=== PATIENT | female | born 1960 | race African-American/Black ===

== ENCOUNTER 2018-05-17 10:26 | Observation (INO) ==
[2018-05-17] MEDS ORDERED: NITROGLYCERIN 2% OINT 1 INCH/GM PACK TOP STA (10:54)
[2018-05-17] MEDS ORDERED: MORPHINE 4 MG/1 ML VIAL IV STA (10:54)
[2018-05-17] MEDS ORDERED: ASPIRIN 325 MG TABLET PO STA (10:54)
[2018-05-17] MEDS ORDERED: ONDANSETRON 4 MG/2 ML VIAL IV STA (10:54)
[2018-05-17] MEDS ORDERED: ONDANSETRON 4 MG/2 ML VIAL ONE (10:55)
[2018-05-17] MEDS ORDERED: MORPHINE 4 MG/1 ML VIAL ONE (10:56)
[2018-05-17 11:09] LABS: Basophils # 0.1 10*3/uL (0.0-0.2); Basophils % 0.3 % (0.0-0.8); Eosinophils % 0.1 % (0.00-10.9); Hematocrit 43.6 VOL% (35.7-47.0); Hemoglobin 13.7 GM/DL (12.0-16.0); Immature Granulocytes % 0.7 %; Lymphocytes # 5.3 10*3/uL (1.4-4.0); Lymphocytes % 34.9 % (21.3-54.2); Mean Corpuscular HGB Conc 31.4 GM/DL (32-36); Mean Corpuscular Hemoglobin 28 PG (27-34); Mean Corpuscular Volume 89.5 FL (87-102); Mean Platelet Volume 11.9 FL (9.6-12.0); Monocytes # 0.6 10*3/uL (0.11-0.8); Monocytes % 4.2 % (1.7-12.7); Neutrophils % 59.8 % (38.7-73.9); Platelet Count 202 T/CUMM (130-400); Red Blood Count 4.87 MC/CUMM (3.8-5.5); Red Cell Distribution Width 16.6 % (9.3-17.3); White Blood Count 15.1 T/CUMM (4-12)
[2018-05-17 11:20] LABS: INR 1.1; PT Patient Result 11.5 SECS
[2018-05-17 11:42] LABS: Alanine Aminotransferase 27 U/L (13-56); Alkaline Phosphatase 86 U/L (45-117); Aspartate Amino Transferase 20 U/L (0-37); Bilirubin,Total < 0.39 MG/DL (0.2-1.0); Blood Urea Nitrogen 12 MG/DL (7-18); Calcium 9.1 MG/DL (8.5-10.1); Glucose 168 MG/DL (74-106); Osmolality,Calculated 280.5 MOS/KG (273-304); Potassium 3.8 MMOL/L (3.5-5.1); Sodium 139 MMOL/L (136-145); Total Protein 8.2 G/DL (6.4-8.3)
[2018-05-17] MEDS ORDERED: hydrALAZINE 20 MG/1 ML VIAL ONE (12:16)
[2018-05-17 12:36] LABS: Apearance,Urine CLEAR (Clear); Bilirubin,Urine Negative (Negative); Blood, Urine Negative (Negative); Glucose,Urine (UA) Negative (Negative); Ketones,Urine Negative (Negative); Nitrite,Urine Negative (Negative); Protein,Urine Negative; RBC,Urine <1 /HPF (0-4); Squamous Epithelial Cell,Urine Occasional /HPF (0-10); Urine Color Straw (Yellow); Urine Specific Gravity 1.005 (1.001-1.035); Urine Urobilinogen < 2.0 EU/DL (0.2-1.0); WBC,Urine 1 /HPF (0-6)
[2018-05-17] MEDS ORDERED: DEXTROSE 50% 25 GM/50 ML VIAL IV PRN (12:52)
[2018-05-17] MEDS ORDERED: ONDANSETRON 4 MG/2 ML VIAL IV PRN (12:52)
[2018-05-17] MEDS ORDERED: PROMETHAZINE 25 MG/1 ML VIAL IM PRN (12:52)
[2018-05-17] MEDS ORDERED: GLUCAGON 1 MG VIAL IM PRN (12:52)
[2018-05-17] MEDS ORDERED: NITROGLYCERIN SL 0.4 MG TABLET SL PRN (12:56)
[2018-05-17] MEDS ORDERED: ENOXAPARIN 30 MG/0.3 ML SYRINGE SUBCUT SCH (13:00)
[2018-05-17 13:22] LABS: Barbiturates Screen,Urine Negative (Negative); Benzodiazepines Screen,Urine Negative (Negative); Cannabinoid Screen,Urine Positive (Negative); Opiate Screen,Urine Positive (Negative); Phencyclidine Screen,Urine Negative (Negative)
[2018-05-17] MEDS ORDERED: guaiFENesin/DM ER 600-30 MG TABLET PO PRN (13:45)
[2018-05-17] MEDS ORDERED: ACETAMINOPHEN 325 MG TABLET PO PRN (13:45)
[2018-05-17] MEDS: AMOXICILLIN/CLAV 875 MG TABLET PO SCH ×2 (15:15→21:17)
[2018-05-17] MEDS: PANTOPRAZOLE 40 MG TABLET PO SCH (15:17)
[2018-05-17] MEDS: FLUTICASONE 50 MCG NASAL SPRAY 16 GM BOTTLE BOTH NARES SCH ×2 (15:20→21:18)
[2018-05-17] MEDS: SODIUM CHLORIDE 0.9% 1,000 ML IV SCH (15:25)
[2018-05-17] MEDS: INSULIN LISPRO 100 UNIT/ML SUBCUT SCH ×2 (15:47→21:18)
[2018-05-17] MEDS ORDERED: LOVASTATIN 20 MG TABLET PO SCH (19:00)
[2018-05-17] MEDS: predniSONE 10 MG TABLET PO SCH (21:17)
[2018-05-17] MEDS: BUDESONIDE/FORMOTEROL 160-4.5 INHALER 6 GM INH SCH (21:19)
[2018-05-18] MEDS: SODIUM CHLORIDE 0.9% 1,000 ML IV SCH (04:23)
[2018-05-18 05:24] LABS: Basophils % 0.4 % (0.0-0.8); Eosinophils % 0.1 % (0.00-10.9); Hematocrit 39.2 VOL% (35.7-47.0); Hemoglobin 12.2 GM/DL (12.0-16.0); Immature Granulocytes % 0.6 %; Immature Granulocytes Absolute 0.06 #; Lymphocytes # 2.2 10*3/uL (1.4-4.0); Lymphocytes % 23.9 % (21.3-54.2); Mean Corpuscular HGB Conc 31.1 GM/DL (32-36); Mean Corpuscular Hemoglobin 28 PG (27-34); Mean Corpuscular Volume 90.1 FL (87-102); Mean Platelet Volume 12.3 FL (9.6-12.0); Monocytes # 0.4 10*3/uL (0.11-0.8); Monocytes % 4.3 % (1.7-12.7); Neutrophils # 6.6 10*3/uL (1.4-7.4); Neutrophils % 70.7 % (38.7-73.9); Platelet Count 164 T/CUMM (130-400); Red Blood Count 4.35 MC/CUMM (3.8-5.5); White Blood Count 9.3 T/CUMM (4-12)
[2018-05-18 06:04] LABS: Bilirubin,Total 0.7 MG/DL (0.2-1.0); Calcium 8.3 MG/DL (8.5-10.1); Osmolality,Calculated 288.3 MOS/KG (273-304); Potassium 3.9 MMOL/L (3.5-5.1); Risk Ratio 3.5; Total Protein 7.1 G/DL (6.4-8.3); VLDL CHOLESTEROL 43.4 MG/DL
[2018-05-18 07:46] VITALS: BP 131/71
[2018-05-18] MEDS ORDERED: CLOPIDOGREL 75 MG TABLET PO SCH (09:00)
[2018-05-18] MEDS ORDERED: amLODIPine 5 MG TABLET PO SCH (09:00)
[2018-05-18] MEDS ORDERED: LOSARTAN 50 MG TABLET PO SCH (09:00)
[2018-05-18] MEDS ORDERED: FLUoxetine 20 MG CAPSULE PO SCH (09:00)
[2018-05-18] MEDS ORDERED: HYDROXYCHLOROQUINE 200 MG TABLET PO SCH (09:00)
[2018-05-18] MEDS ORDERED: predniSONE 20 MG TABLET PO SCH (09:00)
[2018-05-18] MEDS: predniSONE 10 MG TABLET PO SCH (09:03)
[2018-05-18] MEDS: AMOXICILLIN/CLAV 875 MG TABLET PO SCH (09:03)
[2018-05-18] MEDS: FLUTICASONE 50 MCG NASAL SPRAY 16 GM BOTTLE BOTH NARES SCH (09:04)
[2018-05-18] MEDS: BUDESONIDE/FORMOTEROL 160-4.5 INHALER 6 GM INH SCH (09:04)
[2018-05-18] MEDS: PANTOPRAZOLE 40 MG TABLET PO SCH (09:05)
[2018-05-18] MEDS: INSULIN LISPRO 100 UNIT/ML SUBCUT SCH (09:05)
== END 2018-05-18 10:18 | disposition home or self-care (01) ==
LOC: N.EDINP 10:26 → N.ED 10:26 → N.TELES 13:30
PROVIDERS: ADMIT Family Medicine; ATTEND Family Medicine

== ENCOUNTER 2019-01-17 18:35 | Inpatient (IN) ==
[2019-01-17] MEDS ORDERED: ONDANSETRON 4 MG/2 ML VIAL IV STA (19:05)
[2019-01-17] MEDS ORDERED: SODIUM CHLORIDE 0.9% 500 ML IV STA (19:05)
[2019-01-17] MEDS ORDERED: ALUM/MAG/SIMETH/LIDO VISC 1:1 30 ML BOTTLE PO STA (19:05)
[2019-01-17] MEDS ORDERED: HYDROmorphone 2 MG/1 ML VIAL IV STA (19:05)
[2019-01-17] MEDS ORDERED: PANTOPRAZOLE 40 MG VIAL IV STA (19:05)
[2019-01-17 19:48] LABS: Basophils % 0.4 % (0.0-0.8); Eosinophils # 0.1 10*3/uL (0.0-0.87); Eosinophils % 1.2 % (0.00-10.9); Hematocrit 39.6 VOL% (35.7-47.0); Hemoglobin 12.2 GM/DL (12.0-16.0); Immature Granulocytes % 0.5 %; Immature Granulocytes Absolute 0.05 #; Lymphocytes # 4.2 10*3/uL (1.4-4.0); Lymphocytes % 40.1 % (21.3-54.2); Mean Corpuscular HGB Conc 30.8 GM/DL (32-36); Mean Corpuscular Volume 90.8 FL (87-102); Mean Platelet Volume 11.3 FL (9.6-12.0); Neutrophils % 51.8 % (38.7-73.9); Platelet Count 163 T/CUMM (130-400); Red Blood Count 4.36 MC/CUMM (3.8-5.5); Red Cell Distribution Width 14.3 % (9.3-17.3); White Blood Count 10.4 T/CUMM (4-12)
[2019-01-17 20:05] LABS: Alanine Aminotransferase 18 U/L (13-56); Albumin 3.8 G/DL (3.4-5.0); Alkaline Phosphatase 86 U/L (45-117); Amylase 65 U/L (25-115); Aspartate Amino Transferase 15 U/L (0-37); Blood Urea Nitrogen 23 MG/DL (7-18); Calcium 8.5 MG/DL (8.5-10.1); Glucose 112 MG/DL (74-106); Osmolality,Calculated 287.1 MOS/KG (273-304); Total Protein 7.3 G/DL (6.4-8.3)
[2019-01-17] MEDS ORDERED: POTASSIUM CHLORIDE 20 MEQ TABLET PO STA (20:13)
[2019-01-17 21:12] LABS: Apearance,Urine CLEAR (Clear); Bacteria,Urine Occasional /HPF (Few); Bilirubin,Urine Negative (Negative); Blood, Urine Negative (Negative); Glucose,Urine (UA) >=500 mg/dL (Negative); Hyaline Casts,Urine 3 /LPF (0-3); Ketones,Urine Negative (Negative); Mucus,Urine Occasional /LPF (Occasional); Nitrite,Urine Negative (Negative); Protein,Urine Negative; Squamous Epithelial Cell,Urine Occasional /HPF (0-10); Urine Color Straw (Yellow); Urine Specific Gravity 1.007 (1.001-1.035); Urine Urobilinogen < 2.0 EU/DL (0.2-1.0); WBC,Urine 3 /HPF (0-6)
[2019-01-17] MEDS ORDERED: METOCLOPRAMIDE 10 MG/2 ML VIAL IV STA (21:53)
[2019-01-17] MEDS ORDERED: ONDANSETRON 4 MG/2 ML VIAL IV PRN (23:25)
[2019-01-17] MEDS ORDERED: GLUCAGON 1 MG VIAL IM PRN (23:28)
[2019-01-17] MEDS ORDERED: DEXTROSE 50% 25 GM/50 ML VIAL IV PRN (23:28)
[2019-01-18] MEDS: INSULIN REGULAR 100 UNIT/ML SUBCUT SCH ×5 (02:46→20:55)
[2019-01-18] MEDS: ACETAMINOPHEN 325 MG TABLET PO PRN ×2 (03:00→17:21)
[2019-01-18] MEDS: ENOXAPARIN 40 MG/0.4 ML SYRINGE SUBCUT SCH ×2 (03:00→23:16)
[2019-01-18 07:45] LABS: Basophils # 0.1 10*3/uL (0.0-0.2); Basophils % 0.6 % (0.0-0.8); Eosinophils # 0.1 10*3/uL (0.0-0.87); Eosinophils % 1.5 % (0.00-10.9); Hematocrit 38.2 VOL% (35.7-47.0); Immature Granulocytes % 0.2 %; Immature Granulocytes Absolute 0.02 #; Lymphocytes # 3.4 10*3/uL (1.4-4.0); Lymphocytes % 41.4 % (21.3-54.2); Mean Corpuscular HGB Conc 31.4 GM/DL (32-36); Mean Corpuscular Volume 91.2 FL (87-102); Mean Platelet Volume 11.9 FL (9.6-12.0); Monocytes % 5.2 % (1.7-12.7); Neutrophils % 51.1 % (38.7-73.9); Platelet Count 164 T/CUMM (130-400); Red Blood Count 4.19 MC/CUMM (3.8-5.5); Red Cell Distribution Width 14.4 % (9.3-17.3); White Blood Count 8.2 T/CUMM (4-12)
[2019-01-18 08:40] LABS: Albumin 3.6 G/DL (3.4-5.0); Calcium 8.9 MG/DL (8.5-10.1); Osmolality,Calculated 282.3 MOS/KG (273-304); Total Protein 7.6 G/DL (6.4-8.3)
[2019-01-18] MEDS: PANTOPRAZOLE 40 MG TABLET PO SCH (08:46)
[2019-01-18] MEDS: POTASSIUM CHLORIDE RIDER 10 MEQ in PREMIX 1 EACH IV PRN ×3 (10:05→13:24)
[2019-01-18] MEDS: SKIN HEALING OINT (AQUAPHOR) 50 GM TUBE TOP SCH (17:22)
[2019-01-18] MEDS ORDERED: NITROGLYCERIN SL 0.4 MG TABLET SL PRN (21:32)
[2019-01-19 06:22] LABS: Calcium 8.7 MG/DL (8.5-10.1); Osmolality,Calculated 279.3 MOS/KG (273-304)
[2019-01-19] MEDS: POTASSIUM CHLORIDE RIDER 10 MEQ in PREMIX 1 EACH IV PRN ×3 (07:30→11:02)
[2019-01-19] MEDS ORDERED: amLODIPine 5 MG TABLET PO SCH (09:00)
[2019-01-19] MEDS: LOSARTAN 50 MG TABLET PO SCH (09:21)
[2019-01-19] MEDS: FERROUS SULFATE 325 MG TABLET PO SCH (09:22)
[2019-01-19] MEDS: SIMVASTATIN 10 MG TABLET PO SCH (09:22)
[2019-01-19] MEDS: PANTOPRAZOLE 40 MG TABLET PO SCH (09:22)
[2019-01-19] MEDS: HYDROXYCHLOROQUINE 200 MG TABLET PO SCH (09:22)
[2019-01-19] MEDS: SKIN HEALING OINT (AQUAPHOR) 50 GM TUBE TOP SCH (09:26)
[2019-01-19] MEDS: CLOPIDOGREL 75 MG TABLET PO SCH (09:29)
[2019-01-19] MEDS: predniSONE 10 MG TABLET PO SCH ×2 (09:29→21:19)
[2019-01-19] MEDS: INSULIN REGULAR 100 UNIT/ML SUBCUT SCH ×3 (11:29→21:19)
[2019-01-19] MEDS ORDERED: cloNIDine 0.1 MG TABLET PO PRN (16:16)
[2019-01-19] MEDS ORDERED: IBUPROFEN 200 MG TABLET PO PRN (16:17)
[2019-01-19] MEDS: MAGNESIUM HYDROXIDE SUSP 30 ML UDCUP PO PRN (18:41)
[2019-01-20] MEDS ORDERED: MAGNESIUM HYDROXIDE SUSP 30 ML UDCUP PO SCH
[2019-01-20] MEDS: ENOXAPARIN 40 MG/0.4 ML SYRINGE SUBCUT SCH ×2 (00:55→23:57)
[2019-01-20] MEDS: HYDROXYCHLOROQUINE 200 MG TABLET PO SCH (09:22)
[2019-01-20] MEDS: PANTOPRAZOLE 40 MG TABLET PO SCH (09:22)
[2019-01-20] MEDS: CLOPIDOGREL 75 MG TABLET PO SCH (09:22)
[2019-01-20] MEDS: FERROUS SULFATE 325 MG TABLET PO SCH (09:23)
[2019-01-20] MEDS: SIMVASTATIN 10 MG TABLET PO SCH (09:23)
[2019-01-20] MEDS: LOSARTAN 50 MG TABLET PO SCH (09:23)
[2019-01-20] MEDS: predniSONE 10 MG TABLET PO SCH ×2 (09:23→20:27)
[2019-01-20] MEDS: MAGNESIUM HYDROXIDE SUSP 30 ML UDCUP PO PRN (09:24)
[2019-01-20] MEDS: SKIN HEALING OINT (AQUAPHOR) 50 GM TUBE TOP SCH (09:25)
[2019-01-20] MEDS: INSULIN REGULAR 100 UNIT/ML SUBCUT SCH ×4 (09:25→20:32)
[2019-01-21] MEDS: INSULIN REGULAR 100 UNIT/ML SUBCUT SCH ×4 (07:52→20:59)
[2019-01-21] MEDS: predniSONE 10 MG TABLET PO SCH ×2 (09:17→20:59)
[2019-01-21] MEDS: SIMVASTATIN 10 MG TABLET PO SCH (09:18)
[2019-01-21] MEDS: PANTOPRAZOLE 40 MG TABLET PO SCH (09:18)
[2019-01-21] MEDS: SKIN HEALING OINT (AQUAPHOR) 50 GM TUBE TOP SCH (09:18)
[2019-01-21] MEDS: HYDROXYCHLOROQUINE 200 MG TABLET PO SCH (09:18)
[2019-01-21] MEDS: CLOPIDOGREL 75 MG TABLET PO SCH (09:18)
[2019-01-21] MEDS: FERROUS SULFATE 325 MG TABLET PO SCH (09:18)
[2019-01-21] MEDS: LOSARTAN 50 MG TABLET PO SCH (09:18)
[2019-01-22] MEDS: ENOXAPARIN 40 MG/0.4 ML SYRINGE SUBCUT SCH ×2 (00:29→23:39)
[2019-01-22] MEDS: INSULIN REGULAR 100 UNIT/ML SUBCUT SCH ×4 (08:32→21:10)
[2019-01-22] MEDS: FERROUS SULFATE 325 MG TABLET PO SCH (09:31)
[2019-01-22] MEDS: CLOPIDOGREL 75 MG TABLET PO SCH (09:32)
[2019-01-22] MEDS: PANTOPRAZOLE 40 MG TABLET PO SCH (09:32)
[2019-01-22] MEDS: LOSARTAN 50 MG TABLET PO SCH (09:32)
[2019-01-22] MEDS: predniSONE 10 MG TABLET PO SCH ×2 (09:32→21:10)
[2019-01-22] MEDS: HYDROXYCHLOROQUINE 200 MG TABLET PO SCH (09:32)
[2019-01-22] MEDS: SIMVASTATIN 10 MG TABLET PO SCH (09:33)
[2019-01-22] MEDS: SKIN HEALING OINT (AQUAPHOR) 50 GM TUBE TOP SCH (09:33)
[2019-01-23] MEDS: INSULIN REGULAR 100 UNIT/ML SUBCUT SCH ×4 (08:00→20:24)
[2019-01-23] MEDS: PANTOPRAZOLE 40 MG TABLET PO SCH (08:44)
[2019-01-23] MEDS: FERROUS SULFATE 325 MG TABLET PO SCH (08:44)
[2019-01-23] MEDS: LOSARTAN 50 MG TABLET PO SCH (08:44)
[2019-01-23] MEDS: predniSONE 10 MG TABLET PO SCH ×2 (08:44→20:24)
[2019-01-23] MEDS: CLOPIDOGREL 75 MG TABLET PO SCH (08:44)
[2019-01-23] MEDS: SIMVASTATIN 10 MG TABLET PO SCH (08:45)
[2019-01-23] MEDS: HYDROXYCHLOROQUINE 200 MG TABLET PO SCH (08:45)
[2019-01-23] MEDS: SKIN HEALING OINT (AQUAPHOR) 50 GM TUBE TOP SCH (08:45)
[2019-01-23] MEDS: ENOXAPARIN 40 MG/0.4 ML SYRINGE SUBCUT SCH (23:01)
[2019-01-24] MEDS ORDERED: LACTULOSE 20 GM/30 ML UDCUP PO ONE (00:20)
[2019-01-24 05:21] LABS: Calcium 9.1 MG/DL (8.5-10.1); Osmolality,Calculated 290.4 MOS/KG (273-304)
[2019-01-24] MEDS: CLOPIDOGREL 75 MG TABLET PO SCH (08:19)
[2019-01-24] MEDS: FERROUS SULFATE 325 MG TABLET PO SCH (08:19)
[2019-01-24] MEDS: PANTOPRAZOLE 40 MG TABLET PO SCH (08:20)
[2019-01-24] MEDS: HYDROXYCHLOROQUINE 200 MG TABLET PO SCH (08:20)
[2019-01-24] MEDS: SIMVASTATIN 10 MG TABLET PO SCH (08:20)
[2019-01-24] MEDS: predniSONE 10 MG TABLET PO SCH ×2 (08:20→20:28)
[2019-01-24] MEDS: SKIN HEALING OINT (AQUAPHOR) 50 GM TUBE TOP SCH (08:20)
[2019-01-24] MEDS: INSULIN REGULAR 100 UNIT/ML SUBCUT SCH ×4 (08:20→22:58)
[2019-01-24] MEDS: LOSARTAN 50 MG TABLET PO SCH (08:20)
[2019-01-24] MEDS: LINACLOTIDE 145 MCG CAPSULE PO SCH (13:11)
[2019-01-24] MEDS: POLYETHYLENE GLYCOL POWDER 17 GM PACK PO SCH ×2 (13:11→20:29)
[2019-01-24] MEDS: MAGNESIUM HYDROXIDE SUSP 30 ML UDCUP PO PRN (17:18)
[2019-01-24] MEDS: ENOXAPARIN 40 MG/0.4 ML SYRINGE SUBCUT SCH (22:59)
[2019-01-25] MEDS: INSULIN REGULAR 100 UNIT/ML SUBCUT SCH ×4 (08:29→21:10)
[2019-01-25] MEDS: FERROUS SULFATE 325 MG TABLET PO SCH (08:29)
[2019-01-25] MEDS: CLOPIDOGREL 75 MG TABLET PO SCH (08:30)
[2019-01-25] MEDS: LOSARTAN 50 MG TABLET PO SCH (08:30)
[2019-01-25] MEDS: PANTOPRAZOLE 40 MG TABLET PO SCH (08:30)
[2019-01-25] MEDS: SIMVASTATIN 10 MG TABLET PO SCH (08:30)
[2019-01-25] MEDS: predniSONE 10 MG TABLET PO SCH ×2 (08:31→21:10)
[2019-01-25] MEDS: HYDROXYCHLOROQUINE 200 MG TABLET PO SCH (08:31)
[2019-01-25] MEDS: SKIN HEALING OINT (AQUAPHOR) 50 GM TUBE TOP SCH (08:32)
[2019-01-25] MEDS: LINACLOTIDE 145 MCG CAPSULE PO SCH (10:38)
[2019-01-25] MEDS: POLYETHYLENE GLYCOL POWDER 17 GM PACK PO SCH ×2 (10:39→21:12)
[2019-01-26] MEDS: ENOXAPARIN 40 MG/0.4 ML SYRINGE SUBCUT SCH ×2 (01:04→23:49)
[2019-01-26] MEDS: LINACLOTIDE 145 MCG CAPSULE PO SCH (07:56)
[2019-01-26] MEDS: INSULIN REGULAR 100 UNIT/ML SUBCUT SCH ×4 (09:16→21:46)
[2019-01-26] MEDS: HYDROXYCHLOROQUINE 200 MG TABLET PO SCH (09:17)
[2019-01-26] MEDS: LOSARTAN 50 MG TABLET PO SCH (09:17)
[2019-01-26] MEDS: CLOPIDOGREL 75 MG TABLET PO SCH (09:17)
[2019-01-26] MEDS: FERROUS SULFATE 325 MG TABLET PO SCH (09:17)
[2019-01-26] MEDS: POLYETHYLENE GLYCOL POWDER 17 GM PACK PO SCH ×2 (09:17→21:46)
[2019-01-26] MEDS: SIMVASTATIN 10 MG TABLET PO SCH (09:18)
[2019-01-26] MEDS: SKIN HEALING OINT (AQUAPHOR) 50 GM TUBE TOP SCH (09:18)
[2019-01-26] MEDS: PANTOPRAZOLE 40 MG TABLET PO SCH (09:18)
[2019-01-26] MEDS: predniSONE 10 MG TABLET PO SCH ×2 (09:18→21:46)
[2019-01-26] MEDS: ACETAMINOPHEN 325 MG TABLET PO PRN (21:53)
[2019-01-27] MEDS: INSULIN REGULAR 100 UNIT/ML SUBCUT SCH ×4 (09:13→21:31)
[2019-01-27] MEDS: LOSARTAN 50 MG TABLET PO SCH (09:13)
[2019-01-27] MEDS: HYDROXYCHLOROQUINE 200 MG TABLET PO SCH (09:14)
[2019-01-27] MEDS: FERROUS SULFATE 325 MG TABLET PO SCH (09:14)
[2019-01-27] MEDS: SIMVASTATIN 10 MG TABLET PO SCH (09:14)
[2019-01-27] MEDS: CLOPIDOGREL 75 MG TABLET PO SCH (09:14)
[2019-01-27] MEDS: predniSONE 10 MG TABLET PO SCH ×2 (09:14→21:30)
[2019-01-27] MEDS: PANTOPRAZOLE 40 MG TABLET PO SCH (09:14)
[2019-01-27] MEDS: LINACLOTIDE 145 MCG CAPSULE PO SCH (09:25)
[2019-01-27] MEDS: POLYETHYLENE GLYCOL POWDER 17 GM PACK PO SCH ×2 (09:26→21:31)
[2019-01-27] MEDS: SKIN HEALING OINT (AQUAPHOR) 50 GM TUBE TOP SCH (09:29)
[2019-01-27] MEDS: ENOXAPARIN 40 MG/0.4 ML SYRINGE SUBCUT SCH (23:50)
[2019-01-28 05:29] LABS: Calcium 9.2 MG/DL (8.5-10.1); Osmolality,Calculated 288.8 MOS/KG (273-304)
[2019-01-28] MEDS: INSULIN REGULAR 100 UNIT/ML SUBCUT SCH ×2 (08:49→12:49)
[2019-01-28] MEDS: LINACLOTIDE 145 MCG CAPSULE PO SCH (08:50)
[2019-01-28] MEDS: LOSARTAN 50 MG TABLET PO SCH (09:43)
[2019-01-28] MEDS: predniSONE 10 MG TABLET PO SCH (09:43)
[2019-01-28] MEDS: CLOPIDOGREL 75 MG TABLET PO SCH (09:43)
[2019-01-28] MEDS: SIMVASTATIN 10 MG TABLET PO SCH (09:43)
[2019-01-28] MEDS: ACETAMINOPHEN 325 MG TABLET PO PRN (09:47)
[2019-01-28] MEDS: HYDROXYCHLOROQUINE 200 MG TABLET PO SCH (09:48)
[2019-01-28] MEDS: PANTOPRAZOLE 40 MG TABLET PO SCH (09:48)
[2019-01-28] MEDS: POLYETHYLENE GLYCOL POWDER 17 GM PACK PO SCH (09:48)
[2019-01-28] MEDS: SKIN HEALING OINT (AQUAPHOR) 50 GM TUBE TOP SCH (09:48)
[2019-01-28] MEDS: FERROUS SULFATE 325 MG TABLET PO SCH (09:48)
[2019-01-28 12:18] VITALS: BP 147/85
== END 2019-01-28 12:47 | DRG 249 ==
LOC: EDBD → EDUNIT# → N.ED 18:35 → N.EDINP 18:35 → SUATTDRO 23:25 → N.3E 01-18 00:27 → SUATTDRO 01-21 15:26
PROVIDERS: ADMIT Internal Medicine Nephrology; ATTEND Internal Medicine Cardiovascular Disease

== ENCOUNTER 2019-03-06 05:22 | Inpatient (IN) ==
[2019-03-06] MEDS ORDERED: LACTATED RINGERS 1,000 ML IV ONE ×2 (06:32→08:02)
[2019-03-06] MEDS ORDERED: ONDANSETRON 4 MG/2 ML VIAL IV ONE (06:32)
[2019-03-06 07:20] LABS: Basophils # 0.1 10*3/uL (0.0-0.2); Basophils % 0.4 % (0.0-0.8); Eosinophils % 0.1 % (0.00-10.9); Hematocrit 34.8 VOL% (35.7-47.0); Hemoglobin 10.8 GM/DL (12.0-16.0); Immature Granulocytes % 1.7 %; Immature Granulocytes Absolute 0.22 #; Lymphocytes # 5.2 10*3/uL (1.4-4.0); Lymphocytes % 39.4 % (21.3-54.2); Mean Platelet Volume 10.1 FL (9.6-12.0); Monocytes % 6.2 % (1.7-12.7); Neutrophils % 52.2 % (38.7-73.9); Platelet Count 200 T/CUMM (130-400); Red Blood Count 3.74 MC/CUMM (3.8-5.5); Red Cell Distribution Width 14.6 % (9.3-17.3); White Blood Count 13.2 T/CUMM (4-12)
[2019-03-06 07:40] LABS: Alanine Aminotransferase 41 U/L (13-56); Albumin 3.2 G/DL (3.4-5.0); Alkaline Phosphatase 95 U/L (45-117); Aspartate Amino Transferase 28 U/L (0-37); Bilirubin,Total < 0.39 MG/DL (0.2-1.0); Blood Urea Nitrogen 18 MG/DL (7-18); Calcium 9.1 MG/DL (8.5-10.1); Glucose 118 MG/DL (74-106); Total Protein 6.7 G/DL (6.4-8.3)
[2019-03-06 08:12] LABS: Apearance,Urine CLEAR (Clear); Bilirubin,Urine Negative (Negative); Blood, Urine Negative (Negative); Glucose,Urine (UA) >=500 mg/dL (Negative); Ketones,Urine Negative (Negative); Nitrite,Urine Negative (Negative); Protein,Urine Negative; RBC,Urine <1 /HPF (0-4); Squamous Epithelial Cell,Urine Occasional /HPF (0-10); Urine Color Colorless (Yellow); Urine Specific Gravity 1.003 (1.001-1.035); Urine Urobilinogen < 2.0 EU/DL (0.2-1.0); WBC,Urine 1 /HPF (0-6)
[2019-03-06] MEDS ORDERED: ONDANSETRON 4 MG/2 ML VIAL IV PRN (10:14)
[2019-03-06] MEDS ORDERED: PROMETHAZINE 25 MG TABLET PO PRN (10:14)
[2019-03-06] MEDS ORDERED: NITROGLYCERIN SL 0.4 MG TABLET SL PRN (10:19)
[2019-03-06] MEDS ORDERED: DEXTROSE 10% 250 ML BAG IV PRN (10:23)
[2019-03-06] MEDS ORDERED: GLUCAGON 1 MG VIAL IM PRN (10:23)
[2019-03-06] MEDS ORDERED: DEXTROSE 5% NACL 0.45% 1,000 ML IV SCH (10:30)
[2019-03-06] MEDS ORDERED: CHLORTHALIDONE 25 MG TABLET PO SCH (10:30)
[2019-03-06] MEDS: predniSONE 5 MG TABLET PO SCH ×2 (12:24→21:53)
[2019-03-06] MEDS: FLUoxetine 20 MG CAPSULE PO SCH (12:24)
[2019-03-06] MEDS: CLOPIDOGREL 75 MG TABLET PO SCH (12:24)
[2019-03-06] MEDS: PANTOPRAZOLE 40 MG TABLET PO SCH (12:24)
[2019-03-06] MEDS: HYDROXYCHLOROQUINE 200 MG TABLET PO SCH (12:24)
[2019-03-06] MEDS: FERROUS SULFATE 325 MG TABLET PO SCH (12:24)
[2019-03-06] MEDS: SIMVASTATIN 10 MG TABLET PO SCH (12:24)
[2019-03-06] MEDS: tiZANidine 4 MG TABLET PO SCH ×2 (16:34→21:53)
[2019-03-06] MEDS: SODIUM CHLORIDE 0.9% 1,000 ML IV SCH (18:03)
[2019-03-06] MEDS: BUDESONIDE/FORMOTEROL 160-4.5 INHALER 6 GM INH SCH (21:51)
[2019-03-06] MEDS: INSULIN LISPRO 100 UNIT/ML SUBCUT SCH (21:52)
[2019-03-06] MEDS: ACETAMINOPHEN 325 MG TABLET PO PRN (21:52)
[2019-03-06] MEDS: ENOXAPARIN 30 MG/0.3 ML SYRINGE SUBCUT SCH (21:52)
[2019-03-06] MEDS: FLUTICASONE 50 MCG NASAL SPRAY 16 GM BOTTLE BOTH NARES SCH (21:53)
[2019-03-07] MEDS: INSULIN LISPRO 100 UNIT/ML SUBCUT SCH ×6 (01:49→21:44)
[2019-03-07] MEDS: SODIUM CHLORIDE 0.9% 1,000 ML IV SCH ×3 (01:53→17:51)
[2019-03-07 05:37] LABS: Basophils % 0.5 % (0.0-0.8); Hematocrit 32.7 VOL% (35.7-47.0); Immature Granulocytes % 1.7 %; Immature Granulocytes Absolute 0.11 #; Lymphocytes # 1.7 10*3/uL (1.4-4.0); Mean Corpuscular HGB Conc 30.6 GM/DL (32-36); Mean Corpuscular Volume 94.8 FL (87-102); Mean Platelet Volume 10.8 FL (9.6-12.0); Monocytes % 6.2 % (1.7-12.7); NRBC # 0.07 10*3/uL; Neutrophils % 65.6 % (38.7-73.9); Platelet Count 175 T/CUMM (130-400); Red Blood Count 3.45 MC/CUMM (3.8-5.5); Red Cell Distribution Width 14.7 % (9.3-17.3); White Blood Count 6.3 T/CUMM (4-12)
[2019-03-07 06:16] LABS: Alanine Aminotransferase 38 U/L (13-56); Albumin 2.9 G/DL (3.4-5.0); Alkaline Phosphatase 79 U/L (45-117); Aspartate Amino Transferase 23 U/L (0-37); Bilirubin,Total < 0.39 MG/DL (0.2-1.0); Blood Urea Nitrogen 13 MG/DL (7-18); Calcium 8.5 MG/DL (8.5-10.1); Glucose 176 MG/DL (74-106); HDL Cholesterol 47 MG/DL (40-60); Risk Ratio 2.68; Total Protein 6.1 G/DL (6.4-8.3); Triglycerides 239 MG/DL (2-150); VLDL CHOLESTEROL 47.8 MG/DL
[2019-03-07] MEDS: SIMVASTATIN 10 MG TABLET PO SCH (08:35)
[2019-03-07] MEDS: HYDROXYCHLOROQUINE 200 MG TABLET PO SCH (08:35)
[2019-03-07] MEDS: PANTOPRAZOLE 40 MG TABLET PO SCH ×2 (08:35→21:46)
[2019-03-07] MEDS: FLUoxetine 20 MG CAPSULE PO SCH (08:35)
[2019-03-07] MEDS: predniSONE 5 MG TABLET PO SCH ×2 (08:35→21:45)
[2019-03-07] MEDS: tiZANidine 4 MG TABLET PO SCH (08:36)
[2019-03-07] MEDS: FERROUS SULFATE 325 MG TABLET PO SCH (08:36)
[2019-03-07] MEDS: CLOPIDOGREL 75 MG TABLET PO SCH (08:36)
[2019-03-07] MEDS: BUDESONIDE/FORMOTEROL 160-4.5 INHALER 6 GM INH SCH ×2 (08:40→22:06)
[2019-03-07] MEDS: FLUTICASONE 50 MCG NASAL SPRAY 16 GM BOTTLE BOTH NARES SCH ×2 (08:40→21:49)
[2019-03-07] MEDS ORDERED: traZODone 50 MG TABLET PO ONE (21:20)
[2019-03-07] MEDS: ENOXAPARIN 30 MG/0.3 ML SYRINGE SUBCUT SCH (21:45)
[2019-03-07] MEDS: POLYETHYLENE GLYCOL POWDER 17 GM PACK PO SCH (21:46)
[2019-03-07] MEDS ORDERED: MORPHINE 4 MG/1 ML VIAL ONE (22:24)
[2019-03-07] MEDS ORDERED: diphenhydrAMINE 50 MG/1 ML VIAL ONE (22:30)
[2019-03-07] MEDS ORDERED: LORazepam 2 MG/1 ML VIAL ONE (22:34)
[2019-03-07] MEDS ORDERED: LORazepam 2 MG/1 ML VIAL IV ONE (22:39)
[2019-03-07] MEDS ORDERED: diphenhydrAMINE 50 MG/1 ML VIAL IV ONE (22:40)
[2019-03-08 00:34] LABS: Alanine Aminotransferase 41 U/L (13-56); Albumin 3.5 G/DL (3.4-5.0); Alkaline Phosphatase 92 U/L (45-117); Aspartate Amino Transferase 23 U/L (0-37); Bilirubin,Total < 0.39 MG/DL (0.2-1.0); Blood Urea Nitrogen 14 MG/DL (7-18); Calcium 8.8 MG/DL (8.5-10.1); Glucose 153 MG/DL (74-106); Osmolality,Calculated 293.6 MOS/KG (273-304); Total Protein 6.7 G/DL (6.4-8.3)
[2019-03-08] MEDS: INSULIN LISPRO 100 UNIT/ML SUBCUT SCH ×6 (01:14→21:36)
[2019-03-08] MEDS: SODIUM CHLORIDE 0.9% 1,000 ML IV SCH ×3 (01:15→18:30)
[2019-03-08 04:44] LABS: Basophils # 0.1 10*3/uL (0.0-0.2); Basophils % 0.7 % (0.0-0.8); Eosinophils % 0.1 % (0.00-10.9); Hematocrit 34.2 VOL% (35.7-47.0); Hemoglobin 10.3 GM/DL (12.0-16.0); Immature Granulocytes % 2.6 %; Immature Granulocytes Absolute 0.23 #; Lymphocytes # 2.7 10*3/uL (1.4-4.0); Lymphocytes % 30.2 % (21.3-54.2); Mean Corpuscular HGB Conc 30.1 GM/DL (32-36); Mean Corpuscular Volume 95.3 FL (87-102); Mean Platelet Volume 10.5 FL (9.6-12.0); Monocytes % 7.3 % (1.7-12.7); NRBC # 0.09 10*3/uL; Neutrophils % 59.1 % (38.7-73.9); Platelet Count 172 T/CUMM (130-400); Red Blood Count 3.59 MC/CUMM (3.8-5.5); Red Cell Distribution Width 14.6 % (9.3-17.3)
[2019-03-08 05:37] LABS: Calcium 8.6 MG/DL (8.5-10.1); Osmolality,Calculated 293.6 MOS/KG (273-304)
[2019-03-08] MEDS: MORPHINE 4 MG/1 ML VIAL IV PRN ×3 (10:23→23:51)
[2019-03-08] MEDS: POLYETHYLENE GLYCOL POWDER 17 GM PACK PO SCH ×2 (12:47→21:38)
[2019-03-08] MEDS: HYDROXYCHLOROQUINE 200 MG TABLET PO SCH (12:47)
[2019-03-08] MEDS: FLUoxetine 20 MG CAPSULE PO SCH (12:48)
[2019-03-08] MEDS: predniSONE 5 MG TABLET PO SCH ×2 (12:48→21:38)
[2019-03-08] MEDS: CLOPIDOGREL 75 MG TABLET PO SCH (12:48)
[2019-03-08] MEDS: FERROUS SULFATE 325 MG TABLET PO SCH (12:49)
[2019-03-08] MEDS: FLUTICASONE 50 MCG NASAL SPRAY 16 GM BOTTLE BOTH NARES SCH ×2 (12:49→21:39)
[2019-03-08] MEDS: BUDESONIDE/FORMOTEROL 160-4.5 INHALER 6 GM INH SCH ×2 (12:49→21:39)
[2019-03-08] MEDS: PANTOPRAZOLE 40 MG TABLET PO SCH ×2 (12:49→21:38)
[2019-03-08] MEDS: ENOXAPARIN 30 MG/0.3 ML SYRINGE SUBCUT SCH (21:38)
[2019-03-08] MEDS: SIMVASTATIN 10 MG TABLET PO SCH (21:38)
[2019-03-09] MEDS: INSULIN LISPRO 100 UNIT/ML SUBCUT SCH ×6 (00:23→23:05)
[2019-03-09] MEDS: SODIUM CHLORIDE 0.9% 1,000 ML IV SCH ×3 (02:01→22:50)
[2019-03-09 05:11] LABS: Calcium 8.5 MG/DL (8.5-10.1); Osmolality,Calculated 295.7 MOS/KG (273-304)
[2019-03-09 05:48] LABS: Basophils # 0.1 10*3/uL (0.0-0.2); Basophils % 0.6 % (0.0-0.8); Eosinophils % 0.1 % (0.00-10.9); Hemoglobin 10.5 GM/DL (12.0-16.0); Immature Granulocytes Absolute 0.18 #; Lymphocytes # 2.6 10*3/uL (1.4-4.0); Lymphocytes % 28.7 % (21.3-54.2); Mean Corpuscular HGB Conc 29.2 GM/DL (32-36); Mean Corpuscular Volume 98.6 FL (87-102); Mean Platelet Volume 10.6 FL (9.6-12.0); Monocytes % 8.3 % (1.7-12.7); Neutrophils % 60.3 % (38.7-73.9); Platelet Count 171 T/CUMM (130-400); Red Blood Count 3.65 MC/CUMM (3.8-5.5); Red Cell Distribution Width 14.8 % (9.3-17.3)
[2019-03-09] MEDS: POLYETHYLENE GLYCOL POWDER 17 GM PACK PO SCH ×2 (08:35→21:58)
[2019-03-09] MEDS: predniSONE 5 MG TABLET PO SCH ×2 (08:35→21:54)
[2019-03-09] MEDS: PANTOPRAZOLE 40 MG TABLET PO SCH ×2 (08:36→21:54)
[2019-03-09] MEDS: HYDROXYCHLOROQUINE 200 MG TABLET PO SCH (08:36)
[2019-03-09] MEDS: FERROUS SULFATE 325 MG TABLET PO SCH (08:36)
[2019-03-09] MEDS: FLUTICASONE 50 MCG NASAL SPRAY 16 GM BOTTLE BOTH NARES SCH (08:36)
[2019-03-09] MEDS: CLOPIDOGREL 75 MG TABLET PO SCH (08:36)
[2019-03-09] MEDS: BUDESONIDE/FORMOTEROL 160-4.5 INHALER 6 GM INH SCH (08:36)
[2019-03-09] MEDS: FLUoxetine 20 MG CAPSULE PO SCH (08:36)
[2019-03-09] MEDS: MORPHINE 4 MG/1 ML VIAL IV PRN ×2 (12:41→21:50)
[2019-03-09] MEDS: hydrALAZINE 20 MG/1 ML VIAL IV PRN (12:42)
[2019-03-09] MEDS: SIMVASTATIN 10 MG TABLET PO SCH (21:54)
[2019-03-09] MEDS: ENOXAPARIN 30 MG/0.3 ML SYRINGE SUBCUT SCH (21:58)
[2019-03-10] MEDS: FLUTICASONE 50 MCG NASAL SPRAY 16 GM BOTTLE BOTH NARES SCH ×3 (01:00→22:17)
[2019-03-10] MEDS: BUDESONIDE/FORMOTEROL 160-4.5 INHALER 6 GM INH SCH ×3 (01:00→22:18)
[2019-03-10] MEDS: INSULIN LISPRO 100 UNIT/ML SUBCUT SCH ×6 (03:31→22:14)
[2019-03-10] MEDS: ONDANSETRON 4 MG/2 ML VIAL IV PRN ×2 (05:56→10:35)
[2019-03-10] MEDS: MORPHINE 4 MG/1 ML VIAL IV PRN (05:57)
[2019-03-10] MEDS: LINACLOTIDE 145 MCG CAPSULE PO SCH ×2 (10:23→13:20)
[2019-03-10] MEDS: FERROUS SULFATE 325 MG TABLET PO SCH (10:34)
[2019-03-10] MEDS: predniSONE 5 MG TABLET PO SCH ×2 (10:34→21:59)
[2019-03-10] MEDS: HYDROXYCHLOROQUINE 200 MG TABLET PO SCH (10:34)
[2019-03-10] MEDS: PANTOPRAZOLE 40 MG TABLET PO SCH ×2 (10:35→21:59)
[2019-03-10] MEDS: FLUoxetine 20 MG CAPSULE PO SCH (10:35)
[2019-03-10] MEDS: CLOPIDOGREL 75 MG TABLET PO SCH (10:35)
[2019-03-10] MEDS: POLYETHYLENE GLYCOL POWDER 17 GM PACK PO SCH ×4 (10:38→21:58)
[2019-03-10] MEDS: SODIUM CHLORIDE 0.9% 1,000 ML IV SCH ×2 (13:07→22:22)
[2019-03-10] MEDS: SIMVASTATIN 10 MG TABLET PO SCH (21:59)
[2019-03-10] MEDS: ENOXAPARIN 30 MG/0.3 ML SYRINGE SUBCUT SCH (21:59)
[2019-03-11] MEDS: INSULIN LISPRO 100 UNIT/ML SUBCUT SCH ×7 (00:19→23:55)
[2019-03-11] MEDS: MORPHINE 4 MG/1 ML VIAL IV PRN ×2 (00:20→20:19)
[2019-03-11 05:13] LABS: Basophils % 0.4 % (0.0-0.8); Hematocrit 37.2 VOL% (35.7-47.0); Hemoglobin 11.4 GM/DL (12.0-16.0); Immature Granulocytes % 1.8 %; Immature Granulocytes Absolute 0.14 #; Lymphocytes # 1.6 10*3/uL (1.4-4.0); Lymphocytes % 20.3 % (21.3-54.2); Mean Corpuscular HGB Conc 30.6 GM/DL (32-36); Mean Corpuscular Volume 95.9 FL (87-102); Mean Platelet Volume 10.7 FL (9.6-12.0); Monocytes % 4.7 % (1.7-12.7); NRBC # 0.03 10*3/uL; Neutrophils % 72.8 % (38.7-73.9); Platelet Count 171 T/CUMM (130-400); Red Blood Count 3.88 MC/CUMM (3.8-5.5); Red Cell Distribution Width 14.8 % (9.3-17.3); White Blood Count 7.7 T/CUMM (4-12)
[2019-03-11 05:30] LABS: Osmolality,Calculated 296.8 MOS/KG (273-304)
[2019-03-11] MEDS: SODIUM CHLORIDE 0.9% 1,000 ML IV SCH ×3 (06:29→17:46)
[2019-03-11] MEDS: LINACLOTIDE 145 MCG CAPSULE PO SCH (09:57)
[2019-03-11] MEDS: FLUoxetine 20 MG CAPSULE PO SCH (09:57)
[2019-03-11] MEDS: predniSONE 5 MG TABLET PO SCH ×2 (09:57→20:07)
[2019-03-11] MEDS: CLOPIDOGREL 75 MG TABLET PO SCH (09:58)
[2019-03-11] MEDS: PANTOPRAZOLE 40 MG TABLET PO SCH ×2 (09:58→21:00)
[2019-03-11] MEDS: FERROUS SULFATE 325 MG TABLET PO SCH (09:58)
[2019-03-11] MEDS: HYDROXYCHLOROQUINE 200 MG TABLET PO SCH (09:58)
[2019-03-11] MEDS: POLYETHYLENE GLYCOL POWDER 17 GM PACK PO SCH ×5 (10:02→23:19)
[2019-03-11] MEDS: BUDESONIDE/FORMOTEROL 160-4.5 INHALER 6 GM INH SCH ×2 (10:05→23:58)
[2019-03-11] MEDS: FLUTICASONE 50 MCG NASAL SPRAY 16 GM BOTTLE BOTH NARES SCH ×2 (10:05→23:58)
[2019-03-11] MEDS ORDERED: LORazepam 2 MG/1 ML VIAL ONE ×2 (11:29→11:38)
[2019-03-11] MEDS ORDERED: PHENYTOIN INJ 1,000 MG in SODIUM CHLORIDE 0.9% 100 ML IV ONE (11:41)
[2019-03-11 15:54] LABS: Apearance,Urine CLEAR (Clear); Bilirubin,Urine Negative (Negative); Blood, Urine Negative (Negative); Glucose,Urine (UA) >=500 mg/dL (Negative); Hyaline Casts,Urine 1 /LPF (0-3); Ketones,Urine Negative (Negative); Nitrite,Urine Negative (Negative); Protein,Urine Negative; RBC,Urine 1 /HPF (0-4); Urine Color Yellow (Yellow); Urine Specific Gravity 1.016 (1.001-1.035); Urine Urobilinogen < 2.0 EU/DL (0.2-1.0); WBC,Urine 2 /HPF (0-6)
[2019-03-11 16:06] LABS: Barbiturates Screen,Urine Negative (Negative); Benzodiazepines Screen,Urine Negative (Negative); Cannabinoid Screen,Urine Negative (Negative); Opiate Screen,Urine Positive (Negative); Phencyclidine Screen,Urine Negative (Negative)
[2019-03-11] MEDS: PHENYTOIN 100 MG/2 ML VIAL IV SCH (20:04)
[2019-03-11] MEDS: ENOXAPARIN 30 MG/0.3 ML SYRINGE SUBCUT SCH (20:05)
[2019-03-11] MEDS: SIMVASTATIN 10 MG TABLET PO SCH (20:07)
[2019-03-12] MEDS: hydrALAZINE 20 MG/1 ML VIAL IV PRN (00:11)
[2019-03-12] MEDS: SODIUM CHLORIDE 0.9% 1,000 ML IV SCH ×3 (01:29→18:09)
[2019-03-12] MEDS: INSULIN LISPRO 100 UNIT/ML SUBCUT SCH ×5 (05:19→20:46)
[2019-03-12] MEDS: PHENYTOIN 100 MG/2 ML VIAL IV SCH ×2 (05:20→12:15)
[2019-03-12] MEDS: LINACLOTIDE 145 MCG CAPSULE PO SCH (08:49)
[2019-03-12] MEDS: HYDROXYCHLOROQUINE 200 MG TABLET PO SCH (08:51)
[2019-03-12] MEDS: CLOPIDOGREL 75 MG TABLET PO SCH (08:51)
[2019-03-12] MEDS: FERROUS SULFATE 325 MG TABLET PO SCH (08:52)
[2019-03-12] MEDS: FLUoxetine 20 MG CAPSULE PO SCH (08:52)
[2019-03-12] MEDS: PANTOPRAZOLE 40 MG TABLET PO SCH ×2 (08:52→21:01)
[2019-03-12] MEDS: predniSONE 5 MG TABLET PO SCH ×2 (08:53→21:01)
[2019-03-12] MEDS: POLYETHYLENE GLYCOL POWDER 17 GM PACK PO SCH ×4 (08:54→21:01)
[2019-03-12] MEDS: FLUTICASONE 50 MCG NASAL SPRAY 16 GM BOTTLE BOTH NARES SCH ×2 (09:05→21:01)
[2019-03-12] MEDS: BUDESONIDE/FORMOTEROL 160-4.5 INHALER 6 GM INH SCH ×2 (11:20→21:01)
[2019-03-12] MEDS: PHENYTOIN ER 100 MG CAPSULE PO SCH ×2 (16:27→21:01)
[2019-03-12] MEDS: MORPHINE 4 MG/1 ML VIAL IV PRN (18:48)
[2019-03-12] MEDS: ENOXAPARIN 40 MG/0.4 ML SYRINGE SUBCUT SCH (21:00)
[2019-03-12] MEDS: SIMVASTATIN 10 MG TABLET PO SCH (21:01)
[2019-03-12] MEDS: diphenhydrAMINE CAP 25 MG CAPSULE PO PRN (22:51)
[2019-03-13] MEDS: ACETAMINOPHEN 325 MG TABLET PO PRN (01:28)
[2019-03-13] MEDS: SODIUM CHLORIDE 0.9% 1,000 ML IV SCH ×3 (02:36→22:09)
[2019-03-13] MEDS: hydrALAZINE 20 MG/1 ML VIAL IV PRN ×2 (04:11→22:13)
[2019-03-13] MEDS: predniSONE 5 MG TABLET PO SCH ×2 (08:38→20:04)
[2019-03-13] MEDS: PHENYTOIN ER 100 MG CAPSULE PO SCH ×3 (08:38→20:03)
[2019-03-13] MEDS: HYDROXYCHLOROQUINE 200 MG TABLET PO SCH (08:38)
[2019-03-13] MEDS: FERROUS SULFATE 325 MG TABLET PO SCH (08:38)
[2019-03-13] MEDS: FLUoxetine 20 MG CAPSULE PO SCH (08:38)
[2019-03-13] MEDS: FLUTICASONE 50 MCG NASAL SPRAY 16 GM BOTTLE BOTH NARES SCH ×2 (08:39→20:03)
[2019-03-13] MEDS: BUDESONIDE/FORMOTEROL 160-4.5 INHALER 6 GM INH SCH ×2 (08:39→20:04)
[2019-03-13] MEDS: CLOPIDOGREL 75 MG TABLET PO SCH (08:39)
[2019-03-13] MEDS: POLYETHYLENE GLYCOL POWDER 17 GM PACK PO SCH ×4 (08:39→20:04)
[2019-03-13] MEDS: PANTOPRAZOLE 40 MG TABLET PO SCH ×2 (08:39→20:04)
[2019-03-13] MEDS: INSULIN LISPRO 100 UNIT/ML SUBCUT SCH ×4 (08:40→20:03)
[2019-03-13] MEDS: diphenhydrAMINE CAP 25 MG CAPSULE PO PRN (11:02)
[2019-03-13] MEDS ORDERED: LORazepam 2 MG/1 ML VIAL IV ONE (11:07)
[2019-03-13] MEDS: LINACLOTIDE 145 MCG CAPSULE PO SCH (12:12)
[2019-03-13 15:22] LABS: Apearance,Urine CLEAR (Clear); Bacteria,Urine Occasional /HPF (Few); Bilirubin,Urine Negative (Negative); Blood, Urine Negative (Negative); Glucose,Urine (UA) 50 mg/dL (Negative); Ketones,Urine Negative (Negative); Nitrite,Urine Positive (Negative); Protein,Urine Negative; RBC,Urine 1 /HPF (0-4); Squamous Epithelial Cell,Urine Occasional /HPF (0-10); Urine Color Straw (Yellow); Urine Specific Gravity 1.004 (1.001-1.035); Urine Urobilinogen < 2.0 EU/DL (0.2-1.0); WBC,Urine 1 /HPF (0-6)
[2019-03-13] MEDS: ENOXAPARIN 40 MG/0.4 ML SYRINGE SUBCUT SCH (20:04)
[2019-03-13] MEDS: SIMVASTATIN 10 MG TABLET PO SCH (20:04)
[2019-03-14] MEDS: hydrALAZINE 20 MG/1 ML VIAL IV PRN (03:26)
[2019-03-14] MEDS ORDERED: LABETALOL 20 MG/4 ML SYRINGE IV ONE (05:10)
[2019-03-14] MEDS: SODIUM CHLORIDE 0.9% 1,000 ML IV SCH (05:27)
[2019-03-14 06:12] LABS: Basophils # 0.1 10*3/uL (0.0-0.2); Basophils % 0.5 % (0.0-0.8); Hematocrit 33.8 VOL% (35.7-47.0); Hemoglobin 10.4 GM/DL (12.0-16.0); Immature Granulocytes % 1.4 %; Immature Granulocytes Absolute 0.15 #; Lymphocytes # 3.9 10*3/uL (1.4-4.0); Lymphocytes % 35.3 % (21.3-54.2); Mean Corpuscular HGB Conc 30.8 GM/DL (32-36); Mean Corpuscular Volume 94.7 FL (87-102); Mean Platelet Volume 10.7 FL (9.6-12.0); Monocytes % 5.8 % (1.7-12.7); NRBC # 0.04 10*3/uL; Platelet Count 195 T/CUMM (130-400); Red Blood Count 3.57 MC/CUMM (3.8-5.5); Red Cell Distribution Width 15.6 % (9.3-17.3); White Blood Count 11.1 T/CUMM (4-12)
[2019-03-14 06:41] LABS: Calcium 8.5 MG/DL (8.5-10.1); Osmolality,Calculated 285.8 MOS/KG (273-304)
[2019-03-14] MEDS: CLOPIDOGREL 75 MG TABLET PO SCH (08:36)
[2019-03-14] MEDS: predniSONE 5 MG TABLET PO SCH ×2 (08:36→21:09)
[2019-03-14] MEDS: FLUoxetine 20 MG CAPSULE PO SCH (08:37)
[2019-03-14] MEDS: FERROUS SULFATE 325 MG TABLET PO SCH (08:37)
[2019-03-14] MEDS: PHENYTOIN ER 100 MG CAPSULE PO SCH ×3 (08:37→21:09)
[2019-03-14] MEDS: FLUTICASONE 50 MCG NASAL SPRAY 16 GM BOTTLE BOTH NARES SCH ×2 (08:38→21:11)
[2019-03-14] MEDS: HYDROXYCHLOROQUINE 200 MG TABLET PO SCH (08:38)
[2019-03-14] MEDS: PANTOPRAZOLE 40 MG TABLET PO SCH ×2 (08:41→21:09)
[2019-03-14] MEDS: BUDESONIDE/FORMOTEROL 160-4.5 INHALER 6 GM INH SCH ×2 (09:02→21:11)
[2019-03-14] MEDS: LINACLOTIDE 145 MCG CAPSULE PO SCH (09:02)
[2019-03-14] MEDS: POLYETHYLENE GLYCOL POWDER 17 GM PACK PO SCH ×4 (09:02→21:09)
[2019-03-14] MEDS: INSULIN LISPRO 100 UNIT/ML SUBCUT SCH ×4 (09:02→21:09)
[2019-03-14] MEDS ORDERED: MAGNESIUM SULF RIDER 2 GM in PREMIX 1 EACH IV ONE (09:12)
[2019-03-14] MEDS ORDERED: MAGNESIUM SULF RIDER 50 ML IV ONE (09:17)
[2019-03-14 12:19] LABS: Alanine Aminotransferase 22 U/L (13-56); Albumin 2.7 G/DL (3.4-5.0); Alkaline Phosphatase 72 U/L (45-117); Aspartate Amino Transferase 23 U/L (0-37); Bilirubin,Direct < 0.100 MG/DL (0.0-0.20); Bilirubin,Indirect 0.3 MG/DL (0.0-1.0); Bilirubin,Total < 0.39 MG/DL (0.2-1.0)
[2019-03-14] MEDS: SIMVASTATIN 10 MG TABLET PO SCH (21:09)
[2019-03-14] MEDS: ENOXAPARIN 40 MG/0.4 ML SYRINGE SUBCUT SCH (21:12)
[2019-03-14] MEDS ORDERED: diphenhydrAMINE CAP 25 MG CAPSULE PO PRN (22:16)
[2019-03-15 06:08] LABS: Basophils % 0.5 % (0.0-0.8); Eosinophils % 0.1 % (0.00-10.9); Hematocrit 33.6 VOL% (35.7-47.0); Hemoglobin 10.4 GM/DL (12.0-16.0); Immature Granulocytes % 1.3 %; Immature Granulocytes Absolute 0.11 #; Lymphocytes # 2.6 10*3/uL (1.4-4.0); Lymphocytes % 30.4 % (21.3-54.2); Mean Corpuscular Volume 95.7 FL (87-102); Mean Platelet Volume 10.7 FL (9.6-12.0); NRBC # 0.05 10*3/uL; Neutrophils % 61.7 % (38.7-73.9); Platelet Count 184 T/CUMM (130-400); Red Blood Count 3.51 MC/CUMM (3.8-5.5); Red Cell Distribution Width 15.5 % (9.3-17.3); White Blood Count 8.6 T/CUMM (4-12)
[2019-03-15 06:35] LABS: Alanine Aminotransferase 29 U/L (13-56); Albumin 2.9 G/DL (3.4-5.0); Alkaline Phosphatase 105 U/L (45-117); Aspartate Amino Transferase 27 U/L (0-37); Bilirubin,Total < 0.39 MG/DL (0.2-1.0); Blood Urea Nitrogen 10 MG/DL (7-18); Calcium 8.4 MG/DL (8.5-10.1); Glucose 290 MG/DL (74-106); Osmolality,Calculated 292.1 MOS/KG (273-304); Total Protein 6.6 G/DL (6.4-8.3)
[2019-03-15] MEDS: INSULIN LISPRO 100 UNIT/ML SUBCUT SCH ×3 (09:02→15:55)
[2019-03-15] MEDS: HYDROXYCHLOROQUINE 200 MG TABLET PO SCH (09:03)
[2019-03-15] MEDS: FLUoxetine 20 MG CAPSULE PO SCH (09:03)
[2019-03-15] MEDS: PANTOPRAZOLE 40 MG TABLET PO SCH (09:03)
[2019-03-15] MEDS: LINACLOTIDE 145 MCG CAPSULE PO SCH (09:03)
[2019-03-15] MEDS: predniSONE 5 MG TABLET PO SCH (09:04)
[2019-03-15] MEDS: PHENYTOIN ER 100 MG CAPSULE PO SCH ×2 (09:04→15:55)
[2019-03-15] MEDS: CLOPIDOGREL 75 MG TABLET PO SCH (09:04)
[2019-03-15] MEDS: POLYETHYLENE GLYCOL POWDER 17 GM PACK PO SCH ×2 (09:04→12:23)
[2019-03-15] MEDS: FERROUS SULFATE 325 MG TABLET PO SCH (09:04)
[2019-03-15] MEDS: FLUTICASONE 50 MCG NASAL SPRAY 16 GM BOTTLE BOTH NARES SCH (09:17)
[2019-03-15] MEDS: BUDESONIDE/FORMOTEROL 160-4.5 INHALER 6 GM INH SCH (11:25)
[2019-03-15 15:51] VITALS: BP 160/72
== END 2019-03-15 16:40 | disposition home or self-care (01) | DRG 249 ==
LOC: EDBD → EDUNIT# → N.ED 05:22 → SUATTDRO 10:14 → N.EDINP 10:14 → N.5E 11:21 → N.ICU 03-11 11:52 → N.2E 03-12 13:13 → N.ICU 03-13 11:19 → N.5E 03-14 11:22
PROVIDERS: ADMIT Internal Medicine; ATTEND Internal Medicine

== ENCOUNTER 2019-03-17 08:09 | Inpatient (IN) ==
[2019-03-17] MEDS ORDERED: NITROGLYCERIN 2% OINT 1 INCH/GM PACK TOP STA (09:12)
[2019-03-17] MEDS ORDERED: ASPIRIN 325 MG TABLET PO STA (09:12)
[2019-03-17] MEDS ORDERED: ONDANSETRON 4 MG/2 ML VIAL IV STA (09:12)
[2019-03-17] MEDS ORDERED: MORPHINE 4 MG/1 ML VIAL IV STA (09:12)
[2019-03-17] MEDS ORDERED: NITROGLYCERIN SL 0.4 MG TABLET SL PRN (09:12)
[2019-03-17 09:25] LABS: Basophils % 0.4 % (0.0-0.8); Hematocrit 38.6 VOL% (35.7-47.0); Hemoglobin 12.2 GM/DL (12.0-16.0); Immature Granulocytes % 0.8 %; Immature Granulocytes Absolute 0.07 #; Lymphocytes # 1.2 10*3/uL (1.4-4.0); Mean Corpuscular HGB Conc 31.6 GM/DL (32-36); Mean Corpuscular Volume 93.2 FL (87-102); Mean Platelet Volume 11.2 FL (9.6-12.0); Monocytes % 4.6 % (1.7-12.7); NRBC # 0.03 10*3/uL; Neutrophils % 80.2 % (38.7-73.9); Platelet Count 277 T/CUMM (130-400); Red Blood Count 4.14 MC/CUMM (3.8-5.5); Red Cell Distribution Width 15.3 % (9.3-17.3); White Blood Count 8.6 T/CUMM (4-12)
[2019-03-17 09:35] LABS: Calcium 9.5 MG/DL (8.5-10.1); Osmolality,Calculated 293.3 MOS/KG (273-304)
[2019-03-17] MEDS ORDERED: SODIUM CHLORIDE 0.9% 500 ML IV STA (09:44)
[2019-03-17 11:03] LABS: Apearance,Urine CLEAR (Clear); Bilirubin,Urine Negative (Negative); Blood, Urine Small mg/dL (Negative); Glucose,Urine (UA) >=500 mg/dL (Negative); Ketones,Urine 20 mg/dL (Negative); Nitrite,Urine Negative (Negative); Protein,Urine 100 MG/DL; RBC,Urine <1 /HPF (0-4); Urine Color Yellow (Yellow); Urine Urobilinogen < 2.0 EU/DL (0.2-1.0); WBC,Urine 2 /HPF (0-6)
[2019-03-17 11:08] LABS: Barbiturates Screen,Urine Negative (Negative); Benzodiazepines Screen,Urine Negative (Negative); Cannabinoid Screen,Urine Negative (Negative); Opiate Screen,Urine Negative (Negative); Phencyclidine Screen,Urine Negative (Negative)
[2019-03-17] MEDS ORDERED: SODIUM CHLORIDE 0.9% 1,000 ML IV STA (12:00)
[2019-03-17] MEDS ORDERED: ACETAMINOPHEN 325 MG TABLET PO PRN (12:26)
[2019-03-17] MEDS ORDERED: GLUCAGON 1 MG VIAL IM PRN (12:26)
[2019-03-17] MEDS ORDERED: DEXTROSE 10% 250 ML BAG IV PRN (12:26)
[2019-03-17 16:21] LABS: Calcium 7.8 MG/DL (8.5-10.1); Osmolality,Calculated 283.3 MOS/KG (273-304)
[2019-03-17] MEDS: INSULIN REGULAR 100 UNIT/ML SUBCUT SCH ×2 (17:24→20:44)
[2019-03-17] MEDS: SODIUM CHLORIDE 0.9% 1,000 ML IV SCH (17:25)
[2019-03-17] MEDS: FLUTICASONE 50 MCG NASAL SPRAY 16 GM BOTTLE BOTH NARES SCH (20:43)
[2019-03-17] MEDS: BUDESONIDE/FORMOTEROL 160-4.5 INHALER 6 GM INH SCH (20:43)
[2019-03-17] MEDS: ENOXAPARIN 40 MG/0.4 ML SYRINGE SUBCUT SCH (20:44)
[2019-03-17] MEDS: DICLOFENAC 1% GEL 100 GM TUBE TOP SCH (20:44)
[2019-03-17] MEDS: PHENYTOIN ER 100 MG CAPSULE PO SCH (20:44)
[2019-03-17] MEDS: cephALEXin 500 MG CAPSULE PO SCH (20:44)
[2019-03-17] MEDS: HydrOXYzine PAMOATE 50 MG CAPSULE PO PRN (20:44)
[2019-03-17] MEDS: predniSONE 10 MG TABLET PO SCH (20:45)
[2019-03-17] MEDS: HYDROXYCHLOROQUINE 200 MG TABLET PO SCH (20:45)
[2019-03-18] MEDS: SODIUM CHLORIDE 0.9% 1,000 ML IV SCH ×3 (01:37→18:11)
[2019-03-18 05:59] LABS: Basophils % 0.2 % (0.0-0.8); Eosinophils % 0.5 % (0.00-10.9); Hematocrit 29.9 VOL% (35.7-47.0); Hemoglobin 9.2 GM/DL (12.0-16.0); Immature Granulocytes % 0.7 %; Immature Granulocytes Absolute 0.03 #; Lymphocytes # 1.6 10*3/uL (1.4-4.0); Lymphocytes % 37.1 % (21.3-54.2); Mean Corpuscular HGB Conc 30.8 GM/DL (32-36); Mean Corpuscular Volume 95.2 FL (87-102); Mean Platelet Volume 10.7 FL (9.6-12.0); Monocytes % 10.7 % (1.7-12.7); Neutrophils % 50.8 % (38.7-73.9); Platelet Count 191 T/CUMM (130-400); Red Blood Count 3.14 MC/CUMM (3.8-5.5); Red Cell Distribution Width 15.6 % (9.3-17.3); White Blood Count 4.4 T/CUMM (4-12)
[2019-03-18] MEDS ORDERED: PANTOPRAZOLE 40 MG TABLET PO SCH (06:00)
[2019-03-18 06:23] LABS: Albumin 2.4 G/DL (3.4-5.0); Bilirubin,Total 0.5 MG/DL (0.2-1.0); Calcium 7.8 MG/DL (8.5-10.1); Osmolality,Calculated 290.6 MOS/KG (273-304); Total Protein 5.8 G/DL (6.4-8.3)
[2019-03-18] MEDS ORDERED: POLYETHYLENE GLYCOL POWDER 17 GM PACK PO PRN (09:20)
[2019-03-18] MEDS: cephALEXin 500 MG CAPSULE PO SCH ×2 (09:27→21:52)
[2019-03-18] MEDS: HYDROXYCHLOROQUINE 200 MG TABLET PO SCH ×2 (09:27→21:53)
[2019-03-18] MEDS: PHENYTOIN ER 100 MG CAPSULE PO SCH ×3 (09:28→21:53)
[2019-03-18] MEDS: FERROUS SULFATE 325 MG TABLET PO SCH (09:28)
[2019-03-18] MEDS: SIMVASTATIN 10 MG TABLET PO SCH (09:29)
[2019-03-18] MEDS: predniSONE 10 MG TABLET PO SCH ×2 (09:29→21:52)
[2019-03-18] MEDS: LINACLOTIDE 145 MCG CAPSULE PO SCH (09:29)
[2019-03-18] MEDS: FLUTICASONE 50 MCG NASAL SPRAY 16 GM BOTTLE BOTH NARES SCH ×2 (09:29→21:54)
[2019-03-18] MEDS: BUDESONIDE/FORMOTEROL 160-4.5 INHALER 6 GM INH SCH ×2 (09:29→18:12)
[2019-03-18] MEDS: CLOPIDOGREL 75 MG TABLET PO SCH (09:29)
[2019-03-18] MEDS: DICLOFENAC 1% GEL 100 GM TUBE TOP SCH ×2 (09:30→21:54)
[2019-03-18] MEDS: FLUoxetine 20 MG CAPSULE PO SCH (09:42)
[2019-03-18] MEDS: LOSARTAN 50 MG TABLET PO SCH (10:43)
[2019-03-18] MEDS: INSULIN REGULAR 100 UNIT/ML SUBCUT SCH ×4 (11:01→23:11)
[2019-03-18] MEDS: POTASSIUM CHLORIDE RIDER 10 MEQ in PREMIX 1 EACH IV PRN ×2 (13:09→14:05)
[2019-03-18] MEDS: HydrOXYzine PAMOATE 50 MG CAPSULE PO PRN (15:37)
[2019-03-18] MEDS: VANCOMYCIN 50 MG/ML 60 ML/BOTTLE PO SCH ×2 (16:28→21:54)
[2019-03-18] MEDS ORDERED: amLODIPine 5 MG TABLET PO SCH (21:00)
[2019-03-18] MEDS: ENOXAPARIN 40 MG/0.4 ML SYRINGE SUBCUT SCH (21:51)
[2019-03-18] MEDS: PANTOPRAZOLE 40 MG TABLET PO SCH (21:53)
[2019-03-19] MEDS: SODIUM CHLORIDE 0.9% 1,000 ML IV SCH ×3 (03:21→23:48)
[2019-03-19] MEDS: VANCOMYCIN 50 MG/ML 60 ML/BOTTLE PO SCH ×4 (03:59→20:25)
[2019-03-19 05:02] LABS: Basophils % 0.4 % (0.0-0.8); Hematocrit 29.1 VOL% (35.7-47.0); Hemoglobin 8.8 GM/DL (12.0-16.0); Immature Granulocytes % 0.6 %; Immature Granulocytes Absolute 0.03 #; Lymphocytes # 1.6 10*3/uL (1.4-4.0); Lymphocytes % 33.8 % (21.3-54.2); Mean Corpuscular HGB Conc 30.2 GM/DL (32-36); Mean Platelet Volume 10.8 FL (9.6-12.0); NRBC # 0.02 10*3/uL; Neutrophils % 59.2 % (38.7-73.9); Platelet Count 196 T/CUMM (130-400); Red Cell Distribution Width 15.1 % (9.3-17.3); White Blood Count 4.7 T/CUMM (4-12)
[2019-03-19 05:27] LABS: Calcium 7.8 MG/DL (8.5-10.1); Osmolality,Calculated 290.7 MOS/KG (273-304)
[2019-03-19] MEDS: INSULIN REGULAR 100 UNIT/ML SUBCUT SCH ×4 (07:26→21:56)
[2019-03-19] MEDS: LORazepam 2 MG/1 ML VIAL IV PRN ×2 (07:47→08:12)
[2019-03-19] MEDS ORDERED: ASPIRIN CHEW 81 MG TABLET PO ONE (08:20)
[2019-03-19] MEDS: SIMVASTATIN 10 MG TABLET PO SCH (09:57)
[2019-03-19] MEDS: LINACLOTIDE 145 MCG CAPSULE PO SCH (09:57)
[2019-03-19] MEDS: PANTOPRAZOLE 40 MG TABLET PO SCH ×2 (09:58→20:24)
[2019-03-19] MEDS: predniSONE 10 MG TABLET PO SCH ×2 (09:58→20:24)
[2019-03-19] MEDS: FERROUS SULFATE 325 MG TABLET PO SCH (09:58)
[2019-03-19] MEDS: HYDROXYCHLOROQUINE 200 MG TABLET PO SCH ×2 (09:58→20:24)
[2019-03-19] MEDS: CLOPIDOGREL 75 MG TABLET PO SCH (09:58)
[2019-03-19] MEDS: FLUoxetine 20 MG CAPSULE PO SCH (09:58)
[2019-03-19] MEDS: LOSARTAN 50 MG TABLET PO SCH (09:58)
[2019-03-19] MEDS: PHENYTOIN ER 100 MG CAPSULE PO SCH ×3 (09:58→20:24)
[2019-03-19] MEDS: FLUTICASONE 50 MCG NASAL SPRAY 16 GM BOTTLE BOTH NARES SCH ×2 (10:03→20:25)
[2019-03-19] MEDS: BUDESONIDE/FORMOTEROL 160-4.5 INHALER 6 GM INH SCH ×2 (10:05→18:00)
[2019-03-19] MEDS: DICLOFENAC 1% GEL 100 GM TUBE TOP SCH ×2 (10:06→20:25)
[2019-03-19] MEDS: ENOXAPARIN 40 MG/0.4 ML SYRINGE SUBCUT SCH (20:24)
[2019-03-19] MEDS ORDERED: ZALEPLON 5 MG CAPSULE PO ONE (21:08)
[2019-03-20] MEDS: VANCOMYCIN 50 MG/ML 60 ML/BOTTLE PO SCH ×3 (02:54→15:46)
[2019-03-20] MEDS ORDERED: hydrALAZINE 20 MG/1 ML VIAL IV ONE (05:49)
[2019-03-20 06:15] LABS: Basophils % 0.3 % (0.0-0.8); Eosinophils % 0.3 % (0.00-10.9); Hematocrit 29.4 VOL% (35.7-47.0); Hemoglobin 9.1 GM/DL (12.0-16.0); Immature Granulocytes % 0.5 %; Immature Granulocytes Absolute 0.03 #; Lymphocytes # 2.5 10*3/uL (1.4-4.0); Lymphocytes % 39.6 % (21.3-54.2); Mean Corpuscular Volume 96.1 FL (87-102); Mean Platelet Volume 10.5 FL (9.6-12.0); Monocytes % 6.3 % (1.7-12.7); Platelet Count 215 T/CUMM (130-400); Red Blood Count 3.06 MC/CUMM (3.8-5.5); Red Cell Distribution Width 15.3 % (9.3-17.3); White Blood Count 6.3 T/CUMM (4-12)
[2019-03-20 06:38] LABS: Calcium 7.8 MG/DL (8.5-10.1); Osmolality,Calculated 286.7 MOS/KG (273-304)
[2019-03-20] MEDS: INSULIN REGULAR 100 UNIT/ML SUBCUT SCH ×2 (08:33→12:11)
[2019-03-20] MEDS: LOSARTAN 50 MG TABLET PO SCH (08:34)
[2019-03-20] MEDS: predniSONE 10 MG TABLET PO SCH (08:34)
[2019-03-20] MEDS: FLUoxetine 20 MG CAPSULE PO SCH (08:34)
[2019-03-20] MEDS: CLOPIDOGREL 75 MG TABLET PO SCH (08:34)
[2019-03-20] MEDS: PANTOPRAZOLE 40 MG TABLET PO SCH (08:34)
[2019-03-20] MEDS: BUDESONIDE/FORMOTEROL 160-4.5 INHALER 6 GM INH SCH (08:35)
[2019-03-20] MEDS: FLUTICASONE 50 MCG NASAL SPRAY 16 GM BOTTLE BOTH NARES SCH (08:35)
[2019-03-20] MEDS: LINACLOTIDE 145 MCG CAPSULE PO SCH (08:35)
[2019-03-20] MEDS: HYDROXYCHLOROQUINE 200 MG TABLET PO SCH (08:35)
[2019-03-20] MEDS: FERROUS SULFATE 325 MG TABLET PO SCH (08:35)
[2019-03-20] MEDS: SIMVASTATIN 10 MG TABLET PO SCH (08:35)
[2019-03-20] MEDS: DICLOFENAC 1% GEL 100 GM TUBE TOP SCH (08:35)
[2019-03-20] MEDS: PHENYTOIN ER 100 MG CAPSULE PO SCH ×2 (08:35→15:45)
[2019-03-20] MEDS ORDERED: METOPROLOL TARTRATE 25 MG TABLET PO SCH (10:30)
[2019-03-20 12:01] VITALS: BP 183/79
== END 2019-03-20 16:23 | disposition home health service (06) | DRG 248 ==
LOC: N.EDINP 08:09 → N.ED 08:09 → SUATTDRO 12:26 → N.2E 13:26
PROVIDERS: ADMIT Internal Medicine; ATTEND Family Medicine

== ENCOUNTER 2019-11-10 21:13 | Inpatient (IN) ==
[2019-11-10 21:32] LABS: Basophils # 0.1 10*3/uL (0.0-0.2); Basophils % 0.8 % (0.0-0.8); Eosinophils # 0.2 10*3/uL (0.0-0.87); Eosinophils % 2.4 % (0.00-10.9); Hematocrit 40.4 VOL% (35.7-47.0); Hemoglobin 12.6 GM/DL (12.0-16.0); Immature Granulocytes % 0.2 %; Immature Granulocytes Absolute 0.02 #; Lymphocytes # 3.8 10*3/uL (1.4-4.0); Lymphocytes % 42.2 % (21.3-54.2); Mean Corpuscular HGB Conc 31.2 GM/DL (32-36); Mean Corpuscular Volume 91.6 FL (87-102); Neutrophils % 49.4 % (38.7-73.9); Platelet Count 204 T/CUMM (130-400); Red Blood Count 4.41 MC/CUMM (3.8-5.5); Red Cell Distribution Width 12.9 % (9.3-17.3)
[2019-11-10 21:45] LABS: INR 1.2; PT Patient Result 12.7 SECS (9.8-11.9); Partial Thromboplastin Time 28.5 SECS (23.9-33.8)
[2019-11-10] MEDS ORDERED: hydrALAZINE 20 MG/1 ML VIAL IV STA (21:45)
[2019-11-10 21:48] LABS: INR 1.2; PT Patient Result 12.6 SECS (9.8-11.9); Partial Thromboplastin Time 28.5 SECS (23.9-33.8)
[2019-11-10] MEDS ORDERED: LORazepam 2 MG/1 ML VIAL ONE (22:07)
[2019-11-10] MEDS ORDERED: LORazepam 2 MG/1 ML VIAL IV STA (22:08)
[2019-11-10 22:10] LABS: Apearance,Urine CLEAR (Clear); Bacteria,Urine Occasional /HPF (Few); Bilirubin,Urine Negative (Negative); Blood, Urine Small mg/dL (Negative); Glucose,Urine (UA) Negative (Negative); Ketones,Urine Negative (Negative); Nitrite,Urine Negative (Negative); Protein,Urine 100 MG/DL; RBC,Urine 3 /HPF (0-4); Urine Color Straw (Yellow); Urine Specific Gravity 1.006 (1.001-1.035); Urine Urobilinogen < 2.0 EU/DL (0.2-1.0); WBC,Urine 1 /HPF (0-6)
[2019-11-10] MEDS ORDERED: levETIRAcetam 500 MG/5 ML VIAL IV ONE ×2 (22:17→22:21)
[2019-11-10 22:26] LABS: Barbiturates Screen,Urine Negative (Negative); Benzodiazepines Screen,Urine Negative (Negative); Cannabinoid Screen,Urine Positive (Negative); Opiate Screen,Urine Negative (Negative); Phencyclidine Screen,Urine Negative (Negative)
[2019-11-10 22:29] LABS: Alanine Aminotransferase 60 U/L (13-56); Albumin 3.2 G/DL (3.4-5.0); Alkaline Phosphatase 194 U/L (45-117); Aspartate Amino Transferase 44 U/L (0-37); Bilirubin,Total < 0.39 MG/DL (0.2-1.0); Blood Urea Nitrogen 11 MG/DL (7-18); Calcium 8.8 MG/DL (8.5-10.1); Estimated Glom Filtration Rate 80 ML/MIN; Glucose 142 MG/DL (74-106); Osmolality,Calculated 277.5 MOS/KG (273-304)
[2019-11-10] MEDS ORDERED: POTASSIUM CHLORIDE RIDER 20 MEQ in PREMIX 1 EACH IV STA ×2 (22:32→22:35)
[2019-11-11] MEDS ORDERED: GLUCAGON 1 MG VIAL IM PRN (02:35)
[2019-11-11] MEDS ORDERED: MAGNESIUM SULF RIDER 2 GM in PREMIX 1 EACH IV PRN (02:35)
[2019-11-11] MEDS ORDERED: ALBUTEROL 2.5 MG/3 ML NEB RESP TX PRN (02:35)
[2019-11-11] MEDS ORDERED: POLYETHYLENE GLYCOL POWDER 17 GM PACK PO PRN (02:35)
[2019-11-11] MEDS ORDERED: DEXTROSE 10% 250 ML BAG IV PRN (02:35)
[2019-11-11] MEDS ORDERED: MAGNESIUM SULF RIDER 4 GM in PREMIX 1 EACH IV PRN (02:35)
[2019-11-11] MEDS ORDERED: PNEUMOCOCCAL VACCINE (23 VALENT) 0.5 ML VIAL IM ONE (03:32)
[2019-11-11] MEDS: PANTOPRAZOLE 40 MG TABLET PO SCH (06:04)
[2019-11-11] MEDS: SODIUM CHLORIDE 0.9% 1,000 ML IV SCH ×2 (06:07→23:14)
[2019-11-11 06:12] LABS: Basophils # 0.1 10*3/uL (0.0-0.2); Basophils % 0.7 % (0.0-0.8); Eosinophils # 0.1 10*3/uL (0.0-0.87); Eosinophils % 1.3 % (0.00-10.9); Hematocrit 37.3 VOL% (35.7-47.0); Hemoglobin 11.4 GM/DL (12.0-16.0); Immature Granulocytes % 0.3 %; Immature Granulocytes Absolute 0.03 #; Lymphocytes # 2.8 10*3/uL (1.4-4.0); Lymphocytes % 32.1 % (21.3-54.2); Mean Corpuscular HGB Conc 30.6 GM/DL (32-36); Mean Platelet Volume 11.5 FL (9.6-12.0); Monocytes % 5.7 % (1.7-12.7); Neutrophils % 59.9 % (38.7-73.9); Platelet Count 207 T/CUMM (130-400); Red Blood Count 4.01 MC/CUMM (3.8-5.5); Red Cell Distribution Width 13.2 % (9.3-17.3); White Blood Count 8.7 T/CUMM (4-12)
[2019-11-11] MEDS: INSULIN LISPRO 100 UNIT/ML SUBCUT SCH ×4 (08:35→22:15)
[2019-11-11 09:31] LABS: Calcium 8.6 MG/DL (8.5-10.1)
[2019-11-11 09:33] LABS: Albumin 2.7 G/DL (3.4-5.0)
[2019-11-11 09:34] LABS: Osmolality,Calculated 280.4 MOS/KG (273-304)
[2019-11-11 09:37] LABS: Bilirubin,Total 0.7 MG/DL (0.2-1.0)
[2019-11-11] MEDS: FLUTICASONE 50 MCG NASAL SPRAY 16 GM BOTTLE BOTH NARES SCH ×2 (09:45→22:15)
[2019-11-11] MEDS: BUDESONIDE/FORMOTEROL 160-4.5 INHALER 6 GM INH SCH ×2 (09:45→22:15)
[2019-11-11] MEDS: Linaclotide [Linzess] 72 MCG PO SCH (09:46)
[2019-11-11] MEDS: HYDROXYCHLOROQUINE 200 MG TABLET PO SCH ×2 (09:46→22:15)
[2019-11-11] MEDS: CLOPIDOGREL 75 MG TABLET PO SCH (09:46)
[2019-11-11] MEDS: NORTRIPTYLINE 25 MG CAPSULE PO SCH ×3 (09:46→22:15)
[2019-11-11] MEDS: DICLOFENAC SODIUM 75 MG TABLET PO SCH ×2 (09:46→22:15)
[2019-11-11] MEDS: FERROUS SULFATE 325 MG TABLET PO SCH (09:46)
[2019-11-11] MEDS: FUROSEMIDE 20 MG TABLET PO SCH (09:46)
[2019-11-11] MEDS: METOPROLOL TARTRATE 25 MG TABLET PO SCH ×2 (09:46→22:15)
[2019-11-11] MEDS: sitaGLIPtin 100 MG TABLET PO SCH (09:46)
[2019-11-11] MEDS: predniSONE 10 MG TABLET PO SCH ×2 (09:46→22:15)
[2019-11-11] MEDS: PHENYTOIN ER 100 MG CAPSULE PO SCH ×3 (09:46→22:15)
[2019-11-11] MEDS: ACETAMINOPHEN 325 MG TABLET PO PRN ×2 (09:49→22:15)
[2019-11-11] MEDS: ATORVASTATIN 20 MG TABLET PO SCH (09:50)
[2019-11-11] MEDS: DICLOFENAC 1% GEL 100 GM TUBE TOP SCH ×2 (09:50→23:03)
[2019-11-11] MEDS: POTASSIUM CHLORIDE RIDER 10 MEQ in PREMIX 1 EACH IV PRN ×3 (09:57→18:15)
[2019-11-11] MEDS: NITROGLYCERIN SL 0.4 MG TABLET SL PRN (10:51)
[2019-11-11] MEDS: LORazepam 2 MG/1 ML VIAL IV PRN (11:00)
[2019-11-11] MEDS ORDERED: PHENYTOIN 100 MG/2 ML VIAL IV ONE ×3 (11:17→15:15)
[2019-11-11] MEDS ORDERED: AMMONIA INHALANT 1 EACH AMP INH ONE (11:26)
[2019-11-11 11:30] LABS: ABG Base Excess 0.8 MMOL/L (-2.5-2.5); ABG HCO3 25.1 MMOL/L (20-26); ABG Oxygen Saturation 97.8 % (95-100); ABG PCO2 35.4 MM HG (35-48); ABG PH 7.447 (7.35-7.45); ABG TCO2 21.6 MMOL/L (23-27); Allen Test Positive
[2019-11-11 11:52] LABS: Troponin I 0.134 NG/ML (0.00-0.045)
[2019-11-11 14:07] LABS: Troponin I 0.118 NG/ML (0.00-0.045)
[2019-11-11] MEDS: DEXTROSE 5% 1,000 ML IV SCH (14:19)
[2019-11-11] MEDS: hydrALAZINE 20 MG/1 ML VIAL IV PRN (14:44)
[2019-11-11] MEDS ORDERED: PHENYTOIN 100 MG/2 ML VIAL IV SCH (21:00)
[2019-11-11] MEDS ORDERED: hydrALAZINE 25 MG TABLET ONE (21:41)
[2019-11-11] MEDS: GABAPENTIN 300 MG CAPSULE PO SCH (22:15)
[2019-11-12] MEDS: DEXTROSE 5% 1,000 ML IV SCH ×2 (00:35→10:52)
[2019-11-12] MEDS: PANTOPRAZOLE 40 MG TABLET PO SCH (05:44)
[2019-11-12] MEDS: ACETAMINOPHEN 325 MG TABLET PO PRN ×2 (05:44→12:46)
[2019-11-12] MEDS: POTASSIUM CHLORIDE RIDER 10 MEQ in PREMIX 1 EACH IV PRN ×2 (06:11→07:16)
[2019-11-12] MEDS: SODIUM CHLORIDE 0.9% 1,000 ML IV SCH ×2 (06:40→10:55)
[2019-11-12] MEDS: hydrALAZINE 20 MG/1 ML VIAL IV PRN (07:45)
[2019-11-12] MEDS: INSULIN LISPRO 100 UNIT/ML SUBCUT SCH ×4 (07:57→20:56)
[2019-11-12] MEDS: BUDESONIDE/FORMOTEROL 160-4.5 INHALER 6 GM INH SCH ×2 (08:00→18:33)
[2019-11-12 09:24] LABS: Basophils # 0.1 10*3/uL (0.0-0.2); Basophils % 0.7 % (0.0-0.8); Eosinophils # 0.2 10*3/uL (0.0-0.87); Eosinophils % 1.8 % (0.00-10.9); Hematocrit 40.2 VOL% (35.7-47.0); Hemoglobin 12.2 GM/DL (12.0-16.0); Immature Granulocytes % 0.2 %; Immature Granulocytes Absolute 0.02 #; Lymphocytes # 3.3 10*3/uL (1.4-4.0); Lymphocytes % 39.4 % (21.3-54.2); Mean Corpuscular HGB Conc 30.3 GM/DL (32-36); Mean Corpuscular Volume 93.9 FL (87-102); Mean Platelet Volume 11.8 FL (9.6-12.0); Monocytes % 4.8 % (1.7-12.7); Neutrophils % 53.1 % (38.7-73.9); Platelet Count 180 T/CUMM (130-400); Red Blood Count 4.28 MC/CUMM (3.8-5.5); Red Cell Distribution Width 13.2 % (9.3-17.3); White Blood Count 8.3 T/CUMM (4-12)
[2019-11-12] MEDS ORDERED: FUROSEMIDE 40 MG TABLET ONE (09:37)
[2019-11-12] MEDS ORDERED: hydrALAZINE 25 MG TABLET ONE (09:38)
[2019-11-12] MEDS: sitaGLIPtin 100 MG TABLET PO SCH (09:48)
[2019-11-12 09:49] LABS: Platelet Estimate Normal
[2019-11-12] MEDS: ASPIRIN EC 81 MG TABLET PO SCH (09:49)
[2019-11-12 09:50] LABS: Macrocytosis Slight
[2019-11-12] MEDS: PHENYTOIN ER 100 MG CAPSULE PO SCH ×2 (09:50→15:27)
[2019-11-12] MEDS: FERROUS SULFATE 325 MG TABLET PO SCH (09:50)
[2019-11-12] MEDS: FUROSEMIDE 20 MG TABLET PO SCH (09:51)
[2019-11-12] MEDS: ATORVASTATIN 20 MG TABLET PO SCH (09:52)
[2019-11-12] MEDS: HYDROXYCHLOROQUINE 200 MG TABLET PO SCH ×2 (09:58→20:56)
[2019-11-12] MEDS: DICLOFENAC SODIUM 75 MG TABLET PO SCH ×2 (09:58→20:57)
[2019-11-12] MEDS: NORTRIPTYLINE 25 MG CAPSULE PO SCH ×3 (09:59→20:56)
[2019-11-12] MEDS: predniSONE 10 MG TABLET PO SCH ×2 (09:59→20:57)
[2019-11-12] MEDS: CLOPIDOGREL 75 MG TABLET PO SCH (09:59)
[2019-11-12] MEDS: METOPROLOL TARTRATE 25 MG TABLET PO SCH ×2 (09:59→20:56)
[2019-11-12] MEDS: ENOXAPARIN 40 MG/0.4 ML SYRINGE SUBCUT SCH ×2 (10:00→20:56)
[2019-11-12] MEDS: FLUTICASONE 50 MCG NASAL SPRAY 16 GM BOTTLE BOTH NARES SCH ×2 (10:14→20:55)
[2019-11-12 11:41] LABS: Calcium 8.9 MG/DL (8.5-10.1); Osmolality,Calculated 273.8 MOS/KG (273-304)
[2019-11-12] MEDS: Linaclotide [Linzess] 72 MCG PO SCH (11:46)
[2019-11-12] MEDS: GENTAMICIN 0.3% OPH SOLN 5 ML BOTTLE BOTH EYES SCH ×3 (13:15→20:55)
[2019-11-12] MEDS ORDERED: NALOXONE 0.4 MG/ML VIAL ONE (13:22)
[2019-11-12] MEDS: LORazepam 2 MG/1 ML VIAL IV PRN ×2 (13:35→14:39)
[2019-11-12] MEDS: DICLOFENAC 1% GEL 100 GM TUBE TOP SCH ×2 (14:28→20:57)
[2019-11-12] MEDS: PHENYTOIN 100 MG/2 ML VIAL IV SCH ×2 (15:55→23:11)
[2019-11-12] MEDS: GABAPENTIN 300 MG CAPSULE PO SCH (20:56)
[2019-11-13] MEDS: SODIUM CHLORIDE 0.9% 1,000 ML IV SCH ×2 (00:07→12:52)
[2019-11-13 05:00] LABS: Basophils % 0.6 % (0.0-0.8); Eosinophils # 0.1 10*3/uL (0.0-0.87); Eosinophils % 1.1 % (0.00-10.9); Hematocrit 36.1 VOL% (35.7-47.0); Hemoglobin 11.1 GM/DL (12.0-16.0); Immature Granulocytes % 0.2 %; Immature Granulocytes Absolute 0.01 #; Lymphocytes # 2.4 10*3/uL (1.4-4.0); Lymphocytes % 36.8 % (21.3-54.2); Mean Corpuscular HGB Conc 30.7 GM/DL (32-36); Mean Corpuscular Volume 92.6 FL (87-102); Mean Platelet Volume 10.8 FL (9.6-12.0); Monocytes % 4.2 % (1.7-12.7); Neutrophils % 57.1 % (38.7-73.9); Platelet Count 188 T/CUMM (130-400); White Blood Count 6.6 T/CUMM (4-12)
[2019-11-13 05:14] LABS: Calcium 8.5 MG/DL (8.5-10.1); Osmolality,Calculated 279.4 MOS/KG (273-304)
[2019-11-13] MEDS: PANTOPRAZOLE 40 MG TABLET PO SCH (05:35)
[2019-11-13] MEDS: BUDESONIDE/FORMOTEROL 160-4.5 INHALER 6 GM INH SCH ×2 (06:04→19:24)
[2019-11-13] MEDS: PHENYTOIN 100 MG/2 ML VIAL IV SCH ×3 (07:09→23:48)
[2019-11-13] MEDS: INSULIN LISPRO 100 UNIT/ML SUBCUT SCH ×4 (07:44→23:05)
[2019-11-13] MEDS: LORazepam 2 MG/1 ML VIAL IV PRN (08:18)
[2019-11-13] MEDS: DICLOFENAC SODIUM 75 MG TABLET PO SCH ×2 (10:16→21:00)
[2019-11-13] MEDS: FERROUS SULFATE 325 MG TABLET PO SCH (10:16)
[2019-11-13] MEDS: FUROSEMIDE 20 MG TABLET PO SCH (10:16)
[2019-11-13] MEDS: CLOPIDOGREL 75 MG TABLET PO SCH (10:16)
[2019-11-13] MEDS: HYDROXYCHLOROQUINE 200 MG TABLET PO SCH ×2 (10:17→21:00)
[2019-11-13] MEDS: NORTRIPTYLINE 25 MG CAPSULE PO SCH ×3 (10:19→21:00)
[2019-11-13] MEDS: ATORVASTATIN 20 MG TABLET PO SCH (10:19)
[2019-11-13] MEDS: ASPIRIN EC 81 MG TABLET PO SCH (10:19)
[2019-11-13] MEDS: ENOXAPARIN 40 MG/0.4 ML SYRINGE SUBCUT SCH ×2 (10:19→21:00)
[2019-11-13] MEDS: METOPROLOL TARTRATE 25 MG TABLET PO SCH ×2 (10:19→21:00)
[2019-11-13] MEDS ORDERED: ALBUTEROL INHALER INH PRN (10:25)
[2019-11-13] MEDS: sitaGLIPtin 100 MG TABLET PO SCH (10:42)
[2019-11-13] MEDS: predniSONE 10 MG TABLET PO SCH ×2 (11:36→21:00)
[2019-11-13] MEDS: GENTAMICIN 0.3% OPH SOLN 5 ML BOTTLE BOTH EYES SCH ×4 (11:39→21:15)
[2019-11-13] MEDS: DICLOFENAC 1% GEL 100 GM TUBE TOP SCH ×2 (11:42→21:45)
[2019-11-13] MEDS: FLUTICASONE 50 MCG NASAL SPRAY 16 GM BOTTLE BOTH NARES SCH ×2 (11:43→21:00)
[2019-11-13] MEDS: Linaclotide [Linzess] 72 MCG PO SCH (18:37)
[2019-11-13] MEDS: ACETAMINOPHEN 325 MG TABLET PO PRN (19:20)
[2019-11-13] MEDS: GABAPENTIN 300 MG CAPSULE PO SCH (21:00)
[2019-11-14] MEDS: SODIUM CHLORIDE 0.9% 1,000 ML IV SCH ×2 (02:19→15:35)
[2019-11-14 03:34] LABS: Basophils # 0.1 10*3/uL (0.0-0.2); Basophils % 0.6 % (0.0-0.8); Eosinophils # 0.1 10*3/uL (0.0-0.87); Eosinophils % 1.3 % (0.00-10.9); Hematocrit 35.7 VOL% (35.7-47.0); Hemoglobin 11.1 GM/DL (12.0-16.0); Immature Granulocytes % 0.3 %; Immature Granulocytes Absolute 0.03 #; Lymphocytes # 1.9 10*3/uL (1.4-4.0); Lymphocytes % 18.6 % (21.3-54.2); Mean Corpuscular HGB Conc 31.1 GM/DL (32-36); Mean Corpuscular Volume 92.2 FL (87-102); Mean Platelet Volume 10.6 FL (9.6-12.0); Monocytes % 3.8 % (1.7-12.7); Neutrophils % 75.4 % (38.7-73.9); Platelet Count 178 T/CUMM (130-400); Red Blood Count 3.87 MC/CUMM (3.8-5.5); Red Cell Distribution Width 12.9 % (9.3-17.3); White Blood Count 10.2 T/CUMM (4-12)
[2019-11-14 03:55] LABS: Calcium 8.3 MG/DL (8.5-10.1); Osmolality,Calculated 280.4 MOS/KG (273-304)
[2019-11-14] MEDS: POTASSIUM CHLORIDE RIDER 10 MEQ in PREMIX 1 EACH IV PRN ×2 (04:24→05:46)
[2019-11-14] MEDS: hydrALAZINE 20 MG/1 ML VIAL IV PRN ×2 (05:08→17:34)
[2019-11-14] MEDS: PANTOPRAZOLE 40 MG TABLET PO SCH (05:48)
[2019-11-14] MEDS: INSULIN LISPRO 100 UNIT/ML SUBCUT SCH ×4 (08:32→21:51)
[2019-11-14] MEDS: FERROUS SULFATE 325 MG TABLET PO SCH (08:53)
[2019-11-14] MEDS: predniSONE 10 MG TABLET PO SCH ×2 (08:53→21:21)
[2019-11-14] MEDS: sitaGLIPtin 100 MG TABLET PO SCH (08:53)
[2019-11-14] MEDS: ATORVASTATIN 20 MG TABLET PO SCH (08:53)
[2019-11-14] MEDS: BUDESONIDE/FORMOTEROL 160-4.5 INHALER 6 GM INH SCH ×2 (08:54→20:41)
[2019-11-14] MEDS: FUROSEMIDE 20 MG TABLET PO SCH (08:54)
[2019-11-14] MEDS: CLOPIDOGREL 75 MG TABLET PO SCH (08:54)
[2019-11-14] MEDS: NORTRIPTYLINE 25 MG CAPSULE PO SCH ×3 (08:54→21:21)
[2019-11-14] MEDS: METOPROLOL TARTRATE 25 MG TABLET PO SCH (08:54)
[2019-11-14] MEDS: ASPIRIN EC 81 MG TABLET PO SCH (08:54)
[2019-11-14] MEDS: HYDROXYCHLOROQUINE 200 MG TABLET PO SCH ×2 (08:54→21:21)
[2019-11-14] MEDS: FLUTICASONE 50 MCG NASAL SPRAY 16 GM BOTTLE BOTH NARES SCH ×2 (08:55→21:27)
[2019-11-14] MEDS: PHENYTOIN 100 MG/2 ML VIAL IV SCH (08:55)
[2019-11-14] MEDS: ENOXAPARIN 40 MG/0.4 ML SYRINGE SUBCUT SCH ×2 (08:55→21:22)
[2019-11-14] MEDS: GENTAMICIN 0.3% OPH SOLN 5 ML BOTTLE BOTH EYES SCH ×4 (08:56→21:27)
[2019-11-14] MEDS: DICLOFENAC 1% GEL 100 GM TUBE TOP SCH ×2 (08:56→21:58)
[2019-11-14] MEDS: Linaclotide [Linzess] 72 MCG PO SCH (09:01)
[2019-11-14] MEDS: DICLOFENAC SODIUM 75 MG TABLET PO SCH ×2 (09:10→21:22)
[2019-11-14] MEDS: LORazepam 2 MG/1 ML VIAL IV PRN (09:17)
[2019-11-14] MEDS: levETIRAcetam 500 MG TABLET PO SCH ×2 (10:46→21:20)
[2019-11-14] MEDS: BACITRACIN OINT 28.35 GM TUBE TOP SCH (14:06)
[2019-11-14] MEDS: ACETAMINOPHEN 325 MG TABLET PO PRN (17:41)
[2019-11-14] MEDS ORDERED: levETIRAcetam 500 MG TABLET PO SCH (21:00)
[2019-11-14] MEDS: PHENYTOIN ER 100 MG CAPSULE PO SCH (21:20)
[2019-11-14] MEDS: GABAPENTIN 300 MG CAPSULE PO SCH (21:21)
[2019-11-14] MEDS: METOPROLOL TARTRATE 100 MG TABLET PO SCH (21:23)
[2019-11-15] MEDS: hydrALAZINE 20 MG/1 ML VIAL IV PRN ×2 (04:11→13:04)
[2019-11-15] MEDS: SODIUM CHLORIDE 0.9% 1,000 ML IV SCH ×2 (04:40→16:25)
[2019-11-15] MEDS: PANTOPRAZOLE 40 MG TABLET PO SCH (05:28)
[2019-11-15] MEDS: ACETAMINOPHEN 325 MG TABLET PO PRN ×2 (05:28→14:24)
[2019-11-15] MEDS: NITROGLYCERIN SL 0.4 MG TABLET SL PRN (05:40)
[2019-11-15] MEDS: LORazepam 2 MG/1 ML VIAL IV PRN (05:59)
[2019-11-15 06:12] LABS: Basophils # 0.1 10*3/uL (0.0-0.2); Basophils % 0.6 % (0.0-0.8); Eosinophils # 0.2 10*3/uL (0.0-0.87); Hematocrit 37.1 VOL% (35.7-47.0); Hemoglobin 11.5 GM/DL (12.0-16.0); Immature Granulocytes % 0.3 %; Immature Granulocytes Absolute 0.03 #; Lymphocytes # 2.7 10*3/uL (1.4-4.0); Mean Corpuscular Volume 91.4 FL (87-102); Mean Platelet Volume 11.4 FL (9.6-12.0); Neutrophils % 62.1 % (38.7-73.9); Platelet Count 206 T/CUMM (130-400); Red Blood Count 4.06 MC/CUMM (3.8-5.5); Red Cell Distribution Width 12.9 % (9.3-17.3); White Blood Count 8.7 T/CUMM (4-12)
[2019-11-15 06:30] LABS: Calcium 8.8 MG/DL (8.5-10.1); Osmolality,Calculated 276.5 MOS/KG (273-304)
[2019-11-15] MEDS: FLUTICASONE 50 MCG NASAL SPRAY 16 GM BOTTLE BOTH NARES SCH ×2 (09:32→20:23)
[2019-11-15] MEDS: BACITRACIN OINT 28.35 GM TUBE TOP SCH (09:32)
[2019-11-15] MEDS: GENTAMICIN 0.3% OPH SOLN 5 ML BOTTLE BOTH EYES SCH ×4 (09:32→20:23)
[2019-11-15] MEDS: INSULIN LISPRO 100 UNIT/ML SUBCUT SCH ×4 (09:32→21:37)
[2019-11-15] MEDS: BUDESONIDE/FORMOTEROL 160-4.5 INHALER 6 GM INH SCH ×2 (09:32→20:23)
[2019-11-15] MEDS: Linaclotide [Linzess] 72 MCG PO SCH (09:33)
[2019-11-15] MEDS: DICLOFENAC 1% GEL 100 GM TUBE TOP SCH ×2 (09:33→20:23)
[2019-11-15] MEDS: FUROSEMIDE 20 MG TABLET PO SCH (09:44)
[2019-11-15] MEDS: HYDROXYCHLOROQUINE 200 MG TABLET PO SCH ×2 (09:44→20:21)
[2019-11-15] MEDS: predniSONE 10 MG TABLET PO SCH ×2 (09:45→20:21)
[2019-11-15] MEDS: ISOSORBIDE MONONITRATE 30 MG TABLET PO SCH (09:45)
[2019-11-15] MEDS: ATORVASTATIN 20 MG TABLET PO SCH (09:45)
[2019-11-15] MEDS: LOSARTAN 50 MG TABLET PO SCH (09:45)
[2019-11-15] MEDS: CLOPIDOGREL 75 MG TABLET PO SCH (09:45)
[2019-11-15] MEDS: levETIRAcetam 500 MG TABLET PO SCH ×2 (09:45→20:21)
[2019-11-15] MEDS: ENOXAPARIN 40 MG/0.4 ML SYRINGE SUBCUT SCH ×2 (09:45→20:22)
[2019-11-15] MEDS: sitaGLIPtin 100 MG TABLET PO SCH (09:45)
[2019-11-15] MEDS: FERROUS SULFATE 325 MG TABLET PO SCH (09:46)
[2019-11-15] MEDS: ASPIRIN EC 81 MG TABLET PO SCH (09:46)
[2019-11-15] MEDS: DICLOFENAC SODIUM 75 MG TABLET PO SCH ×2 (09:46→21:37)
[2019-11-15] MEDS: METOPROLOL TARTRATE 100 MG TABLET PO SCH ×2 (09:47→20:22)
[2019-11-15] MEDS: NORTRIPTYLINE 25 MG CAPSULE PO SCH ×3 (09:47→20:21)
[2019-11-15] MEDS: PHENYTOIN ER 100 MG CAPSULE PO SCH ×2 (09:54→20:21)
[2019-11-15] MEDS: ONDANSETRON 4 MG/2 ML VIAL IV PRN (14:23)
[2019-11-15] MEDS: GABAPENTIN 300 MG CAPSULE PO SCH (20:22)
[2019-11-16] MEDS: hydrALAZINE 20 MG/1 ML VIAL IV PRN (00:25)
[2019-11-16] MEDS: LABETALOL 20 MG/4 ML SYRINGE IV PRN ×2 (04:20→10:04)
[2019-11-16] MEDS: PANTOPRAZOLE 40 MG TABLET PO SCH (05:42)
[2019-11-16 05:47] LABS: Basophils # 0.1 10*3/uL (0.0-0.2); Basophils % 0.6 % (0.0-0.8); Eosinophils # 0.1 10*3/uL (0.0-0.87); Eosinophils % 1.6 % (0.00-10.9); Hematocrit 37.5 VOL% (35.7-47.0); Hemoglobin 11.4 GM/DL (12.0-16.0); Immature Granulocytes % 0.5 %; Immature Granulocytes Absolute 0.04 #; Lymphocytes # 3.4 10*3/uL (1.4-4.0); Lymphocytes % 40.4 % (21.3-54.2); Mean Corpuscular HGB Conc 30.4 GM/DL (32-36); Mean Corpuscular Volume 92.1 FL (87-102); Monocytes % 4.2 % (1.7-12.7); Neutrophils % 52.7 % (38.7-73.9); Platelet Count 224 T/CUMM (130-400); Red Blood Count 4.07 MC/CUMM (3.8-5.5); Red Cell Distribution Width 13.2 % (9.3-17.3); White Blood Count 8.4 T/CUMM (4-12)
[2019-11-16] MEDS: ACETAMINOPHEN 325 MG TABLET PO PRN (09:31)
[2019-11-16] MEDS: ONDANSETRON 4 MG/2 ML VIAL IV PRN (09:36)
[2019-11-16] MEDS: sitaGLIPtin 100 MG TABLET PO SCH (09:40)
[2019-11-16] MEDS: PRAZOSIN 1 MG CAPSULE PO SCH ×3 (09:40→19:06)
[2019-11-16] MEDS: CLOPIDOGREL 75 MG TABLET PO SCH (09:41)
[2019-11-16] MEDS: DICLOFENAC SODIUM 75 MG TABLET PO SCH (09:41)
[2019-11-16] MEDS: levETIRAcetam 500 MG TABLET PO SCH (09:41)
[2019-11-16] MEDS: HYDROXYCHLOROQUINE 200 MG TABLET PO SCH (09:41)
[2019-11-16] MEDS: ATORVASTATIN 20 MG TABLET PO SCH (09:41)
[2019-11-16] MEDS: METOPROLOL TARTRATE 100 MG TABLET PO SCH (09:41)
[2019-11-16] MEDS: PHENYTOIN ER 100 MG CAPSULE PO SCH (09:41)
[2019-11-16] MEDS: ASPIRIN EC 81 MG TABLET PO SCH (09:42)
[2019-11-16] MEDS: FERROUS SULFATE 325 MG TABLET PO SCH (09:42)
[2019-11-16] MEDS: LOSARTAN 50 MG TABLET PO SCH (09:42)
[2019-11-16] MEDS: ISOSORBIDE MONONITRATE 30 MG TABLET PO SCH (09:42)
[2019-11-16] MEDS: FUROSEMIDE 20 MG TABLET PO SCH (09:42)
[2019-11-16] MEDS: predniSONE 10 MG TABLET PO SCH (09:42)
[2019-11-16] MEDS: Linaclotide [Linzess] 72 MCG PO SCH (09:51)
[2019-11-16] MEDS: ENOXAPARIN 40 MG/0.4 ML SYRINGE SUBCUT SCH (09:52)
[2019-11-16] MEDS: INSULIN LISPRO 100 UNIT/ML SUBCUT SCH ×4 (09:52→21:00)
[2019-11-16] MEDS: FLUTICASONE 50 MCG NASAL SPRAY 16 GM BOTTLE BOTH NARES SCH (09:53)
[2019-11-16] MEDS: GENTAMICIN 0.3% OPH SOLN 5 ML BOTTLE BOTH EYES SCH ×3 (09:53→19:09)
[2019-11-16] MEDS: BACITRACIN OINT 28.35 GM TUBE TOP SCH (09:53)
[2019-11-16] MEDS: BUDESONIDE/FORMOTEROL 160-4.5 INHALER 6 GM INH SCH (09:53)
[2019-11-16] MEDS: DICLOFENAC 1% GEL 100 GM TUBE TOP SCH (09:54)
[2019-11-16] MEDS: NITROGLYCERIN SL 0.4 MG TABLET SL PRN (10:01)
[2019-11-16] MEDS: SODIUM CHLORIDE 0.9% 1,000 ML IV SCH ×2 (11:19→12:12)
[2019-11-16] MEDS: NORTRIPTYLINE 25 MG CAPSULE PO SCH ×4 (12:31→19:06)
[2019-11-16] MEDS: LORazepam 2 MG/1 ML VIAL IV PRN ×2 (13:31→15:21)
[2019-11-16] MEDS ORDERED: ZIPRASIDONE 20 MG/1 ML VIAL IM ONE ×2 (15:49→16:23)
[2019-11-16] MEDS ORDERED: LORazepam 2 MG/1 ML VIAL IM ONE (15:54)
[2019-11-16 17:43] LABS: Calcium 9.3 MG/DL (8.5-10.1); Osmolality,Calculated 277.4 MOS/KG (273-304)
[2019-11-17] MEDS: PHENYTOIN ER 100 MG CAPSULE PO SCH ×3 (00:24→13:31)
[2019-11-17] MEDS: BUDESONIDE/FORMOTEROL 160-4.5 INHALER 6 GM INH SCH ×4 (00:24→17:15)
[2019-11-17] MEDS: FLUTICASONE 50 MCG NASAL SPRAY 16 GM BOTTLE BOTH NARES SCH ×2 (00:24→12:19)
[2019-11-17] MEDS: GENTAMICIN 0.3% OPH SOLN 5 ML BOTTLE BOTH EYES SCH ×5 (00:25→17:15)
[2019-11-17] MEDS: levETIRAcetam 500 MG TABLET PO SCH ×3 (00:25→13:47)
[2019-11-17] MEDS: DICLOFENAC SODIUM 75 MG TABLET PO SCH ×2 (00:26→13:48)
[2019-11-17] MEDS: ENOXAPARIN 40 MG/0.4 ML SYRINGE SUBCUT SCH ×3 (00:26→13:31)
[2019-11-17] MEDS: NORTRIPTYLINE 25 MG CAPSULE PO SCH ×4 (00:26→15:25)
[2019-11-17] MEDS: GABAPENTIN 300 MG CAPSULE PO SCH (00:26)
[2019-11-17] MEDS: PRAZOSIN 1 MG CAPSULE PO SCH ×4 (00:26→15:25)
[2019-11-17] MEDS: METOPROLOL TARTRATE 100 MG TABLET PO SCH ×3 (00:26→13:30)
[2019-11-17] MEDS: predniSONE 10 MG TABLET PO SCH ×2 (00:26→13:31)
[2019-11-17] MEDS: HYDROXYCHLOROQUINE 200 MG TABLET PO SCH ×2 (00:26→13:31)
[2019-11-17] MEDS: DICLOFENAC 1% GEL 100 GM TUBE TOP SCH ×2 (00:27→13:33)
[2019-11-17] MEDS: SODIUM CHLORIDE 0.9% 1,000 ML IV SCH ×2 (00:27→13:55)
[2019-11-17] MEDS: PANTOPRAZOLE 40 MG TABLET PO SCH (05:19)
[2019-11-17 07:24] LABS: Basophils # 0.1 10*3/uL (0.0-0.2); Basophils % 0.5 % (0.0-0.8); Eosinophils # 0.3 10*3/uL (0.0-0.87); Hematocrit 41.7 VOL% (35.7-47.0); Hemoglobin 12.7 GM/DL (12.0-16.0); Immature Granulocytes % 0.3 %; Immature Granulocytes Absolute 0.03 #; Lymphocytes # 2.1 10*3/uL (1.4-4.0); Lymphocytes % 22.5 % (21.3-54.2); Mean Corpuscular HGB Conc 30.5 GM/DL (32-36); Mean Corpuscular Volume 91.6 FL (87-102); Mean Platelet Volume 10.3 FL (9.6-12.0); Monocytes % 3.7 % (1.7-12.7); Platelet Count 254 T/CUMM (130-400); Red Blood Count 4.55 MC/CUMM (3.8-5.5); Red Cell Distribution Width 13.2 % (9.3-17.3); White Blood Count 9.5 T/CUMM (4-12)
[2019-11-17 07:39] LABS: Calcium 8.6 MG/DL (8.5-10.1); Osmolality,Calculated 280.4 MOS/KG (273-304)
[2019-11-17] MEDS ORDERED: ZIPRASIDONE 20 MG/1 ML VIAL IM ONE (10:47)
[2019-11-17] MEDS ORDERED: ZIPRASIDONE 20 MG CAPSULE PO PRN (10:48)
[2019-11-17] MEDS ORDERED: POTASSIUM CHLORIDE 20 MEQ TABLET PO ONE (11:17)
[2019-11-17] MEDS: INSULIN LISPRO 100 UNIT/ML SUBCUT SCH ×2 (12:18→17:15)
[2019-11-17] MEDS: sitaGLIPtin 100 MG TABLET PO SCH ×2 (12:19→13:30)
[2019-11-17] MEDS: BACITRACIN OINT 28.35 GM TUBE TOP SCH ×2 (12:19→13:32)
[2019-11-17] MEDS: ASPIRIN EC 81 MG TABLET PO SCH ×2 (12:19→13:31)
[2019-11-17] MEDS: LOSARTAN 50 MG TABLET PO SCH ×2 (12:19→13:29)
[2019-11-17] MEDS: FERROUS SULFATE 325 MG TABLET PO SCH ×2 (12:19→13:30)
[2019-11-17] MEDS: ISOSORBIDE MONONITRATE 30 MG TABLET PO SCH ×2 (12:20→13:30)
[2019-11-17] MEDS: ATORVASTATIN 20 MG TABLET PO SCH ×2 (12:20→13:29)
[2019-11-17] MEDS: Linaclotide [Linzess] 72 MCG PO SCH (12:20)
[2019-11-17] MEDS: FUROSEMIDE 20 MG TABLET PO SCH ×2 (12:20→13:30)
[2019-11-17] MEDS: CLOPIDOGREL 75 MG TABLET PO SCH (13:30)
[2019-11-17 16:34] VITALS: BP 191/78
== END 2019-11-17 20:37 | disposition home or self-care (01) | DRG 101 ==
LOC: N.ED 21:13 → N.EDINP 21:13 → SUATTDRO 11-11 00:34 → N.3E 11-11 00:51 → N.CLINP 11-11 12:55 → SUATTDRO 11-14 16:39 → N.TELES 11-15 18:33
PROVIDERS: ADMIT Family Medicine; ATTEND Internal Medicine

== ENCOUNTER 2020-07-12 10:09 | Observation (INO) ==
[2020-07-12 11:04] LABS: Basophils % 0.4 % (0.0-0.8); Eosinophils # 0.1 10*3/uL (0.0-0.87); Eosinophils % 1.8 % (0.00-10.9); Hematocrit 30.3 VOL% (35.7-47.0); Immature Granulocytes % 0.3 %; Immature Granulocytes Absolute 0.02 #; Lymphocytes # 2.4 10*3/uL (1.4-4.0); Lymphocytes % 30.1 % (21.3-54.2); Mean Corpuscular Volume 87.3 FL (87-102); Mean Platelet Volume 10.2 FL (9.6-12.0); Monocytes % 5.2 % (1.7-12.7); Neutrophils % 62.2 % (38.7-73.9); Platelet Count 167 T/CUMM (130-400); Red Blood Count 3.47 MC/CUMM (3.8-5.5); Red Cell Distribution Width 12.2 % (9.3-17.3); White Blood Count 7.9 T/CUMM (4-12)
[2020-07-12 11:10] LABS: INR 1.2; PT Patient Result 12.5 SECS (9.8-11.9)
[2020-07-12 11:25] LABS: Eosinophils 3 % (0-10); Hypochromasia 1+; Lymphocytes 33 % (20-55); Segmented Neutrophils 61 % (50-85); Total Cells Counted 100
[2020-07-12 11:26] LABS: Microcytosis 1+; Platelet Estimate Adequate
[2020-07-12 11:30] LABS: Alanine Aminotransferase 42 U/L (13-56); Albumin 3.2 G/DL (3.4-5.0); Alkaline Phosphatase 160 U/L (45-117); Aspartate Amino Transferase 38 U/L (0-37); Bilirubin,Total < 0.39 MG/DL (0.2-1.0); Blood Urea Nitrogen 17 MG/DL (7-18); Calcium 8.5 MG/DL (8.5-10.1); Estimated Glom Filtration Rate 87 ML/MIN; Glucose 112 MG/DL (74-106); Osmolality,Calculated 277.7 MOS/KG (273-304)
[2020-07-12 11:35] LABS: Amorphous Crystals,Urine Few /HPF (Few); Bilirubin,Urine Negative (Negative); Blood, Urine Negative (Negative); Glucose,Urine (UA) Negative (Negative); Hyaline Casts,Urine 1 /LPF (0-3); Ketones,Urine Negative (Negative); Nitrite,Urine Negative (Negative); Protein,Urine Negative; RBC,Urine 1 /HPF (0-4); Squamous Epithelial Cell,Urine Moderate /HPF (0-10); Urine Appearance Slightly Hazy (Clear); Urine Color Yellow (Yellow); Urine Specific Gravity 1.006 (1.001-1.035); Urine Urobilinogen < 2.0 EU/DL (0.2-1.0); WBC,Urine 4 /HPF (0-6)
[2020-07-12 11:43] LABS: Barbiturates Screen,Urine Negative (Negative); Benzodiazepines Screen,Urine Negative (Negative); Cannabinoid Screen,Urine Negative (Negative); Opiate Screen,Urine Negative (Negative); Phencyclidine Screen,Urine Negative (Negative)
[2020-07-12] MEDS ORDERED: levETIRAcetam 500 MG/5 ML VIAL IV ONE (13:00)
[2020-07-12] MEDS ORDERED: PHENYTOIN INJ 1,000 MG in SODIUM CHLORIDE 0.9% 100 ML IV STA (13:01)
[2020-07-12] MEDS ORDERED: ALBUTEROL 2.5 MG/3 ML NEB RESP TX PRN (13:24)
[2020-07-12] MEDS ORDERED: NITROGLYCERIN SL 0.4 MG TABLET SL PRN (13:24)
[2020-07-12] MEDS ORDERED: POLYETHYLENE GLYCOL POWDER 17 GM PACK PO PRN (13:24)
[2020-07-12] MEDS ORDERED: FUROSEMIDE 40 MG/4 ML VIAL IV STA (13:24)
[2020-07-12] MEDS ORDERED: DOCUSATE SODIUM 100 MG CAPSULE PO PRN (13:57)
[2020-07-12] MEDS ORDERED: BISACODYL 5 MG TABLET PO PRN (13:57)
[2020-07-12] MEDS ORDERED: NICOTINE 21 MG/24 HR PATCH TRANSDERM PRN (13:57)
[2020-07-12] MEDS ORDERED: guaiFENesin/DM ER 600-30 MG TABLET PO PRN (13:57)
[2020-07-12] MEDS ORDERED: ONDANSETRON 4 MG/2 ML VIAL IV PRN (13:57)
[2020-07-12] MEDS ORDERED: DEXTROSE 50% 25 GM/50 ML VIAL IV PRN ×2 (13:57)
[2020-07-12] MEDS ORDERED: ALUMINUM/MAGNES/SIMETH MAX STR 30 ML UDCUP PO PRN (13:57)
[2020-07-12] MEDS ORDERED: ACETAMINOPHEN 325 MG TABLET PO PRN (13:57)
[2020-07-12] MEDS ORDERED: ALBUTEROL/IPRATROPIUM 3 ML NEB RESP TX PRN (13:57)
[2020-07-12] MEDS ORDERED: CALCIUM CARBONATE CHEW 500 MG TABLET PO PRN (13:57)
[2020-07-12] MEDS ORDERED: SIMETHICONE CHEW 125 MG TABLET PO PRN (13:57)
[2020-07-12] MEDS ORDERED: MORPHINE 4 MG/1 ML VIAL IV PRN (13:57)
[2020-07-12] MEDS ORDERED: PROMETHAZINE 25 MG TABLET PO PRN (13:57)
[2020-07-12] MEDS ORDERED: GLUCAGON 1 MG VIAL IM PRN ×2 (13:57)
[2020-07-12] MEDS ORDERED: hydrALAZINE 20 MG/1 ML VIAL IV PRN (13:57)
[2020-07-12] MEDS ORDERED: LACTULOSE 20 GM/30 ML UDCUP PO PRN (13:57)
[2020-07-12] MEDS ORDERED: cefTRIAXone 1,000 MG in SYRINGE 1 EACH IV SCH (14:00)
[2020-07-12] MEDS ORDERED: PRAZOSIN 1 MG CAPSULE PO SCH (15:00)
[2020-07-12] MEDS: PHENYTOIN INJ 500 MG in SODIUM CHLORIDE 0.9% 100 ML IV STA ×2 (16:00→16:17)
[2020-07-12] MEDS: INSULIN REGULAR 100 UNIT/ML SUBCUT SCH ×2 (18:39→20:33)
[2020-07-12] MEDS: FLUTICASONE 50 MCG NASAL SPRAY 16 GM BOTTLE BOTH NARES SCH (20:33)
[2020-07-12] MEDS: HYDROXYCHLOROQUINE 200 MG TABLET PO SCH (20:36)
[2020-07-12] MEDS: predniSONE 5 MG TABLET PO SCH (20:37)
[2020-07-12] MEDS: levETIRAcetam 500 MG TABLET PO SCH (20:37)
[2020-07-12] MEDS: METOPROLOL TARTRATE 25 MG TABLET PO SCH (20:37)
[2020-07-12] MEDS: GABAPENTIN 600 MG TABLET PO SCH (20:37)
[2020-07-12] MEDS: PHENYTOIN 100 MG/2 ML VIAL IV SCH (20:37)
[2020-07-12] MEDS ORDERED: DICLOFENAC 1% GEL 100 GM TUBE TOP SCH (21:00)
[2020-07-12] MEDS: PRAZOSIN 1 MG CAPSULE PO SCH (22:33)
[2020-07-13] MEDS: PRAZOSIN 1 MG CAPSULE PO SCH (05:26)
[2020-07-13 05:42] LABS: Basophils % 0.5 % (0.0-0.8); Eosinophils # 0.1 10*3/uL (0.0-0.87); Eosinophils % 1.7 % (0.00-10.9); Hematocrit 31.6 VOL% (35.7-47.0); Hemoglobin 10.1 GM/DL (12.0-16.0); Immature Granulocytes % 0.4 %; Immature Granulocytes Absolute 0.03 #; Lymphocytes # 2.6 10*3/uL (1.4-4.0); Mean Corpuscular Volume 89.8 FL (87-102); Mean Platelet Volume 10.2 FL (9.6-12.0); Monocytes % 4.2 % (1.7-12.7); Neutrophils % 62.2 % (38.7-73.9); Platelet Count 163 T/CUMM (130-400); Red Blood Count 3.52 MC/CUMM (3.8-5.5); Red Cell Distribution Width 12.2 % (9.3-17.3); White Blood Count 8.3 T/CUMM (4-12)
[2020-07-13] MEDS ORDERED: PANTOPRAZOLE 40 MG TABLET PO SCH (06:00)
[2020-07-13 06:10] LABS: Risk Ratio 1.9; VLDL CHOLESTEROL 19.8 MG/DL
[2020-07-13 06:13] LABS: Albumin 2.8 G/DL (3.4-5.0); Bilirubin,Total 0.4 MG/DL (0.2-1.0); Calcium 8.7 MG/DL (8.5-10.1); Osmolality,Calculated 277.5 MOS/KG (273-304); Total Protein 7.2 G/DL (6.4-8.3)
[2020-07-13 06:19] LABS: Anisocytosis 1+; Band Neutrophils 4 % (0-10); Eosinophils 2 % (0-10); Lymphocytes 33 % (20-55); Platelet Estimate Normal; Segmented Neutrophils 57 % (50-85); Total Cells Counted 100
[2020-07-13] MEDS: HYDROXYCHLOROQUINE 200 MG TABLET PO SCH (08:59)
[2020-07-13] MEDS: levETIRAcetam 500 MG TABLET PO SCH (08:59)
[2020-07-13] MEDS: GABAPENTIN 600 MG TABLET PO SCH (08:59)
[2020-07-13] MEDS ORDERED: sitaGLIPtin 100 MG TABLET PO SCH (09:00)
[2020-07-13] MEDS: PHENYTOIN 100 MG/2 ML VIAL IV SCH (09:00)
[2020-07-13] MEDS ORDERED: FERROUS SULFATE 325 MG TABLET PO SCH (09:00)
[2020-07-13] MEDS ORDERED: ISOSORBIDE MONONITRATE 30 MG TABLET PO SCH (09:00)
[2020-07-13] MEDS ORDERED: ASPIRIN EC 81 MG TABLET PO SCH (09:00)
[2020-07-13] MEDS ORDERED: NON-FORMULARY MEDICATION (Umeclidinium-Vilanterol [Anoro Ellipta] 62.5-25 mcg/actuation Bl INH SCH (09:00)
[2020-07-13] MEDS ORDERED: ATORVASTATIN 20 MG TABLET PO SCH (09:00)
[2020-07-13] MEDS: predniSONE 5 MG TABLET PO SCH (09:00)
[2020-07-13] MEDS: METOPROLOL TARTRATE 25 MG TABLET PO SCH (09:00)
[2020-07-13] MEDS ORDERED: CLOPIDOGREL 75 MG TABLET PO SCH (09:00)
[2020-07-13] MEDS: INSULIN REGULAR 100 UNIT/ML SUBCUT SCH ×3 (09:01→17:04)
[2020-07-13] MEDS: FLUTICASONE 50 MCG NASAL SPRAY 16 GM BOTTLE BOTH NARES SCH (09:04)
[2020-07-13 11:34] VITALS: BP 114/44
[2020-07-13] MEDS ORDERED: levETIRAcetam 500 MG TABLET PO SCH (21:00)
== END 2020-07-13 18:18 | disposition home health service (06) ==
LOC: EDUNIT# → EDBD → N.ED 10:09 → N.EDINP 10:09 → N.5E 18:08
PROVIDERS: ADMIT Internal Medicine; ATTEND Internal Medicine

== ENCOUNTER 2021-01-16 10:57 | Inpatient (IN) ==
[2021-01-16 14:54] LABS: Basophils # 0.1 10*3/uL (0.0-0.2); Basophils % 0.5 % (0.0-0.8); Eosinophils # 0.3 10*3/uL (0.0-0.87); Eosinophils % 2.3 % (0.00-10.9); Hematocrit 36.4 VOL% (35.7-47.0); Hemoglobin 11.3 GM/DL (12.0-16.0); Immature Granulocytes % 0.8 %; Immature Granulocytes Absolute 0.08 #; Lymphocytes # 3.4 10*3/uL (1.4-4.0); Lymphocytes % 31.5 % (21.3-54.2); Mean Platelet Volume 10.4 FL (9.6-12.0); Monocytes % 4.4 % (1.7-12.7); NRBC # 0.02 10*3/uL; Neutrophils % 60.5 % (38.7-73.9); Platelet Count 256 T/CUMM (130-400); Red Blood Count 3.57 MC/CUMM (3.8-5.5); Red Cell Distribution Width 15.2 % (9.3-17.3); White Blood Count 10.6 T/CUMM (4-12)
[2021-01-16 15:05] LABS: Bacteria,Urine Occasional /HPF (Few); Bilirubin,Urine Negative (Negative); Blood, Urine Negative (Negative); Glucose,Urine (UA) >=500 mg/dL (Negative); Ketones,Urine Negative (Negative); Mucus,Urine Occasional /LPF (Occasional); Nitrite,Urine Negative (Negative); Protein,Urine Negative; RBC,Urine 2 /HPF (0-4); Squamous Epithelial Cell,Urine Few /HPF (0-10); Urine Appearance Slightly Hazy (Clear); Urine Color Straw (Yellow); Urine Specific Gravity 1.003 (1.001-1.035); Urine Urobilinogen < 2.0 EU/DL (0.2-1.0)
[2021-01-16 15:10] LABS: Albumin 3.4 G/DL (3.4-5.0); Bilirubin,Total 0.5 MG/DL (0.20-1.00); Calcium 8.9 MG/DL (8.5-10.1); Osmolality,Calculated 280.5 MOS/KG (273-304); Potassium 4.1 MMOL/L (3.5-5.1)
[2021-01-16 15:20] LABS: Eosinophils 2 % (0-10); Lymphocytes 34 % (20-55); Segmented Neutrophils 58 % (50-85); Total Cells Counted 100
[2021-01-16 15:33] LABS: Anisocytosis 3+; Hypochromasia Slight; Macrocytosis 3+; Microcytosis 1+; Platelet Estimate Normal; Polychromasia 1+
[2021-01-16 15:34] LABS: Atypical Lymphocytes Few
[2021-01-16] MEDS ORDERED: GLUCAGON 1 MG VIAL IM PRN (15:47)
[2021-01-16] MEDS ORDERED: DEXTROSE 50% 25 GM/50 ML VIAL IV PRN (15:47)
[2021-01-16] MEDS ORDERED: ONDANSETRON 4 MG/2 ML VIAL IV PRN (15:49)
[2021-01-16] MEDS ORDERED: PIPERACILLIN/TAZOBACTAM 2,250 MG in SODIUM CHLORIDE 0.9% 100 ML IV SCH (16:30)
[2021-01-16] MEDS ORDERED: ALBUTEROL/IPRATROPIUM 3 ML NEB RESP TX PRN (16:46)
[2021-01-16] MEDS ORDERED: hydrALAZINE 20 MG/1 ML VIAL IV PRN (16:46)
[2021-01-16] MEDS: traMADol 50 MG TABLET PO PRN (17:28)
[2021-01-16] MEDS: PIPERACILLIN/TAZOBACTAM 3,375 MG in SODIUM CHLORIDE 0.9% 100 ML IV SCH ×2 (17:30→23:36)
[2021-01-16] MEDS: DOCUSATE SODIUM 100 MG CAPSULE PO SCH (20:54)
[2021-01-16] MEDS: INSULIN REGULAR 100 UNIT/ML SUBCUT SCH (20:55)
[2021-01-16] MEDS: MORPHINE 2 MG/1 ML SYRINGE IV PRN (21:00)
[2021-01-17 05:45] LABS: Basophils # 0.1 10*3/uL (0.0-0.2); Basophils % 0.6 % (0.0-0.8); Eosinophils # 0.3 10*3/uL (0.0-0.87); Eosinophils % 2.8 % (0.00-10.9); Hematocrit 33.5 VOL% (35.7-47.0); Hemoglobin 10.7 GM/DL (12.0-16.0); Immature Granulocytes % 0.9 %; Immature Granulocytes Absolute 0.08 #; Lymphocytes # 4.1 10*3/uL (1.4-4.0); Lymphocytes % 46.4 % (21.3-54.2); Mean Corpuscular HGB Conc 31.9 GM/DL (32-36); Mean Corpuscular Volume 101.2 FL (87-102); Monocytes % 6.2 % (1.7-12.7); NRBC # 0.02 10*3/uL; Neutrophils % 43.1 % (38.7-73.9); Platelet Count 244 T/CUMM (130-400); Red Blood Count 3.31 MC/CUMM (3.8-5.5); Red Cell Distribution Width 15.1 % (9.3-17.3); White Blood Count 8.8 T/CUMM (4-12)
[2021-01-17 06:08] LABS: Eosinophils 1 % (0-10); Lymphocytes 36 % (20-55); Platelet Estimate Normal; Segmented Neutrophils 57 % (50-85); Total Cells Counted 100
[2021-01-17 06:12] LABS: Calcium 8.4 MG/DL (8.5-10.1); Osmolality,Calculated 283.3 MOS/KG (273-304); Potassium 3.7 MMOL/L (3.5-5.1)
[2021-01-17] MEDS: traMADol 50 MG TABLET PO PRN (07:09)
[2021-01-17] MEDS: PANTOPRAZOLE 40 MG TABLET PO SCH (08:51)
[2021-01-17] MEDS: FUROSEMIDE 20 MG TABLET PO SCH (08:51)
[2021-01-17] MEDS: levETIRAcetam 500 MG TABLET PO SCH ×2 (08:51→20:41)
[2021-01-17] MEDS: DOCUSATE SODIUM 100 MG CAPSULE PO SCH ×2 (08:51→20:40)
[2021-01-17] MEDS: PIPERACILLIN/TAZOBACTAM 3,375 MG in SODIUM CHLORIDE 0.9% 100 ML IV SCH ×2 (08:52→17:20)
[2021-01-17] MEDS: INSULIN REGULAR 100 UNIT/ML SUBCUT SCH ×4 (08:57→20:11)
[2021-01-17] MEDS ORDERED: ATORVASTATIN 20 MG TABLET PO SCH (09:00)
[2021-01-17] MEDS ORDERED: CLOPIDOGREL 75 MG TABLET PO SCH (09:00)
[2021-01-17] MEDS: methylPREDNISolone SOD SUC 40 MG/1 ML VIAL IV SCH ×2 (11:30→20:42)
[2021-01-17] MEDS: MORPHINE 2 MG/1 ML SYRINGE IV PRN ×2 (14:50→23:35)
[2021-01-17] MEDS: PHENYTOIN ER 100 MG CAPSULE PO SCH (20:41)
[2021-01-18 06:11] LABS: Basophils # 0.1 10*3/uL (0.0-0.2); Basophils % 0.6 % (0.0-0.8); Eosinophils # 0.1 10*3/uL (0.0-0.87); Eosinophils % 0.8 % (0.00-10.9); Hematocrit 36.6 VOL% (35.7-47.0); Hemoglobin 11.5 GM/DL (12.0-16.0); Immature Granulocytes % 0.3 %; Immature Granulocytes Absolute 0.03 #; Lymphocytes # 3.6 10*3/uL (1.4-4.0); Lymphocytes % 41.6 % (21.3-54.2); Mean Corpuscular HGB Conc 31.4 GM/DL (32-36); Mean Corpuscular Volume 102.2 FL (87-102); Mean Platelet Volume 10.2 FL (9.6-12.0); Monocytes % 3.1 % (1.7-12.7); Neutrophils % 53.6 % (38.7-73.9); Platelet Count 284 T/CUMM (130-400); Red Blood Count 3.58 MC/CUMM (3.8-5.5); Red Cell Distribution Width 14.6 % (9.3-17.3); White Blood Count 8.7 T/CUMM (4-12)
[2021-01-18 06:55] LABS: Hypochromasia 1+; Lymphocytes 43 % (20-55); Microcytosis 1+; Platelet Estimate Adequate; Segmented Neutrophils 55 % (50-85); Total Cells Counted 100
[2021-01-18 06:56] LABS: Atypical Lymphocytes Few
[2021-01-18] MEDS: INSULIN REGULAR 100 UNIT/ML SUBCUT SCH ×4 (07:53→21:27)
[2021-01-18] MEDS: PIPERACILLIN/TAZOBACTAM 3,375 MG in SODIUM CHLORIDE 0.9% 100 ML IV SCH ×3 (10:06→17:16)
[2021-01-18] MEDS: methylPREDNISolone SOD SUC 40 MG/1 ML VIAL IV SCH ×2 (10:07→21:27)
[2021-01-18] MEDS: levETIRAcetam 500 MG TABLET PO SCH ×2 (10:09→21:28)
[2021-01-18] MEDS: PANTOPRAZOLE 40 MG TABLET PO SCH (10:09)
[2021-01-18] MEDS: PHENYTOIN ER 100 MG CAPSULE PO SCH ×2 (10:09→21:28)
[2021-01-18] MEDS: FUROSEMIDE 20 MG TABLET PO SCH (10:09)
[2021-01-18] MEDS: DOCUSATE SODIUM 100 MG CAPSULE PO SCH ×2 (10:09→21:28)
[2021-01-19] MEDS: PIPERACILLIN/TAZOBACTAM 3,375 MG in SODIUM CHLORIDE 0.9% 100 ML IV SCH (00:37)
[2021-01-19 07:20] LABS: Basophils # 0.1 10*3/uL (0.0-0.2); Basophils % 0.6 % (0.0-0.8); Eosinophils # 0.1 10*3/uL (0.0-0.87); Eosinophils % 1.1 % (0.00-10.9); Hematocrit 37.5 VOL% (35.7-47.0); Hemoglobin 12.2 GM/DL (12.0-16.0); Immature Granulocytes % 0.4 %; Immature Granulocytes Absolute 0.03 #; Lymphocytes # 4.3 10*3/uL (1.4-4.0); Lymphocytes % 52.4 % (21.3-54.2); Mean Corpuscular HGB Conc 32.5 GM/DL (32-36); Mean Corpuscular Volume 99.5 FL (87-102); Mean Platelet Volume 10.1 FL (9.6-12.0); Monocytes % 1.7 % (1.7-12.7); Neutrophils % 43.8 % (38.7-73.9); Platelet Count 294 T/CUMM (130-400); Red Blood Count 3.77 MC/CUMM (3.8-5.5); Red Cell Distribution Width 14.5 % (9.3-17.3); White Blood Count 8.2 T/CUMM (4-12)
[2021-01-19] MEDS: INSULIN REGULAR 100 UNIT/ML SUBCUT SCH ×4 (08:01→21:42)
[2021-01-19 09:42] LABS: Lymphocytes 43 % (20-55); Metamyelocytes 2 %; Ovalocytes 1+; Platelet Estimate Normal; Segmented Neutrophils 54 % (50-85); Total Cells Counted 100
[2021-01-19] MEDS: PHENYTOIN ER 100 MG CAPSULE PO SCH ×2 (09:43→21:35)
[2021-01-19] MEDS: levETIRAcetam 500 MG TABLET PO SCH ×2 (09:44→21:27)
[2021-01-19] MEDS: PANTOPRAZOLE 40 MG TABLET PO SCH (09:44)
[2021-01-19] MEDS: FUROSEMIDE 20 MG TABLET PO SCH (09:44)
[2021-01-19] MEDS: DOCUSATE SODIUM 100 MG CAPSULE PO SCH ×2 (09:44→21:27)
[2021-01-19] MEDS: CLINDAMYCIN 300 MG CAPSULE PO SCH ×3 (09:44→21:37)
[2021-01-19] MEDS: methylPREDNISolone SOD SUC 40 MG/1 ML VIAL IV SCH (09:47)
[2021-01-19] MEDS ORDERED: ALUM/MAG/SIMETH/LIDO VISC 1:1 30 ML BOTTLE PO PRN (19:23)
[2021-01-19] MEDS: ACETAMINOPHEN 325 MG TABLET PO PRN (19:56)
[2021-01-19] MEDS ORDERED: PANTOPRAZOLE 40 MG TABLET PO ONE (20:00)
[2021-01-19] MEDS: traMADol 50 MG TABLET PO PRN (21:27)
[2021-01-20] MEDS: methylPREDNISolone SOD SUC 40 MG/1 ML VIAL IV SCH ×2 (01:58→09:07)
[2021-01-20] MEDS: CLINDAMYCIN 300 MG CAPSULE PO SCH (06:30)
[2021-01-20] MEDS: INSULIN REGULAR 100 UNIT/ML SUBCUT SCH ×2 (07:56→12:09)
[2021-01-20] MEDS: levETIRAcetam 500 MG TABLET PO SCH (08:39)
[2021-01-20] MEDS: DOCUSATE SODIUM 100 MG CAPSULE PO SCH (08:39)
[2021-01-20] MEDS: PHENYTOIN ER 100 MG CAPSULE PO SCH (08:40)
[2021-01-20] MEDS: FUROSEMIDE 20 MG TABLET PO SCH (08:41)
[2021-01-20] MEDS: PANTOPRAZOLE 40 MG TABLET PO SCH (08:41)
[2021-01-20] MEDS: ACETAMINOPHEN 325 MG TABLET PO PRN (08:42)
[2021-01-20 11:30] VITALS: BP 145/79
== END 2021-01-20 13:11 | disposition home or self-care (01) | DRG 346 ==
LOC: N.ED 10:57 → N.5E 10:57
PROVIDERS: ADMIT Family Medicine; ATTEND Family Medicine

== ENCOUNTER 2021-03-21 12:37 | Inpatient (IN) ==
[2021-03-21] MEDS ORDERED: ONDANSETRON 4 MG/2 ML VIAL IV STA (13:13)
[2021-03-21] MEDS ORDERED: SODIUM CHLORIDE 0.9% 1,000 ML IV STA (13:13)
[2021-03-21 14:33] LABS: Basophils % 0.2 % (0.0-0.8); Eosinophils # 0.4 10*3/uL (0.0-0.87); Eosinophils % 6.5 % (0.00-10.9); Hematocrit 30.6 VOL% (35.7-47.0); Hemoglobin 9.5 GM/DL (12.0-16.0); Immature Granulocytes % 0.3 %; Immature Granulocytes Absolute 0.02 #; Lymphocytes # 2.5 10*3/uL (1.4-4.0); Lymphocytes % 37.5 % (21.3-54.2); Mean Platelet Volume 10.4 FL (9.6-12.0); Monocytes % 6.7 % (1.7-12.7); Neutrophils % 48.8 % (38.7-73.9); Platelet Count 189 T/CUMM (130-400); Red Blood Count 3.06 MC/CUMM (3.8-5.5); Red Cell Distribution Width 13.9 % (9.3-17.3); White Blood Count 6.6 T/CUMM (4-12)
[2021-03-21 14:59] LABS: Alanine Aminotransferase 17 U/L (13-56); Albumin 2.8 G/DL (3.4-5.0); Alkaline Phosphatase 105 U/L (45-117); Aspartate Amino Transferase 21 U/L (0-37); Bilirubin,Total < 0.39 MG/DL (0.20-1.00); Blood Urea Nitrogen 6 MG/DL (7-18); Calcium 7.9 MG/DL (8.5-10.1); Carbon Dioxide 24 MMOL/L (21-32); Estimated Glom Filtration Rate 132 ML/MIN; Glucose 93 MG/DL (74-106); Osmolality,Calculated 283.8 MOS/KG (273-304); Sodium 144 MMOL/L (136-145); Total Protein 5.9 G/DL (6.4-8.2)
[2021-03-21 15:05] LABS: Eosinophils 4 % (0-10); Hypochromasia 1+; Lymphocytes 44 % (20-55); Microcytosis 1+; Platelet Estimate Adequate; Segmented Neutrophils 47 % (50-85); Total Cells Counted 100
[2021-03-21 15:06] LABS: Atypical Lymphocytes Few
[2021-03-21] MEDS ORDERED: POTASSIUM CHLORIDE 20 MEQ TABLET PO STA (15:06)
[2021-03-21] MEDS ORDERED: ACETAMINOPHEN 325 MG TABLET PO PRN (15:09)
[2021-03-21] MEDS ORDERED: ONDANSETRON 4 MG/2 ML VIAL IV PRN (15:09)
[2021-03-21] MEDS ORDERED: DEXTROSE 50% 25 GM/50 ML VIAL IV PRN (15:09)
[2021-03-21] MEDS ORDERED: GLUCAGON 1 MG VIAL IM PRN (15:09)
[2021-03-21] MEDS ORDERED: hydrALAZINE 20 MG/1 ML VIAL IV PRN (17:08)
[2021-03-21] MEDS: SODIUM CHLORIDE 0.9% 1,000 ML IV SCH (17:29)
[2021-03-21] MEDS ORDERED: POTASSIUM CHLORIDE RIDER 10 MEQ/100 ML PREMIX IV PRN (19:01)
[2021-03-21] MEDS ORDERED: MAGNESIUM SULF RIDER 4 GM/100 ML PREMIX IV PRN (19:01)
[2021-03-21] MEDS ORDERED: MAGNESIUM SULF RIDER 2 GM/50 ML PREMIX IV PRN (19:01)
[2021-03-21] MEDS: MONTELUKAST 10 MG TABLET PO SCH (20:18)
[2021-03-21] MEDS: levETIRAcetam 500 MG TABLET PO SCH (20:18)
[2021-03-21] MEDS: PRAZOSIN 1 MG CAPSULE PO SCH (20:18)
[2021-03-21] MEDS: GABAPENTIN 600 MG TABLET PO SCH (20:18)
[2021-03-21] MEDS: PHENYTOIN ER 100 MG CAPSULE PO SCH (20:18)
[2021-03-21] MEDS: METOPROLOL TARTRATE 25 MG TABLET PO SCH (20:19)
[2021-03-21] MEDS: DOCUSATE SODIUM 100 MG CAPSULE PO SCH (20:19)
[2021-03-21] MEDS: ATORVASTATIN 20 MG TABLET PO SCH (20:19)
[2021-03-21] MEDS: INSULIN LISPRO 100 UNIT/ML SUBCUT SCH (22:30)
[2021-03-22] MEDS: SODIUM CHLORIDE 0.9% 1,000 ML IV SCH ×3 (01:30→21:00)
[2021-03-22 05:10] LABS: Basophils % 0.3 % (0.0-0.8); Eosinophils # 0.4 10*3/uL (0.0-0.87); Eosinophils % 6.1 % (0.00-10.9); Hematocrit 32.3 VOL% (35.7-47.0); Immature Granulocytes % 0.3 %; Immature Granulocytes Absolute 0.02 #; Lymphocytes # 2.8 10*3/uL (1.4-4.0); Lymphocytes % 47.9 % (21.3-54.2); Mean Corpuscular Volume 100.3 FL (87-102); Mean Platelet Volume 10.2 FL (9.6-12.0); Neutrophils % 40.4 % (38.7-73.9); Platelet Count 190 T/CUMM (130-400); Red Blood Count 3.22 MC/CUMM (3.8-5.5); Red Cell Distribution Width 13.9 % (9.3-17.3); White Blood Count 5.8 T/CUMM (4-12)
[2021-03-22 05:33] LABS: Alanine Aminotransferase 26 U/L (13-56); Albumin 2.6 G/DL (3.4-5.0); Alkaline Phosphatase 115 U/L (45-117); Aspartate Amino Transferase 40 U/L (0-37); Bilirubin,Total < 0.39 MG/DL (0.20-1.00); Blood Urea Nitrogen 3 MG/DL (7-18); Calcium 8.1 MG/DL (8.5-10.1); Carbon Dioxide 21 MMOL/L (21-32); Estimated Glom Filtration Rate 132 ML/MIN; Glucose 85 MG/DL (74-106); Potassium 3.1 MMOL/L (3.5-5.1); Sodium 143 MMOL/L (136-145); Total Protein 6.1 G/DL (6.4-8.2)
[2021-03-22 05:54] LABS: Eosinophils 3 % (0-10); Lymphocytes 53 % (20-55); Platelet Estimate Normal; Segmented Neutrophils 41 % (50-85); Total Cells Counted 100
[2021-03-22] MEDS: NORTRIPTYLINE 25 MG CAPSULE PO SCH (10:54)
[2021-03-22] MEDS: GABAPENTIN 600 MG TABLET PO SCH ×2 (10:54→22:26)
[2021-03-22] MEDS: PRAZOSIN 1 MG CAPSULE PO SCH ×3 (10:54→22:26)
[2021-03-22] MEDS: PANTOPRAZOLE 40 MG TABLET PO SCH (10:54)
[2021-03-22] MEDS: levETIRAcetam 500 MG TABLET PO SCH ×2 (10:55→22:27)
[2021-03-22] MEDS: PHENYTOIN ER 100 MG CAPSULE PO SCH ×2 (10:55→22:25)
[2021-03-22] MEDS: DOCUSATE SODIUM 100 MG CAPSULE PO SCH ×2 (10:55→22:06)
[2021-03-22] MEDS: METOPROLOL TARTRATE 25 MG TABLET PO SCH ×2 (10:55→22:26)
[2021-03-22] MEDS: INSULIN LISPRO 100 UNIT/ML SUBCUT SCH ×4 (12:11→22:31)
[2021-03-22] MEDS: Umeclidinium-Vilanterol [Anoro Ellipta] 62.5-25 mcg/actuation Bl INH SCH (12:11)
[2021-03-22] MEDS: CIPROFLOXACIN INJ 400 MG/200 ML PREMIX IV SCH ×2 (12:20→22:21)
[2021-03-22] MEDS: methylPREDNISolone SOD SUC 40 MG/1 ML VIAL IV SCH ×2 (12:21→22:18)
[2021-03-22] MEDS: metroNIDAZOLE INJ 500 MG/100 ML PREMIX IV SCH ×2 (13:25→18:03)
[2021-03-22] MEDS: MONTELUKAST 10 MG TABLET PO SCH (22:26)
[2021-03-22] MEDS: ATORVASTATIN 20 MG TABLET PO SCH (22:26)
[2021-03-23] MEDS: metroNIDAZOLE INJ 500 MG/100 ML PREMIX IV SCH ×3 (02:06→17:02)
[2021-03-23] MEDS: SODIUM CHLORIDE 0.9% 1,000 ML IV SCH ×3 (02:06→17:02)
[2021-03-23 05:35] LABS: Basophils % 0.2 % (0.0-0.8); Eosinophils % 0.2 % (0.00-10.9); Hematocrit 30.9 VOL% (35.7-47.0); Hemoglobin 9.9 GM/DL (12.0-16.0); Immature Granulocytes % 0.3 %; Immature Granulocytes Absolute 0.02 #; Lymphocytes # 1.7 10*3/uL (1.4-4.0); Lymphocytes % 29.2 % (21.3-54.2); Mean Corpuscular Volume 99.7 FL (87-102); Mean Platelet Volume 10.5 FL (9.6-12.0); Monocytes % 2.6 % (1.7-12.7); Neutrophils % 67.5 % (38.7-73.9); Platelet Count 200 T/CUMM (130-400); Red Cell Distribution Width 13.7 % (9.3-17.3); White Blood Count 5.8 T/CUMM (4-12)
[2021-03-23 06:07] LABS: Alanine Aminotransferase 34 U/L (13-56); Albumin 2.6 G/DL (3.4-5.0); Alkaline Phosphatase 144 U/L (45-117); Aspartate Amino Transferase 43 U/L (0-37); Bilirubin,Total < 0.39 MG/DL (0.20-1.00); Blood Urea Nitrogen 4 MG/DL (7-18); Calcium 8.1 MG/DL (8.5-10.1); Carbon Dioxide 21 MMOL/L (21-32); Estimated Glom Filtration Rate 136 ML/MIN; Glucose 142 MG/DL (74-106); Potassium 3.5 MMOL/L (3.5-5.1); Sodium 143 MMOL/L (136-145); Total Protein 6.3 G/DL (6.4-8.2)
[2021-03-23] MEDS: CIPROFLOXACIN INJ 400 MG/200 ML PREMIX IV SCH ×2 (09:04→22:34)
[2021-03-23] MEDS: levETIRAcetam 500 MG TABLET PO SCH ×2 (09:05→22:36)
[2021-03-23] MEDS: PANTOPRAZOLE 40 MG TABLET PO SCH (09:05)
[2021-03-23] MEDS: METOPROLOL TARTRATE 25 MG TABLET PO SCH ×2 (09:05→22:35)
[2021-03-23] MEDS: PRAZOSIN 1 MG CAPSULE PO SCH ×3 (09:05→22:35)
[2021-03-23] MEDS: GABAPENTIN 600 MG TABLET PO SCH ×2 (09:05→22:36)
[2021-03-23] MEDS: PHENYTOIN ER 100 MG CAPSULE PO SCH ×2 (09:05→22:36)
[2021-03-23] MEDS: methylPREDNISolone SOD SUC 40 MG/1 ML VIAL IV SCH ×2 (09:06→22:30)
[2021-03-23] MEDS: NORTRIPTYLINE 25 MG CAPSULE PO SCH (09:06)
[2021-03-23] MEDS: DOCUSATE SODIUM 100 MG CAPSULE PO SCH ×2 (09:06→22:10)
[2021-03-23] MEDS: Umeclidinium-Vilanterol [Anoro Ellipta] 62.5-25 mcg/actuation Bl INH SCH (09:07)
[2021-03-23] MEDS: INSULIN LISPRO 100 UNIT/ML SUBCUT SCH ×3 (11:00→22:11)
[2021-03-23 20:41] LABS: Bilirubin,Urine Negative (Negative); Blood, Urine Negative (Negative); Glucose,Urine (UA) >=500 mg/dL (Negative); Ketones,Urine Negative (Negative); Nitrite,Urine Negative (Negative); Protein,Urine Negative; RBC,Urine 1 /HPF (0-4); Squamous Epithelial Cell,Urine Occasional /HPF (0-10); Urine Appearance CLEAR (Clear); Urine Color Yellow (Yellow); Urine Specific Gravity 1.005 (1.001-1.035); Urine Urobilinogen < 2.0 EU/DL (0.2-1.0)
[2021-03-23] MEDS: MONTELUKAST 10 MG TABLET PO SCH (22:36)
[2021-03-23] MEDS: ATORVASTATIN 20 MG TABLET PO SCH (22:37)
[2021-03-24] MEDS: metroNIDAZOLE INJ 500 MG/100 ML PREMIX IV SCH ×3 (02:02→17:49)
[2021-03-24] MEDS: SODIUM CHLORIDE 0.9% 1,000 ML IV SCH ×2 (03:25→21:04)
[2021-03-24] MEDS: INSULIN LISPRO 100 UNIT/ML SUBCUT SCH ×4 (08:19→21:08)
[2021-03-24] MEDS: PHENYTOIN ER 100 MG CAPSULE PO SCH ×2 (09:15→21:06)
[2021-03-24] MEDS: GABAPENTIN 600 MG TABLET PO SCH ×2 (09:15→21:07)
[2021-03-24] MEDS: PANTOPRAZOLE 40 MG TABLET PO SCH (09:15)
[2021-03-24] MEDS: levETIRAcetam 500 MG TABLET PO SCH ×2 (09:15→21:06)
[2021-03-24] MEDS: NORTRIPTYLINE 25 MG CAPSULE PO SCH (09:15)
[2021-03-24] MEDS: DOCUSATE SODIUM 100 MG CAPSULE PO SCH ×2 (09:15→21:07)
[2021-03-24] MEDS: METOPROLOL TARTRATE 25 MG TABLET PO SCH ×2 (09:15→21:06)
[2021-03-24] MEDS: Umeclidinium-Vilanterol [Anoro Ellipta] 62.5-25 mcg/actuation Bl INH SCH (09:16)
[2021-03-24] MEDS: methylPREDNISolone SOD SUC 40 MG/1 ML VIAL IV SCH ×2 (09:16→21:08)
[2021-03-24] MEDS: PRAZOSIN 1 MG CAPSULE PO SCH ×3 (09:16→21:07)
[2021-03-24] MEDS: CIPROFLOXACIN INJ 400 MG/200 ML PREMIX IV SCH ×2 (09:17→22:21)
[2021-03-24 09:29] LABS: Alanine Aminotransferase 30 U/L (13-56); Albumin 2.8 G/DL (3.4-5.0); Alkaline Phosphatase 137 U/L (45-117); Aspartate Amino Transferase 29 U/L (0-37); Bilirubin,Total < 0.39 MG/DL (0.20-1.00); Blood Urea Nitrogen 3 MG/DL (7-18); Calcium 8.2 MG/DL (8.5-10.1); Carbon Dioxide 26 MMOL/L (21-32); Estimated Glom Filtration Rate 137 ML/MIN; Glucose 112 MG/DL (74-106); Osmolality,Calculated 285.7 MOS/KG (273-304); Potassium 3.7 MMOL/L (3.5-5.1); Sodium 145 MMOL/L (136-145); Total Protein 6.6 G/DL (6.4-8.2)
[2021-03-24] MEDS: ATORVASTATIN 20 MG TABLET PO SCH (21:07)
[2021-03-24] MEDS: MONTELUKAST 10 MG TABLET PO SCH (21:07)
[2021-03-25] MEDS: metroNIDAZOLE INJ 500 MG/100 ML PREMIX IV SCH ×2 (02:50→10:24)
[2021-03-25] MEDS: SODIUM CHLORIDE 0.9% 1,000 ML IV SCH ×2 (05:12→10:20)
[2021-03-25] MEDS: INSULIN LISPRO 100 UNIT/ML SUBCUT SCH ×2 (09:15→13:57)
[2021-03-25] MEDS: PHENYTOIN ER 100 MG CAPSULE PO SCH (09:52)
[2021-03-25] MEDS: PRAZOSIN 1 MG CAPSULE PO SCH ×2 (09:52→17:25)
[2021-03-25] MEDS: levETIRAcetam 500 MG TABLET PO SCH (09:53)
[2021-03-25] MEDS: DOCUSATE SODIUM 100 MG CAPSULE PO SCH (09:53)
[2021-03-25] MEDS: NORTRIPTYLINE 25 MG CAPSULE PO SCH (09:53)
[2021-03-25] MEDS: METOPROLOL TARTRATE 25 MG TABLET PO SCH (09:53)
[2021-03-25] MEDS: GABAPENTIN 600 MG TABLET PO SCH (09:55)
[2021-03-25] MEDS: Umeclidinium-Vilanterol [Anoro Ellipta] 62.5-25 mcg/actuation Bl INH SCH (10:08)
[2021-03-25] MEDS: methylPREDNISolone SOD SUC 40 MG/1 ML VIAL IV SCH (10:14)
[2021-03-25] MEDS: PANTOPRAZOLE 40 MG TABLET PO SCH (10:22)
[2021-03-25] MEDS: CIPROFLOXACIN INJ 400 MG/200 ML PREMIX IV SCH (10:24)
[2021-03-25] MEDS ORDERED: metroNIDAZOLE 500 MG TABLET PO SCH (15:00)
[2021-03-25 16:08] VITALS: BP 155/74
[2021-03-25] MEDS ORDERED: CIPROFLOXACIN 500 MG TABLET PO SCH (21:00)
== END 2021-03-25 17:50 | disposition home health service (06) | DRG 249 ==
LOC: EDUNIT# → EDBD → N.ED 12:37 → N.EDINP 12:37 → N.5E 18:48
PROVIDERS: ADMIT Family Medicine; ATTEND Family Medicine

== ENCOUNTER 2021-03-27 16:44 | Inpatient (IN) ==
[2021-03-27] MEDS ORDERED: NALOXONE 0.4 MG/ML VIAL ONE (17:23)
[2021-03-27] MEDS ORDERED: DEXTROSE 50% 25 GM/50 ML SYRINGE IV ONE (17:23)
[2021-03-27] MEDS ORDERED: NALOXONE 0.4 MG/ML VIAL IV STA (17:25)
[2021-03-27] MEDS ORDERED: levETIRAcetam 500 MG/5 ML VIAL IV ONE (17:38)
[2021-03-27 18:46] LABS: Basophils % 0.5 % (0.0-0.8); Eosinophils # 0.1 10*3/uL (0.0-0.87); Eosinophils % 1.6 % (0.00-10.9); Hematocrit 34.4 VOL% (35.7-47.0); Immature Granulocytes % 0.7 %; Immature Granulocytes Absolute 0.05 #; Lymphocytes # 3.4 10*3/uL (1.4-4.0); Lymphocytes % 44.4 % (21.3-54.2); Mean Corpuscular Volume 97.7 FL (87-102); Monocytes % 4.6 % (1.7-12.7); Neutrophils % 48.2 % (38.7-73.9); Platelet Count 242 T/CUMM (130-400); Red Blood Count 3.52 MC/CUMM (3.8-5.5); Red Cell Distribution Width 14.6 % (9.3-17.3); White Blood Count 7.6 T/CUMM (4-12)
[2021-03-27 18:51] LABS: Bilirubin,Urine Negative (Negative); Blood, Urine Negative (Negative); Glucose,Urine (UA) >=500 mg/dL (Negative); Ketones,Urine Negative (Negative); Mucus,Urine Occasional /LPF (Occasional); Nitrite,Urine Negative (Negative); Protein,Urine Negative; Squamous Epithelial Cell,Urine Occasional /HPF (0-10); Urine Appearance CLEAR (Clear); Urine Color Colorless (Yellow); Urine Specific Gravity 1.006 (1.001-1.035); Urine Urobilinogen < 2.0 EU/DL (0.2-1.0)
[2021-03-27 19:08] LABS: Anisocytosis 1+; Atypical Lymphocytes Few; Band Neutrophils 2 % (0-10); Eosinophils 2 % (0-10); Lymphocytes 45 % (20-55); Platelet Estimate Normal; Segmented Neutrophils 48 % (50-85); Total Cells Counted 100
[2021-03-27 19:09] LABS: Polychromasia Slight
[2021-03-27 19:12] LABS: Alanine Aminotransferase 30 U/L (13-56); Albumin 3.2 G/DL (3.4-5.0); Alkaline Phosphatase 126 U/L (45-117); Aspartate Amino Transferase 41 U/L (0-37); Bilirubin,Total < 0.39 MG/DL (0.20-1.00); Blood Urea Nitrogen 5 MG/DL (7-18); Calcium 8.3 MG/DL (8.5-10.1); Carbon Dioxide 27 MMOL/L (21-32); Estimated Glom Filtration Rate 117 ML/MIN; Glucose 172 MG/DL (74-106); Osmolality,Calculated 283.1 MOS/KG (273-304); Potassium 2.8 MMOL/L (3.5-5.1); Sodium 142 MMOL/L (136-145); Total Protein 7.1 G/DL (6.4-8.2)
[2021-03-27] MEDS ORDERED: POTASSIUM CHLORIDE 20 MEQ TABLET PO STA (19:27)
[2021-03-27 19:29] LABS: Barbiturates Screen,Urine Negative (Negative); Benzodiazepines Screen,Urine Negative (Negative); Cannabinoid Screen,Urine Negative (Negative); Opiate Screen,Urine Negative (Negative); Phencyclidine Screen,Urine Negative (Negative)
[2021-03-27] MEDS ORDERED: POTASSIUM CHLORIDE RIDER 20 MEQ/200 ML PREMIX IV ONE (19:58)
[2021-03-27] MEDS: POTASSIUM CHLORIDE RIDER 10 MEQ/100 ML PREMIX IV SCH ×2 (20:44→23:20)
[2021-03-27] MEDS ORDERED: DEXTROSE 50% 25 GM/50 ML VIAL IV PRN (21:58)
[2021-03-27] MEDS ORDERED: BISMUTH SUBSALICYLATE 262 MG PO PRN (21:58)
[2021-03-27] MEDS ORDERED: ADALIMUMAB 40 MG/0.4 ML SUBCUT SCH (21:58)
[2021-03-27] MEDS ORDERED: ALBUTEROL 0.63 MG/3 ML NEB RESP TX PRN (21:58)
[2021-03-27] MEDS ORDERED: predniSONE 10 MG TABLET PO SCH (21:58)
[2021-03-27] MEDS ORDERED: MONTELUKAST 10 MG TABLET PO SCH (21:58)
[2021-03-27] MEDS ORDERED: ACETAMINOPHEN 325 MG TABLET PO PRN (21:58)
[2021-03-27] MEDS ORDERED: GLUCAGON 1 MG VIAL IM PRN (21:58)
[2021-03-27] MEDS: DOCUSATE SODIUM 100 MG CAPSULE PO SCH (23:16)
[2021-03-27] MEDS: levETIRAcetam 500 MG TABLET PO SCH (23:16)
[2021-03-27] MEDS: GABAPENTIN 600 MG TABLET PO SCH (23:16)
[2021-03-27] MEDS: PHENYTOIN ER 100 MG CAPSULE PO SCH (23:16)
[2021-03-27] MEDS: metroNIDAZOLE 500 MG TABLET PO SCH (23:16)
[2021-03-27] MEDS: CIPROFLOXACIN 500 MG TABLET PO SCH (23:16)
[2021-03-27] MEDS: PRAZOSIN 1 MG CAPSULE PO SCH (23:17)
[2021-03-27] MEDS: METOPROLOL TARTRATE 25 MG TABLET PO SCH (23:17)
[2021-03-27] MEDS: NORTRIPTYLINE 25 MG CAPSULE PO SCH (23:17)
[2021-03-27] MEDS: ATORVASTATIN 20 MG TABLET PO SCH (23:21)
[2021-03-27] MEDS: SODIUM CHLORIDE 0.9% 1,000 ML IV SCH (23:23)
[2021-03-27] MEDS: KETOCONAZOLE 2% CREAM 30 GM TUBE TOP SCH (23:27)
[2021-03-28] MEDS: INSULIN REGULAR 100 UNIT/ML SUBCUT SCH ×5 (01:53→23:40)
[2021-03-28 05:39] LABS: Albumin 2.6 G/DL (3.4-5.0); Bilirubin,Total 1.2 MG/DL (0.20-1.00); Calcium 7.6 MG/DL (8.5-10.1); Osmolality,Calculated 279.1 MOS/KG (273-304); Potassium 3.4 MMOL/L (3.5-5.1); Total Protein 6.3 G/DL (6.4-8.2)
[2021-03-28 05:45] LABS: Basophils # 0.1 10*3/uL (0.0-0.2); Basophils % 0.8 % (0.0-0.8); Eosinophils # 0.2 10*3/uL (0.0-0.87); Eosinophils % 2.8 % (0.00-10.9); Hematocrit 35.2 VOL% (35.7-47.0); Hemoglobin 10.5 GM/DL (12.0-16.0); Immature Granulocytes % 0.8 %; Immature Granulocytes Absolute 0.05 #; Lymphocytes # 3.8 10*3/uL (1.4-4.0); Lymphocytes % 59.6 % (21.3-54.2); Mean Corpuscular HGB Conc 29.8 GM/DL (32-36); Mean Corpuscular Volume 105.4 FL (87-102); Mean Platelet Volume 10.4 FL (9.6-12.0); Monocytes % 7.7 % (1.7-12.7); Neutrophils % 28.3 % (38.7-73.9); Platelet Count 209 T/CUMM (130-400); Red Blood Count 3.34 MC/CUMM (3.8-5.5); Red Cell Distribution Width 14.6 % (9.3-17.3); White Blood Count 6.4 T/CUMM (4-12)
[2021-03-28 06:07] LABS: Atypical Lymphocytes Few; Eosinophils 2 % (0-10); Hypochromasia 1+; Lymphocytes 69 % (20-55); Microcytosis 1+; Ovalocytes Slight; Platelet Estimate Adequate; Segmented Neutrophils 26 % (50-85); Total Cells Counted 100
[2021-03-28] MEDS: SODIUM CHLORIDE 0.9% 1,000 ML IV SCH ×3 (07:53→21:07)
[2021-03-28] MEDS ORDERED: CLOPIDOGREL 75 MG TABLET PO SCH (09:00)
[2021-03-28] MEDS ORDERED: ASPIRIN EC 81 MG TABLET PO SCH (09:00)
[2021-03-28] MEDS ORDERED: ISOSORBIDE MONONITRATE 30 MG TABLET PO SCH (09:00)
[2021-03-28] MEDS ORDERED: FUROSEMIDE 20 MG TABLET PO SCH (09:00)
[2021-03-28] MEDS ORDERED: [UNRECOGNIZED DRUG - OTHER] PO SCH (09:00)
[2021-03-28] MEDS ORDERED: ERGOCALCIFEROL 50,000 UNIT CAPSULE PO SCH (09:00)
[2021-03-28] MEDS ORDERED: PANTOPRAZOLE 40 MG TABLET PO SCH ×2 (09:00)
[2021-03-28] MEDS ORDERED: Umeclidinium-Vilanterol [Anoro Ellipta] 62.5-25 mcg/actuation Bl INH SCH (09:00)
[2021-03-28] MEDS ORDERED: Empagliflozin [Jardiance] 25 mg tablet PO SCH (09:00)
[2021-03-28] MEDS: DOCUSATE SODIUM 100 MG CAPSULE PO SCH (09:40)
[2021-03-28] MEDS: METOPROLOL TARTRATE 25 MG TABLET PO SCH (09:41)
[2021-03-28] MEDS: FOLIC ACID 1 MG TABLET PO SCH (09:43)
[2021-03-28] MEDS: PRAZOSIN 1 MG CAPSULE PO SCH ×2 (09:44→15:47)
[2021-03-28] MEDS: FERROUS SULFATE 325 MG TABLET PO SCH ×2 (09:44→17:03)
[2021-03-28] MEDS: PHENYTOIN ER 100 MG CAPSULE PO SCH ×2 (09:44→15:47)
[2021-03-28] MEDS: GABAPENTIN 600 MG TABLET PO SCH (09:45)
[2021-03-28] MEDS: NORTRIPTYLINE 25 MG CAPSULE PO SCH ×2 (09:47→17:02)
[2021-03-28] MEDS: POTASSIUM CHLORIDE 10 MEQ TABLET PO SCH ×3 (09:48→17:03)
[2021-03-28] MEDS: CIPROFLOXACIN 500 MG TABLET PO SCH (09:48)
[2021-03-28] MEDS: levETIRAcetam 500 MG TABLET PO SCH (09:49)
[2021-03-28] MEDS: metroNIDAZOLE 500 MG TABLET PO SCH ×2 (09:49→15:47)
[2021-03-28] MEDS: FLUTICASONE 50 MCG NASAL SPRAY 16 GM BOTTLE BOTH NARES SCH (09:51)
[2021-03-28] MEDS: KETOCONAZOLE 2% CREAM 30 GM TUBE TOP SCH ×2 (09:52→21:11)
[2021-03-28] MEDS ORDERED: LORazepam 2 MG/1 ML VIAL IV PRN (10:15)
[2021-03-28 14:02] LABS: ABG Oxygen Saturation 94.5 % (95-100); ABG PCO2 45.5 MM HG (35-48); ABG PH 7.415 (7.35-7.45); ABG PO2 77.9 MM HG (80-95); ABG TCO2 26.5 MMOL/L (23-27)
[2021-03-28 15:04] LABS: Bacteria,Urine Occasional /HPF (Few); Bilirubin,Urine Negative (Negative); Blood, Urine Small mg/dL (Negative); Glucose,Urine (UA) >=500 mg/dL (Negative); Ketones,Urine Negative (Negative); Nitrite,Urine Negative (Negative); Protein,Urine Negative; RBC,Urine 9 /HPF (0-4); Squamous Epithelial Cell,Urine Occasional /HPF (0-10); Urine Appearance Slightly Hazy (Clear); Urine Color Yellow (Yellow); Urine Specific Gravity 1.003 (1.001-1.035); Urine Urobilinogen < 2.0 EU/DL (0.2-1.0)
[2021-03-28] MEDS ORDERED: METOPROLOL TARTRATE 5 MG/5 ML VIAL IV PRN (18:14)
[2021-03-28] MEDS ORDERED: levETIRAcetam 500 MG TABLET PO SCH (21:00)
[2021-03-28] MEDS: hydrALAZINE 20 MG/1 ML VIAL IV SCH (21:07)
[2021-03-28] MEDS: CIPROFLOXACIN INJ 400 MG/200 ML PREMIX IV SCH (21:11)
[2021-03-28] MEDS: PHENYTOIN 100 MG/2 ML VIAL IV SCH (21:11)
[2021-03-28] MEDS: ENOXAPARIN 100 MG/ML SYRINGE SUBCUT SCH (21:11)
[2021-03-29 04:59] LABS: Basophils % 0.5 % (0.0-0.8); Eosinophils # 0.5 10*3/uL (0.0-0.87); Hematocrit 33.9 VOL% (35.7-47.0); Hemoglobin 10.4 GM/DL (12.0-16.0); Immature Granulocytes % 0.3 %; Immature Granulocytes Absolute 0.02 #; Lymphocytes # 3.4 10*3/uL (1.4-4.0); Lymphocytes % 51.9 % (21.3-54.2); Mean Corpuscular HGB Conc 30.7 GM/DL (32-36); Mean Corpuscular Volume 100.9 FL (87-102); Mean Platelet Volume 9.9 FL (9.6-12.0); Monocytes % 7.1 % (1.7-12.7); Neutrophils % 32.2 % (38.7-73.9); Platelet Count 248 T/CUMM (130-400); Red Blood Count 3.36 MC/CUMM (3.8-5.5); Red Cell Distribution Width 14.2 % (9.3-17.3); White Blood Count 6.6 T/CUMM (4-12)
[2021-03-29 05:31] LABS: Atypical Lymphocytes Few; Eosinophils 4 % (0-10); Hypochromasia 1+; Lymphocytes 48 % (20-55); Microcytosis 1+; Segmented Neutrophils 37 % (50-85); Total Cells Counted 100
[2021-03-29 05:32] LABS: Ovalocytes Slight; Platelet Estimate Normal; Polychromasia Slight; Tear Drop Cells Slight
[2021-03-29 05:36] LABS: Albumin 2.7 G/DL (3.4-5.0); Bilirubin,Total 0.8 MG/DL (0.20-1.00); Calcium 7.6 MG/DL (8.5-10.1); Free T4 (Free Thyroxine) 1.13 NG/DL (0.76-1.46); Osmolality,Calculated 282.8 MOS/KG (273-304); Potassium 3.3 MMOL/L (3.5-5.1); Thyroid Stimulating Hormone 0.964 uIU/ml (0.358-3.74); Total Protein 6.1 G/DL (6.4-8.2)
[2021-03-29] MEDS: SODIUM CHLORIDE 0.9% 1,000 ML IV SCH (05:49)
[2021-03-29] MEDS: INSULIN REGULAR 100 UNIT/ML SUBCUT SCH ×3 (05:54→19:02)
[2021-03-29] MEDS: FUROSEMIDE 20 MG/2 ML VIAL IV SCH (08:50)
[2021-03-29] MEDS: FLUTICASONE 50 MCG NASAL SPRAY 16 GM BOTTLE BOTH NARES SCH (08:50)
[2021-03-29] MEDS: KETOCONAZOLE 2% CREAM 30 GM TUBE TOP SCH ×2 (08:50→21:05)
[2021-03-29] MEDS: PHENYTOIN 100 MG/2 ML VIAL IV SCH ×2 (12:46→20:20)
[2021-03-29] MEDS: PANTOPRAZOLE 40 MG VIAL IV SCH (12:48)
[2021-03-29] MEDS: hydrALAZINE 20 MG/1 ML VIAL IV SCH ×3 (12:51→20:17)
[2021-03-29] MEDS: FOLIC ACID 1 MG TABLET PO SCH (12:54)
[2021-03-29] MEDS: ACETAMINOPHEN 650 MG SUPP RECTAL PRN ×2 (12:54→21:14)
[2021-03-29] MEDS: methylPREDNISolone SOD SUC 40 MG/1 ML VIAL IV SCH (13:07)
[2021-03-29] MEDS: ENOXAPARIN 100 MG/ML SYRINGE SUBCUT SCH ×2 (13:14→21:03)
[2021-03-29] MEDS: CIPROFLOXACIN INJ 400 MG/200 ML PREMIX IV SCH ×2 (14:25→21:03)
[2021-03-29] MEDS: ONDANSETRON 4 MG/2 ML VIAL IV PRN (15:35)
[2021-03-30] MEDS: SODIUM CHLORIDE 0.9% 1,000 ML IV SCH ×3 (01:05→18:42)
[2021-03-30] MEDS: INSULIN REGULAR 100 UNIT/ML SUBCUT SCH ×4 (01:13→18:26)
[2021-03-30] MEDS: PHENYTOIN 100 MG/2 ML VIAL IV SCH (03:41)
[2021-03-30 05:34] LABS: Basophils # 0.1 10*3/uL (0.0-0.2); Basophils % 0.8 % (0.0-0.8); Eosinophils # 0.3 10*3/uL (0.0-0.87); Hematocrit 32.9 VOL% (35.7-47.0); Hemoglobin 10.2 GM/DL (12.0-16.0); Immature Granulocytes % 0.3 %; Immature Granulocytes Absolute 0.02 #; Lymphocytes % 61.9 % (21.3-54.2); Mean Corpuscular Volume 100.9 FL (87-102); Mean Platelet Volume 10.4 FL (9.6-12.0); Monocytes % 5.3 % (1.7-12.7); Neutrophils % 27.7 % (38.7-73.9); Platelet Count 248 T/CUMM (130-400); Red Blood Count 3.26 MC/CUMM (3.8-5.5); White Blood Count 6.4 T/CUMM (4-12)
[2021-03-30 06:08] LABS: Albumin 2.6 G/DL (3.4-5.0); Bilirubin,Total 0.4 MG/DL (0.20-1.00); Calcium 8.1 MG/DL (8.5-10.1); Osmolality,Calculated 281.8 MOS/KG (273-304); Potassium 3.2 MMOL/L (3.5-5.1)
[2021-03-30 06:49] LABS: Anisocytosis 2+; Atypical Lymphocytes Few; Eosinophils 4 % (0-10); Lymphocytes 56 % (20-55); Platelet Estimate Normal; Segmented Neutrophils 35 % (50-85); Smudge Cells 1+; Tear Drop Cells Few; Total Cells Counted 100
[2021-03-30 06:50] LABS: Macrocytosis Slight
[2021-03-30] MEDS ORDERED: SODIUM CHLORIDE 0.9% IV SCH (09:00)
[2021-03-30] MEDS ORDERED: PHENYTOIN IV SCH (09:00)
[2021-03-30] MEDS: methylPREDNISolone SOD SUC 40 MG/1 ML VIAL IV SCH (10:05)
[2021-03-30] MEDS: hydrALAZINE 20 MG/1 ML VIAL IV SCH ×3 (10:07→20:38)
[2021-03-30] MEDS: FUROSEMIDE 20 MG/2 ML VIAL IV SCH (10:08)
[2021-03-30] MEDS: PANTOPRAZOLE 40 MG VIAL IV SCH (10:09)
[2021-03-30] MEDS: KETOCONAZOLE 2% CREAM 30 GM TUBE TOP SCH ×2 (10:11→20:43)
[2021-03-30] MEDS: CIPROFLOXACIN INJ 400 MG/200 ML PREMIX IV SCH ×2 (10:12→21:44)
[2021-03-30] MEDS: FLUTICASONE 50 MCG NASAL SPRAY 16 GM BOTTLE BOTH NARES SCH (10:12)
[2021-03-30] MEDS: FOLIC ACID 1 MG TABLET PO SCH (10:19)
[2021-03-30] MEDS: ENOXAPARIN 100 MG/ML SYRINGE SUBCUT SCH ×2 (10:19→20:43)
[2021-03-30] MEDS: SODIUM CHLORIDE 0.9% IV SCH ×2 (12:52→20:41)
[2021-03-30] MEDS: PHENYTOIN IV SCH ×2 (12:52→20:41)
[2021-03-30] MEDS: ACETAMINOPHEN 650 MG SUPP RECTAL PRN (21:15)
[2021-03-31] MEDS: INSULIN REGULAR 100 UNIT/ML SUBCUT SCH ×4 (01:51→18:04)
[2021-03-31] MEDS: SODIUM CHLORIDE 0.9% 1,000 ML IV SCH ×2 (04:40→13:35)
[2021-03-31] MEDS: PHENYTOIN IV SCH ×3 (04:41→21:15)
[2021-03-31] MEDS: SODIUM CHLORIDE 0.9% IV SCH ×3 (04:41→21:15)
[2021-03-31 05:38] LABS: Basophils # 0.1 10*3/uL (0.0-0.2); Basophils % 0.8 % (0.0-0.8); Eosinophils # 0.6 10*3/uL (0.0-0.87); Eosinophils % 7.9 % (0.00-10.9); Hematocrit 33.2 VOL% (35.7-47.0); Hemoglobin 10.3 GM/DL (12.0-16.0); Immature Granulocytes % 0.3 %; Immature Granulocytes Absolute 0.02 #; Lymphocytes # 4.1 10*3/uL (1.4-4.0); Lymphocytes % 57.4 % (21.3-54.2); Mean Corpuscular Volume 100.3 FL (87-102); Mean Platelet Volume 10.7 FL (9.6-12.0); Monocytes % 7.6 % (1.7-12.7); Platelet Count 247 T/CUMM (130-400); Red Blood Count 3.31 MC/CUMM (3.8-5.5); Red Cell Distribution Width 13.9 % (9.3-17.3); White Blood Count 7.2 T/CUMM (4-12)
[2021-03-31 06:10] LABS: Potassium 3.1 MMOL/L (3.5-5.1)
[2021-03-31 06:11] LABS: Calcium 8.1 MG/DL (8.5-10.1)
[2021-03-31 06:12] LABS: Osmolality,Calculated 276.4 MOS/KG (273-304)
[2021-03-31 06:17] LABS: Bilirubin,Total 0.5 MG/DL (0.20-1.00); Total Protein 6.6 G/DL (6.4-8.2)
[2021-03-31 06:29] LABS: Anisocytosis 2+; Eosinophils 10 % (0-10); Lymphocytes 56 % (20-55); Macrocytosis 1+; Platelet Estimate Normal; Segmented Neutrophils 29 % (50-85); Tear Drop Cells Few; Total Cells Counted 100
[2021-03-31] MEDS: FUROSEMIDE 20 MG/2 ML VIAL IV SCH (09:42)
[2021-03-31] MEDS: hydrALAZINE 20 MG/1 ML VIAL IV SCH ×3 (09:54→20:41)
[2021-03-31] MEDS: PANTOPRAZOLE 40 MG VIAL IV SCH (09:55)
[2021-03-31] MEDS: methylPREDNISolone SOD SUC 40 MG/1 ML VIAL IV SCH (09:58)
[2021-03-31] MEDS: FLUTICASONE 50 MCG NASAL SPRAY 16 GM BOTTLE BOTH NARES SCH (10:02)
[2021-03-31] MEDS: CIPROFLOXACIN INJ 400 MG/200 ML PREMIX IV SCH ×2 (10:02→21:29)
[2021-03-31] MEDS: KETOCONAZOLE 2% CREAM 30 GM TUBE TOP SCH ×2 (10:04→20:44)
[2021-03-31] MEDS: FOLIC ACID 1 MG TABLET PO SCH (10:05)
[2021-03-31] MEDS: ENOXAPARIN 100 MG/ML SYRINGE SUBCUT SCH ×2 (10:05→20:40)
[2021-03-31] MEDS: POTASSIUM CHLORIDE 10 MEQ TABLET PO SCH ×2 (11:14→16:46)
[2021-04-01] MEDS: INSULIN REGULAR 100 UNIT/ML SUBCUT SCH ×4 (00:41→18:28)
[2021-04-01] MEDS: SODIUM CHLORIDE 0.9% 1,000 ML IV SCH ×2 (02:01→16:15)
[2021-04-01 04:53] LABS: Basophils # 0.1 10*3/uL (0.0-0.2); Basophils % 0.8 % (0.0-0.8); Eosinophils # 0.4 10*3/uL (0.0-0.87); Eosinophils % 5.6 % (0.00-10.9); Hematocrit 32.1 VOL% (35.7-47.0); Hemoglobin 9.8 GM/DL (12.0-16.0); Immature Granulocytes % 0.4 %; Immature Granulocytes Absolute 0.03 #; Lymphocytes # 3.9 10*3/uL (1.4-4.0); Lymphocytes % 49.4 % (21.3-54.2); Mean Corpuscular HGB Conc 30.5 GM/DL (32-36); Mean Corpuscular Volume 100.3 FL (87-102); Mean Platelet Volume 10.4 FL (9.6-12.0); Monocytes % 8.2 % (1.7-12.7); Neutrophils % 35.6 % (38.7-73.9); Platelet Count 222 T/CUMM (130-400); White Blood Count 7.9 T/CUMM (4-12)
[2021-04-01 05:17] LABS: Atypical Lymphocytes Few; Eosinophils 7 % (0-10); Hypochromasia 1+; Lymphocytes 50 % (20-55); Microcytosis 1+; Ovalocytes Slight; Platelet Estimate Adequate; Segmented Neutrophils 38 % (50-85); Total Cells Counted 100
[2021-04-01] MEDS: SODIUM CHLORIDE 0.9% IV SCH (05:28)
[2021-04-01] MEDS: PHENYTOIN IV SCH (05:28)
[2021-04-01 06:08] LABS: Albumin 2.9 G/DL (3.4-5.0); Bilirubin,Total 0.9 MG/DL (0.20-1.00); Potassium 3.3 MMOL/L (3.5-5.1); Total Protein 6.4 G/DL (6.4-8.2)
[2021-04-01] MEDS: POTASSIUM CHLORIDE 10 MEQ TABLET PO SCH ×3 (09:20→18:20)
[2021-04-01] MEDS: FOLIC ACID 1 MG TABLET PO SCH (09:20)
[2021-04-01] MEDS: ENOXAPARIN 100 MG/ML SYRINGE SUBCUT SCH ×2 (09:21→21:21)
[2021-04-01] MEDS: PANTOPRAZOLE 40 MG VIAL IV SCH (09:23)
[2021-04-01] MEDS: methylPREDNISolone SOD SUC 40 MG/1 ML VIAL IV SCH (09:25)
[2021-04-01] MEDS: FUROSEMIDE 20 MG/2 ML VIAL IV SCH (09:26)
[2021-04-01] MEDS: hydrALAZINE 20 MG/1 ML VIAL IV SCH ×3 (09:28→21:17)
[2021-04-01] MEDS: CIPROFLOXACIN INJ 400 MG/200 ML PREMIX IV SCH ×2 (09:29→21:22)
[2021-04-01] MEDS: KETOCONAZOLE 2% CREAM 30 GM TUBE TOP SCH ×2 (09:34→22:00)
[2021-04-01] MEDS: FLUTICASONE 50 MCG NASAL SPRAY 16 GM BOTTLE BOTH NARES SCH (09:34)
[2021-04-01] MEDS: PHENYTOIN 100 MG/2 ML VIAL IV SCH ×2 (13:20→13:26)
[2021-04-01] MEDS: PHENYTOIN ER 100 MG CAPSULE PO SCH (21:21)
[2021-04-01] MEDS: levETIRAcetam 500 MG TABLET PO SCH (21:21)
[2021-04-02] MEDS: SODIUM CHLORIDE 0.9% 1,000 ML IV SCH ×2 (04:23→10:39)
[2021-04-02 05:42] LABS: Basophils # 0.1 10*3/uL (0.0-0.2); Basophils % 0.8 % (0.0-0.8); Eosinophils # 0.4 10*3/uL (0.0-0.87); Eosinophils % 6.2 % (0.00-10.9); Hematocrit 32.2 VOL% (35.7-47.0); Hemoglobin 9.9 GM/DL (12.0-16.0); Immature Granulocytes % 0.3 %; Immature Granulocytes Absolute 0.02 #; Lymphocytes # 3.6 10*3/uL (1.4-4.0); Lymphocytes % 51.1 % (21.3-54.2); Mean Corpuscular HGB Conc 30.7 GM/DL (32-36); Mean Corpuscular Volume 100.3 FL (87-102); Mean Platelet Volume 10.7 FL (9.6-12.0); Monocytes % 8.9 % (1.7-12.7); Neutrophils % 32.7 % (38.7-73.9); Platelet Count 240 T/CUMM (130-400); Red Blood Count 3.21 MC/CUMM (3.8-5.5); Red Cell Distribution Width 14.2 % (9.3-17.3); White Blood Count 7.1 T/CUMM (4-12)
[2021-04-02 06:18] LABS: Eosinophils 4 % (0-10); Hypochromasia 1+; Lymphocytes 53 % (20-55); Microcytosis 1+; Platelet Estimate Adequate; Segmented Neutrophils 39 % (50-85); Total Cells Counted 100
[2021-04-02 06:19] LABS: Atypical Lymphocytes Few
[2021-04-02 06:22] LABS: Albumin 2.8 G/DL (3.4-5.0); Bilirubin,Total 0.4 MG/DL (0.20-1.00); Calcium 8.3 MG/DL (8.5-10.1); Osmolality,Calculated 279.1 MOS/KG (273-304); Potassium 3.3 MMOL/L (3.5-5.1); Total Protein 6.2 G/DL (6.4-8.2)
[2021-04-02] MEDS: INSULIN REGULAR 100 UNIT/ML SUBCUT SCH ×4 (06:29→18:25)
[2021-04-02] MEDS: PHENYTOIN ER 100 MG CAPSULE PO SCH ×3 (09:23→20:54)
[2021-04-02] MEDS: POTASSIUM CHLORIDE 10 MEQ TABLET PO SCH ×3 (09:23→16:56)
[2021-04-02] MEDS: levETIRAcetam 500 MG TABLET PO SCH ×2 (09:26→20:54)
[2021-04-02] MEDS: ENOXAPARIN 100 MG/ML SYRINGE SUBCUT SCH ×2 (09:27→20:53)
[2021-04-02] MEDS: hydrALAZINE 20 MG/1 ML VIAL IV SCH ×3 (09:30→20:52)
[2021-04-02] MEDS: methylPREDNISolone SOD SUC 40 MG/1 ML VIAL IV SCH (09:32)
[2021-04-02] MEDS: PANTOPRAZOLE 40 MG VIAL IV SCH (09:34)
[2021-04-02] MEDS: CIPROFLOXACIN INJ 400 MG/200 ML PREMIX IV SCH ×2 (09:36→20:48)
[2021-04-02] MEDS: FUROSEMIDE 20 MG/2 ML VIAL IV SCH (09:36)
[2021-04-02] MEDS: FOLIC ACID 1 MG TABLET PO SCH (10:24)
[2021-04-02] MEDS: KETOCONAZOLE 2% CREAM 30 GM TUBE TOP SCH ×2 (10:28→21:39)
[2021-04-02] MEDS: FLUTICASONE 50 MCG NASAL SPRAY 16 GM BOTTLE BOTH NARES SCH (10:28)
[2021-04-02] MEDS ORDERED: ONDANSETRON 4 MG/2 ML VIAL IV PRN (10:36)
[2021-04-02] MEDS ORDERED: PROMETHAZINE 25 MG/1 ML VIAL IM PRN (10:36)
[2021-04-02] MEDS: ONDANSETRON 4 MG/2 ML VIAL IV PRN (10:42)
[2021-04-02] MEDS ORDERED: BISACODYL 10 MG SUPP RECTAL PRN (16:01)
[2021-04-02] MEDS ORDERED: MORPHINE 2 MG/1 ML SYRINGE IV PRN (16:01)
[2021-04-02] MEDS: ATORVASTATIN 20 MG TABLET PO SCH (21:39)
[2021-04-03] MEDS: INSULIN REGULAR 100 UNIT/ML SUBCUT SCH ×4 (01:29→18:20)
[2021-04-03] MEDS: SODIUM CHLORIDE 0.9% 1,000 ML IV SCH ×5 (03:03→18:21)
[2021-04-03 05:01] LABS: Basophils # 0.1 10*3/uL (0.0-0.2); Basophils % 0.9 % (0.0-0.8); Eosinophils # 0.5 10*3/uL (0.0-0.87); Eosinophils % 6.6 % (0.00-10.9); Hematocrit 31.5 VOL% (35.7-47.0); Hemoglobin 9.5 GM/DL (12.0-16.0); Immature Granulocytes % 0.3 %; Immature Granulocytes Absolute 0.02 #; Lymphocytes # 3.7 10*3/uL (1.4-4.0); Lymphocytes % 50.3 % (21.3-54.2); Mean Corpuscular HGB Conc 30.2 GM/DL (32-36); Mean Corpuscular Volume 102.3 FL (87-102); Mean Platelet Volume 10.8 FL (9.6-12.0); Monocytes % 9.6 % (1.7-12.7); Neutrophils % 32.3 % (38.7-73.9); Platelet Count 237 T/CUMM (130-400); Red Blood Count 3.08 MC/CUMM (3.8-5.5); Red Cell Distribution Width 14.4 % (9.3-17.3); White Blood Count 7.4 T/CUMM (4-12)
[2021-04-03 05:25] LABS: Eosinophils 12 % (0-10); Hypochromasia 1+; Lymphocytes 51 % (20-55); Microcytosis 1+; Ovalocytes Slight; Platelet Estimate Adequate; Segmented Neutrophils 27 % (50-85); Total Cells Counted 100
[2021-04-03 05:26] LABS: Atypical Lymphocytes Few
[2021-04-03 05:44] LABS: Albumin 2.8 G/DL (3.4-5.0); Bilirubin,Total 0.8 MG/DL (0.20-1.00); Calcium 8.1 MG/DL (8.5-10.1); Osmolality,Calculated 278.1 MOS/KG (273-304); Potassium 3.2 MMOL/L (3.5-5.1); Total Protein 6.1 G/DL (6.4-8.2)
[2021-04-03] MEDS ORDERED: METHOTREXATE 2.5 MG TABLET PO SCH (09:00)
[2021-04-03] MEDS: PANTOPRAZOLE 40 MG VIAL IV SCH (09:36)
[2021-04-03] MEDS: hydrALAZINE 20 MG/1 ML VIAL IV SCH ×3 (09:36→20:49)
[2021-04-03] MEDS: methylPREDNISolone SOD SUC 40 MG/1 ML VIAL IV SCH (09:37)
[2021-04-03] MEDS: FUROSEMIDE 20 MG/2 ML VIAL IV SCH (09:37)
[2021-04-03] MEDS: levETIRAcetam 500 MG TABLET PO SCH ×2 (09:38→20:50)
[2021-04-03] MEDS: ENOXAPARIN 100 MG/ML SYRINGE SUBCUT SCH ×2 (09:38→20:50)
[2021-04-03] MEDS: POTASSIUM CHLORIDE 10 MEQ TABLET PO SCH ×3 (09:38→16:03)
[2021-04-03] MEDS: FOLIC ACID 1 MG TABLET PO SCH (09:38)
[2021-04-03] MEDS: PHENYTOIN ER 100 MG CAPSULE PO SCH ×3 (09:39→20:50)
[2021-04-03] MEDS: KETOCONAZOLE 2% CREAM 30 GM TUBE TOP SCH ×2 (09:39→20:50)
[2021-04-03] MEDS: FLUTICASONE 50 MCG NASAL SPRAY 16 GM BOTTLE BOTH NARES SCH (09:39)
[2021-04-03] MEDS: CIPROFLOXACIN INJ 400 MG/200 ML PREMIX IV SCH (10:07)
[2021-04-03] MEDS ORDERED: TUBERCULIN SKIN TEST 0.1 ML SYRINGE INTRADERM ONE (17:22)
[2021-04-03] MEDS: ATORVASTATIN 20 MG TABLET PO SCH (20:50)
[2021-04-04] MEDS: SODIUM CHLORIDE 0.9% 1,000 ML IV SCH ×2 (04:03→12:34)
[2021-04-04] MEDS: INSULIN REGULAR 100 UNIT/ML SUBCUT SCH ×3 (05:46→12:19)
[2021-04-04] MEDS: FOLIC ACID 1 MG TABLET PO SCH (09:17)
[2021-04-04] MEDS: POTASSIUM CHLORIDE 10 MEQ TABLET PO SCH ×2 (09:17→12:33)
[2021-04-04] MEDS: PHENYTOIN ER 100 MG CAPSULE PO SCH ×2 (09:17→15:15)
[2021-04-04] MEDS: FLUTICASONE 50 MCG NASAL SPRAY 16 GM BOTTLE BOTH NARES SCH (09:17)
[2021-04-04] MEDS: levETIRAcetam 500 MG TABLET PO SCH (09:18)
[2021-04-04] MEDS: methylPREDNISolone SOD SUC 40 MG/1 ML VIAL IV SCH (09:20)
[2021-04-04] MEDS: PANTOPRAZOLE 40 MG VIAL IV SCH (09:20)
[2021-04-04] MEDS: KETOCONAZOLE 2% CREAM 30 GM TUBE TOP SCH (09:23)
[2021-04-04] MEDS: FUROSEMIDE 20 MG/2 ML VIAL IV SCH (09:23)
[2021-04-04] MEDS: hydrALAZINE 20 MG/1 ML VIAL IV SCH ×2 (09:24→15:14)
[2021-04-04] MEDS: ENOXAPARIN 100 MG/ML SYRINGE SUBCUT SCH (09:25)
[2021-04-04 16:07] VITALS: BP 153/54
== END 2021-04-04 16:06 | DRG 45 ==
LOC: EDBD → EDUNIT# → N.EDINP 16:44 → N.ED 16:44 → N.4E 21:47
PROVIDERS: ADMIT Family Medicine; ATTEND Family Medicine

== ENCOUNTER 2021-04-12 10:26 | Inpatient (IN) ==
[2021-04-12 11:14] LABS: Basophils # 0.1 10*3/uL (0.0-0.2); Basophils % 0.7 % (0.0-0.8); Eosinophils # 0.3 10*3/uL (0.0-0.87); Eosinophils % 4.1 % (0.00-10.9); Hematocrit 34.1 VOL% (35.7-47.0); Hemoglobin 10.5 GM/DL (12.0-16.0); Immature Granulocytes % 0.4 %; Immature Granulocytes Absolute 0.03 #; Lymphocytes # 3.8 10*3/uL (1.4-4.0); Lymphocytes % 49.4 % (21.3-54.2); Mean Corpuscular HGB Conc 30.8 GM/DL (32-36); Mean Corpuscular Volume 99.4 FL (87-102); Mean Platelet Volume 10.7 FL (9.6-12.0); Monocytes % 6.4 % (1.7-12.7); Platelet Count 241 T/CUMM (130-400); Red Blood Count 3.43 MC/CUMM (3.8-5.5); White Blood Count 7.6 T/CUMM (4-12)
[2021-04-12 11:36] LABS: Alanine Aminotransferase 35 U/L (13-56); Albumin 3.3 G/DL (3.4-5.0); Alkaline Phosphatase 117 U/L (45-117); Aspartate Amino Transferase 36 U/L (0-37); Bilirubin,Total < 0.39 MG/DL (0.20-1.00); Blood Urea Nitrogen 18 MG/DL (7-18); Calcium 8.7 MG/DL (8.5-10.1); Carbon Dioxide 28 MMOL/L (21-32); Glucose 168 MG/DL (74-106); Osmolality,Calculated 282.5 MOS/KG (273-304); Potassium 4.1 MMOL/L (3.5-5.1); Sodium 139 MMOL/L (136-145); Total Protein 7.5 G/DL (6.4-8.2)
[2021-04-12 11:37] LABS: Estimated Glom Filtration Rate 0 ML/MIN
[2021-04-12 11:46] LABS: INR 1.2; PT Patient Result 12.7 SECS (10.5-12.0)
[2021-04-12] MEDS ORDERED: GLUCAGON 1 MG VIAL IM PRN (15:01)
[2021-04-12] MEDS ORDERED: DEXTROSE 50% 25 GM/50 ML VIAL IV PRN (15:01)
[2021-04-12] MEDS ORDERED: ACETAMINOPHEN 325 MG TABLET PO PRN (15:01)
[2021-04-12] MEDS ORDERED: ONDANSETRON 4 MG/2 ML VIAL IV PRN (15:01)
[2021-04-12 15:31] LABS: Thyroid Stimulating Hormone 1.17 uIU/ml (0.358-3.74)
[2021-04-12] MEDS ORDERED: ALBUTEROL 0.63 MG/3 ML NEB RESP TX PRN (16:53)
[2021-04-12] MEDS: INSULIN LISPRO 100 UNIT/ML SUBCUT SCH ×2 (18:09→21:15)
[2021-04-12] MEDS ORDERED: ALBUTEROL 2.5 MG/3 ML NEB RESP TX PRN (21:03)
[2021-04-12] MEDS: PHENYTOIN ER 100 MG CAPSULE PO SCH (21:14)
[2021-04-12] MEDS: levETIRAcetam 500 MG TABLET PO SCH (21:14)
[2021-04-12] MEDS: ATORVASTATIN 20 MG TABLET PO SCH (21:15)
[2021-04-12] MEDS: NORTRIPTYLINE 25 MG CAPSULE PO SCH (21:15)
[2021-04-12] MEDS: PANTOPRAZOLE 40 MG TABLET PO SCH (21:15)
[2021-04-12] MEDS: METOPROLOL TARTRATE 25 MG TABLET PO SCH (21:15)
[2021-04-12] MEDS: MONTELUKAST 10 MG TABLET PO SCH (21:15)
[2021-04-12 21:22] LABS: Hematocrit 35.3 VOL% (35.7-47.0); Hemoglobin 10.5 GM/DL (12.0-16.0)
[2021-04-13 05:15] LABS: Basophils # 0.1 10*3/uL (0.0-0.2); Basophils % 0.7 % (0.0-0.8); Eosinophils # 0.5 10*3/uL (0.0-0.87); Eosinophils % 6.6 % (0.00-10.9); Hematocrit 35.5 VOL% (35.7-47.0); Hemoglobin 10.8 GM/DL (12.0-16.0); Immature Granulocytes % 0.1 %; Immature Granulocytes Absolute 0.01 #; Lymphocytes # 3.9 10*3/uL (1.4-4.0); Lymphocytes % 54.8 % (21.3-54.2); Mean Corpuscular HGB Conc 30.4 GM/DL (32-36); Mean Platelet Volume 11.1 FL (9.6-12.0); Monocytes % 6.6 % (1.7-12.7); NRBC # 0.02 10*3/uL; Neutrophils % 31.2 % (38.7-73.9); Platelet Count 241 T/CUMM (130-400); Red Blood Count 3.55 MC/CUMM (3.8-5.5); Red Cell Distribution Width 13.9 % (9.3-17.3); White Blood Count 7.1 T/CUMM (4-12)
[2021-04-13 05:41] LABS: Band Neutrophils 2 % (0-10); Eosinophils 7 % (0-10); Lymphocytes 57 % (20-55); Segmented Neutrophils 27 % (50-85); Total Cells Counted 100
[2021-04-13 05:42] LABS: Platelet Estimate Normal
[2021-04-13 05:49] LABS: Osmolality,Calculated 281.4 MOS/KG (273-304); Potassium 4.1 MMOL/L (3.5-5.1)
[2021-04-13] MEDS: NORTRIPTYLINE 25 MG CAPSULE PO SCH ×3 (08:52→20:35)
[2021-04-13] MEDS: levETIRAcetam 500 MG TABLET PO SCH ×2 (08:52→20:35)
[2021-04-13] MEDS: PHENYTOIN ER 100 MG CAPSULE PO SCH ×3 (08:53→20:34)
[2021-04-13] MEDS: ASPIRIN EC 81 MG TABLET PO SCH (08:53)
[2021-04-13] MEDS: FERROUS SULFATE 325 MG TABLET PO SCH (08:53)
[2021-04-13] MEDS: ISOSORBIDE MONONITRATE 30 MG TABLET PO SCH (08:53)
[2021-04-13] MEDS: PANTOPRAZOLE 40 MG TABLET PO SCH ×2 (08:53→20:35)
[2021-04-13] MEDS: INSULIN LISPRO 100 UNIT/ML SUBCUT SCH ×4 (08:54→20:35)
[2021-04-13] MEDS: METOPROLOL TARTRATE 25 MG TABLET PO SCH ×2 (08:55→20:35)
[2021-04-13] MEDS ORDERED: CLOPIDOGREL 75 MG TABLET PO SCH (09:00)
[2021-04-13] MEDS: NON-FORMULARY MEDICATION (Umeclidinium-Vilanterol [Anoro Ellipta] 62.5-25 mcg/actuation Bl INH SCH (10:42)
[2021-04-13] MEDS: MONTELUKAST 10 MG TABLET PO SCH (20:35)
[2021-04-13] MEDS: ATORVASTATIN 20 MG TABLET PO SCH (20:35)
[2021-04-14] MEDS: INSULIN LISPRO 100 UNIT/ML SUBCUT SCH ×4 (07:27→21:01)
[2021-04-14] MEDS: ASPIRIN EC 81 MG TABLET PO SCH (09:47)
[2021-04-14] MEDS: NON-FORMULARY MEDICATION (Umeclidinium-Vilanterol [Anoro Ellipta] 62.5-25 mcg/actuation Bl INH SCH (09:48)
[2021-04-14] MEDS: NORTRIPTYLINE 25 MG CAPSULE PO SCH ×3 (09:48→20:58)
[2021-04-14] MEDS: FERROUS SULFATE 325 MG TABLET PO SCH (09:48)
[2021-04-14] MEDS: levETIRAcetam 500 MG TABLET PO SCH ×2 (09:48→20:58)
[2021-04-14] MEDS: PANTOPRAZOLE 40 MG TABLET PO SCH ×2 (09:48→20:58)
[2021-04-14] MEDS: PHENYTOIN ER 100 MG CAPSULE PO SCH ×3 (09:48→20:58)
[2021-04-14] MEDS: METOPROLOL TARTRATE 25 MG TABLET PO SCH ×2 (09:48→20:58)
[2021-04-14] MEDS: ISOSORBIDE MONONITRATE 30 MG TABLET PO SCH (09:48)
[2021-04-14] MEDS: MONTELUKAST 10 MG TABLET PO SCH (20:58)
[2021-04-14] MEDS: ATORVASTATIN 20 MG TABLET PO SCH (20:58)
[2021-04-15] MEDS: INSULIN LISPRO 100 UNIT/ML SUBCUT SCH ×4 (09:33→21:01)
[2021-04-15 10:00] LABS: Basophils # 0.1 10*3/uL (0.0-0.2); Basophils % 0.9 % (0.0-0.8); Eosinophils # 0.3 10*3/uL (0.0-0.87); Hematocrit 37.7 VOL% (35.7-47.0); Hemoglobin 11.7 GM/DL (12.0-16.0); Immature Granulocytes % 0.4 %; Immature Granulocytes Absolute 0.03 #; Lymphocytes # 3.3 10*3/uL (1.4-4.0); Lymphocytes % 49.2 % (21.3-54.2); Mean Corpuscular Volume 97.4 FL (87-102); Mean Platelet Volume 10.5 FL (9.6-12.0); Monocytes % 6.9 % (1.7-12.7); Neutrophils % 37.6 % (38.7-73.9); Platelet Count 234 T/CUMM (130-400); Red Blood Count 3.87 MC/CUMM (3.8-5.5); Red Cell Distribution Width 13.4 % (9.3-17.3); White Blood Count 6.8 T/CUMM (4-12)
[2021-04-15] MEDS ORDERED: DEXTROSE 50% 25 GM/50 ML VIAL IV PRN (10:09)
[2021-04-15] MEDS ORDERED: GLUCAGON 1 MG VIAL IM PRN (10:09)
[2021-04-15] MEDS: NORTRIPTYLINE 25 MG CAPSULE PO SCH ×3 (10:24→21:06)
[2021-04-15] MEDS: PHENYTOIN ER 100 MG CAPSULE PO SCH ×3 (10:24→21:06)
[2021-04-15] MEDS: METOPROLOL TARTRATE 25 MG TABLET PO SCH ×2 (10:24→21:06)
[2021-04-15] MEDS: FERROUS SULFATE 325 MG TABLET PO SCH (10:24)
[2021-04-15] MEDS: levETIRAcetam 500 MG TABLET PO SCH ×2 (10:24→21:06)
[2021-04-15] MEDS: ASPIRIN EC 81 MG TABLET PO SCH (10:24)
[2021-04-15] MEDS: ISOSORBIDE MONONITRATE 30 MG TABLET PO SCH (10:24)
[2021-04-15] MEDS: PANTOPRAZOLE 40 MG TABLET PO SCH ×2 (10:25→21:06)
[2021-04-15 10:26] LABS: Eosinophils 4 % (0-10); Lymphocytes 48 % (20-55); Platelet Estimate Adequate; Segmented Neutrophils 42 % (50-85); Total Cells Counted 100
[2021-04-15 10:27] LABS: Hypochromasia 1+; Microcytosis 1+
[2021-04-15 10:29] LABS: Atypical Lymphocytes Few
[2021-04-15] MEDS: NON-FORMULARY MEDICATION (Umeclidinium-Vilanterol [Anoro Ellipta] 62.5-25 mcg/actuation Bl INH SCH (12:45)
[2021-04-15] MEDS: ATORVASTATIN 20 MG TABLET PO SCH (21:06)
[2021-04-15] MEDS: MONTELUKAST 10 MG TABLET PO SCH (21:06)
[2021-04-16 03:18] LABS: Basophils # 0.1 10*3/uL (0.0-0.2); Basophils % 0.9 % (0.0-0.8); Eosinophils # 0.4 10*3/uL (0.0-0.87); Eosinophils % 5.4 % (0.00-10.9); Hematocrit 35.7 VOL% (35.7-47.0); Hemoglobin 11.4 GM/DL (12.0-16.0); Immature Granulocytes % 0.3 %; Immature Granulocytes Absolute 0.02 #; Lymphocytes # 3.6 10*3/uL (1.4-4.0); Lymphocytes % 51.9 % (21.3-54.2); Mean Corpuscular HGB Conc 31.9 GM/DL (32-36); Mean Corpuscular Volume 97.5 FL (87-102); Neutrophils % 35.5 % (38.7-73.9); Platelet Count 209 T/CUMM (130-400); Red Blood Count 3.66 MC/CUMM (3.8-5.5); Red Cell Distribution Width 13.4 % (9.3-17.3)
[2021-04-16 03:38] LABS: Osmolality,Calculated 276.7 MOS/KG (273-304)
[2021-04-16 03:55] LABS: Eosinophils 4 % (0-10); Lymphocytes 46 % (20-55); Segmented Neutrophils 39 % (50-85); Total Cells Counted 100
[2021-04-16 03:56] LABS: Atypical Lymphocytes Few; Hypochromasia Slight; Microcytosis Slight; Platelet Estimate Adequate
[2021-04-16] MEDS ORDERED: LACTATED RINGERS 1,000 ML IV SCH (06:30)
[2021-04-16] MEDS: INSULIN LISPRO 100 UNIT/ML SUBCUT SCH ×4 (08:20→21:54)
[2021-04-16] MEDS ORDERED: LIDOCAINE 2% 5 ML VIAL ONE (08:21)
[2021-04-16] MEDS ORDERED: propofoL 200 MG/20 ML VIAL IV ONE (08:21)
[2021-04-16] MEDS ORDERED: MIDAZOLAM 2 MG/2 ML VIAL ONE (08:47)
[2021-04-16] MEDS ORDERED: LORazepam 2 MG/1 ML VIAL IV PRN (09:55)
[2021-04-16] MEDS: ISOSORBIDE MONONITRATE 30 MG TABLET PO SCH (11:31)
[2021-04-16] MEDS: ASPIRIN EC 81 MG TABLET PO SCH (11:31)
[2021-04-16] MEDS: PANTOPRAZOLE 40 MG TABLET PO SCH ×2 (11:31→21:54)
[2021-04-16] MEDS: FERROUS SULFATE 325 MG TABLET PO SCH (11:31)
[2021-04-16] MEDS: NORTRIPTYLINE 25 MG CAPSULE PO SCH ×3 (11:31→21:54)
[2021-04-16] MEDS: levETIRAcetam 500 MG TABLET PO SCH (11:31)
[2021-04-16] MEDS: METOPROLOL TARTRATE 25 MG TABLET PO SCH ×2 (11:31→21:53)
[2021-04-16] MEDS: PHENYTOIN ER 100 MG CAPSULE PO SCH ×3 (11:31→21:54)
[2021-04-16] MEDS: NON-FORMULARY MEDICATION (Umeclidinium-Vilanterol [Anoro Ellipta] 62.5-25 mcg/actuation Bl INH SCH (11:55)
[2021-04-16] MEDS ORDERED: PHENOL 1.4% THROAT SPRAY 177 ML BOTTLE PO PRN (16:06)
[2021-04-16] MEDS: NYSTATIN POWDER 15 GM BOTTLE TOP SCH ×2 (17:14→22:23)
[2021-04-16] MEDS: POLYETHYLENE GLYCOL POWDER 17 GM PACK PO PRN (17:15)
[2021-04-16] MEDS: MONTELUKAST 10 MG TABLET PO SCH (21:53)
[2021-04-16] MEDS: ATORVASTATIN 20 MG TABLET PO SCH (21:54)
[2021-04-16] MEDS: levETIRAcetam LIQUID 100 MG/ML 30 ML/BOTTLE PO SCH (21:55)
[2021-04-17] MEDS: PHENYTOIN ER 100 MG CAPSULE PO SCH ×2 (09:31→20:48)
[2021-04-17] MEDS: PANTOPRAZOLE 40 MG TABLET PO SCH ×2 (09:32→20:48)
[2021-04-17] MEDS: NORTRIPTYLINE 25 MG CAPSULE PO SCH ×3 (09:32→20:48)
[2021-04-17] MEDS: ISOSORBIDE MONONITRATE 30 MG TABLET PO SCH (09:32)
[2021-04-17] MEDS: ASPIRIN EC 81 MG TABLET PO SCH (09:32)
[2021-04-17] MEDS: METOPROLOL TARTRATE 25 MG TABLET PO SCH ×2 (09:32→20:48)
[2021-04-17] MEDS: FERROUS SULFATE 325 MG TABLET PO SCH (09:32)
[2021-04-17] MEDS: NYSTATIN POWDER 15 GM BOTTLE TOP SCH ×2 (09:33→20:47)
[2021-04-17] MEDS: levETIRAcetam LIQUID 100 MG/ML 30 ML/BOTTLE PO SCH ×2 (09:34→20:48)
[2021-04-17] MEDS: POLYETHYLENE GLYCOL POWDER 17 GM PACK PO PRN (09:42)
[2021-04-17] MEDS: INSULIN LISPRO 100 UNIT/ML SUBCUT SCH ×4 (09:51→20:45)
[2021-04-17] MEDS: NON-FORMULARY MEDICATION (Umeclidinium-Vilanterol [Anoro Ellipta] 62.5-25 mcg/actuation Bl INH SCH (09:51)
[2021-04-17] MEDS: ATORVASTATIN 20 MG TABLET PO SCH (20:48)
[2021-04-17] MEDS: POLYETHYLENE GLYCOL POWDER 17 GM PACK PO SCH (20:48)
[2021-04-17] MEDS: MONTELUKAST 10 MG TABLET PO SCH (20:48)
[2021-04-18 07:11] LABS: Basophils # 0.1 10*3/uL (0.0-0.2); Basophils % 0.8 % (0.0-0.8); Eosinophils # 0.4 10*3/uL (0.0-0.87); Eosinophils % 6.1 % (0.00-10.9); Hematocrit 34.4 VOL% (35.7-47.0); Hemoglobin 10.9 GM/DL (12.0-16.0); Immature Granulocytes % 0.3 %; Immature Granulocytes Absolute 0.02 #; Lymphocytes % 50.1 % (21.3-54.2); Mean Corpuscular HGB Conc 31.7 GM/DL (32-36); Mean Corpuscular Volume 97.5 FL (87-102); Mean Platelet Volume 11.6 FL (9.6-12.0); Monocytes % 8.8 % (1.7-12.7); Neutrophils % 33.9 % (38.7-73.9); Platelet Count 179 T/CUMM (130-400); Red Blood Count 3.53 MC/CUMM (3.8-5.5); Red Cell Distribution Width 13.4 % (9.3-17.3); White Blood Count 6.1 T/CUMM (4-12)
[2021-04-18 07:37] LABS: Calcium 8.9 MG/DL (8.5-10.1); Osmolality,Calculated 279.3 MOS/KG (273-304); Potassium 3.8 MMOL/L (3.5-5.1)
[2021-04-18] MEDS: INSULIN LISPRO 100 UNIT/ML SUBCUT SCH ×3 (07:40→18:33)
[2021-04-18 07:43] LABS: Anisocytosis 2+; Atypical Lymphocytes Few; Band Neutrophils 7 % (0-10); Eosinophils 4 % (0-10); Lymphocytes 51 % (20-55); Macrocytosis 1+; Platelet Estimate Normal; Segmented Neutrophils 32 % (50-85); Total Cells Counted 100
[2021-04-18] MEDS: POLYETHYLENE GLYCOL POWDER 17 GM PACK PO SCH (09:10)
[2021-04-18] MEDS: METOPROLOL TARTRATE 25 MG TABLET PO SCH (09:11)
[2021-04-18] MEDS: ISOSORBIDE MONONITRATE 30 MG TABLET PO SCH (09:11)
[2021-04-18] MEDS: NORTRIPTYLINE 25 MG CAPSULE PO SCH ×2 (09:11→16:16)
[2021-04-18] MEDS: PANTOPRAZOLE 40 MG TABLET PO SCH (09:11)
[2021-04-18] MEDS: ASPIRIN EC 81 MG TABLET PO SCH (09:11)
[2021-04-18] MEDS: PHENYTOIN ER 100 MG CAPSULE PO SCH (09:11)
[2021-04-18] MEDS: FERROUS SULFATE 325 MG TABLET PO SCH (09:11)
[2021-04-18] MEDS: NON-FORMULARY MEDICATION (Umeclidinium-Vilanterol [Anoro Ellipta] 62.5-25 mcg/actuation Bl INH SCH (09:12)
[2021-04-18] MEDS: levETIRAcetam LIQUID 100 MG/ML 30 ML/BOTTLE PO SCH (09:12)
[2021-04-18] MEDS: NYSTATIN POWDER 15 GM BOTTLE TOP SCH (09:12)
[2021-04-18 16:00] VITALS: BP 110/46
[2021-04-22 16:41] LABS: Tissue Transglutaminase IgA Ab < 1.2 U/mL
[2021-04-22 22:01] LABS: IgA Serum (MAYO) 499 mg/dL (61 - 356)
== END 2021-04-18 16:31 | DRG 241 ==
LOC: EDBD → EDUNIT# → N.ED 10:26 → N.EDINP 10:26 → N.4E 16:44
PROVIDERS: ADMIT Family Medicine; ATTEND Family Medicine

== ENCOUNTER 2021-06-21 15:03 | Observation (INO) ==
[2021-06-21] MEDS ORDERED: SODIUM CHLORIDE 0.9% 1,000 ML IV STA (15:35)
[2021-06-21 16:46] LABS: Alanine Aminotransferase 33 U/L (13-56); Albumin 3.1 G/DL (3.4-5.0); Alkaline Phosphatase 171 U/L (45-117); Aspartate Amino Transferase 38 U/L (0-37); Bilirubin,Total < 0.39 MG/DL (0.20-1.00); Blood Urea Nitrogen 43 MG/DL (7-18); Calcium 8.9 MG/DL (8.5-10.1); Carbon Dioxide 26 MMOL/L (21-32); Estimated Glom Filtration Rate 47 ML/MIN; Glucose 288 MG/DL (74-106); Osmolality,Calculated 285.5 MOS/KG (273-304); Potassium 4.6 MMOL/L (3.5-5.1); Sodium 132 MMOL/L (136-145); Total Protein 7.9 G/DL (6.4-8.2)
[2021-06-21 17:01] LABS: Bilirubin,Urine Negative (Negative); Blood, Urine Negative (Negative); Glucose,Urine (UA) >=500 mg/dL (Negative); Ketones,Urine Negative (Negative); Nitrite,Urine Negative (Negative); Protein,Urine Negative; RBC,Urine <1 /HPF (0-4); Squamous Epithelial Cell,Urine Occasional /HPF (0-10); Urine Appearance CLEAR (Clear); Urine Color Straw (Yellow); Urine Specific Gravity 1.013 (1.001-1.035); Urine Urobilinogen < 2.0 EU/DL (<2.0)
[2021-06-21 17:15] LABS: Basophils # 0.1 10*3/uL (0.0-0.2); Basophils % 0.8 % (0.0-0.8); Eosinophils # 0.2 10*3/uL (0.0-0.87); Eosinophils % 2.3 % (0.00-10.9); Hemoglobin 11.3 GM/DL (12.0-16.0); Immature Granulocytes % 0.3 %; Immature Granulocytes Absolute 0.02 #; Lymphocytes # 3.4 10*3/uL (1.4-4.0); Lymphocytes % 45.1 % (21.3-54.2); Mean Corpuscular HGB Conc 31.4 GM/DL (32-36); Mean Corpuscular Volume 94.5 FL (87-102); Mean Platelet Volume 10.9 FL (9.6-12.0); Monocytes % 4.8 % (1.7-12.7); Neutrophils % 46.7 % (38.7-73.9); Platelet Count 196 T/CUMM (130-400); Red Blood Count 3.81 MC/CUMM (3.8-5.5); Red Cell Distribution Width 13.5 % (9.3-17.3); White Blood Count 7.5 T/CUMM (4-12)
[2021-06-21] MEDS ORDERED: ONDANSETRON 4 MG/2 ML VIAL IV PRN (17:57)
[2021-06-21] MEDS ORDERED: ACETAMINOPHEN 325 MG TABLET PO PRN (17:57)
[2021-06-21] MEDS ORDERED: ALBUTEROL 0.63 MG/3 ML NEB RESP TX PRN (18:01)
[2021-06-21] MEDS: LACTATED RINGERS 1,000 ML IV SCH (19:17)
[2021-06-21] MEDS: NORTRIPTYLINE 25 MG CAPSULE PO SCH (21:14)
[2021-06-21] MEDS: GABAPENTIN 600 MG TABLET PO SCH (21:14)
[2021-06-21] MEDS: DOCUSATE SODIUM 100 MG CAPSULE PO SCH (21:14)
[2021-06-21] MEDS: ATORVASTATIN 20 MG TABLET PO SCH (21:14)
[2021-06-22] MEDS: LACTATED RINGERS 1,000 ML IV SCH ×3 (02:51→19:50)
[2021-06-22 04:32] LABS: Basophils # 0.1 10*3/uL (0.0-0.2); Basophils % 0.8 % (0.0-0.8); Eosinophils # 0.4 10*3/uL (0.0-0.87); Eosinophils % 5.7 % (0.00-10.9); Hematocrit 35.9 VOL% (35.7-47.0); Hemoglobin 11.1 GM/DL (12.0-16.0); Immature Granulocytes % 0.1 %; Immature Granulocytes Absolute 0.01 #; Lymphocytes # 4.1 10*3/uL (1.4-4.0); Lymphocytes % 55.7 % (21.3-54.2); Mean Corpuscular HGB Conc 30.9 GM/DL (32-36); Neutrophils % 30.7 % (38.7-73.9); Platelet Count 193 T/CUMM (130-400); Red Blood Count 3.82 MC/CUMM (3.8-5.5); Red Cell Distribution Width 13.4 % (9.3-17.3); White Blood Count 7.3 T/CUMM (4-12)
[2021-06-22 04:55] LABS: Albumin 2.6 G/DL (3.4-5.0); Bilirubin,Total 0.8 MG/DL (0.20-1.00); Calcium 8.6 MG/DL (8.5-10.1); Osmolality,Calculated 287.4 MOS/KG (273-304); Potassium 3.8 MMOL/L (3.5-5.1); Total Protein 6.4 G/DL (6.4-8.2)
[2021-06-22 05:36] LABS: Eosinophils 7 % (0-10); Lymphocytes 58 % (20-55); Platelet Estimate Normal; Segmented Neutrophils 33 % (50-85); Total Cells Counted 100
[2021-06-22] MEDS ORDERED: PANTOPRAZOLE 40 MG TABLET PO SCH (09:00)
[2021-06-22] MEDS: ASPIRIN EC 81 MG TABLET PO SCH (10:04)
[2021-06-22] MEDS: POTASSIUM CHLORIDE 10 MEQ TABLET PO SCH ×3 (10:04→16:55)
[2021-06-22] MEDS: DOCUSATE SODIUM 100 MG CAPSULE PO SCH ×2 (10:04→21:41)
[2021-06-22] MEDS: CLOPIDOGREL 75 MG TABLET PO SCH (10:04)
[2021-06-22] MEDS: FOLIC ACID 1 MG TABLET PO SCH (10:05)
[2021-06-22] MEDS: NORTRIPTYLINE 25 MG CAPSULE PO SCH ×3 (10:05→21:41)
[2021-06-22] MEDS: ISOSORBIDE MONONITRATE 30 MG TABLET PO SCH (10:06)
[2021-06-22] MEDS: GABAPENTIN 600 MG TABLET PO SCH ×2 (10:15→21:40)
[2021-06-22] MEDS: PHENYTOIN ER 100 MG CAPSULE PO SCH ×2 (16:55→21:40)
[2021-06-22] MEDS: levETIRAcetam LIQUID 100 MG/ML 30 ML/BOTTLE PO SCH ×2 (16:55→21:41)
[2021-06-22] MEDS: PRAZOSIN 1 MG CAPSULE PO SCH ×2 (16:55→21:41)
[2021-06-22] MEDS: PANTOPRAZOLE 40 MG TABLET PO SCH (21:41)
[2021-06-22] MEDS: MONTELUKAST 10 MG TABLET PO SCH (21:41)
[2021-06-22] MEDS: ATORVASTATIN 20 MG TABLET PO SCH (21:41)
[2021-06-22] MEDS: METOPROLOL TARTRATE 25 MG TABLET PO SCH (21:47)
[2021-06-23] MEDS: LACTATED RINGERS 1,000 ML IV SCH ×2 (04:22→12:54)
[2021-06-23 05:42] LABS: Osmolality,Calculated 282.3 MOS/KG (273-304); Potassium 4.1 MMOL/L (3.5-5.1)
[2021-06-23] MEDS: PRAZOSIN 1 MG CAPSULE PO SCH ×3 (09:02→21:48)
[2021-06-23] MEDS: DOCUSATE SODIUM 100 MG CAPSULE PO SCH ×2 (09:02→21:44)
[2021-06-23] MEDS: METOPROLOL TARTRATE 25 MG TABLET PO SCH ×2 (09:03→21:44)
[2021-06-23] MEDS: ASPIRIN EC 81 MG TABLET PO SCH (09:03)
[2021-06-23] MEDS: PANTOPRAZOLE 40 MG TABLET PO SCH ×2 (09:03→21:43)
[2021-06-23] MEDS: POTASSIUM CHLORIDE 10 MEQ TABLET PO SCH ×3 (09:04→16:45)
[2021-06-23] MEDS: ISOSORBIDE MONONITRATE 30 MG TABLET PO SCH (09:04)
[2021-06-23] MEDS: PHENYTOIN ER 100 MG CAPSULE PO SCH ×2 (09:05→21:43)
[2021-06-23] MEDS: FOLIC ACID 1 MG TABLET PO SCH (09:06)
[2021-06-23] MEDS: CLOPIDOGREL 75 MG TABLET PO SCH (09:06)
[2021-06-23] MEDS: GABAPENTIN 600 MG TABLET PO SCH ×2 (09:06→21:43)
[2021-06-23] MEDS: NORTRIPTYLINE 25 MG CAPSULE PO SCH ×3 (09:06→21:43)
[2021-06-23] MEDS: levETIRAcetam LIQUID 100 MG/ML 30 ML/BOTTLE PO SCH ×2 (10:15→21:44)
[2021-06-23] MEDS ORDERED: GLUCAGON 1 MG VIAL IM PRN (15:18)
[2021-06-23] MEDS ORDERED: DEXTROSE 50% 25 GM/50 ML SYRINGE IV PRN (15:18)
[2021-06-23] MEDS: MONTELUKAST 10 MG TABLET PO SCH (21:43)
[2021-06-23] MEDS: ATORVASTATIN 20 MG TABLET PO SCH (21:44)
[2021-06-24] MEDS: METOPROLOL TARTRATE 25 MG TABLET PO SCH (09:04)
[2021-06-24] MEDS: POTASSIUM CHLORIDE 10 MEQ TABLET PO SCH ×2 (09:04→11:24)
[2021-06-24] MEDS: ASPIRIN EC 81 MG TABLET PO SCH (09:05)
[2021-06-24] MEDS: PHENYTOIN ER 100 MG CAPSULE PO SCH (09:05)
[2021-06-24] MEDS: GABAPENTIN 600 MG TABLET PO SCH (09:05)
[2021-06-24] MEDS: FOLIC ACID 1 MG TABLET PO SCH (09:05)
[2021-06-24] MEDS: DOCUSATE SODIUM 100 MG CAPSULE PO SCH (09:05)
[2021-06-24] MEDS: CLOPIDOGREL 75 MG TABLET PO SCH (09:05)
[2021-06-24] MEDS: ISOSORBIDE MONONITRATE 30 MG TABLET PO SCH (09:06)
[2021-06-24] MEDS: NORTRIPTYLINE 25 MG CAPSULE PO SCH (09:06)
[2021-06-24] MEDS: PANTOPRAZOLE 40 MG TABLET PO SCH (09:06)
[2021-06-24] MEDS: PRAZOSIN 1 MG CAPSULE PO SCH (09:06)
[2021-06-24] MEDS: levETIRAcetam LIQUID 100 MG/ML 30 ML/BOTTLE PO SCH (09:08)
[2021-06-24 12:32] VITALS: BP 121/54
== END 2021-06-24 14:40 ==
LOC: EDBD → EDUNIT# → N.5E 15:03 → N.ED 15:03 → N.5E 20:45
PROVIDERS: ADMIT Family Medicine; ATTEND Family Medicine

== ENCOUNTER 2021-07-03 11:33 | Observation (INO) ==
[2021-07-03 13:08] LABS: Bilirubin,Urine Negative (Negative); Blood, Urine Negative (Negative); Glucose,Urine (UA) >=500 mg/dL (Negative); Hyaline Casts,Urine 1 /LPF (0-3); Ketones,Urine Negative (Negative); Mucus,Urine Occasional /LPF (Occasional); Nitrite,Urine Negative (Negative); Protein,Urine Negative; RBC,Urine 1 /HPF (0-4); Squamous Epithelial Cell,Urine Occasional /HPF (0-10); Urine Appearance CLEAR (Clear); Urine Color Straw (Yellow); Urine Specific Gravity 1.006 (1.001-1.035); Urine Urobilinogen < 2.0 EU/DL (<2.0)
[2021-07-03 13:14] LABS: Barbiturates Screen,Urine Negative (Negative); Benzodiazepines Screen,Urine Negative (Negative); Cannabinoid Screen,Urine Negative (Negative); Opiate Screen,Urine Negative (Negative); Phencyclidine Screen,Urine Negative (Negative)
[2021-07-03 13:15] LABS: Basophils % 0.5 % (0.0-0.8); Eosinophils # 0.2 10*3/uL (0.0-0.87); Eosinophils % 3.5 % (0.00-10.9); Hematocrit 36.6 VOL% (35.7-47.0); Hemoglobin 11.3 GM/DL (12.0-16.0); Immature Granulocytes % 0.3 %; Immature Granulocytes Absolute 0.02 #; Lymphocytes # 1.6 10*3/uL (1.4-4.0); Mean Corpuscular HGB Conc 30.9 GM/DL (32-36); Mean Corpuscular Volume 94.8 FL (87-102); Mean Platelet Volume 10.9 FL (9.6-12.0); Monocytes % 2.3 % (1.7-12.7); Neutrophils % 68.4 % (38.7-73.9); Platelet Count 184 T/CUMM (130-400); Red Blood Count 3.86 MC/CUMM (3.8-5.5); Red Cell Distribution Width 13.3 % (9.3-17.3); White Blood Count 6.2 T/CUMM (4-12)
[2021-07-03 13:42] LABS: Alanine Aminotransferase 41 U/L (13-56); Albumin 3.1 G/DL (3.4-5.0); Alkaline Phosphatase 140 U/L (45-117); Aspartate Amino Transferase 37 U/L (0-37); Bilirubin,Total < 0.39 MG/DL (0.20-1.00); Blood Urea Nitrogen 23 MG/DL (7-18); Calcium 8.9 MG/DL (8.5-10.1); Carbon Dioxide 27 MMOL/L (21-32); Estimated Glom Filtration Rate 79 ML/MIN; Glucose 204 MG/DL (74-106); Osmolality,Calculated 279.1 MOS/KG (273-304); Potassium 4.4 MMOL/L (3.5-5.1); Sodium 135 MMOL/L (136-145); Total Protein 7.8 G/DL (6.4-8.2)
[2021-07-03 13:43] LABS: Band Neutrophils 2 % (0-10); Eosinophils 3 % (0-10); Lymphocytes 19 % (20-55); Nucleated Red Blood Cells 1 (0-5); Segmented Neutrophils 75 % (50-85); Total Cells Counted 100
[2021-07-03 13:44] LABS: Anisocytosis Slight; Hypochromia Slight; Macrocytosis Slight; Platelet Estimate Adequate
[2021-07-03 13:58] LABS: Atypical Lymphocytes Few
[2021-07-03] MEDS ORDERED: LACOSAMIDE INJ 200 MG in SODIUM CHLORIDE 0.9% 50 ML IV STA (14:01)
[2021-07-03] MEDS ORDERED: DEXTROSE 50% 25 GM/50 ML SYRINGE IV PRN (15:21)
[2021-07-03] MEDS ORDERED: ONDANSETRON 4 MG/2 ML VIAL IV PRN (15:21)
[2021-07-03] MEDS ORDERED: GLUCAGON 1 MG VIAL IM PRN (15:21)
[2021-07-03] MEDS ORDERED: ACETAMINOPHEN 325 MG TABLET PO PRN (15:21)
[2021-07-03] MEDS ORDERED: POLYETHYLENE GLYCOL POWDER 17 GM PACK PO PRN (15:22)
[2021-07-03] MEDS ORDERED: ADALIMUMAB 40 MG/0.4 ML SUBCUT SCH (15:30)
[2021-07-03] MEDS ORDERED: ALBUTEROL 2.5 MG/3 ML NEB RESP TX PRN (16:05)
[2021-07-03] MEDS: POTASSIUM CHLORIDE 10 MEQ TABLET PO SCH (17:59)
[2021-07-03] MEDS ORDERED: ALBUTEROL/IPRATROPIUM 3 ML NEB RESP TX PRN (19:47)
[2021-07-03] MEDS ORDERED: hydrALAZINE 20 MG/1 ML VIAL IV PRN (19:47)
[2021-07-03] MEDS ORDERED: LORazepam 2 MG/1 ML VIAL IM PRN (19:53)
[2021-07-03] MEDS ORDERED: DEXTROSE 50% 25 GM/50 ML VIAL IV PRN (19:55)
[2021-07-03] MEDS ORDERED: SODIUM CHLORIDE 0.9% 1,000 ML IV SCH (20:00)
[2021-07-03] MEDS ORDERED: ATORVASTATIN 20 MG TABLET PO SCH (21:00)
[2021-07-03] MEDS: levETIRAcetam LIQUID 100 MG/ML 30 ML/BOTTLE PO SCH (22:32)
[2021-07-03] MEDS: DOCUSATE SODIUM 100 MG CAPSULE PO SCH (22:32)
[2021-07-03] MEDS: KETOCONAZOLE 2% CREAM 30 GM TUBE TOP SCH (22:32)
[2021-07-03] MEDS: PRAZOSIN 1 MG CAPSULE PO SCH (22:32)
[2021-07-03] MEDS: PHENYTOIN ER 100 MG CAPSULE PO SCH (22:32)
[2021-07-03] MEDS: NORTRIPTYLINE 25 MG CAPSULE PO SCH (22:42)
[2021-07-04 05:05] LABS: Albumin 2.6 G/DL (3.4-5.0); Bilirubin,Total 0.7 MG/DL (0.20-1.00); Calcium 8.2 MG/DL (8.5-10.1); Osmolality,Calculated 281.7 MOS/KG (273-304); Potassium 3.8 MMOL/L (3.5-5.1); Total Protein 7.1 G/DL (6.4-8.2)
[2021-07-04] MEDS: INSULIN REGULAR 100 UNIT/ML SUBCUT SCH ×3 (06:23→12:42)
[2021-07-04] MEDS: PRAZOSIN 1 MG CAPSULE PO SCH (08:21)
[2021-07-04] MEDS: POTASSIUM CHLORIDE 10 MEQ TABLET PO SCH ×2 (08:21→12:43)
[2021-07-04] MEDS: DOCUSATE SODIUM 100 MG CAPSULE PO SCH (08:21)
[2021-07-04] MEDS: NORTRIPTYLINE 25 MG CAPSULE PO SCH (08:22)
[2021-07-04] MEDS: PHENYTOIN ER 100 MG CAPSULE PO SCH (08:22)
[2021-07-04] MEDS: levETIRAcetam LIQUID 100 MG/ML 30 ML/BOTTLE PO SCH (08:23)
[2021-07-04] MEDS: KETOCONAZOLE 2% CREAM 30 GM TUBE TOP SCH (08:24)
[2021-07-04] MEDS ORDERED: guaiFENesin/CODEINE 5 ML LIQUID PO PRN (08:36)
[2021-07-04] MEDS ORDERED: FOLIC ACID 1 MG TABLET PO SCH (09:00)
[2021-07-04] MEDS ORDERED: MULTIVITAMIN (PRENATAL) TABLET PO SCH (09:00)
[2021-07-04] MEDS ORDERED: ASPIRIN EC 81 MG TABLET PO SCH (09:00)
[2021-07-04] MEDS ORDERED: FLUTICASONE 50 MCG NASAL SPRAY 16 GM BOTTLE BOTH NARES SCH (09:00)
[2021-07-04] MEDS ORDERED: cephALEXin 500 MG CAPSULE PO SCH (09:00)
[2021-07-04] MEDS ORDERED: NON-FORMULARY MEDICATION (Umeclidinium-Vilanterol [Anoro Ellipta] 62.5-25 mcg/actuation Bl INH SCH (09:00)
[2021-07-04] MEDS ORDERED: FUROSEMIDE 20 MG TABLET PO SCH (09:00)
[2021-07-04] MEDS ORDERED: CLOPIDOGREL 75 MG TABLET PO SCH (09:00)
[2021-07-04] MEDS ORDERED: PANTOPRAZOLE 40 MG TABLET PO SCH (09:00)
[2021-07-04] MEDS ORDERED: MENTHOL/ZINC OXIDE OINT 71 GM JAR TOP SCH (12:00)
[2021-07-04 13:56] VITALS: BP 138/48
[2021-07-10] MEDS ORDERED: METHOTREXATE 2.5 MG TABLET PO SCH (09:00)
== END 2021-07-04 14:20 ==
LOC: EDBD → EDUNIT# → N.TELEN 11:33 → N.ED 11:33 → N.TELEN 16:58
PROVIDERS: ADMIT Family Medicine; ATTEND Family Medicine

== ENCOUNTER 2021-11-05 12:19 | Observation (INO) ==
[2021-11-05] MEDS ORDERED: LORazepam 2 MG/1 ML VIAL ONE (12:22)
[2021-11-05] MEDS ORDERED: SODIUM CHLORIDE 0.9% 1,000 ML IV STA (12:27)
[2021-11-05] MEDS ORDERED: LORazepam 2 MG/1 ML VIAL IV STA (12:27)
[2021-11-05 13:06] LABS: Basophils # 0.1 10*3/uL (0.0-0.2); Basophils % 0.7 % (0.0-0.8); Eosinophils # 0.1 10*3/uL (0.0-0.87); Eosinophils % 1.3 % (0.00-10.9); Hematocrit 39.5 VOL% (35.7-47.0); Hemoglobin 12.5 GM/DL (12.0-16.0); Immature Granulocytes % 0.3 %; Immature Granulocytes Absolute 0.02 #; Lymphocytes # 2.3 10*3/uL (1.4-4.0); Lymphocytes % 31.3 % (21.3-54.2); Mean Corpuscular HGB Conc 31.6 GM/DL (32-36); Mean Corpuscular Volume 96.8 FL (87-102); Mean Platelet Volume 10.4 FL (9.6-12.0); Monocytes # 0.3 10*3/uL (0.11-0.8); Neutrophils % 62.4 % (38.7-73.9); Platelet Count 274 T/CUMM (130-400); Red Blood Count 4.08 MC/CUMM (3.8-5.5); Red Cell Distribution Width 14.2 % (9.3-17.3); White Blood Count 7.5 T/CUMM (4-12)
[2021-11-05 13:29] LABS: Anisocytosis Slight; Eosinophils 1 % (0-10); Lymphocytes 27 % (20-55); Total Cells Counted 100
[2021-11-05 13:30] LABS: Atypical Lymphocytes Few; Hypochromia Slight; Macrocytosis Slight; Platelet Estimate Normal; Polychromasia Few
[2021-11-05 13:44] LABS: Alanine Aminotransferase 41 U/L (13-56); Albumin 3.3 G/DL (3.4-5.0); Alkaline Phosphatase 138 U/L (45-117); Aspartate Amino Transferase 30 U/L (0-37); Bilirubin,Total < 0.39 MG/DL (0.20-1.00); Blood Urea Nitrogen 17 MG/DL (7-18); Carbon Dioxide 23 MMOL/L (21-32); Chloride 102 MMOL/L (98-107); Estimated Glom Filtration Rate 60 ML/MIN; Glucose 209 MG/DL (74-106); Osmolality,Calculated 273.4 MOS/KG (273-304); Potassium 4.4 MMOL/L (3.5-5.1); Sodium 133 MMOL/L (136-145); Total Protein 8.6 G/DL (6.4-8.2)
[2021-11-05] MEDS ORDERED: ONDANSETRON 4 MG/2 ML VIAL IV PRN (14:22)
[2021-11-05] MEDS ORDERED: NON-FORMULARY MEDICATION (Diphenhydramine Hcl [Benadryl Allergy] 25 mg Tablet) PO PRN (22:09)
[2021-11-05] MEDS ORDERED: BISMUTH SUBSALICYLATE 262 MG PO PRN (22:09)
[2021-11-05] MEDS ORDERED: guaiFENesin 200 MG/10 ML UDCUP PO PRN (22:09)
[2021-11-05] MEDS ORDERED: NITROGLYCERIN SL 0.4 MG TABLET SL PRN (22:09)
[2021-11-05] MEDS ORDERED: GLUCAGON 1 MG VIAL IM PRN (22:14)
[2021-11-05] MEDS ORDERED: DEXTROSE 10% 250 ML BAG IV PRN (22:22)
[2021-11-05] MEDS: cefTRIAXone 1,000 MG in SODIUM CHLORIDE 0.9% 100 ML IV SCH (22:55)
[2021-11-06 06:03] LABS: Alanine Aminotransferase 37 U/L (13-56); Alkaline Phosphatase 117 U/L (45-117); Aspartate Amino Transferase 34 U/L (0-37); Bilirubin,Total < 0.39 MG/DL (0.20-1.00); Blood Urea Nitrogen 15 MG/DL (7-18); Calcium 8.7 MG/DL (8.5-10.1); Carbon Dioxide 25 MMOL/L (21-32); Chloride 107 MMOL/L (98-107); Estimated Glom Filtration Rate 85 ML/MIN; Glucose 111 MG/DL (74-106); Osmolality,Calculated 276.7 MOS/KG (273-304); Potassium 3.7 MMOL/L (3.5-5.1); Sodium 138 MMOL/L (136-145); Total Protein 7.3 G/DL (6.4-8.2)
[2021-11-06] MEDS: INSULIN LISPRO 100 UNIT/ML SUBCUT SCH ×4 (07:29→21:08)
[2021-11-06] MEDS: PANTOPRAZOLE 40 MG TABLET PO SCH ×4 (09:03→21:07)
[2021-11-06] MEDS: GABAPENTIN 600 MG TABLET PO SCH ×2 (09:26→21:07)
[2021-11-06] MEDS: NORTRIPTYLINE 25 MG CAPSULE PO SCH ×3 (09:26→21:07)
[2021-11-06] MEDS: FUROSEMIDE 20 MG TABLET PO SCH (09:26)
[2021-11-06] MEDS: ISOSORBIDE MONONITRATE 30 MG TABLET PO SCH (09:26)
[2021-11-06] MEDS: POTASSIUM CHLORIDE 10 MEQ TABLET PO SCH ×4 (09:26→16:25)
[2021-11-06] MEDS: FOLIC ACID 1 MG TABLET PO SCH (09:26)
[2021-11-06] MEDS: PHENYTOIN ER 100 MG CAPSULE PO SCH ×2 (09:26→21:06)
[2021-11-06] MEDS: ASPIRIN EC 81 MG TABLET PO SCH (09:26)
[2021-11-06] MEDS: METOPROLOL TARTRATE 25 MG TABLET PO SCH ×2 (09:27→21:07)
[2021-11-06] MEDS: cefTRIAXone 1,000 MG in SODIUM CHLORIDE 0.9% 100 ML IV SCH (09:27)
[2021-11-06] MEDS: CLOPIDOGREL 75 MG TABLET PO SCH (09:27)
[2021-11-06] MEDS: LIRAGLUTIDE SUBCUT SCH (09:40)
[2021-11-06] MEDS: Umeclidinium-Vilanterol [Anoro Ellipta] 62.5-25 mcg/actuation Bl INH SCH (09:40)
[2021-11-06] MEDS: FLUTICASONE 50 MCG NASAL SPRAY 16 GM BOTTLE BOTH NARES SCH (09:40)
[2021-11-06] MEDS: levETIRAcetam LIQUID 100 MG/ML 30 ML/BOTTLE PO SCH ×2 (10:43→21:08)
[2021-11-06] MEDS: PRAZOSIN 1 MG CAPSULE PO SCH ×3 (10:43→21:07)
[2021-11-06] MEDS ORDERED: ZINC OXIDE PASTE 113 GM TUBE TOP PRN (12:21)
[2021-11-06 13:07] LABS: Bilirubin,Urine Negative (Negative); Blood, Urine Negative (Negative); Glucose,Urine (UA) 500 mg/dL (Negative); Ketones,Urine Negative (Negative); Nitrite,Urine Negative (Negative); Protein,Urine Negative (Negative); Urine Appearance Clear (Clear); Urine Color Light Yellow (Yellow); Urine Urobilinogen 0.2 eU/dL (<2.0); Urine pH 5.5 (4.5-8.0)
[2021-11-06 13:13] LABS: Bacteria,Urine Occasional /HPF (Few); Barbiturates Screen,Urine Negative (Negative); Benzodiazepines Screen,Urine Negative (Negative); Cannabinoid Screen,Urine Negative (Negative); Opiate Screen,Urine Negative (Negative); Phencyclidine Screen,Urine Negative (Negative); RBC,Urine 2 /HPF (0-4); Squamous Epithelial Cell,Urine Occasional /HPF (0-10)
[2021-11-06] MEDS ORDERED: ATORVASTATIN 20 MG TABLET PO SCH (21:00)
[2021-11-06] MEDS ORDERED: MONTELUKAST 10 MG TABLET PO SCH (21:00)
[2021-11-07] MEDS: PANTOPRAZOLE 40 MG TABLET PO SCH ×2 (05:44→08:57)
[2021-11-07] MEDS: CLOPIDOGREL 75 MG TABLET PO SCH (08:44)
[2021-11-07] MEDS: PHENYTOIN ER 100 MG CAPSULE PO SCH (08:44)
[2021-11-07] MEDS: POTASSIUM CHLORIDE 10 MEQ TABLET PO SCH ×2 (08:45→12:57)
[2021-11-07] MEDS: PRAZOSIN 1 MG CAPSULE PO SCH (08:45)
[2021-11-07] MEDS: NORTRIPTYLINE 25 MG CAPSULE PO SCH (08:45)
[2021-11-07] MEDS: ASPIRIN EC 81 MG TABLET PO SCH (08:45)
[2021-11-07] MEDS: FUROSEMIDE 20 MG TABLET PO SCH (08:45)
[2021-11-07] MEDS: GABAPENTIN 600 MG TABLET PO SCH (08:45)
[2021-11-07] MEDS: METOPROLOL TARTRATE 25 MG TABLET PO SCH (08:45)
[2021-11-07] MEDS: FOLIC ACID 1 MG TABLET PO SCH (08:45)
[2021-11-07] MEDS: ISOSORBIDE MONONITRATE 30 MG TABLET PO SCH (08:45)
[2021-11-07] MEDS: cefTRIAXone 1,000 MG in SODIUM CHLORIDE 0.9% 100 ML IV SCH (08:45)
[2021-11-07] MEDS: levETIRAcetam LIQUID 100 MG/ML 30 ML/BOTTLE PO SCH (08:56)
[2021-11-07] MEDS: FLUTICASONE 50 MCG NASAL SPRAY 16 GM BOTTLE BOTH NARES SCH (08:56)
[2021-11-07] MEDS: INSULIN LISPRO 100 UNIT/ML SUBCUT SCH ×2 (08:56→13:00)
[2021-11-07] MEDS: LIRAGLUTIDE SUBCUT SCH (08:56)
[2021-11-07] MEDS: Umeclidinium-Vilanterol [Anoro Ellipta] 62.5-25 mcg/actuation Bl INH SCH (08:57)
[2021-11-07 11:54] VITALS: BP 112/51
[2021-11-08 17:21] LABS: Phenytoin Free Serum 0.8 mcg/mL (1.0 - 2.0); Phenytoin Total Serum (MAYO) 11.2 mcg/mL
[2021-11-11] MEDS ORDERED: METHOTREXATE 2.5 MG TABLET PO SCH (09:00)
== END 2021-11-07 16:00 ==
LOC: N.ED 12:19 → N.EDINP 12:19 → N.3E 16:58
PROVIDERS: ADMIT Family Medicine; ATTEND Family Medicine

== ENCOUNTER 2021-12-10 10:51 | Observation (INO) ==
[2021-12-10 11:46] LABS: Basophils % 0.4 % (0.0-0.8); Eosinophils # 0.1 10*3/uL (0.0-0.87); Eosinophils % 1.6 % (0.00-10.9); Hematocrit 34.6 VOL% (35.7-47.0); Hemoglobin 10.8 GM/DL (12.0-16.0); Immature Granulocytes % 0.4 %; Immature Granulocytes Absolute 0.03 #; Lymphocytes # 1.6 10*3/uL (1.4-4.0); Lymphocytes % 21.9 % (21.3-54.2); Mean Corpuscular HGB Conc 31.2 GM/DL (32-36); Mean Platelet Volume 10.3 FL (9.6-12.0); Monocytes # 0.2 10*3/uL (0.11-0.8); Monocytes % 3.1 % (1.7-12.7); Neutrophils % 72.6 % (38.7-73.9); Platelet Count 174 T/CUMM (130-400); Red Blood Count 3.53 MC/CUMM (3.8-5.5); Red Cell Distribution Width 16.9 % (9.3-17.3); White Blood Count 7.3 T/CUMM (4-12)
[2021-12-10 12:16] LABS: Alanine Aminotransferase 63 U/L (13-56); Albumin 3.3 G/DL (3.4-5.0); Alkaline Phosphatase 154 U/L (45-117); Aspartate Amino Transferase 47 U/L (0-37); Bilirubin,Total < 0.39 MG/DL (0.20-1.00); Blood Urea Nitrogen 21 MG/DL (7-18); Calcium 8.7 MG/DL (8.5-10.1); Carbon Dioxide 25 MMOL/L (21-32); Chloride 104 MMOL/L (98-107); Glucose 277 MG/DL (74-106); Potassium 4.5 MMOL/L (3.5-5.1); Sodium 136 MMOL/L (136-145); Total Protein 7.9 G/DL (6.4-8.2)
[2021-12-10] MEDS ORDERED: SODIUM CHLORIDE 0.9% 1,000 ML IV STA (13:41)
[2021-12-10] MEDS ORDERED: ACETAMINOPHEN 325 MG TABLET PO PRN (17:10)
[2021-12-10] MEDS ORDERED: ONDANSETRON 4 MG/2 ML VIAL IV PRN (17:10)
[2021-12-10] MEDS ORDERED: NITROGLYCERIN SL 0.4 MG TABLET SL PRN (17:10)
[2021-12-10] MEDS ORDERED: GLUCAGON 1 MG VIAL IM PRN (17:10)
[2021-12-10] MEDS ORDERED: DEXTROSE 10% 250 ML BAG IV PRN (17:22)
[2021-12-10] MEDS: INSULIN REGULAR 100 UNIT/ML SUBCUT SCH ×2 (18:37→21:47)
[2021-12-10] MEDS: POTASSIUM CHLORIDE 10 MEQ TABLET PO SCH (18:37)
[2021-12-10] MEDS ORDERED: ALBUTEROL 2.5 MG/3 ML NEB RESP TX PRN (19:00)
[2021-12-10] MEDS: SODIUM CHLORIDE 0.9% 1,000 ML IV SCH (19:26)
[2021-12-10] MEDS ORDERED: hydrALAZINE 20 MG/1 ML VIAL IV PRN (20:54)
[2021-12-10] MEDS ORDERED: ACETAMINOPHEN 650 MG SUPP RECTAL PRN (20:54)
[2021-12-10] MEDS ORDERED: levETIRAcetam LIQUID 100 MG/ML 30 ML/BOTTLE PO SCH (21:00)
[2021-12-10] MEDS ORDERED: PHENYTOIN ER 100 MG CAPSULE PO SCH (21:00)
[2021-12-10] MEDS: PANTOPRAZOLE 40 MG TABLET PO SCH (21:44)
[2021-12-10] MEDS: MONTELUKAST 10 MG TABLET PO SCH (21:44)
[2021-12-10] MEDS: METOPROLOL TARTRATE 25 MG TABLET PO SCH (21:45)
[2021-12-10] MEDS: NORTRIPTYLINE 25 MG CAPSULE PO SCH (21:45)
[2021-12-10] MEDS: PRAZOSIN 1 MG CAPSULE PO SCH (21:45)
[2021-12-10] MEDS: DOCUSATE SODIUM 100 MG CAPSULE PO SCH (21:46)
[2021-12-10] MEDS: ATORVASTATIN 20 MG TABLET PO SCH (21:46)
[2021-12-10] MEDS: PHENYTOIN 100 MG/2 ML VIAL IV SCH (22:05)
[2021-12-11 02:16] LABS: Bacteria,Urine Occasional /HPF (Few); Mucus,Urine Occasional /LPF (Occasional); RBC,Urine 1 /HPF (0-4); Urine Color Yellow (Yellow)
[2021-12-11 02:17] LABS: Bilirubin,Urine Negative (Negative); Blood, Urine Negative (Negative); Glucose,Urine (UA) >1000 mg/dL (Negative); Ketones,Urine Negative (Negative); Nitrite,Urine Positive (Negative); Protein,Urine 30 mg/dL (Negative); Urine Appearance Slightly Cloudy (Clear); Urine Specific Gravity 1.025 (1.001-1.035); Urine Urobilinogen 0.2 eU/dL (<2.0)
[2021-12-11 02:39] LABS: Barbiturates Screen,Urine Negative (Negative); Benzodiazepines Screen,Urine Negative (Negative); Cannabinoid Screen,Urine Negative (Negative); Opiate Screen,Urine Negative (Negative); Phencyclidine Screen,Urine Negative (Negative)
[2021-12-11 05:25] LABS: Basophils # 0.1 10*3/uL (0.0-0.2); Basophils % 0.9 % (0.0-0.8); Eosinophils # 0.2 10*3/uL (0.0-0.87); Hemoglobin 10.3 GM/DL (12.0-16.0); Immature Granulocytes % 0.2 %; Immature Granulocytes Absolute 0.01 #; Lymphocytes % 52.7 % (21.3-54.2); Mean Corpuscular HGB Conc 30.3 GM/DL (32-36); Mean Corpuscular Volume 99.1 FL (87-102); Mean Platelet Volume 10.4 FL (9.6-12.0); Monocytes # 0.3 10*3/uL (0.11-0.8); Monocytes % 5.8 % (1.7-12.7); Neutrophils % 37.4 % (38.7-73.9); Platelet Count 191 T/CUMM (130-400); Red Blood Count 3.43 MC/CUMM (3.8-5.5); Red Cell Distribution Width 16.7 % (9.3-17.3); White Blood Count 5.7 T/CUMM (4-12)
[2021-12-11 05:39] LABS: Alanine Aminotransferase 48 U/L (13-56); Alkaline Phosphatase 120 U/L (45-117); Aspartate Amino Transferase 32 U/L (0-37); Bilirubin,Direct < 0.100 MG/DL (0.0-0.20); Bilirubin,Indirect 0.3 MG/DL (0.0-1.0); Bilirubin,Total < 0.39 MG/DL (0.20-1.00); Blood Urea Nitrogen 16 MG/DL (7-18); Calcium 8.8 MG/DL (8.5-10.1); Carbon Dioxide 23 MMOL/L (21-32); Chloride 112 MMOL/L (98-107); Glucose 105 MG/DL (74-106); Osmolality,Calculated 283.1 MOS/KG (273-304); Potassium 3.7 MMOL/L (3.5-5.1); Sodium 142 MMOL/L (136-145); Total Protein 7.2 G/DL (6.4-8.2)
[2021-12-11 05:46] LABS: Eosinophils 3 % (0-10); Lymphocytes 53 % (20-55); Platelet Estimate Adequate; Total Cells Counted 100
[2021-12-11] MEDS: PHENYTOIN 100 MG/2 ML VIAL IV SCH ×3 (05:49→20:32)
[2021-12-11] MEDS: SODIUM CHLORIDE 0.9% 1,000 ML IV SCH ×2 (05:53→14:00)
[2021-12-11] MEDS ORDERED: PANTOPRAZOLE 40 MG TABLET PO SCH (09:00)
[2021-12-11] MEDS: FLUTICASONE/SALMETEROL 250-50 DISKUS 14 DOSE INH SCH (10:35)
[2021-12-11] MEDS: INSULIN REGULAR 100 UNIT/ML SUBCUT SCH ×4 (10:36→22:28)
[2021-12-11] MEDS: POTASSIUM CHLORIDE 10 MEQ TABLET PO SCH ×2 (15:24→17:12)
[2021-12-11] MEDS: ASPIRIN EC 81 MG TABLET PO SCH (15:24)
[2021-12-11] MEDS: DOCUSATE SODIUM 100 MG CAPSULE PO SCH ×2 (15:25→20:14)
[2021-12-11] MEDS: ISOSORBIDE MONONITRATE 30 MG TABLET PO SCH (15:25)
[2021-12-11] MEDS: METOPROLOL TARTRATE 25 MG TABLET PO SCH ×2 (15:25→20:14)
[2021-12-11] MEDS: LIRAGLUTIDE SUBCUT SCH (15:25)
[2021-12-11] MEDS: FUROSEMIDE 20 MG TABLET PO SCH (15:25)
[2021-12-11] MEDS: [UNRECOGNIZED DRUG - OTHER] SUBCUT SCH (15:25)
[2021-12-11] MEDS: FOLIC ACID 1 MG TABLET PO SCH (15:25)
[2021-12-11] MEDS: PRAZOSIN 1 MG CAPSULE PO SCH ×3 (15:26→20:14)
[2021-12-11] MEDS: CLOPIDOGREL 75 MG TABLET PO SCH (15:26)
[2021-12-11] MEDS: PANTOPRAZOLE 40 MG TABLET PO SCH ×2 (15:26→20:14)
[2021-12-11] MEDS: NORTRIPTYLINE 25 MG CAPSULE PO SCH ×3 (15:26→20:13)
[2021-12-11] MEDS: MONTELUKAST 10 MG TABLET PO SCH (20:14)
[2021-12-11] MEDS: ATORVASTATIN 20 MG TABLET PO SCH (20:14)
[2021-12-12] MEDS: SODIUM CHLORIDE 0.9% 1,000 ML IV SCH ×2 (03:13→04:31)
[2021-12-12] MEDS: PHENYTOIN 100 MG/2 ML VIAL IV SCH (04:46)
[2021-12-12 08:31] VITALS: BP 163/59
[2021-12-12] MEDS: DOCUSATE SODIUM 100 MG CAPSULE PO SCH (08:45)
[2021-12-12] MEDS: CLOPIDOGREL 75 MG TABLET PO SCH (08:46)
[2021-12-12] MEDS: METOPROLOL TARTRATE 25 MG TABLET PO SCH (08:46)
[2021-12-12] MEDS: FOLIC ACID 1 MG TABLET PO SCH (08:46)
[2021-12-12] MEDS: POTASSIUM CHLORIDE 10 MEQ TABLET PO SCH (08:46)
[2021-12-12] MEDS: NORTRIPTYLINE 25 MG CAPSULE PO SCH (08:46)
[2021-12-12] MEDS: PRAZOSIN 1 MG CAPSULE PO SCH (08:46)
[2021-12-12] MEDS: ISOSORBIDE MONONITRATE 30 MG TABLET PO SCH (08:46)
[2021-12-12] MEDS: PANTOPRAZOLE 40 MG TABLET PO SCH (08:46)
[2021-12-12] MEDS: FUROSEMIDE 20 MG TABLET PO SCH (08:46)
[2021-12-12] MEDS: ASPIRIN EC 81 MG TABLET PO SCH (08:46)
[2021-12-12] MEDS: FLUTICASONE/SALMETEROL 250-50 DISKUS 14 DOSE INH SCH (08:46)
[2021-12-12] MEDS: INSULIN REGULAR 100 UNIT/ML SUBCUT SCH ×2 (09:16→12:25)
[2021-12-12] MEDS: LIRAGLUTIDE SUBCUT SCH (09:21)
[2021-12-12] MEDS: [UNRECOGNIZED DRUG - OTHER] SUBCUT SCH (09:21)
== END 2021-12-12 12:20 ==
LOC: EDBD → EDUNIT# → N.ED 10:51 → N.EDINP 10:51 → N.5E 17:08
PROVIDERS: ADMIT Family Medicine; ATTEND Family Medicine

== ENCOUNTER 2022-04-12 17:36 | Inpatient (IN) ==
[2022-04-12] MEDS ORDERED: SODIUM CHLORIDE 0.9% 1,000 ML IV STA (18:14)
[2022-04-12 19:06] LABS: Basophils % 0.6 % (0.0-0.8); Eosinophils # 0.8 10*3/uL (0.0-0.87); Eosinophils % 13.4 % (0.00-10.9); Hematocrit 37.1 VOL% (35.7-47.0); Hemoglobin 11.7 GM/DL (12.0-16.0); Immature Granulocytes % 0.2 %; Immature Granulocytes Absolute 0.01 #; Lymphocytes # 2.5 10*3/uL (1.4-4.0); Lymphocytes % 40.1 % (21.3-54.2); Mean Corpuscular HGB Conc 31.5 GM/DL (32-36); Mean Corpuscular Volume 97.1 FL (87-102); Mean Platelet Volume 10.8 FL (9.6-12.0); Monocytes # 0.4 10*3/uL (0.11-0.8); Monocytes % 5.9 % (1.7-12.7); Neutrophils % 39.8 % (38.7-73.9); Platelet Count 220 T/CUMM (130-400); Red Blood Count 3.82 MC/CUMM (3.8-5.5); Red Cell Distribution Width 14.9 % (9.3-17.3); White Blood Count 6.3 T/CUMM (4-12)
[2022-04-12 19:15] LABS: Alanine Aminotransferase 48 U/L (13-56); Albumin 3.3 G/DL (3.4-5.0); Alkaline Phosphatase 130 U/L (45-117); Aspartate Amino Transferase 37 U/L (0-37); Bilirubin,Total < 0.39 MG/DL (0.20-1.00); Blood Urea Nitrogen 20 MG/DL (7-18); Calcium 8.5 MG/DL (8.5-10.1); Carbon Dioxide 27 MMOL/L (21-32); Chloride 106 MMOL/L (98-107); Glucose 138 MG/DL (74-106); Osmolality,Calculated 283.4 MOS/KG (273-304); Sodium 140 MMOL/L (136-145); Total Protein 7.3 G/DL (6.4-8.2)
[2022-04-12 19:57] LABS: Bilirubin,Urine Negative (Negative); Blood, Urine Large mg/dL (Negative); Glucose,Urine (UA) 500 mg/dL (Negative); Ketones,Urine Negative (Negative); Nitrite,Urine Negative (Negative); Protein,Urine Negative (Negative); RBC,Urine 75 /HPF (0-4); Squamous Epithelial Cell,Urine Occasional /HPF (0-10); Urine Appearance Clear (Clear); Urine Color Yellow (Yellow); Urine Urobilinogen 0.2 eU/dL (<2.0); Urine pH 6.5 (4.5-8.0)
[2022-04-12 20:08] LABS: Eosinophils 12 % (0-10); Lymphocytes 39 % (20-55); Platelet Estimate Normal; Total Cells Counted 100
[2022-04-12] MEDS ORDERED: ONDANSETRON 4 MG/2 ML VIAL IV PRN (20:45)
[2022-04-12] MEDS ORDERED: ACETAMINOPHEN 325 MG TABLET PO PRN (20:45)
[2022-04-12] MEDS: DEXTROSE 5% 1,000 ML IV SCH (23:30)
[2022-04-12] MEDS: cefTRIAXone 1,000 MG in SODIUM CHLORIDE 0.9% 100 ML IV SCH (23:33)
[2022-04-12] MEDS: levETIRAcetam 500 MG TABLET PO SCH (23:37)
[2022-04-12] MEDS: GABAPENTIN 600 MG TABLET PO SCH (23:37)
[2022-04-12] MEDS: METOPROLOL TARTRATE 25 MG TABLET PO SCH (23:37)
[2022-04-13] MEDS: PRAZOSIN 1 MG CAPSULE PO SCH ×4 (01:27→22:07)
[2022-04-13 06:02] LABS: Basophils # 0.1 10*3/uL (0.0-0.2); Basophils % 0.9 % (0.0-0.8); Eosinophils # 1.5 10*3/uL (0.0-0.87); Hematocrit 36.5 VOL% (35.7-47.0); Hemoglobin 11.8 GM/DL (12.0-16.0); Immature Granulocytes % 0.3 %; Immature Granulocytes Absolute 0.02 #; Lymphocytes # 3.2 10*3/uL (1.4-4.0); Lymphocytes % 48.5 % (21.3-54.2); Mean Corpuscular HGB Conc 32.3 GM/DL (32-36); Mean Corpuscular Volume 98.4 FL (87-102); Mean Platelet Volume 10.5 FL (9.6-12.0); Monocytes # 0.5 10*3/uL (0.11-0.8); Monocytes % 7.6 % (1.7-12.7); Neutrophils % 19.7 % (38.7-73.9); Platelet Count 190 T/CUMM (130-400); Red Blood Count 3.71 MC/CUMM (3.8-5.5); Red Cell Distribution Width 14.8 % (9.3-17.3); White Blood Count 6.5 T/CUMM (4-12)
[2022-04-13 06:28] LABS: Alanine Aminotransferase 45 U/L (13-56); Albumin 2.9 G/DL (3.4-5.0); Alkaline Phosphatase 117 U/L (45-117); Aspartate Amino Transferase 37 U/L (0-37); Bilirubin,Total < 0.39 MG/DL (0.20-1.00); Blood Urea Nitrogen 15 MG/DL (7-18); Calcium 8.3 MG/DL (8.5-10.1); Carbon Dioxide 26 MMOL/L (21-32); Chloride 109 MMOL/L (98-107); Glucose 136 MG/DL (74-106); Osmolality,Calculated 285.1 MOS/KG (273-304); Potassium 3.6 MMOL/L (3.5-5.1); Sodium 142 MMOL/L (136-145); Total Protein 6.9 G/DL (6.4-8.2)
[2022-04-13 06:29] LABS: Eosinophils 25 % (0-10); Lymphocytes 52 % (20-55); Platelet Estimate Adequate; Total Cells Counted 100
[2022-04-13] MEDS: CLOPIDOGREL 75 MG TABLET PO SCH (08:24)
[2022-04-13] MEDS: GABAPENTIN 600 MG TABLET PO SCH ×2 (08:24→22:06)
[2022-04-13] MEDS: FUROSEMIDE 20 MG TABLET PO SCH (08:24)
[2022-04-13] MEDS: ISOSORBIDE MONONITRATE 30 MG TABLET PO SCH (08:24)
[2022-04-13] MEDS: NORTRIPTYLINE 25 MG CAPSULE PO SCH ×3 (08:24→22:08)
[2022-04-13] MEDS: ATORVASTATIN 20 MG TABLET PO SCH (08:25)
[2022-04-13] MEDS: PANTOPRAZOLE 40 MG VIAL IV SCH (08:28)
[2022-04-13] MEDS: METOPROLOL TARTRATE 25 MG TABLET PO SCH ×2 (08:39→22:08)
[2022-04-13] MEDS ORDERED: ASPIRIN CHEW 81 MG TABLET PO SCH (09:00)
[2022-04-13] MEDS: levETIRAcetam 500 MG TABLET PO SCH ×2 (09:21→22:06)
[2022-04-13] MEDS ORDERED: SODIUM CHLORIDE 0.65% NASAL SPRAY 45 ML BOTTLE BOTH NARES PRN (11:03)
[2022-04-13] MEDS ORDERED: ALBUTEROL 0.63 MG/3 ML NEB RESP TX PRN (11:03)
[2022-04-13] MEDS ORDERED: ONDANSETRON HCL IM PRN (11:03)
[2022-04-13] MEDS ORDERED: NITROGLYCERIN SL 0.4 MG TABLET SL PRN (11:03)
[2022-04-13] MEDS ORDERED: [UNRECOGNIZED DRUG - OTHER] TOP PRN (11:03)
[2022-04-13] MEDS ORDERED: ACETAMINOPHEN 325 MG TABLET PO PRN (11:03)
[2022-04-13] MEDS ORDERED: BISMUTH SUBSALICYLATE 262 MG PO PRN (11:03)
[2022-04-13] MEDS ORDERED: OXYMETAZOLINE 0.05% NASAL SPRAY 15 ML BOTTLE BOTH NARES PRN (11:14)
[2022-04-13] MEDS ORDERED: cefTRIAXone 1,000 MG in SODIUM CHLORIDE 0.9% 100 ML IV SCH (11:30)
[2022-04-13] MEDS: POTASSIUM CHLORIDE 10 MEQ TABLET PO SCH ×2 (12:18→16:26)
[2022-04-13] MEDS: DEXTROSE 5% 1,000 ML IV SCH ×3 (12:30→22:02)
[2022-04-13] MEDS: SODIUM CHLORIDE 0.65% NASAL SPRAY 45 ML BOTTLE BOTH NARES SCH ×3 (14:07→22:08)
[2022-04-13] MEDS: PHENYTOIN ER 100 MG CAPSULE PO SCH ×2 (14:08→22:07)
[2022-04-13] MEDS: MONTELUKAST 10 MG TABLET PO SCH (22:08)
[2022-04-13] MEDS: BACITRACIN OINT 28.35 GM TUBE TOP SCH (22:09)
[2022-04-13] MEDS: cefTRIAXone 1,000 MG in SODIUM CHLORIDE 0.9% 100 ML IV SCH (22:48)
[2022-04-14 06:23] LABS: Basophils % 0.6 % (0.0-0.8); Eosinophils # 1.6 10*3/uL (0.0-0.87); Eosinophils % 23.3 % (0.00-10.9); Hematocrit 34.4 VOL% (35.7-47.0); Immature Granulocytes % 0.1 %; Immature Granulocytes Absolute 0.01 #; Lymphocytes # 2.8 10*3/uL (1.4-4.0); Lymphocytes % 41.2 % (21.3-54.2); Mean Platelet Volume 10.7 FL (9.6-12.0); Monocytes # 0.4 10*3/uL (0.11-0.8); Monocytes % 6.4 % (1.7-12.7); Neutrophils % 28.4 % (38.7-73.9); Platelet Count 181 T/CUMM (130-400); Red Blood Count 3.51 MC/CUMM (3.8-5.5); Red Cell Distribution Width 14.9 % (9.3-17.3); White Blood Count 6.7 T/CUMM (4-12)
[2022-04-14 06:56] LABS: Eosinophils 24 % (0-10); Lymphocytes 40 % (20-55); Total Cells Counted 100
[2022-04-14 07:00] LABS: Calcium 8.1 MG/DL (8.5-10.1); Osmolality,Calculated 282.3 MOS/KG (273-304); Potassium 3.7 MMOL/L (3.5-5.1)
[2022-04-14 07:02] LABS: Platelet Estimate Adequate
[2022-04-14] MEDS ORDERED: CLINDAMYCIN INJ 600 MG/50 ML PREMIX IV SCH (07:30)
[2022-04-14] MEDS: DEXTROSE 5% 1,000 ML IV SCH ×2 (09:03→18:16)
[2022-04-14] MEDS: POTASSIUM CHLORIDE 10 MEQ TABLET PO SCH ×3 (11:18→18:01)
[2022-04-14] MEDS: PRAZOSIN 1 MG CAPSULE PO SCH ×3 (11:20→21:24)
[2022-04-14] MEDS: MULTIVITAMIN (PRENATAL) TABLET PO SCH (11:20)
[2022-04-14] MEDS: ISOSORBIDE MONONITRATE 30 MG TABLET PO SCH (11:20)
[2022-04-14] MEDS: predniSONE 10 MG TABLET PO SCH (11:20)
[2022-04-14] MEDS: ATORVASTATIN 20 MG TABLET PO SCH (11:21)
[2022-04-14] MEDS: NORTRIPTYLINE 25 MG CAPSULE PO SCH ×3 (11:21→21:25)
[2022-04-14] MEDS: CLOPIDOGREL 75 MG TABLET PO SCH (11:21)
[2022-04-14] MEDS: METOPROLOL TARTRATE 25 MG TABLET PO SCH ×2 (11:21→21:24)
[2022-04-14] MEDS: GABAPENTIN 600 MG TABLET PO SCH ×2 (11:22→21:23)
[2022-04-14] MEDS: PHENYTOIN ER 100 MG CAPSULE PO SCH ×3 (11:22→21:24)
[2022-04-14] MEDS: CETIRIZINE 10 MG TABLET PO SCH (11:23)
[2022-04-14] MEDS: FUROSEMIDE 20 MG TABLET PO SCH (11:23)
[2022-04-14] MEDS: FOLIC ACID 1 MG TABLET PO SCH (11:23)
[2022-04-14] MEDS: levETIRAcetam 500 MG TABLET PO SCH ×2 (11:23→21:23)
[2022-04-14] MEDS: SODIUM CHLORIDE 0.65% NASAL SPRAY 45 ML BOTTLE BOTH NARES SCH ×4 (11:34→21:26)
[2022-04-14] MEDS: FLUTICASONE/SALMETEROL 250-50 DISKUS 14 DOSE INH SCH (11:36)
[2022-04-14] MEDS: BACITRACIN OINT 28.35 GM TUBE TOP SCH ×2 (11:39→21:26)
[2022-04-14] MEDS: POLYETHYLENE GLYCOL POWDER 17 GM PACK PO SCH (11:47)
[2022-04-14] MEDS: LIRAGLUTIDE SUBCUT SCH (11:48)
[2022-04-14] MEDS: Empagliflozin [Jardiance] 25 mg tablet PO SCH (11:48)
[2022-04-14] MEDS: Umeclidinium-Vilanterol [Anoro Ellipta] 62.5-25 mcg/actuation Bl INH SCH (11:48)
[2022-04-14] MEDS: PANTOPRAZOLE 40 MG VIAL IV SCH (11:53)
[2022-04-14] MEDS: CLINDAMYCIN INJ 600 MG/50 ML PREMIX IV SCH ×2 (12:21→18:01)
[2022-04-14] MEDS: MONTELUKAST 10 MG TABLET PO SCH (21:24)
[2022-04-14] MEDS: cefTRIAXone 1,000 MG in SODIUM CHLORIDE 0.9% 100 ML IV SCH (21:25)
[2022-04-15] MEDS: DEXTROSE 5% 1,000 ML IV SCH ×3 (00:08→17:34)
[2022-04-15] MEDS: CLINDAMYCIN INJ 600 MG/50 ML PREMIX IV SCH ×3 (02:05→16:16)
[2022-04-15 05:53] LABS: Basophils # 0.1 10*3/uL (0.0-0.2); Basophils % 0.7 % (0.0-0.8); Eosinophils # 1.4 10*3/uL (0.0-0.87); Eosinophils % 19.8 % (0.00-10.9); Hematocrit 33.8 VOL% (35.7-47.0); Hemoglobin 10.9 GM/DL (12.0-16.0); Immature Granulocytes % 0.1 %; Immature Granulocytes Absolute 0.01 #; Lymphocytes # 3.3 10*3/uL (1.4-4.0); Lymphocytes % 47.5 % (21.3-54.2); Mean Corpuscular HGB Conc 32.2 GM/DL (32-36); Mean Corpuscular Volume 97.1 FL (87-102); Mean Platelet Volume 10.8 FL (9.6-12.0); Monocytes # 0.6 10*3/uL (0.11-0.8); Monocytes % 7.9 % (1.7-12.7); Platelet Count 180 T/CUMM (130-400); Red Blood Count 3.48 MC/CUMM (3.8-5.5); Red Cell Distribution Width 14.6 % (9.3-17.3)
[2022-04-15 06:12] LABS: Calcium 8.4 MG/DL (8.5-10.1); Osmolality,Calculated 287.1 MOS/KG (273-304); Potassium 3.6 MMOL/L (3.5-5.1)
[2022-04-15 06:19] LABS: Band Neutrophils 1 % (0-10); Eosinophils 14 % (0-10); Hypochromia 1+; Lymphocytes 52 % (20-55); Total Cells Counted 100
[2022-04-15 06:20] LABS: Macrocytosis Slight
[2022-04-15] MEDS: PANTOPRAZOLE 40 MG VIAL IV SCH (08:16)
[2022-04-15] MEDS: levETIRAcetam 500 MG TABLET PO SCH ×2 (08:17→21:12)
[2022-04-15] MEDS: ISOSORBIDE MONONITRATE 30 MG TABLET PO SCH (08:18)
[2022-04-15] MEDS: GABAPENTIN 600 MG TABLET PO SCH ×2 (08:18→21:09)
[2022-04-15] MEDS: predniSONE 10 MG TABLET PO SCH (08:19)
[2022-04-15] MEDS: METOPROLOL TARTRATE 25 MG TABLET PO SCH ×2 (08:19→21:11)
[2022-04-15] MEDS: FUROSEMIDE 20 MG TABLET PO SCH (08:19)
[2022-04-15] MEDS: CLOPIDOGREL 75 MG TABLET PO SCH (08:19)
[2022-04-15] MEDS: NORTRIPTYLINE 25 MG CAPSULE PO SCH ×3 (08:19→21:09)
[2022-04-15] MEDS: FOLIC ACID 1 MG TABLET PO SCH (08:19)
[2022-04-15] MEDS: MULTIVITAMIN (PRENATAL) TABLET PO SCH (08:19)
[2022-04-15] MEDS: POTASSIUM CHLORIDE 10 MEQ TABLET PO SCH ×3 (08:19→16:18)
[2022-04-15] MEDS: CETIRIZINE 10 MG TABLET PO SCH (08:19)
[2022-04-15] MEDS: ATORVASTATIN 20 MG TABLET PO SCH (08:20)
[2022-04-15] MEDS: FLUTICASONE/SALMETEROL 250-50 DISKUS 14 DOSE INH SCH (08:20)
[2022-04-15] MEDS: PHENYTOIN ER 100 MG CAPSULE PO SCH ×3 (08:20→21:15)
[2022-04-15] MEDS: PRAZOSIN 1 MG CAPSULE PO SCH ×3 (08:20→21:10)
[2022-04-15] MEDS: LIRAGLUTIDE SUBCUT SCH (08:21)
[2022-04-15] MEDS: Empagliflozin [Jardiance] 25 mg tablet PO SCH (08:21)
[2022-04-15] MEDS: BACITRACIN OINT 28.35 GM TUBE TOP SCH ×2 (08:21→21:15)
[2022-04-15] MEDS: SODIUM CHLORIDE 0.65% NASAL SPRAY 45 ML BOTTLE BOTH NARES SCH ×4 (08:21→21:15)
[2022-04-15] MEDS: Umeclidinium-Vilanterol [Anoro Ellipta] 62.5-25 mcg/actuation Bl INH SCH (08:22)
[2022-04-15] MEDS: POLYETHYLENE GLYCOL POWDER 17 GM PACK PO SCH (08:24)
[2022-04-15] MEDS: MONTELUKAST 10 MG TABLET PO SCH (21:10)
[2022-04-15] MEDS: cefTRIAXone 1,000 MG in SODIUM CHLORIDE 0.9% 100 ML IV SCH (21:14)
[2022-04-15] MEDS: MENTHOL/ZINC OXIDE OINT 71 GM JAR TOP SCH (21:15)
[2022-04-16] MEDS: CLINDAMYCIN INJ 600 MG/50 ML PREMIX IV SCH ×3 (02:16→16:09)
[2022-04-16] MEDS: DEXTROSE 5% 1,000 ML IV SCH ×4 (02:17→21:55)
[2022-04-16 05:04] LABS: Basophils # 0.1 10*3/uL (0.0-0.2); Basophils % 0.7 % (0.0-0.8); Eosinophils % 14.9 % (0.00-10.9); Hematocrit 35.3 VOL% (35.7-47.0); Hemoglobin 11.2 GM/DL (12.0-16.0); Immature Granulocytes % 0.3 %; Immature Granulocytes Absolute 0.02 #; Lymphocytes # 3.3 10*3/uL (1.4-4.0); Lymphocytes % 47.9 % (21.3-54.2); Mean Corpuscular HGB Conc 31.7 GM/DL (32-36); Mean Corpuscular Volume 98.1 FL (87-102); Mean Platelet Volume 10.7 FL (9.6-12.0); Monocytes # 0.5 10*3/uL (0.11-0.8); Neutrophils % 29.2 % (38.7-73.9); Platelet Count 175 T/CUMM (130-400); Red Cell Distribution Width 14.6 % (9.3-17.3); White Blood Count 6.9 T/CUMM (4-12)
[2022-04-16 05:27] LABS: Calcium 8.3 MG/DL (8.5-10.1); Eosinophils 13 % (0-10); Lymphocytes 56 % (20-55); Osmolality,Calculated 287.1 MOS/KG (273-304); Total Cells Counted 100
[2022-04-16 05:28] LABS: Atypical Lymphocytes Few
[2022-04-16 05:29] LABS: Platelet Estimate Adequate
[2022-04-16] MEDS: LIRAGLUTIDE SUBCUT SCH (10:00)
[2022-04-16] MEDS: Umeclidinium-Vilanterol [Anoro Ellipta] 62.5-25 mcg/actuation Bl INH SCH (10:01)
[2022-04-16] MEDS: PANTOPRAZOLE 40 MG VIAL IV SCH (10:41)
[2022-04-16] MEDS: POLYETHYLENE GLYCOL POWDER 17 GM PACK PO SCH (10:41)
[2022-04-16] MEDS: GABAPENTIN 600 MG TABLET PO SCH ×2 (10:42→21:36)
[2022-04-16] MEDS: DAPAGLIFLOZIN 5 MG TABLET PO SCH (10:42)
[2022-04-16] MEDS: levETIRAcetam 500 MG TABLET PO SCH ×2 (10:43→21:37)
[2022-04-16] MEDS: POTASSIUM CHLORIDE 10 MEQ TABLET PO SCH ×3 (10:43→16:10)
[2022-04-16] MEDS: FOLIC ACID 1 MG TABLET PO SCH (10:43)
[2022-04-16] MEDS: METOPROLOL TARTRATE 25 MG TABLET PO SCH ×2 (10:43→21:35)
[2022-04-16] MEDS: ATORVASTATIN 20 MG TABLET PO SCH (10:44)
[2022-04-16] MEDS: PHENYTOIN ER 100 MG CAPSULE PO SCH ×3 (10:44→21:36)
[2022-04-16] MEDS: MULTIVITAMIN (PRENATAL) TABLET PO SCH (10:45)
[2022-04-16] MEDS: ISOSORBIDE MONONITRATE 30 MG TABLET PO SCH (10:45)
[2022-04-16] MEDS: PRAZOSIN 1 MG CAPSULE PO SCH ×3 (10:45→21:36)
[2022-04-16] MEDS: predniSONE 10 MG TABLET PO SCH (10:45)
[2022-04-16] MEDS: FUROSEMIDE 20 MG TABLET PO SCH (10:46)
[2022-04-16] MEDS: BACITRACIN OINT 28.35 GM TUBE TOP SCH ×2 (10:46→21:51)
[2022-04-16] MEDS: SODIUM CHLORIDE 0.65% NASAL SPRAY 45 ML BOTTLE BOTH NARES SCH ×4 (10:46→21:48)
[2022-04-16] MEDS: CETIRIZINE 10 MG TABLET PO SCH (10:46)
[2022-04-16] MEDS: MENTHOL/ZINC OXIDE OINT 71 GM JAR TOP SCH ×2 (10:47→21:46)
[2022-04-16] MEDS: FLUTICASONE/SALMETEROL 250-50 DISKUS 14 DOSE INH SCH (10:47)
[2022-04-16] MEDS: CLOPIDOGREL 75 MG TABLET PO SCH (10:53)
[2022-04-16] MEDS: NORTRIPTYLINE 25 MG CAPSULE PO SCH ×3 (10:53→21:35)
[2022-04-16] MEDS: INSULIN REGULAR 100 UNIT/ML SUBCUT SCH ×2 (16:09→21:47)
[2022-04-16] MEDS: MONTELUKAST 10 MG TABLET PO SCH (21:36)
[2022-04-16] MEDS: cefTRIAXone 1,000 MG in SODIUM CHLORIDE 0.9% 100 ML IV SCH (21:45)
[2022-04-17] MEDS: DEXTROSE 5% 1,000 ML IV SCH ×2 (00:35→09:15)
[2022-04-17] MEDS: CLINDAMYCIN INJ 600 MG/50 ML PREMIX IV SCH ×2 (00:46→09:15)
[2022-04-17 08:44] VITALS: BP 136/75
[2022-04-17] MEDS: PANTOPRAZOLE 40 MG VIAL IV SCH (09:14)
[2022-04-17] MEDS: INSULIN REGULAR 100 UNIT/ML SUBCUT SCH (09:14)
[2022-04-17] MEDS: FLUTICASONE/SALMETEROL 250-50 DISKUS 14 DOSE INH SCH (09:14)
[2022-04-17] MEDS: MULTIVITAMIN (PRENATAL) TABLET PO SCH (09:16)
[2022-04-17] MEDS: NORTRIPTYLINE 25 MG CAPSULE PO SCH (09:16)
[2022-04-17] MEDS: GABAPENTIN 600 MG TABLET PO SCH (09:16)
[2022-04-17] MEDS: levETIRAcetam 500 MG TABLET PO SCH (09:17)
[2022-04-17] MEDS: POTASSIUM CHLORIDE 10 MEQ TABLET PO SCH (09:17)
[2022-04-17] MEDS: DAPAGLIFLOZIN 5 MG TABLET PO SCH (09:17)
[2022-04-17] MEDS: ATORVASTATIN 20 MG TABLET PO SCH (09:18)
[2022-04-17] MEDS: FOLIC ACID 1 MG TABLET PO SCH (09:18)
[2022-04-17] MEDS: PRAZOSIN 1 MG CAPSULE PO SCH (09:18)
[2022-04-17] MEDS: PHENYTOIN ER 100 MG CAPSULE PO SCH (09:18)
[2022-04-17] MEDS: METOPROLOL TARTRATE 25 MG TABLET PO SCH (09:19)
[2022-04-17] MEDS: FUROSEMIDE 20 MG TABLET PO SCH (09:19)
[2022-04-17] MEDS: LIRAGLUTIDE SUBCUT SCH (09:20)
[2022-04-17] MEDS: ISOSORBIDE MONONITRATE 30 MG TABLET PO SCH (09:20)
[2022-04-17] MEDS: CETIRIZINE 10 MG TABLET PO SCH (09:20)
[2022-04-17] MEDS: predniSONE 10 MG TABLET PO SCH (09:20)
[2022-04-17] MEDS: MENTHOL/ZINC OXIDE OINT 71 GM JAR TOP SCH (09:20)
[2022-04-17] MEDS: BACITRACIN OINT 28.35 GM TUBE TOP SCH (09:20)
[2022-04-17] MEDS: Umeclidinium-Vilanterol [Anoro Ellipta] 62.5-25 mcg/actuation Bl INH SCH (09:21)
[2022-04-17] MEDS: SODIUM CHLORIDE 0.65% NASAL SPRAY 45 ML BOTTLE BOTH NARES SCH (09:21)
[2022-04-17] MEDS: POLYETHYLENE GLYCOL POWDER 17 GM PACK PO SCH (09:21)
[2022-04-17] MEDS: CLOPIDOGREL 75 MG TABLET PO SCH (09:23)
[2022-04-17] MEDS ORDERED: GENTAMICIN 0.1% OINT 15 GM TUBE TOP SCH (13:00)
== END 2022-04-17 11:15 | DRG 58 ==
LOC: N.2W 17:36 → N.ED 17:36 → N.2W 22:26 → N.5E 04-13 11:40
PROVIDERS: ADMIT Family Medicine; ATTEND Family Medicine

== ENCOUNTER 2022-05-02 06:23 | Inpatient (IN) ==
[2022-05-02 07:02] LABS: Basophils # 0.1 10*3/uL (0.0-0.2); Basophils % 0.7 % (0.0-0.8); Eosinophils # 1.5 10*3/uL (0.0-0.87); Eosinophils % 20.1 % (0.00-10.9); Hematocrit 38.1 VOL% (35.7-47.0); Immature Granulocytes % 0.3 %; Immature Granulocytes Absolute 0.02 #; Lymphocytes # 2.8 10*3/uL (1.4-4.0); Lymphocytes % 37.4 % (21.3-54.2); Mean Corpuscular HGB Conc 31.5 GM/DL (32-36); Mean Platelet Volume 10.2 FL (9.6-12.0); Monocytes # 0.5 10*3/uL (0.11-0.8); Monocytes % 6.7 % (1.7-12.7); Neutrophils % 34.8 % (38.7-73.9); Platelet Count 175 T/CUMM (130-400); Red Blood Count 3.97 MC/CUMM (3.8-5.5); Red Cell Distribution Width 13.9 % (9.3-17.3); White Blood Count 7.4 T/CUMM (4-12)
[2022-05-02 07:15] LABS: INR 1.1; PT Patient Result 12.4 SECS (10.1-12.1)
[2022-05-02 07:19] LABS: Alanine Aminotransferase 51 U/L (13-56); Albumin 3.3 G/DL (3.4-5.0); Alkaline Phosphatase 126 U/L (45-117); Aspartate Amino Transferase 47 U/L (0-37); Bilirubin,Total < 0.39 MG/DL (0.20-1.00); Blood Urea Nitrogen 16 MG/DL (7-18); Carbon Dioxide 25 MMOL/L (21-32); Chloride 108 MMOL/L (98-107); Glucose 128 MG/DL (74-106); Potassium 3.4 MMOL/L (3.5-5.1); Sodium 143 MMOL/L (136-145)
[2022-05-02 07:29] LABS: Eosinophils 14 % (0-10); Lymphocytes 41 % (20-55); Total Cells Counted 100
[2022-05-02 07:31] LABS: Microcytosis Slight; Platelet Estimate Normal
[2022-05-02] MEDS ORDERED: MORPHINE 2 MG/1 ML SYRINGE IV PRN (11:22)
[2022-05-02] MEDS ORDERED: ONDANSETRON 4 MG/2 ML VIAL IV PRN (11:22)
[2022-05-02] MEDS ORDERED: ACETAMINOPHEN 325 MG TABLET PO PRN (11:22)
[2022-05-02] MEDS ORDERED: ENOXAPARIN 60 MG/0.6 ML SYRINGE SUBCUT STA (11:24)
[2022-05-02] MEDS ORDERED: NITROGLYCERIN SL 0.4 MG TABLET SL PRN (14:27)
[2022-05-02] MEDS ORDERED: GLUCAGON 1 MG VIAL IM PRN (14:30)
[2022-05-02] MEDS ORDERED: DEXTROSE 10% 250 ML BAG IV PRN (14:30)
[2022-05-02] MEDS: SODIUM CHLORIDE 0.9% 1,000 ML IV SCH (16:08)
[2022-05-02] MEDS: INSULIN LISPRO 100 UNIT/ML SUBCUT SCH ×2 (17:01→21:58)
[2022-05-02] MEDS: PRAZOSIN 1 MG CAPSULE PO SCH ×2 (17:07→21:58)
[2022-05-02] MEDS: POTASSIUM CHLORIDE 10 MEQ TABLET PO SCH (17:07)
[2022-05-02] MEDS: ATORVASTATIN 20 MG TABLET PO SCH (21:58)
[2022-05-02] MEDS: DOCUSATE SODIUM 100 MG CAPSULE PO SCH (21:58)
[2022-05-02] MEDS: METOPROLOL TARTRATE 25 MG TABLET PO SCH (21:58)
[2022-05-02] MEDS: diphenhydrAMINE CAP 25 MG CAPSULE PO PRN (21:58)
[2022-05-02] MEDS ORDERED: ONDANSETRON HCL IM PRN (23:11)
[2022-05-03] MEDS: SODIUM CHLORIDE 0.9% 1,000 ML IV SCH ×2 (02:32→14:58)
[2022-05-03 05:46] LABS: Basophils % 0.8 % (0.0-0.8); Eosinophils % 20.6 % (0.00-10.9); Hematocrit 33.6 VOL% (35.7-47.0); Hemoglobin 10.6 GM/DL (12.0-16.0); Immature Granulocytes % 0.2 %; Immature Granulocytes Absolute 0.01 #; Lymphocytes # 2.3 10*3/uL (1.4-4.0); Lymphocytes % 47.7 % (21.3-54.2); Mean Corpuscular HGB Conc 31.5 GM/DL (32-36); Mean Corpuscular Volume 97.1 FL (87-102); Monocytes # 0.3 10*3/uL (0.11-0.8); Neutrophils % 23.7 % (38.7-73.9); Platelet Count 150 T/CUMM (130-400); Red Blood Count 3.46 MC/CUMM (3.8-5.5); Red Cell Distribution Width 13.7 % (9.3-17.3); White Blood Count 4.7 T/CUMM (4-12)
[2022-05-03 06:16] LABS: Alanine Aminotransferase 42 U/L (13-56); Albumin 2.8 G/DL (3.4-5.0); Alkaline Phosphatase 101 U/L (45-117); Aspartate Amino Transferase 35 U/L (0-37); Bilirubin,Total < 0.39 MG/DL (0.20-1.00); Blood Urea Nitrogen 8 MG/DL (7-18); Calcium 8.3 MG/DL (8.5-10.1); Carbon Dioxide 25 MMOL/L (21-32); Chloride 111 MMOL/L (98-107); Glucose 89 MG/DL (74-106); Potassium 3.1 MMOL/L (3.5-5.1); Sodium 143 MMOL/L (136-145); Total Protein 6.4 G/DL (6.4-8.2)
[2022-05-03 06:57] LABS: Eosinophils 26 % (0-10); Lymphocytes 36 % (20-55); Macrocytosis Slight; Total Cells Counted 100
[2022-05-03 06:58] LABS: Platelet Estimate Adequate
[2022-05-03] MEDS: INSULIN LISPRO 100 UNIT/ML SUBCUT SCH ×4 (08:55→21:43)
[2022-05-03] MEDS: POTASSIUM CHLORIDE 10 MEQ TABLET PO SCH ×3 (08:56→16:44)
[2022-05-03] MEDS: ISOSORBIDE MONONITRATE 30 MG TABLET PO SCH (08:56)
[2022-05-03] MEDS: PHENYTOIN ER 100 MG CAPSULE PO SCH ×3 (08:56→20:56)
[2022-05-03] MEDS: DOCUSATE SODIUM 100 MG CAPSULE PO SCH ×2 (08:56→20:56)
[2022-05-03] MEDS: ASPIRIN EC 81 MG TABLET PO SCH (08:56)
[2022-05-03] MEDS: levETIRAcetam 500 MG TABLET PO SCH ×2 (08:57→20:56)
[2022-05-03] MEDS: NON-FORMULARY MEDICATION (Umeclidinium-Vilanterol [Anoro Ellipta] 62.5-25 mcg/actuation Bl INH SCH (09:00)
[2022-05-03] MEDS: CLOPIDOGREL 75 MG TABLET PO SCH (09:00)
[2022-05-03] MEDS: SODIUM CHLORIDE 0.65% NASAL SPRAY 45 ML BOTTLE BOTH NARES SCH ×4 (09:00→20:57)
[2022-05-03] MEDS: METOPROLOL TARTRATE 25 MG TABLET PO SCH ×2 (09:00→20:56)
[2022-05-03] MEDS: PRAZOSIN 1 MG CAPSULE PO SCH ×3 (09:00→20:56)
[2022-05-03] MEDS ORDERED: PANTOPRAZOLE 40 MG TABLET PO SCH (09:00)
[2022-05-03] MEDS: FUROSEMIDE 20 MG TABLET PO SCH (09:00)
[2022-05-03] MEDS: PANTOPRAZOLE 40 MG TABLET PO SCH ×2 (09:01→20:56)
[2022-05-03] MEDS: predniSONE 10 MG TABLET PO SCH (09:01)
[2022-05-03 13:53] LABS: Bilirubin,Urine Negative (Negative); Blood, Urine Small mg/dL (Negative); Glucose,Urine (UA) >=500 mg/dL (Negative); Ketones,Urine Negative (Negative); Mucus,Urine Occasional /LPF (Occasional); Nitrite,Urine Negative (Negative); Protein,Urine Negative (Negative); RBC,Urine 1 /HPF (0-4); Squamous Epithelial Cell,Urine Occasional /HPF (0-10); Urine Appearance CLEAR (Clear); Urine Color Straw (Yellow); Urine Specific Gravity 1.005 (1.001-1.035); Urine Urobilinogen < 2.0 eU/dL (<2.0)
[2022-05-03] MEDS: ATORVASTATIN 20 MG TABLET PO SCH (20:56)
[2022-05-03] MEDS: diphenhydrAMINE CAP 25 MG CAPSULE PO PRN (20:56)
[2022-05-04] MEDS: SODIUM CHLORIDE 0.9% 1,000 ML IV SCH ×2 (03:46→16:41)
[2022-05-04] MEDS: INSULIN LISPRO 100 UNIT/ML SUBCUT SCH ×3 (08:46→16:11)
[2022-05-04] MEDS: NON-FORMULARY MEDICATION (Umeclidinium-Vilanterol [Anoro Ellipta] 62.5-25 mcg/actuation Bl INH SCH (08:48)
[2022-05-04] MEDS: FUROSEMIDE 20 MG TABLET PO SCH (09:10)
[2022-05-04] MEDS: POTASSIUM CHLORIDE 10 MEQ TABLET PO SCH ×3 (09:10→16:40)
[2022-05-04] MEDS: METOPROLOL TARTRATE 25 MG TABLET PO SCH (09:10)
[2022-05-04] MEDS: DOCUSATE SODIUM 100 MG CAPSULE PO SCH ×2 (09:10→21:39)
[2022-05-04] MEDS: PHENYTOIN ER 100 MG CAPSULE PO SCH ×3 (09:10→21:38)
[2022-05-04] MEDS: PANTOPRAZOLE 40 MG TABLET PO SCH ×2 (09:11→21:36)
[2022-05-04] MEDS: predniSONE 10 MG TABLET PO SCH (09:11)
[2022-05-04] MEDS: CLOPIDOGREL 75 MG TABLET PO SCH (09:11)
[2022-05-04] MEDS: ISOSORBIDE MONONITRATE 30 MG TABLET PO SCH (09:11)
[2022-05-04] MEDS: ASPIRIN EC 81 MG TABLET PO SCH (09:11)
[2022-05-04] MEDS: levETIRAcetam 500 MG TABLET PO SCH ×2 (09:11→21:38)
[2022-05-04] MEDS: PRAZOSIN 1 MG CAPSULE PO SCH ×3 (09:14→21:52)
[2022-05-04] MEDS: SODIUM CHLORIDE 0.65% NASAL SPRAY 45 ML BOTTLE BOTH NARES SCH ×4 (09:14→21:40)
[2022-05-04] MEDS ORDERED: diphenhydrAMINE 2% CREAM 28 GM TUBE TOP PRN (10:05)
[2022-05-04 10:43] LABS: Phenytoin (Dilantin) 6.3 UG/ML (10-20)
[2022-05-04] MEDS: ATORVASTATIN 20 MG TABLET PO SCH (21:38)
[2022-05-04] MEDS: METOPROLOL TARTRATE 50 MG TABLET PO SCH (21:38)
[2022-05-05 05:53] LABS: Basophils % 0.8 % (0.0-0.8); Eosinophils # 0.5 10*3/uL (0.0-0.87); Eosinophils % 11.4 % (0.00-10.9); Hematocrit 34.4 VOL% (35.7-47.0); Hemoglobin 10.9 GM/DL (12.0-16.0); Lymphocytes # 2.4 10*3/uL (1.4-4.0); Mean Corpuscular HGB Conc 31.7 GM/DL (32-36); Mean Corpuscular Volume 95.8 FL (87-102); Mean Platelet Volume 10.6 FL (9.6-12.0); Monocytes # 0.3 10*3/uL (0.11-0.8); Monocytes % 8.6 % (1.7-12.7); Neutrophils % 18.2 % (38.7-73.9); Platelet Count 146 T/CUMM (130-400); Red Blood Count 3.59 MC/CUMM (3.8-5.5); Red Cell Distribution Width 13.2 % (9.3-17.3)
[2022-05-05 06:18] LABS: Band Neutrophils 1 % (0-10); Eosinophils 14 % (0-10); Lymphocytes 55 % (20-55); Total Cells Counted 100
[2022-05-05 06:19] LABS: Hypochromia Slight; Ovalocytes Slight
[2022-05-05 06:20] LABS: Platelet Estimate Normal; Polychromasia Slight
[2022-05-05 06:21] LABS: Macrocytosis Slight
[2022-05-05 06:27] LABS: Calcium 7.7 MG/DL (8.5-10.1); Osmolality,Calculated 289.4 MOS/KG (273-304); Potassium 3.7 MMOL/L (3.5-5.1)
[2022-05-05] MEDS: SODIUM CHLORIDE 0.9% 1,000 ML IV SCH ×2 (07:45→19:47)
[2022-05-05] MEDS: INSULIN LISPRO 100 UNIT/ML SUBCUT SCH ×4 (09:31→16:18)
[2022-05-05] MEDS: PRAZOSIN 1 MG CAPSULE PO SCH ×3 (09:51→21:14)
[2022-05-05] MEDS: POTASSIUM CHLORIDE 10 MEQ TABLET PO SCH ×3 (09:52→17:58)
[2022-05-05] MEDS: predniSONE 10 MG TABLET PO SCH (09:53)
[2022-05-05] MEDS: CLOPIDOGREL 75 MG TABLET PO SCH (09:53)
[2022-05-05] MEDS: PANTOPRAZOLE 40 MG TABLET PO SCH ×2 (09:53→21:14)
[2022-05-05] MEDS: METOPROLOL TARTRATE 50 MG TABLET PO SCH ×2 (09:54→21:14)
[2022-05-05] MEDS: ASPIRIN EC 81 MG TABLET PO SCH (09:54)
[2022-05-05] MEDS: FUROSEMIDE 20 MG TABLET PO SCH (09:55)
[2022-05-05] MEDS: DOCUSATE SODIUM 100 MG CAPSULE PO SCH ×2 (09:56→21:15)
[2022-05-05] MEDS: LORATADINE 10 MG TABLET PO SCH (09:56)
[2022-05-05] MEDS: ISOSORBIDE MONONITRATE 30 MG TABLET PO SCH (09:56)
[2022-05-05] MEDS: PHENYTOIN ER 100 MG CAPSULE PO SCH ×3 (09:57→21:12)
[2022-05-05] MEDS: levETIRAcetam 500 MG TABLET PO SCH ×2 (10:00→21:15)
[2022-05-05] MEDS: SODIUM CHLORIDE 0.65% NASAL SPRAY 45 ML BOTTLE BOTH NARES SCH ×4 (10:04→21:15)
[2022-05-05] MEDS ORDERED: METOPROLOL TARTRATE 50 MG TABLET PO ONE (10:25)
[2022-05-05] MEDS ORDERED: KETOROLAC 30 MG/1 ML VIAL IV ONE (10:26)
[2022-05-05] MEDS: NON-FORMULARY MEDICATION (Umeclidinium-Vilanterol [Anoro Ellipta] 62.5-25 mcg/actuation Bl INH SCH (11:30)
[2022-05-05] MEDS: MENTHOL/ZINC OXIDE OINT 71 GM JAR TOP SCH ×2 (15:50→21:15)
[2022-05-05] MEDS ORDERED: ATORVASTATIN 40 MG TABLET PO SCH (21:00)
[2022-05-06] MEDS: INSULIN LISPRO 100 UNIT/ML SUBCUT SCH ×3 (00:47→12:35)
[2022-05-06] MEDS ORDERED: OXYMETAZOLINE 0.05% NASAL SPRAY 15 ML BOTTLE BOTH NARES PRN (03:47)
[2022-05-06 04:13] LABS: Basophils % 0.6 % (0.0-0.8); Eosinophils # 0.4 10*3/uL (0.0-0.87); Eosinophils % 8.8 % (0.00-10.9); Hemoglobin 10.9 GM/DL (12.0-16.0); Immature Granulocytes % 0.2 %; Immature Granulocytes Absolute 0.01 #; Lymphocytes % 60.6 % (21.3-54.2); Mean Corpuscular HGB Conc 32.1 GM/DL (32-36); Mean Corpuscular Volume 95.2 FL (87-102); Mean Platelet Volume 9.9 FL (9.6-12.0); Monocytes # 0.4 10*3/uL (0.11-0.8); Neutrophils % 21.8 % (38.7-73.9); Platelet Count 159 T/CUMM (130-400); Red Blood Count 3.57 MC/CUMM (3.8-5.5); Red Cell Distribution Width 13.2 % (9.3-17.3); White Blood Count 4.9 T/CUMM (4-12)
[2022-05-06 04:33] LABS: Calcium 8.1 MG/DL (8.5-10.1); Eosinophils 9 % (0-10); Hypochromia Slight; Lymphocytes 52 % (20-55); Osmolality,Calculated 288.7 MOS/KG (273-304); Platelet Estimate Adequate; Potassium 3.8 MMOL/L (3.5-5.1); Total Cells Counted 100
[2022-05-06] MEDS ORDERED: COCAINE SUBSTITUTE 30 ML BOTTLE TOP ONE (04:33)
[2022-05-06 04:34] LABS: Macrocytosis Slight
[2022-05-06] MEDS ORDERED: SILVER NITRATE STICK 1 EACH TOP ONE (05:57)
[2022-05-06] MEDS ORDERED: MAGNESIUM SULF RIDER 2 GM/50 ML PREMIX IV ONE (06:44)
[2022-05-06] MEDS ORDERED: POTASSIUM CHLORIDE 20 MEQ TABLET PO ONE (06:44)
[2022-05-06] MEDS: POTASSIUM CHLORIDE 10 MEQ TABLET PO SCH ×2 (09:19→12:35)
[2022-05-06] MEDS: levETIRAcetam 500 MG TABLET PO SCH (09:20)
[2022-05-06] MEDS: ASPIRIN EC 81 MG TABLET PO SCH (09:22)
[2022-05-06] MEDS: METOPROLOL TARTRATE 50 MG TABLET PO SCH (09:22)
[2022-05-06] MEDS: predniSONE 10 MG TABLET PO SCH (09:22)
[2022-05-06] MEDS: LORATADINE 10 MG TABLET PO SCH (09:23)
[2022-05-06] MEDS: PANTOPRAZOLE 40 MG TABLET PO SCH (09:23)
[2022-05-06] MEDS: PRAZOSIN 1 MG CAPSULE PO SCH (09:24)
[2022-05-06] MEDS: DOCUSATE SODIUM 100 MG CAPSULE PO SCH (09:24)
[2022-05-06] MEDS: FUROSEMIDE 20 MG TABLET PO SCH (09:24)
[2022-05-06] MEDS: PHENYTOIN ER 100 MG CAPSULE PO SCH (09:25)
[2022-05-06] MEDS: ISOSORBIDE MONONITRATE 30 MG TABLET PO SCH (09:25)
[2022-05-06] MEDS: MENTHOL/ZINC OXIDE OINT 71 GM JAR TOP SCH (09:26)
[2022-05-06] MEDS: NON-FORMULARY MEDICATION (Umeclidinium-Vilanterol [Anoro Ellipta] 62.5-25 mcg/actuation Bl INH SCH (09:26)
[2022-05-06] MEDS: SODIUM CHLORIDE 0.65% NASAL SPRAY 45 ML BOTTLE BOTH NARES SCH (09:27)
[2022-05-06] MEDS: SODIUM CHLORIDE 0.9% 1,000 ML IV SCH (09:27)
[2022-05-06 12:15] VITALS: BP 115/71
== END 2022-05-06 14:14 | DRG 199 ==
LOC: EDUNIT# → N.EDINP 06:23 → N.ED 06:23 → N.TELEN 13:46
PROVIDERS: ADMIT Family Medicine; ATTEND Family Medicine

== ENCOUNTER 2022-06-15 10:43 | Inpatient (IN) ==
[2022-06-15] MEDS ORDERED: MORPHINE 2 MG/1 ML SYRINGE IV ONE (11:08)
[2022-06-15] MEDS ORDERED: SODIUM CHLORIDE 0.9% 1,000 ML IV STA (11:08)
[2022-06-15] MEDS ORDERED: ONDANSETRON 4 MG/2 ML VIAL IV ONE (11:08)
[2022-06-15 11:29] LABS: INR 1.2
[2022-06-15 11:38] LABS: Alanine Aminotransferase 28 U/L (13-56); Albumin 3.1 G/DL (3.4-5.0); Alkaline Phosphatase 132 U/L (45-117); Aspartate Amino Transferase 15 U/L (0-37); Bilirubin,Total < 0.39 MG/DL (0.20-1.00); Blood Urea Nitrogen 15 MG/DL (7-18); Calcium 8.2 MG/DL (8.5-10.1); Carbon Dioxide 26 MMOL/L (21-32); Chloride 107 MMOL/L (98-107); Glucose 200 MG/DL (74-106); Osmolality,Calculated 283.5 MOS/KG (273-304); Potassium 3.8 MMOL/L (3.5-5.1); Sodium 139 MMOL/L (136-145); Total Protein 7.5 G/DL (6.4-8.2)
[2022-06-15 12:58] LABS: Bilirubin,Urine Negative (Negative); Blood, Urine Negative (Negative); Glucose,Urine (UA) 500 mg/dL (Negative); Ketones,Urine Negative (Negative); Nitrite,Urine Negative (Negative); Protein,Urine Negative (Negative); Urine Appearance Clear (Clear); Urine Color Yellow (Yellow); Urine Specific Gravity 1.015 (1.001-1.035); Urine Urobilinogen 0.2 eU/dL (<2.0)
[2022-06-15 12:59] LABS: Bacteria,Urine Occasional /HPF (Few); Mucus,Urine Occasional /LPF (Occasional); Squamous Epithelial Cell,Urine Occasional /HPF (0-10)
[2022-06-15 13:10] LABS: Basophils % 0.4 % (0.0-0.8); Eosinophils # 0.2 10*3/uL (0.0-0.87); Hematocrit 21.9 VOL% (35.7-47.0); Hemoglobin 6.8 GM/DL (12.0-16.0); Immature Granulocytes % 0.4 %; Immature Granulocytes Absolute 0.02 #; Lymphocytes # 2.6 10*3/uL (1.4-4.0); Lymphocytes % 49.2 % (21.3-54.2); Mean Corpuscular HGB Conc 31.1 GM/DL (32-36); Mean Corpuscular Volume 97.8 FL (87-102); Mean Platelet Volume 9.7 FL (9.6-12.0); Monocytes # 0.4 10*3/uL (0.11-0.8); NRBC # 0.03 10*3/uL; Platelet Count 254 T/CUMM (130-400); Red Blood Count 2.24 MC/CUMM (3.8-5.5); Red Cell Distribution Width 15.9 % (9.3-17.3); White Blood Count 5.4 T/CUMM (4-12)
[2022-06-15 13:39] LABS: Eosinophils 4 % (0-10); Lymphocytes 33 % (20-55); Nucleated Red Blood Cells 1 /100 WBC (0-5); Total Cells Counted 100
[2022-06-15 13:40] LABS: Anisocytosis Slight
[2022-06-15 13:43] LABS: Platelet Estimate Adequate; Tear Drop Cells Slight
[2022-06-15] MEDS ORDERED: SODIUM CHLORIDE 0.9% 1,000 ML IV PRN (13:57)
[2022-06-15] MEDS ORDERED: ACETAMINOPHEN 325 MG TABLET PO PRN ×2 (13:57→18:28)
[2022-06-15] MEDS ORDERED: PANTOPRAZOLE INJ 80 MG in SODIUM CHLORIDE 0.9% 100 ML IV ONE (14:00)
[2022-06-15] MEDS: SODIUM CHLORIDE 0.9% 1,000 ML IV SCH (15:00)
[2022-06-15] MEDS: PANTOPRAZOLE INJ 80 MG in SODIUM CHLORIDE 0.9% 100 ML IV ONE (15:43)
[2022-06-15] MEDS: ONDANSETRON 4 MG/2 ML VIAL IV PRN (15:51)
[2022-06-15] MEDS: MORPHINE 2 MG/1 ML SYRINGE IV PRN (15:51)
[2022-06-15] MEDS ORDERED: ALBUTEROL 0.63 MG/3 ML NEB RESP TX PRN (18:28)
[2022-06-15] MEDS ORDERED: HYDROCORTISONE 1% CREAM 28 GM TUBE TOP PRN (18:29)
[2022-06-15] MEDS ORDERED: NITROGLYCERIN SL 0.4 MG TABLET SL PRN (18:29)
[2022-06-15] MEDS ORDERED: diphenhydrAMINE CAP 25 MG CAPSULE PO PRN (18:29)
[2022-06-15] MEDS ORDERED: HydrOXYzine PAMOATE 25 MG CAPSULE PO PRN (18:29)
[2022-06-15] MEDS ORDERED: ONDANSETRON 4 MG/2 ML VIAL IM PRN (18:29)
[2022-06-15] MEDS: PRAZOSIN 1 MG CAPSULE PO SCH (21:34)
[2022-06-15] MEDS: levETIRAcetam 500 MG TABLET PO SCH (21:35)
[2022-06-15] MEDS: GABAPENTIN 600 MG TABLET PO SCH (21:35)
[2022-06-15] MEDS: ATORVASTATIN 40 MG TABLET PO SCH (21:36)
[2022-06-15] MEDS: DOCUSATE SODIUM 100 MG CAPSULE PO SCH (21:36)
[2022-06-15] MEDS: MONTELUKAST 10 MG TABLET PO SCH (21:36)
[2022-06-15] MEDS: NORTRIPTYLINE 25 MG CAPSULE PO SCH (21:36)
[2022-06-15] MEDS: PHENYTOIN ER 100 MG CAPSULE PO SCH (21:37)
[2022-06-15] MEDS: MUPIROCIN 2% OINT 22 GM TUBE TOP SCH (21:37)
[2022-06-15] MEDS: SODIUM CHLORIDE 0.65% NASAL SPRAY 45 ML BOTTLE BOTH NARES SCH (21:38)
[2022-06-16] MEDS: INSULIN REGULAR 100 UNIT/ML SUBCUT SCH ×4 (02:20→18:10)
[2022-06-16] MEDS: SODIUM CHLORIDE 0.9% 1,000 ML IV SCH ×2 (02:21→15:21)
[2022-06-16] MEDS: PANTOPRAZOLE INJ 200 MG in SODIUM CHLORIDE 0.9% 250 ML IV SCH ×2 (06:37→09:48)
[2022-06-16 06:52] LABS: Basophils % 0.5 % (0.0-0.8); Eosinophils # 0.2 10*3/uL (0.0-0.87); Eosinophils % 3.9 % (0.00-10.9); Hematocrit 31.6 VOL% (35.7-47.0); Immature Granulocytes % 0.4 %; Immature Granulocytes Absolute 0.02 #; Lymphocytes # 2.9 10*3/uL (1.4-4.0); Lymphocytes % 51.4 % (21.3-54.2); Mean Corpuscular HGB Conc 32.3 GM/DL (32-36); Mean Corpuscular Volume 90.8 FL (87-102); Mean Platelet Volume 9.7 FL (9.6-12.0); Monocytes # 0.5 10*3/uL (0.11-0.8); Monocytes % 8.2 % (1.7-12.7); NRBC # 0.02 10*3/uL; Neutrophils % 35.6 % (38.7-73.9); Platelet Count 290 T/CUMM (130-400); Red Cell Distribution Width 17.4 % (9.3-17.3); White Blood Count 5.6 T/CUMM (4-12)
[2022-06-16 06:54] LABS: Red Blood Count 3.48 MC/CUMM (3.8-5.5)
[2022-06-16 06:55] LABS: Hemoglobin 10.2 GM/DL (12.0-16.0)
[2022-06-16 07:09] LABS: Eosinophils 4 % (0-10); Hypochromia Slight; Lymphocytes 51 % (20-55); Microcytosis Slight; Platelet Estimate Adequate; Total Cells Counted 100
[2022-06-16 07:11] LABS: Albumin 2.9 G/DL (3.4-5.0); Bilirubin,Total 0.5 MG/DL (0.20-1.00); Calcium 8.1 MG/DL (8.5-10.1); Osmolality,Calculated 280.3 MOS/KG (273-304); Potassium 4.7 MMOL/L (3.5-5.1); Total Protein 7.1 G/DL (6.4-8.2)
[2022-06-16] MEDS: PANTOPRAZOLE INJ 80 MG in SODIUM CHLORIDE 0.9% 100 ML IV ONE (07:51)
[2022-06-16] MEDS: PHENYTOIN ER 100 MG CAPSULE PO SCH ×3 (09:31→20:59)
[2022-06-16] MEDS: levETIRAcetam 500 MG TABLET PO SCH ×2 (09:31→21:00)
[2022-06-16] MEDS: PRAZOSIN 1 MG CAPSULE PO SCH ×3 (09:31→20:59)
[2022-06-16] MEDS: FUROSEMIDE 20 MG TABLET PO SCH (09:31)
[2022-06-16] MEDS: SODIUM CHLORIDE 0.65% NASAL SPRAY 45 ML BOTTLE BOTH NARES SCH ×4 (09:32→21:01)
[2022-06-16] MEDS: MUPIROCIN 2% OINT 22 GM TUBE TOP SCH ×2 (09:32→21:00)
[2022-06-16] MEDS: GABAPENTIN 600 MG TABLET PO SCH ×2 (09:32→21:00)
[2022-06-16] MEDS: CETIRIZINE 10 MG TABLET PO SCH (09:32)
[2022-06-16] MEDS: PANTOPRAZOLE 40 MG TABLET PO SCH (09:32)
[2022-06-16] MEDS: NORTRIPTYLINE 25 MG CAPSULE PO SCH ×3 (09:32→20:59)
[2022-06-16] MEDS: DOCUSATE SODIUM 100 MG CAPSULE PO SCH ×2 (09:32→20:59)
[2022-06-16] MEDS: POTASSIUM CHLORIDE 10 MEQ TABLET PO SCH ×3 (09:32→17:25)
[2022-06-16] MEDS: ISOSORBIDE MONONITRATE 30 MG TABLET PO SCH (09:33)
[2022-06-16] MEDS: MORPHINE 2 MG/1 ML SYRINGE IV PRN ×2 (09:47→20:56)
[2022-06-16] MEDS: MONTELUKAST 10 MG TABLET PO SCH (20:59)
[2022-06-16] MEDS: ATORVASTATIN 40 MG TABLET PO SCH (20:59)
[2022-06-17] MEDS: SODIUM CHLORIDE 0.9% 1,000 ML IV SCH ×2 (01:45→15:40)
[2022-06-17] MEDS: INSULIN REGULAR 100 UNIT/ML SUBCUT SCH ×4 (01:58→18:27)
[2022-06-17] MEDS: MORPHINE 2 MG/1 ML SYRINGE IV PRN (05:06)
[2022-06-17] MEDS: LACTATED RINGERS 1,000 ML IV SCH (06:55)
[2022-06-17] MEDS ORDERED: LIDOCAINE 2% 5 ML VIAL ONE (08:21)
[2022-06-17] MEDS ORDERED: propofoL 200 MG/20 ML VIAL IV ONE (08:21)
[2022-06-17 09:49] LABS: Basophils % 0.4 % (0.0-0.8); Eosinophils # 0.2 10*3/uL (0.0-0.87); Eosinophils % 3.9 % (0.00-10.9); Hematocrit 33.2 VOL% (35.7-47.0); Hemoglobin 10.2 GM/DL (12.0-16.0); Immature Granulocytes % 0.2 %; Immature Granulocytes Absolute 0.01 #; Lymphocytes # 2.3 10*3/uL (1.4-4.0); Lymphocytes % 44.1 % (21.3-54.2); Mean Corpuscular HGB Conc 30.7 GM/DL (32-36); Mean Corpuscular Volume 94.9 FL (87-102); Mean Platelet Volume 9.5 FL (9.6-12.0); Monocytes # 0.4 10*3/uL (0.11-0.8); Monocytes % 7.7 % (1.7-12.7); Neutrophils % 43.7 % (38.7-73.9); Platelet Count 284 T/CUMM (130-400); White Blood Count 5.2 T/CUMM (4-12)
[2022-06-17] MEDS: PHENYTOIN ER 100 MG CAPSULE PO SCH ×3 (09:52→21:44)
[2022-06-17] MEDS: POTASSIUM CHLORIDE 10 MEQ TABLET PO SCH ×3 (09:52→17:55)
[2022-06-17] MEDS: GABAPENTIN 600 MG TABLET PO SCH ×2 (09:52→21:42)
[2022-06-17] MEDS: PRAZOSIN 1 MG CAPSULE PO SCH ×3 (09:52→21:42)
[2022-06-17] MEDS: NORTRIPTYLINE 25 MG CAPSULE PO SCH ×3 (09:52→21:56)
[2022-06-17] MEDS: DOCUSATE SODIUM 100 MG CAPSULE PO SCH ×2 (09:52→21:44)
[2022-06-17] MEDS: levETIRAcetam 500 MG TABLET PO SCH ×2 (09:52→21:42)
[2022-06-17] MEDS: BISACODYL 5 MG TABLET PO SCH ×2 (09:53→17:55)
[2022-06-17] MEDS: ISOSORBIDE MONONITRATE 30 MG TABLET PO SCH (09:53)
[2022-06-17] MEDS: CETIRIZINE 10 MG TABLET PO SCH (09:53)
[2022-06-17] MEDS: SODIUM CHLORIDE 0.65% NASAL SPRAY 45 ML BOTTLE BOTH NARES SCH ×4 (09:53→21:51)
[2022-06-17] MEDS: MUPIROCIN 2% OINT 22 GM TUBE TOP SCH (09:53)
[2022-06-17] MEDS: FUROSEMIDE 20 MG TABLET PO SCH (09:53)
[2022-06-17] MEDS: PANTOPRAZOLE 40 MG TABLET PO SCH (09:54)
[2022-06-17] MEDS: PANTOPRAZOLE INJ 200 MG in SODIUM CHLORIDE 0.9% 250 ML IV SCH (09:54)
[2022-06-17 10:09] LABS: Albumin 2.9 G/DL (3.4-5.0); Bilirubin,Total 0.4 MG/DL (0.20-1.00); Calcium 8.2 MG/DL (8.5-10.1); Osmolality,Calculated 281.1 MOS/KG (273-304); Potassium 3.7 MMOL/L (3.5-5.1); Total Protein 6.7 G/DL (6.4-8.2)
[2022-06-17] MEDS: predniSONE 10 MG TABLET PO SCH (12:45)
[2022-06-17] MEDS: ALBUTEROL/IPRATROPIUM 3 ML NEB RESP TX SCH ×2 (13:55→19:16)
[2022-06-17] MEDS ORDERED: POLYETHYLENE GLYCOL POWDER 255 GM BOTTLE PO ONE (18:00)
[2022-06-17] MEDS ORDERED: MAGNESIUM HYDROXIDE SUSP 30 ML UDCUP PO ONE (21:00)
[2022-06-17] MEDS: MONTELUKAST 10 MG TABLET PO SCH (21:42)
[2022-06-17] MEDS: ATORVASTATIN 40 MG TABLET PO SCH (21:56)
[2022-06-17] MEDS: ONDANSETRON 4 MG/2 ML VIAL IV PRN (22:40)
[2022-06-18] MEDS: ALBUTEROL/IPRATROPIUM 3 ML NEB RESP TX SCH ×4 (00:03→19:05)
[2022-06-18] MEDS: MUPIROCIN 2% OINT 22 GM TUBE TOP SCH ×3 (00:47→23:00)
[2022-06-18] MEDS ORDERED: BISACODYL 5 MG TABLET ONE (02:45)
[2022-06-18] MEDS: BISACODYL 5 MG TABLET PO SCH (02:48)
[2022-06-18] MEDS: MORPHINE 2 MG/1 ML SYRINGE IV PRN (03:35)
[2022-06-18] MEDS: SODIUM CHLORIDE 0.9% 1,000 ML IV SCH ×2 (08:00→17:01)
[2022-06-18] MEDS: LACTATED RINGERS 1,000 ML IV SCH ×2 (08:01→09:30)
[2022-06-18] MEDS: INSULIN REGULAR 100 UNIT/ML SUBCUT SCH ×4 (08:02→18:15)
[2022-06-18] MEDS ORDERED: NON-FORMULARY MEDICATION (Umeclidinium-Vilanterol [Anoro Ellipta] 62.5-25 mcg/actuation Bl INH SCH (09:00)
[2022-06-18] MEDS: NORTRIPTYLINE 25 MG CAPSULE PO SCH ×3 (11:47→21:55)
[2022-06-18] MEDS: PHENYTOIN ER 100 MG CAPSULE PO SCH ×3 (11:47→21:55)
[2022-06-18] MEDS: levETIRAcetam 500 MG TABLET PO SCH ×2 (11:47→21:55)
[2022-06-18] MEDS: POTASSIUM CHLORIDE 10 MEQ TABLET PO SCH ×3 (11:48→16:54)
[2022-06-18] MEDS: predniSONE 10 MG TABLET PO SCH (11:48)
[2022-06-18] MEDS: FUROSEMIDE 20 MG TABLET PO SCH (11:48)
[2022-06-18] MEDS: CETIRIZINE 10 MG TABLET PO SCH (11:48)
[2022-06-18] MEDS: GABAPENTIN 600 MG TABLET PO SCH ×2 (11:48→21:56)
[2022-06-18] MEDS: ISOSORBIDE MONONITRATE 30 MG TABLET PO SCH (11:48)
[2022-06-18] MEDS: PRAZOSIN 1 MG CAPSULE PO SCH ×3 (11:49→21:56)
[2022-06-18] MEDS: DOCUSATE SODIUM 100 MG CAPSULE PO SCH ×2 (11:49→21:55)
[2022-06-18] MEDS: SODIUM CHLORIDE 0.65% NASAL SPRAY 45 ML BOTTLE BOTH NARES SCH ×4 (11:53→23:00)
[2022-06-18] MEDS: ATORVASTATIN 40 MG TABLET PO SCH (21:56)
[2022-06-18] MEDS: MONTELUKAST 10 MG TABLET PO SCH (21:56)
[2022-06-18] MEDS: PANTOPRAZOLE 40 MG VIAL IV SCH (23:17)
[2022-06-19] MEDS: ALBUTEROL/IPRATROPIUM 3 ML NEB RESP TX SCH ×5 (00:06→20:05)
[2022-06-19 05:18] LABS: Basophils % 0.5 % (0.0-0.8); Eosinophils # 0.1 10*3/uL (0.0-0.87); Hematocrit 32.8 VOL% (35.7-47.0); Hemoglobin 10.1 GM/DL (12.0-16.0); Immature Granulocytes % 0.5 %; Immature Granulocytes Absolute 0.02 #; Lymphocytes # 2.4 10*3/uL (1.4-4.0); Lymphocytes % 53.6 % (21.3-54.2); Mean Corpuscular HGB Conc 30.8 GM/DL (32-36); Mean Corpuscular Volume 93.7 FL (87-102); Monocytes # 0.4 10*3/uL (0.11-0.8); Monocytes % 8.8 % (1.7-12.7); Neutrophils % 34.6 % (38.7-73.9); Platelet Count 310 T/CUMM (130-400); Red Cell Distribution Width 15.9 % (9.3-17.3); White Blood Count 4.4 T/CUMM (4-12)
[2022-06-19 05:38] LABS: Alanine Aminotransferase 19 U/L (13-56); Alkaline Phosphatase 130 U/L (45-117); Aspartate Amino Transferase 15 U/L (0-37); Bilirubin,Total < 0.39 MG/DL (0.20-1.00); Blood Urea Nitrogen 6 MG/DL (7-18); Calcium 8.1 MG/DL (8.5-10.1); Carbon Dioxide 24 MMOL/L (21-32); Chloride 110 MMOL/L (98-107); Glucose 121 MG/DL (74-106); Osmolality,Calculated 284.8 MOS/KG (273-304); Potassium 3.2 MMOL/L (3.5-5.1); Sodium 144 MMOL/L (136-145)
[2022-06-19 05:45] LABS: Eosinophils 5 % (0-10); Lymphocytes 50 % (20-55); Total Cells Counted 100
[2022-06-19 05:46] LABS: Microcytosis 1+; Ovalocytes Slight; Polychromasia Slight; Tear Drop Cells Slight
[2022-06-19 05:47] LABS: Hypochromia Slight
[2022-06-19] MEDS: INSULIN REGULAR 100 UNIT/ML SUBCUT SCH ×4 (06:45→19:06)
[2022-06-19] MEDS: PANTOPRAZOLE 40 MG VIAL IV SCH ×2 (09:44→21:04)
[2022-06-19] MEDS: POTASSIUM CHLORIDE 10 MEQ TABLET PO SCH ×3 (09:52→16:42)
[2022-06-19] MEDS: FUROSEMIDE 20 MG TABLET PO SCH (09:52)
[2022-06-19] MEDS: NORTRIPTYLINE 25 MG CAPSULE PO SCH ×3 (09:53→21:00)
[2022-06-19] MEDS: CETIRIZINE 10 MG TABLET PO SCH (09:53)
[2022-06-19] MEDS: GABAPENTIN 600 MG TABLET PO SCH ×2 (09:53→20:59)
[2022-06-19] MEDS: ISOSORBIDE MONONITRATE 30 MG TABLET PO SCH (09:53)
[2022-06-19] MEDS: levETIRAcetam 500 MG TABLET PO SCH ×2 (09:53→21:00)
[2022-06-19] MEDS: PHENYTOIN ER 100 MG CAPSULE PO SCH ×3 (09:54→21:00)
[2022-06-19] MEDS: DOCUSATE SODIUM 100 MG CAPSULE PO SCH ×2 (09:54→20:59)
[2022-06-19] MEDS: predniSONE 10 MG TABLET PO SCH (09:54)
[2022-06-19] MEDS: PRAZOSIN 1 MG CAPSULE PO SCH ×3 (09:54→20:59)
[2022-06-19] MEDS: SODIUM CHLORIDE 0.9% 1,000 ML IV SCH ×2 (10:18→20:56)
[2022-06-19] MEDS: SODIUM CHLORIDE 0.65% NASAL SPRAY 45 ML BOTTLE BOTH NARES SCH ×4 (10:19→21:01)
[2022-06-19] MEDS: MUPIROCIN 2% OINT 22 GM TUBE TOP SCH ×2 (10:19→20:57)
[2022-06-19] MEDS: MORPHINE 2 MG/1 ML SYRINGE IV PRN (13:47)
[2022-06-19] MEDS: MONTELUKAST 10 MG TABLET PO SCH (20:59)
[2022-06-19] MEDS: ATORVASTATIN 40 MG TABLET PO SCH (21:00)
[2022-06-20] MEDS: ALBUTEROL/IPRATROPIUM 3 ML NEB RESP TX SCH ×2 (00:51→06:53)
[2022-06-20] MEDS: INSULIN REGULAR 100 UNIT/ML SUBCUT SCH ×3 (05:18→11:33)
[2022-06-20 05:59] LABS: Basophils % 0.6 % (0.0-0.8); Eosinophils # 0.2 10*3/uL (0.0-0.87); Eosinophils % 3.6 % (0.00-10.9); Hematocrit 30.6 VOL% (35.7-47.0); Hemoglobin 9.5 GM/DL (12.0-16.0); Immature Granulocytes % 0.2 %; Immature Granulocytes Absolute 0.01 #; Lymphocytes % 59.5 % (21.3-54.2); Mean Corpuscular Volume 94.2 FL (87-102); Monocytes # 0.5 10*3/uL (0.11-0.8); Monocytes % 10.1 % (1.7-12.7); Platelet Count 318 T/CUMM (130-400); Red Blood Count 3.25 MC/CUMM (3.8-5.5); Red Cell Distribution Width 15.5 % (9.3-17.3)
[2022-06-20 06:13] LABS: Calcium 8.1 MG/DL (8.5-10.1); Osmolality,Calculated 290.8 MOS/KG (273-304); Potassium 3.4 MMOL/L (3.5-5.1)
[2022-06-20] MEDS: LACTATED RINGERS 1,000 ML IV SCH (06:32)
[2022-06-20 06:55] LABS: Eosinophils 3 % (0-10); Lymphocytes 56 % (20-55); Total Cells Counted 100
[2022-06-20 06:56] LABS: Hypochromia Slight; Microcytosis 1+; Ovalocytes Slight
[2022-06-20 06:57] LABS: Platelet Estimate Normal
[2022-06-20] MEDS: CETIRIZINE 10 MG TABLET PO SCH (08:50)
[2022-06-20] MEDS: NORTRIPTYLINE 25 MG CAPSULE PO SCH (08:50)
[2022-06-20] MEDS: POTASSIUM CHLORIDE 10 MEQ TABLET PO SCH (08:51)
[2022-06-20] MEDS: GABAPENTIN 600 MG TABLET PO SCH (08:51)
[2022-06-20] MEDS: ISOSORBIDE MONONITRATE 30 MG TABLET PO SCH (08:51)
[2022-06-20] MEDS: FUROSEMIDE 20 MG TABLET PO SCH (08:52)
[2022-06-20] MEDS: DOCUSATE SODIUM 100 MG CAPSULE PO SCH (08:52)
[2022-06-20] MEDS: predniSONE 10 MG TABLET PO SCH (08:52)
[2022-06-20] MEDS: PHENYTOIN ER 100 MG CAPSULE PO SCH (08:52)
[2022-06-20] MEDS: PRAZOSIN 1 MG CAPSULE PO SCH (08:53)
[2022-06-20] MEDS: levETIRAcetam 500 MG TABLET PO SCH (08:53)
[2022-06-20] MEDS: MUPIROCIN 2% OINT 22 GM TUBE TOP SCH (08:59)
[2022-06-20] MEDS: SODIUM CHLORIDE 0.65% NASAL SPRAY 45 ML BOTTLE BOTH NARES SCH (08:59)
[2022-06-20] MEDS: PANTOPRAZOLE 40 MG VIAL IV SCH (09:00)
[2022-06-20 11:11] VITALS: BP 158/82
[2022-06-23] MEDS ORDERED: METHOTREXATE 2.5 MG TABLET PO SCH (09:00)
== END 2022-06-20 12:26 | DRG 254 ==
LOC: N.ED 10:43 → N.EDINP 13:57 → N.3E 16:48
PROVIDERS: ADMIT Family Medicine; ATTEND Family Medicine

== ENCOUNTER 2022-07-02 12:33 | Inpatient (IN) ==
[2022-07-02] MEDS ORDERED: PANTOPRAZOLE 40 MG VIAL IV STA (13:57)
[2022-07-02] MEDS ORDERED: SODIUM CHLORIDE 0.9% 1,000 ML IV STA (13:57)
[2022-07-02 14:06] LABS: Basophils # 0.1 10*3/uL (0.0-0.2); Basophils % 0.6 % (0.0-0.8); Eosinophils # 0.1 10*3/uL (0.0-0.87); Eosinophils % 1.4 % (0.00-10.9); Hematocrit 39.2 VOL% (35.7-47.0); Hemoglobin 12.1 GM/DL (12.0-16.0); Immature Granulocytes % 0.4 %; Immature Granulocytes Absolute 0.03 #; Lymphocytes # 2.3 10*3/uL (1.4-4.0); Mean Corpuscular HGB Conc 30.9 GM/DL (32-36); Mean Corpuscular Volume 91.4 FL (87-102); Mean Platelet Volume 11.4 FL (9.6-12.0); Monocytes # 0.2 10*3/uL (0.11-0.8); Monocytes % 3.1 % (1.7-12.7); Neutrophils % 65.5 % (38.7-73.9); Platelet Count 184 T/CUMM (130-400); Red Blood Count 4.29 MC/CUMM (3.8-5.5); Red Cell Distribution Width 15.5 % (9.3-17.3); White Blood Count 7.8 T/CUMM (4-12)
[2022-07-02 14:18] LABS: Alanine Aminotransferase 61 U/L (13-56); Albumin 3.7 G/DL (3.4-5.0); Alkaline Phosphatase 143 U/L (45-117); Aspartate Amino Transferase 49 U/L (0-37); Bilirubin,Total < 0.39 MG/DL (0.20-1.00); Blood Urea Nitrogen 21 MG/DL (7-18); Calcium 8.8 MG/DL (8.5-10.1); Carbon Dioxide 23 MMOL/L (21-32); Chloride 105 MMOL/L (98-107); Glucose 169 MG/DL (74-106); Osmolality,Calculated 283.5 MOS/KG (273-304); Potassium 4.6 MMOL/L (3.5-5.1); Sodium 139 MMOL/L (136-145)
[2022-07-02 14:30] LABS: Platelet Estimate Adequate
[2022-07-02 16:08] LABS: Protein,Urine Negative (Negative); Urine Appearance Clear (Clear); Urine Color Light Yellow (Yellow)
[2022-07-02 16:09] LABS: Bilirubin,Urine Negative (Negative); Blood, Urine Negative (Negative); Glucose,Urine (UA) 500 mg/dL (Negative); Ketones,Urine Negative (Negative); Nitrite,Urine Negative (Negative); Urine Urobilinogen 0.2 eU/dL (<2.0)
[2022-07-02 16:11] LABS: Bacteria,Urine Occasional /HPF (Few); RBC,Urine 1 /HPF (0-4); Squamous Epithelial Cell,Urine Occasional /HPF (0-10)
[2022-07-02 16:29] LABS: Barbiturates Screen,Urine Negative (Negative); Benzodiazepines Screen,Urine Negative (Negative); Cannabinoid Screen,Urine Negative (Negative); Opiate Screen,Urine Negative (Negative); Phencyclidine Screen,Urine Negative (Negative)
[2022-07-02] MEDS ORDERED: ONDANSETRON 4 MG/2 ML VIAL IV PRN (17:46)
[2022-07-02] MEDS: SODIUM CHLORIDE 0.9% 1,000 ML IV SCH (18:22)
[2022-07-02] MEDS ORDERED: diphenhydrAMINE CAP 25 MG CAPSULE PO PRN (19:39)
[2022-07-02] MEDS: METOPROLOL TARTRATE 50 MG TABLET PO SCH (20:44)
[2022-07-02] MEDS: GABAPENTIN 600 MG TABLET PO SCH (20:44)
[2022-07-02] MEDS: PHENYTOIN ER 100 MG CAPSULE PO SCH (20:44)
[2022-07-02] MEDS: levETIRAcetam 500 MG TABLET PO SCH (20:44)
[2022-07-02] MEDS: DOCUSATE SODIUM 100 MG CAPSULE PO SCH (20:45)
[2022-07-03] MEDS: SODIUM CHLORIDE 0.9% 1,000 ML IV SCH ×3 (02:32→17:06)
[2022-07-03] MEDS: PHENYTOIN ER 100 MG CAPSULE PO SCH ×3 (08:38→21:40)
[2022-07-03] MEDS: GABAPENTIN 600 MG TABLET PO SCH ×2 (08:38→21:40)
[2022-07-03] MEDS: METOPROLOL TARTRATE 50 MG TABLET PO SCH ×2 (08:39→21:40)
[2022-07-03] MEDS: DOCUSATE SODIUM 100 MG CAPSULE PO SCH ×2 (08:39→21:40)
[2022-07-03] MEDS ORDERED: PANTOPRAZOLE 40 MG TABLET PO SCH (09:00)
[2022-07-03] MEDS: levETIRAcetam 500 MG TABLET PO SCH ×2 (09:47→21:40)
[2022-07-03] MEDS: FUROSEMIDE 20 MG TABLET PO SCH (09:47)
[2022-07-03] MEDS: predniSONE 10 MG TABLET PO SCH (09:47)
[2022-07-03 09:49] LABS: Alanine Aminotransferase 45 U/L (13-56); Alkaline Phosphatase 108 U/L (45-117); Aspartate Amino Transferase 30 U/L (0-37); Bilirubin,Total < 0.39 MG/DL (0.20-1.00); Blood Urea Nitrogen 11 MG/DL (7-18); Calcium 7.4 MG/DL (8.5-10.1); Carbon Dioxide 23 MMOL/L (21-32); Chloride 109 MMOL/L (98-107); Glucose 232 MG/DL (74-106); Osmolality,Calculated 286.3 MOS/KG (273-304); Potassium 3.9 MMOL/L (3.5-5.1); Sodium 141 MMOL/L (136-145); Total Protein 6.5 G/DL (6.4-8.2)
[2022-07-03] MEDS ORDERED: NON-FORMULARY MEDICATION (Diphenhydramine Hcl [Benadryl Allergy] 25 mg Tablet) PO PRN (13:22)
[2022-07-03] MEDS ORDERED: HydrOXYzine PAMOATE 25 MG CAPSULE PO PRN (13:22)
[2022-07-03] MEDS ORDERED: NITROGLYCERIN SL 0.4 MG TABLET SL PRN (13:22)
[2022-07-03] MEDS ORDERED: BISMUTH SUBSALICYLATE 262 MG PO PRN (13:22)
[2022-07-03] MEDS ORDERED: HYDROCORTISONE 1% CREAM 28 GM TUBE TOP PRN (13:22)
[2022-07-03] MEDS ORDERED: ALBUTEROL 0.63 MG/3 ML NEB RESP TX PRN (13:22)
[2022-07-03] MEDS ORDERED: PHENYTOIN ER 100 MG CAPSULE PO SCH (15:00)
[2022-07-03] MEDS: PRAZOSIN 1 MG CAPSULE PO SCH ×2 (15:38→21:40)
[2022-07-03] MEDS: LINACLOTIDE 145 MCG CAPSULE PO SCH (15:44)
[2022-07-03] MEDS: MENTHOL/ZINC OXIDE OINT 71 GM JAR TOP SCH ×2 (15:44→23:20)
[2022-07-03] MEDS: INSULIN REGULAR 100 UNIT/ML SUBCUT SCH ×2 (16:11→20:23)
[2022-07-03] MEDS: SODIUM CHLORIDE 0.65% NASAL SPRAY 45 ML BOTTLE BOTH NARES SCH ×2 (16:12→21:48)
[2022-07-03] MEDS: POTASSIUM CHLORIDE 10 MEQ TABLET PO SCH (16:12)
[2022-07-03] MEDS ORDERED: GABAPENTIN 600 MG TABLET PO SCH (21:00)
[2022-07-03] MEDS ORDERED: levETIRAcetam 500 MG TABLET PO SCH (21:00)
[2022-07-03] MEDS: PANTOPRAZOLE 40 MG TABLET PO SCH (21:40)
[2022-07-03] MEDS: ATORVASTATIN 40 MG TABLET PO SCH (21:40)
[2022-07-03] MEDS: MUPIROCIN 2% OINT 22 GM TUBE TOP SCH (21:48)
[2022-07-04] MEDS: SODIUM CHLORIDE 0.9% 1,000 ML IV SCH ×3 (00:45→19:49)
[2022-07-04 06:30] LABS: Alanine Aminotransferase 41 U/L (13-56); Alkaline Phosphatase 98 U/L (45-117); Aspartate Amino Transferase 28 U/L (0-37); Bilirubin,Total < 0.39 MG/DL (0.20-1.00); Blood Urea Nitrogen 7 MG/DL (7-18); Calcium 8.4 MG/DL (8.5-10.1); Carbon Dioxide 24 MMOL/L (21-32); Chloride 113 MMOL/L (98-107); Glucose 108 MG/DL (74-106); Osmolality,Calculated 284.8 MOS/KG (273-304); Potassium 3.7 MMOL/L (3.5-5.1); Sodium 144 MMOL/L (136-145); Total Protein 6.8 G/DL (6.4-8.2)
[2022-07-04] MEDS: INSULIN REGULAR 100 UNIT/ML SUBCUT SCH ×4 (09:44→20:55)
[2022-07-04] MEDS: POTASSIUM CHLORIDE 10 MEQ TABLET PO SCH ×3 (09:46→17:41)
[2022-07-04] MEDS: PHENYTOIN ER 100 MG CAPSULE PO SCH ×3 (09:47→20:23)
[2022-07-04] MEDS: DAPAGLIFLOZIN 10 MG TABLET PO SCH (09:47)
[2022-07-04] MEDS: levETIRAcetam 500 MG TABLET PO SCH ×2 (09:47→20:23)
[2022-07-04] MEDS: METOPROLOL TARTRATE 50 MG TABLET PO SCH ×2 (09:47→20:22)
[2022-07-04] MEDS: FOLIC ACID 1 MG TABLET PO SCH (09:47)
[2022-07-04] MEDS: POLYETHYLENE GLYCOL POWDER 17 GM PACK PO SCH (09:47)
[2022-07-04] MEDS: GABAPENTIN 600 MG TABLET PO SCH ×2 (09:47→20:22)
[2022-07-04] MEDS: FUROSEMIDE 20 MG TABLET PO SCH (09:47)
[2022-07-04] MEDS: CETIRIZINE 10 MG TABLET PO SCH (09:47)
[2022-07-04] MEDS: CLOPIDOGREL 75 MG TABLET PO SCH (09:48)
[2022-07-04] MEDS: predniSONE 10 MG TABLET PO SCH (09:48)
[2022-07-04] MEDS: PANTOPRAZOLE 40 MG TABLET PO SCH ×2 (09:48→20:23)
[2022-07-04] MEDS: MENTHOL/ZINC OXIDE OINT 71 GM JAR TOP SCH ×2 (09:48→20:23)
[2022-07-04] MEDS: MUPIROCIN 2% OINT 22 GM TUBE TOP SCH ×2 (09:48→20:23)
[2022-07-04] MEDS: DOCUSATE SODIUM 100 MG CAPSULE PO SCH ×2 (09:48→20:24)
[2022-07-04] MEDS: PRAZOSIN 1 MG CAPSULE PO SCH ×3 (09:48→20:23)
[2022-07-04] MEDS: SODIUM CHLORIDE 0.65% NASAL SPRAY 45 ML BOTTLE BOTH NARES SCH ×4 (09:48→20:23)
[2022-07-04] MEDS: ASPIRIN EC 81 MG TABLET PO SCH (09:53)
[2022-07-04] MEDS: ISOSORBIDE MONONITRATE 30 MG TABLET PO SCH (09:53)
[2022-07-04] MEDS: NON-FORMULARY MEDICATION (Liraglutide [Victoza 2-Pak] 0.6 mg/0.1 mL (18 mg/3 mL) Pen Injec SUBCUT SCH (10:46)
[2022-07-04] MEDS: MULTIVITAMIN (PRENATAL) TABLET PO SCH (10:46)
[2022-07-04] MEDS: LINACLOTIDE 145 MCG CAPSULE PO SCH (10:47)
[2022-07-04] MEDS: ATORVASTATIN 40 MG TABLET PO SCH (20:22)
[2022-07-05] MEDS: SODIUM CHLORIDE 0.9% 1,000 ML IV SCH ×3 (02:36→17:52)
[2022-07-05] MEDS: INSULIN REGULAR 100 UNIT/ML SUBCUT SCH ×4 (07:48→20:39)
[2022-07-05] MEDS: CLOPIDOGREL 75 MG TABLET PO SCH (09:36)
[2022-07-05] MEDS: MULTIVITAMIN (PRENATAL) TABLET PO SCH (09:36)
[2022-07-05] MEDS: ISOSORBIDE MONONITRATE 30 MG TABLET PO SCH (09:36)
[2022-07-05] MEDS: METOPROLOL TARTRATE 50 MG TABLET PO SCH ×2 (09:36→20:40)
[2022-07-05] MEDS: PANTOPRAZOLE 40 MG TABLET PO SCH ×2 (09:37→20:40)
[2022-07-05] MEDS: POTASSIUM CHLORIDE 10 MEQ TABLET PO SCH ×3 (09:37→17:52)
[2022-07-05] MEDS: FUROSEMIDE 20 MG TABLET PO SCH (09:37)
[2022-07-05] MEDS: GABAPENTIN 600 MG TABLET PO SCH ×2 (09:37→20:39)
[2022-07-05] MEDS: DOCUSATE SODIUM 100 MG CAPSULE PO SCH ×2 (09:37→20:39)
[2022-07-05] MEDS: FOLIC ACID 1 MG TABLET PO SCH (09:37)
[2022-07-05] MEDS: DAPAGLIFLOZIN 10 MG TABLET PO SCH (09:37)
[2022-07-05] MEDS: ASPIRIN EC 81 MG TABLET PO SCH (09:37)
[2022-07-05] MEDS: POLYETHYLENE GLYCOL POWDER 17 GM PACK PO SCH (09:38)
[2022-07-05] MEDS: CETIRIZINE 10 MG TABLET PO SCH (09:38)
[2022-07-05] MEDS: levETIRAcetam 500 MG TABLET PO SCH ×2 (09:38→20:40)
[2022-07-05] MEDS: predniSONE 10 MG TABLET PO SCH (09:38)
[2022-07-05] MEDS: LINACLOTIDE 145 MCG CAPSULE PO SCH (09:41)
[2022-07-05] MEDS: PHENYTOIN ER 100 MG CAPSULE PO SCH ×3 (09:42→20:41)
[2022-07-05] MEDS: MUPIROCIN 2% OINT 22 GM TUBE TOP SCH ×2 (09:43→20:41)
[2022-07-05] MEDS: NON-FORMULARY MEDICATION (Liraglutide [Victoza 2-Pak] 0.6 mg/0.1 mL (18 mg/3 mL) Pen Injec SUBCUT SCH (09:44)
[2022-07-05] MEDS: PRAZOSIN 1 MG CAPSULE PO SCH ×3 (09:44→20:40)
[2022-07-05] MEDS: MENTHOL/ZINC OXIDE OINT 71 GM JAR TOP SCH ×2 (09:44→20:41)
[2022-07-05] MEDS: SODIUM CHLORIDE 0.65% NASAL SPRAY 45 ML BOTTLE BOTH NARES SCH ×4 (09:45→20:41)
[2022-07-05] MEDS: KETOROLAC 15 MG/1 ML VIAL IV SCH ×2 (14:16→22:58)
[2022-07-05] MEDS: ALBUTEROL/IPRATROPIUM 3 ML NEB RESP TX SCH ×3 (14:27→23:51)
[2022-07-05] MEDS: ATORVASTATIN 40 MG TABLET PO SCH (20:40)
[2022-07-06] MEDS: SODIUM CHLORIDE 0.9% 1,000 ML IV SCH ×3 (00:51→22:08)
[2022-07-06] MEDS: KETOROLAC 15 MG/1 ML VIAL IV SCH (06:13)
[2022-07-06 06:48] LABS: Basophils # 0.1 10*3/uL (0.0-0.2); Basophils % 0.7 % (0.0-0.8); Eosinophils # 0.2 10*3/uL (0.0-0.87); Hematocrit 33.9 VOL% (35.7-47.0); Hemoglobin 10.8 GM/DL (12.0-16.0); Immature Granulocytes % 0.4 %; Immature Granulocytes Absolute 0.03 #; Lymphocytes # 2.9 10*3/uL (1.4-4.0); Lymphocytes % 38.8 % (21.3-54.2); Mean Corpuscular HGB Conc 31.9 GM/DL (32-36); Mean Corpuscular Volume 91.4 FL (87-102); Mean Platelet Volume 11.2 FL (9.6-12.0); Monocytes # 0.4 10*3/uL (0.11-0.8); Monocytes % 5.7 % (1.7-12.7); Neutrophils % 51.4 % (38.7-73.9); Platelet Count 132 T/CUMM (130-400); Red Blood Count 3.71 MC/CUMM (3.8-5.5); Red Cell Distribution Width 15.2 % (9.3-17.3); White Blood Count 7.6 T/CUMM (4-12)
[2022-07-06 07:00] LABS: Calcium 8.7 MG/DL (8.5-10.1); Osmolality,Calculated 281.3 MOS/KG (273-304); Potassium 3.9 MMOL/L (3.5-5.1)
[2022-07-06] MEDS: ALBUTEROL/IPRATROPIUM 3 ML NEB RESP TX SCH ×3 (07:32→18:58)
[2022-07-06] MEDS: INSULIN REGULAR 100 UNIT/ML SUBCUT SCH ×4 (08:25→22:10)
[2022-07-06] MEDS ORDERED: levETIRAcetam 500 MG TABLET PO SCH (09:00)
[2022-07-06] MEDS: LINACLOTIDE 145 MCG CAPSULE PO SCH (09:24)
[2022-07-06] MEDS: CETIRIZINE 10 MG TABLET PO SCH (09:25)
[2022-07-06] MEDS: ASPIRIN EC 81 MG TABLET PO SCH (09:25)
[2022-07-06] MEDS: POTASSIUM CHLORIDE 10 MEQ TABLET PO SCH ×3 (09:26→16:52)
[2022-07-06] MEDS: predniSONE 10 MG TABLET PO SCH (09:26)
[2022-07-06] MEDS: PRAZOSIN 1 MG CAPSULE PO SCH ×3 (09:26→22:09)
[2022-07-06] MEDS: DOCUSATE SODIUM 100 MG CAPSULE PO SCH ×2 (09:28→22:09)
[2022-07-06] MEDS: CLOPIDOGREL 75 MG TABLET PO SCH (09:28)
[2022-07-06] MEDS: FUROSEMIDE 20 MG TABLET PO SCH (09:28)
[2022-07-06] MEDS: MULTIVITAMIN (PRENATAL) TABLET PO SCH (09:29)
[2022-07-06] MEDS: ISOSORBIDE MONONITRATE 60 MG TABLET PO SCH (09:29)
[2022-07-06] MEDS: METOPROLOL TARTRATE 50 MG TABLET PO SCH ×2 (09:30→22:09)
[2022-07-06] MEDS: PANTOPRAZOLE 40 MG TABLET PO SCH (09:30)
[2022-07-06] MEDS: GABAPENTIN 600 MG TABLET PO SCH ×2 (09:32→22:09)
[2022-07-06] MEDS: FOLIC ACID 1 MG TABLET PO SCH (09:32)
[2022-07-06] MEDS: DAPAGLIFLOZIN 10 MG TABLET PO SCH (09:32)
[2022-07-06] MEDS: PHENYTOIN ER 100 MG CAPSULE PO SCH (09:33)
[2022-07-06] MEDS: MENTHOL/ZINC OXIDE OINT 71 GM JAR TOP SCH ×2 (09:33→22:08)
[2022-07-06] MEDS: NON-FORMULARY MEDICATION (Liraglutide [Victoza 2-Pak] 0.6 mg/0.1 mL (18 mg/3 mL) Pen Injec SUBCUT SCH (09:34)
[2022-07-06] MEDS: SODIUM CHLORIDE 0.65% NASAL SPRAY 45 ML BOTTLE BOTH NARES SCH ×4 (09:35→22:19)
[2022-07-06] MEDS: MUPIROCIN 2% OINT 22 GM TUBE TOP SCH ×2 (09:35→22:08)
[2022-07-06] MEDS: LORazepam 2 MG/1 ML VIAL IV PRN ×2 (09:58→18:13)
[2022-07-06] MEDS ORDERED: PHENYTOIN 100 MG/2 ML VIAL IV SCH (10:00)
[2022-07-06] MEDS ORDERED: levETIRAcetam 500 MG TABLET PO ONE (12:00)
[2022-07-06 12:34] LABS: Bilirubin,Urine Negative (Negative); Glucose,Urine (UA) 500 mg/dL (Negative); Ketones,Urine Negative (Negative); Nitrite,Urine Negative (Negative); Protein,Urine Negative (Negative); Squamous Epithelial Cell,Urine Occasional /HPF (0-10); Urine Appearance Clear (Clear); Urine Color Yellow (Yellow); Urine Specific Gravity 1.015 (1.001-1.035)
[2022-07-06 12:35] LABS: Blood, Urine Negative (Negative); Urine Urobilinogen 0.2 eU/dL (<2.0)
[2022-07-06] MEDS: cloNIDine 0.1 MG/24 HR PATCH TRANSDERM SCH (12:40)
[2022-07-06] MEDS: hydrALAZINE 20 MG/1 ML VIAL IV SCH ×2 (12:40→16:59)
[2022-07-06] MEDS: PHENYTOIN INJ 300 MG in SODIUM CHLORIDE 0.9% 50 ML IV SCH (17:21)
[2022-07-06] MEDS: PANTOPRAZOLE 40 MG VIAL IV SCH (22:09)
[2022-07-06] MEDS: ATORVASTATIN 40 MG TABLET PO SCH (22:09)
[2022-07-07] MEDS: ALBUTEROL/IPRATROPIUM 3 ML NEB RESP TX SCH ×4 (01:14→21:33)
[2022-07-07] MEDS: hydrALAZINE 20 MG/1 ML VIAL IV SCH ×4 (01:19→17:55)
[2022-07-07] MEDS: PHENYTOIN INJ 300 MG in SODIUM CHLORIDE 0.9% 50 ML IV SCH ×3 (01:19→17:53)
[2022-07-07 07:26] LABS: Basophils # 0.1 10*3/uL (0.0-0.2); Basophils % 0.6 % (0.0-0.8); Eosinophils # 0.4 10*3/uL (0.0-0.87); Eosinophils % 4.4 % (0.00-10.9); Hematocrit 33.6 VOL% (35.7-47.0); Hemoglobin 10.6 GM/DL (12.0-16.0); Immature Granulocytes % 0.2 %; Immature Granulocytes Absolute 0.02 #; Lymphocytes # 2.9 10*3/uL (1.4-4.0); Lymphocytes % 35.7 % (21.3-54.2); Mean Corpuscular HGB Conc 31.5 GM/DL (32-36); Mean Corpuscular Volume 91.1 FL (87-102); Mean Platelet Volume 10.7 FL (9.6-12.0); Monocytes # 0.4 10*3/uL (0.11-0.8); Monocytes % 4.8 % (1.7-12.7); Neutrophils % 54.3 % (38.7-73.9); Platelet Count 145 T/CUMM (130-400); Red Blood Count 3.69 MC/CUMM (3.8-5.5); Red Cell Distribution Width 15.9 % (9.3-17.3); White Blood Count 8.2 T/CUMM (4-12)
[2022-07-07 07:56] LABS: Calcium 8.5 MG/DL (8.5-10.1); Potassium 3.4 MMOL/L (3.5-5.1)
[2022-07-07] MEDS: predniSONE 10 MG TABLET PO SCH (09:30)
[2022-07-07] MEDS: FOLIC ACID 1 MG TABLET PO SCH (09:30)
[2022-07-07] MEDS: GABAPENTIN 600 MG TABLET PO SCH ×2 (09:30→21:51)
[2022-07-07] MEDS: DOCUSATE SODIUM 100 MG CAPSULE PO SCH ×2 (09:30→21:50)
[2022-07-07] MEDS: CLOPIDOGREL 75 MG TABLET PO SCH (09:30)
[2022-07-07] MEDS: MULTIVITAMIN (PRENATAL) TABLET PO SCH (09:30)
[2022-07-07] MEDS: METOPROLOL TARTRATE 50 MG TABLET PO SCH ×2 (09:30→21:50)
[2022-07-07] MEDS: PRAZOSIN 1 MG CAPSULE PO SCH ×3 (09:30→21:50)
[2022-07-07] MEDS: ISOSORBIDE MONONITRATE 60 MG TABLET PO SCH (09:31)
[2022-07-07] MEDS: ASPIRIN EC 81 MG TABLET PO SCH (09:31)
[2022-07-07] MEDS: CETIRIZINE 10 MG TABLET PO SCH (09:31)
[2022-07-07] MEDS: FUROSEMIDE 20 MG TABLET PO SCH (09:31)
[2022-07-07] MEDS: LINACLOTIDE 145 MCG CAPSULE PO SCH (09:31)
[2022-07-07] MEDS: DAPAGLIFLOZIN 10 MG TABLET PO SCH (09:31)
[2022-07-07] MEDS: POTASSIUM CHLORIDE 10 MEQ TABLET PO SCH ×3 (09:31→17:55)
[2022-07-07] MEDS: INSULIN REGULAR 100 UNIT/ML SUBCUT SCH ×4 (09:32→21:52)
[2022-07-07] MEDS: PANTOPRAZOLE 40 MG VIAL IV SCH ×2 (09:32→21:55)
[2022-07-07] MEDS: MENTHOL/ZINC OXIDE OINT 71 GM JAR TOP SCH ×2 (09:33→21:52)
[2022-07-07] MEDS: SODIUM CHLORIDE 0.65% NASAL SPRAY 45 ML BOTTLE BOTH NARES SCH ×4 (09:33→21:52)
[2022-07-07] MEDS: MUPIROCIN 2% OINT 22 GM TUBE TOP SCH ×2 (09:33→21:52)
[2022-07-07] MEDS: SODIUM CHLORIDE 0.9% 1,000 ML IV SCH ×2 (09:34→15:34)
[2022-07-07] MEDS: NON-FORMULARY MEDICATION (Liraglutide [Victoza 2-Pak] 0.6 mg/0.1 mL (18 mg/3 mL) Pen Injec SUBCUT SCH (10:31)
[2022-07-07] MEDS: ATORVASTATIN 40 MG TABLET PO SCH (21:51)
[2022-07-07] MEDS ORDERED: POTASSIUM CHLORIDE RIDER 10 MEQ/100 ML PREMIX IV PRN (22:52)
[2022-07-08] MEDS: hydrALAZINE 20 MG/1 ML VIAL IV SCH ×5 (01:04→23:55)
[2022-07-08] MEDS: PHENYTOIN INJ 300 MG in SODIUM CHLORIDE 0.9% 50 ML IV SCH ×3 (02:00→17:03)
[2022-07-08] MEDS: ALBUTEROL/IPRATROPIUM 3 ML NEB RESP TX SCH ×4 (03:26→19:20)
[2022-07-08 06:16] LABS: Basophils % 0.4 % (0.0-0.8); Eosinophils # 0.3 10*3/uL (0.0-0.87); Eosinophils % 2.7 % (0.00-10.9); Hemoglobin 10.2 GM/DL (12.0-16.0); Immature Granulocytes % 0.3 %; Immature Granulocytes Absolute 0.03 #; Lymphocytes # 2.9 10*3/uL (1.4-4.0); Lymphocytes % 31.7 % (21.3-54.2); Mean Corpuscular HGB Conc 30.9 GM/DL (32-36); Mean Corpuscular Volume 91.7 FL (87-102); Mean Platelet Volume 10.6 FL (9.6-12.0); Monocytes # 0.5 10*3/uL (0.11-0.8); Monocytes % 5.5 % (1.7-12.7); Neutrophils % 59.4 % (38.7-73.9); Platelet Count 150 T/CUMM (130-400); Red Cell Distribution Width 16.2 % (9.3-17.3); White Blood Count 9.2 T/CUMM (4-12)
[2022-07-08 06:41] LABS: Alanine Aminotransferase 39 U/L (13-56); Albumin 2.7 G/DL (3.4-5.0); Alkaline Phosphatase 105 U/L (45-117); Aspartate Amino Transferase 23 U/L (0-37); Bilirubin,Total < 0.39 MG/DL (0.20-1.00); Blood Urea Nitrogen 9 MG/DL (7-18); Calcium 8.1 MG/DL (8.5-10.1); Carbon Dioxide 22 MMOL/L (21-32); Chloride 109 MMOL/L (98-107); Glucose 198 MG/DL (74-106); Osmolality,Calculated 285.3 MOS/KG (273-304); Potassium 3.3 MMOL/L (3.5-5.1); Sodium 141 MMOL/L (136-145); Total Protein 6.3 G/DL (6.4-8.2)
[2022-07-08] MEDS: SODIUM CHLORIDE 0.9% 1,000 ML IV SCH ×3 (08:28→13:59)
[2022-07-08] MEDS: NON-FORMULARY MEDICATION (Liraglutide [Victoza 2-Pak] 0.6 mg/0.1 mL (18 mg/3 mL) Pen Injec SUBCUT SCH (08:31)
[2022-07-08] MEDS: INSULIN REGULAR 100 UNIT/ML SUBCUT SCH ×4 (08:31→20:26)
[2022-07-08] MEDS: PRAZOSIN 1 MG CAPSULE PO SCH ×3 (08:43→20:30)
[2022-07-08] MEDS: MULTIVITAMIN (PRENATAL) TABLET PO SCH (08:43)
[2022-07-08] MEDS: DAPAGLIFLOZIN 10 MG TABLET PO SCH (08:43)
[2022-07-08] MEDS: ISOSORBIDE MONONITRATE 60 MG TABLET PO SCH (08:43)
[2022-07-08] MEDS: ASPIRIN EC 81 MG TABLET PO SCH (08:44)
[2022-07-08] MEDS: FUROSEMIDE 20 MG TABLET PO SCH (08:44)
[2022-07-08] MEDS: CLOPIDOGREL 75 MG TABLET PO SCH (08:44)
[2022-07-08] MEDS: CETIRIZINE 10 MG TABLET PO SCH (08:44)
[2022-07-08] MEDS: predniSONE 10 MG TABLET PO SCH (08:44)
[2022-07-08] MEDS: FOLIC ACID 1 MG TABLET PO SCH (08:44)
[2022-07-08] MEDS: METOPROLOL TARTRATE 50 MG TABLET PO SCH ×2 (08:44→20:29)
[2022-07-08] MEDS: DOCUSATE SODIUM 100 MG CAPSULE PO SCH ×2 (08:44→20:29)
[2022-07-08] MEDS: PANTOPRAZOLE 40 MG VIAL IV SCH ×2 (08:44→20:30)
[2022-07-08] MEDS: POTASSIUM CHLORIDE 10 MEQ TABLET PO SCH ×3 (08:44→16:31)
[2022-07-08] MEDS: MUPIROCIN 2% OINT 22 GM TUBE TOP SCH ×2 (08:45→21:45)
[2022-07-08] MEDS: LINACLOTIDE 145 MCG CAPSULE PO SCH (08:45)
[2022-07-08] MEDS: MENTHOL/ZINC OXIDE OINT 71 GM JAR TOP SCH ×2 (08:45→21:45)
[2022-07-08] MEDS: SODIUM CHLORIDE 0.65% NASAL SPRAY 45 ML BOTTLE BOTH NARES SCH ×4 (08:48→21:45)
[2022-07-08] MEDS: GABAPENTIN 600 MG TABLET PO SCH ×2 (08:51→20:29)
[2022-07-08] MEDS ORDERED: ASPIRIN CHEW 81 MG TABLET PO ONE (12:04)
[2022-07-08] MEDS: LORazepam 2 MG/1 ML VIAL IV PRN ×2 (12:36→13:18)
[2022-07-08 12:52] LABS: Basophils % 0.3 % (0.0-0.8); Eosinophils # 0.2 10*3/uL (0.0-0.87); Eosinophils % 2.6 % (0.00-10.9); Hematocrit 34.4 VOL% (35.7-47.0); Hemoglobin 10.8 GM/DL (12.0-16.0); Immature Granulocytes % 0.4 %; Immature Granulocytes Absolute 0.04 #; Lymphocytes # 1.9 10*3/uL (1.4-4.0); Lymphocytes % 20.7 % (21.3-54.2); Mean Corpuscular HGB Conc 31.4 GM/DL (32-36); Mean Platelet Volume 10.5 FL (9.6-12.0); Monocytes # 0.3 10*3/uL (0.11-0.8); Monocytes % 3.3 % (1.7-12.7); Neutrophils % 72.7 % (38.7-73.9); Platelet Count 166 T/CUMM (130-400); Red Blood Count 3.78 MC/CUMM (3.8-5.5); Red Cell Distribution Width 16.4 % (9.3-17.3); White Blood Count 9.3 T/CUMM (4-12)
[2022-07-08 13:18] LABS: Alanine Aminotransferase 41 U/L (13-56); Albumin 3.3 G/DL (3.4-5.0); Alkaline Phosphatase 117 U/L (45-117); Aspartate Amino Transferase 28 U/L (0-37); Bilirubin,Total < 0.39 MG/DL (0.20-1.00); Blood Urea Nitrogen 8 MG/DL (7-18); Calcium 8.7 MG/DL (8.5-10.1); Carbon Dioxide 25 MMOL/L (21-32); Chloride 111 MMOL/L (98-107); Glucose 203 MG/DL (74-106); Osmolality,Calculated 286.1 MOS/KG (273-304); Potassium 3.7 MMOL/L (3.5-5.1); Sodium 142 MMOL/L (136-145); Total Protein 7.1 G/DL (6.4-8.2)
[2022-07-08] MEDS ORDERED: LACOSAMIDE IV ONE (13:22)
[2022-07-08] MEDS ORDERED: SODIUM CHLORIDE 0.9% IV ONE (13:22)
[2022-07-08] MEDS: methylPREDNISolone SOD SUC 40 MG/1 ML VIAL IV SCH (16:26)
[2022-07-08] MEDS: ATORVASTATIN 40 MG TABLET PO SCH (20:29)
[2022-07-08] MEDS: ACETAMINOPHEN 325 MG TABLET PO PRN (20:30)
[2022-07-08] MEDS ORDERED: LACOSAMIDE INJ 100 MG in SODIUM CHLORIDE 0.9% 50 ML IV SCH (21:00)
[2022-07-09] MEDS: SODIUM CHLORIDE 0.9% 1,000 ML IV SCH ×4 (00:04→15:15)
[2022-07-09] MEDS: PHENYTOIN INJ 300 MG in SODIUM CHLORIDE 0.9% 50 ML IV SCH ×3 (00:26→17:07)
[2022-07-09] MEDS: ALBUTEROL/IPRATROPIUM 3 ML NEB RESP TX SCH ×4 (00:26→19:16)
[2022-07-09] MEDS: methylPREDNISolone SOD SUC 40 MG/1 ML VIAL IV SCH ×2 (03:39→16:05)
[2022-07-09 04:18] LABS: Basophils % 0.6 % (0.0-0.8); Eosinophils # 0.1 10*3/uL (0.0-0.87); Hematocrit 32.5 VOL% (35.7-47.0); Hemoglobin 10.1 GM/DL (12.0-16.0); Immature Granulocytes % 0.4 %; Immature Granulocytes Absolute 0.03 #; Lymphocytes # 3.2 10*3/uL (1.4-4.0); Lymphocytes % 44.8 % (21.3-54.2); Mean Corpuscular HGB Conc 31.1 GM/DL (32-36); Mean Corpuscular Volume 92.3 FL (87-102); Mean Platelet Volume 10.7 FL (9.6-12.0); Monocytes # 0.5 10*3/uL (0.11-0.8); Monocytes % 6.5 % (1.7-12.7); Neutrophils % 45.7 % (38.7-73.9); Platelet Count 172 T/CUMM (130-400); Red Blood Count 3.52 MC/CUMM (3.8-5.5); Red Cell Distribution Width 16.5 % (9.3-17.3); White Blood Count 7.1 T/CUMM (4-12)
[2022-07-09 04:36] LABS: Alanine Aminotransferase 32 U/L (13-56); Albumin 2.8 G/DL (3.4-5.0); Alkaline Phosphatase 94 U/L (45-117); Aspartate Amino Transferase 24 U/L (0-37); Bilirubin,Total < 0.39 MG/DL (0.20-1.00); Blood Urea Nitrogen 7 MG/DL (7-18); Calcium 8.2 MG/DL (8.5-10.1); Carbon Dioxide 26 MMOL/L (21-32); Chloride 114 MMOL/L (98-107); Glucose 119 MG/DL (74-106); Osmolality,Calculated 284.8 MOS/KG (273-304); Phosphorous 4.6 MG/DL (2.5-4.9); Potassium 3.8 MMOL/L (3.5-5.1); Sodium 144 MMOL/L (136-145); Total Protein 6.4 G/DL (6.4-8.2)
[2022-07-09] MEDS: ACETAMINOPHEN 325 MG TABLET PO PRN (05:00)
[2022-07-09] MEDS: hydrALAZINE 20 MG/1 ML VIAL IV SCH ×4 (05:00→23:09)
[2022-07-09] MEDS: INSULIN REGULAR 100 UNIT/ML SUBCUT SCH ×4 (07:56→20:41)
[2022-07-09] MEDS: POTASSIUM CHLORIDE 10 MEQ TABLET PO SCH ×4 (07:57→17:07)
[2022-07-09] MEDS: LINACLOTIDE 145 MCG CAPSULE PO SCH ×2 (07:57→09:46)
[2022-07-09] MEDS: PANTOPRAZOLE 40 MG VIAL IV SCH ×2 (08:07→20:41)
[2022-07-09] MEDS ORDERED: LACOSAMIDE INJ 200 MG in SODIUM CHLORIDE 0.9% 50 ML IV SCH (09:00)
[2022-07-09] MEDS: LACOSAMIDE IV SCH ×2 (09:17→22:21)
[2022-07-09] MEDS: SODIUM CHLORIDE 0.9% IV SCH ×2 (09:17→22:21)
[2022-07-09] MEDS: CLOPIDOGREL 75 MG TABLET PO SCH (09:31)
[2022-07-09] MEDS: DAPAGLIFLOZIN 10 MG TABLET PO SCH (09:46)
[2022-07-09] MEDS: ISOSORBIDE MONONITRATE 60 MG TABLET PO SCH (09:46)
[2022-07-09] MEDS: GABAPENTIN 600 MG TABLET PO SCH ×2 (09:47→20:41)
[2022-07-09] MEDS: FUROSEMIDE 20 MG TABLET PO SCH (09:47)
[2022-07-09] MEDS: DOCUSATE SODIUM 100 MG CAPSULE PO SCH ×2 (09:47→20:40)
[2022-07-09] MEDS: MULTIVITAMIN (PRENATAL) TABLET PO SCH (09:47)
[2022-07-09] MEDS: FOLIC ACID 1 MG TABLET PO SCH (09:47)
[2022-07-09] MEDS: PRAZOSIN 1 MG CAPSULE PO SCH ×3 (09:47→20:41)
[2022-07-09] MEDS: ASPIRIN EC 81 MG TABLET PO SCH (09:47)
[2022-07-09] MEDS: CETIRIZINE 10 MG TABLET PO SCH (09:48)
[2022-07-09] MEDS: NON-FORMULARY MEDICATION (Liraglutide [Victoza 2-Pak] 0.6 mg/0.1 mL (18 mg/3 mL) Pen Injec SUBCUT SCH (10:14)
[2022-07-09] MEDS: METOPROLOL TARTRATE 50 MG TABLET PO SCH ×2 (10:15→20:41)
[2022-07-09] MEDS: MUPIROCIN 2% OINT 22 GM TUBE TOP SCH ×2 (10:16→20:41)
[2022-07-09] MEDS: MENTHOL/ZINC OXIDE OINT 71 GM JAR TOP SCH ×2 (10:16→20:41)
[2022-07-09] MEDS: SODIUM CHLORIDE 0.65% NASAL SPRAY 45 ML BOTTLE BOTH NARES SCH ×4 (10:16→20:41)
[2022-07-09] MEDS: ATORVASTATIN 40 MG TABLET PO SCH (20:41)
[2022-07-10] MEDS: ALBUTEROL/IPRATROPIUM 3 ML NEB RESP TX SCH ×4 (00:28→19:10)
[2022-07-10] MEDS: PHENYTOIN INJ 300 MG in SODIUM CHLORIDE 0.9% 50 ML IV SCH ×2 (00:29→09:53)
[2022-07-10] MEDS: methylPREDNISolone SOD SUC 40 MG/1 ML VIAL IV SCH ×2 (02:19→15:13)
[2022-07-10] MEDS: SODIUM CHLORIDE 0.9% 1,000 ML IV SCH ×2 (03:28→15:44)
[2022-07-10 03:57] LABS: Basophils % 0.5 % (0.0-0.8); Eosinophils # 0.2 10*3/uL (0.0-0.87); Eosinophils % 2.9 % (0.00-10.9); Hemoglobin 9.4 GM/DL (12.0-16.0); Immature Granulocytes % 0.4 %; Immature Granulocytes Absolute 0.03 #; Lymphocytes # 2.9 10*3/uL (1.4-4.0); Lymphocytes % 36.1 % (21.3-54.2); Mean Corpuscular HGB Conc 31.3 GM/DL (32-36); Mean Corpuscular Volume 92.6 FL (87-102); Monocytes # 0.4 10*3/uL (0.11-0.8); Monocytes % 5.3 % (1.7-12.7); Neutrophils % 54.8 % (38.7-73.9); Platelet Count 180 T/CUMM (130-400); Red Blood Count 3.24 MC/CUMM (3.8-5.5); Red Cell Distribution Width 16.7 % (9.3-17.3)
[2022-07-10 04:09] LABS: Alanine Aminotransferase 32 U/L (13-56); Albumin 2.6 G/DL (3.4-5.0); Alkaline Phosphatase 89 U/L (45-117); Aspartate Amino Transferase 36 U/L (0-37); Bilirubin,Total < 0.39 MG/DL (0.20-1.00); Blood Urea Nitrogen 8 MG/DL (7-18); Calcium 8.2 MG/DL (8.5-10.1); Carbon Dioxide 26 MMOL/L (21-32); Chloride 113 MMOL/L (98-107); Glucose 96 MG/DL (74-106); Osmolality,Calculated 285.7 MOS/KG (273-304); Sodium 145 MMOL/L (136-145); Total Protein 6.2 G/DL (6.4-8.2)
[2022-07-10] MEDS: hydrALAZINE 20 MG/1 ML VIAL IV SCH ×3 (05:48→16:30)
[2022-07-10] MEDS: INSULIN REGULAR 100 UNIT/ML SUBCUT SCH ×4 (07:46→20:04)
[2022-07-10] MEDS: PANTOPRAZOLE 40 MG VIAL IV SCH ×2 (09:10→20:03)
[2022-07-10] MEDS: MULTIVITAMIN (PRENATAL) TABLET PO SCH (09:11)
[2022-07-10] MEDS: DAPAGLIFLOZIN 10 MG TABLET PO SCH (09:11)
[2022-07-10] MEDS: DOCUSATE SODIUM 100 MG CAPSULE PO SCH ×2 (09:11→20:02)
[2022-07-10] MEDS: ISOSORBIDE MONONITRATE 60 MG TABLET PO SCH (09:11)
[2022-07-10] MEDS: NON-FORMULARY MEDICATION (Liraglutide [Victoza 2-Pak] 0.6 mg/0.1 mL (18 mg/3 mL) Pen Injec SUBCUT SCH (09:12)
[2022-07-10] MEDS: METOPROLOL TARTRATE 50 MG TABLET PO SCH ×2 (09:12→20:02)
[2022-07-10] MEDS: CETIRIZINE 10 MG TABLET PO SCH (09:12)
[2022-07-10] MEDS: ASPIRIN EC 81 MG TABLET PO SCH (09:12)
[2022-07-10] MEDS: MENTHOL/ZINC OXIDE OINT 71 GM JAR TOP SCH ×2 (09:12→20:09)
[2022-07-10] MEDS: FUROSEMIDE 20 MG TABLET PO SCH (09:12)
[2022-07-10] MEDS: PRAZOSIN 1 MG CAPSULE PO SCH ×3 (09:12→20:01)
[2022-07-10] MEDS: LINACLOTIDE 145 MCG CAPSULE PO SCH (09:12)
[2022-07-10] MEDS: POTASSIUM CHLORIDE 10 MEQ TABLET PO SCH ×3 (09:12→16:30)
[2022-07-10] MEDS: GABAPENTIN 600 MG TABLET PO SCH ×2 (09:12→20:01)
[2022-07-10] MEDS: MUPIROCIN 2% OINT 22 GM TUBE TOP SCH ×2 (09:12→20:09)
[2022-07-10] MEDS: FOLIC ACID 1 MG TABLET PO SCH (09:12)
[2022-07-10] MEDS: SODIUM CHLORIDE 0.65% NASAL SPRAY 45 ML BOTTLE BOTH NARES SCH ×4 (09:13→20:08)
[2022-07-10] MEDS: LACOSAMIDE IV SCH ×2 (10:30→20:57)
[2022-07-10] MEDS: SODIUM CHLORIDE 0.9% IV SCH ×2 (10:30→20:57)
[2022-07-10] MEDS: ATORVASTATIN 40 MG TABLET PO SCH (20:02)
[2022-07-11] MEDS: ALBUTEROL/IPRATROPIUM 3 ML NEB RESP TX SCH ×4 (00:07→19:22)
[2022-07-11] MEDS: hydrALAZINE 20 MG/1 ML VIAL IV SCH ×4 (00:08→18:14)
[2022-07-11] MEDS: methylPREDNISolone SOD SUC 40 MG/1 ML VIAL IV SCH (03:16)
[2022-07-11 04:51] LABS: Basophils # 0.1 10*3/uL (0.0-0.2); Basophils % 0.6 % (0.0-0.8); Eosinophils # 0.4 10*3/uL (0.0-0.87); Eosinophils % 4.4 % (0.00-10.9); Immature Granulocytes % 0.4 %; Immature Granulocytes Absolute 0.03 #; Lymphocytes # 2.5 10*3/uL (1.4-4.0); Lymphocytes % 29.1 % (21.3-54.2); Mean Corpuscular HGB Conc 31.3 GM/DL (32-36); Mean Corpuscular Volume 92.2 FL (87-102); Mean Platelet Volume 10.4 FL (9.6-12.0); Monocytes # 0.4 10*3/uL (0.11-0.8); Monocytes % 4.4 % (1.7-12.7); Neutrophils % 61.1 % (38.7-73.9); Platelet Count 175 T/CUMM (130-400); Red Blood Count 3.47 MC/CUMM (3.8-5.5); Red Cell Distribution Width 16.7 % (9.3-17.3); White Blood Count 8.6 T/CUMM (4-12)
[2022-07-11] MEDS: INSULIN REGULAR 100 UNIT/ML SUBCUT SCH ×4 (09:10→21:22)
[2022-07-11] MEDS: LINACLOTIDE 145 MCG CAPSULE PO SCH (09:13)
[2022-07-11] MEDS: GABAPENTIN 600 MG TABLET PO SCH ×2 (09:13→21:26)
[2022-07-11] MEDS: CETIRIZINE 10 MG TABLET PO SCH (09:14)
[2022-07-11] MEDS: FOLIC ACID 1 MG TABLET PO SCH (09:14)
[2022-07-11] MEDS: POTASSIUM CHLORIDE 10 MEQ TABLET PO SCH ×3 (09:14→17:26)
[2022-07-11] MEDS: DAPAGLIFLOZIN 10 MG TABLET PO SCH (09:14)
[2022-07-11] MEDS: ASPIRIN EC 81 MG TABLET PO SCH (09:15)
[2022-07-11] MEDS: ISOSORBIDE MONONITRATE 60 MG TABLET PO SCH (09:15)
[2022-07-11] MEDS: MULTIVITAMIN (PRENATAL) TABLET PO SCH (09:15)
[2022-07-11] MEDS: PRAZOSIN 1 MG CAPSULE PO SCH ×3 (09:15→21:21)
[2022-07-11] MEDS: FUROSEMIDE 20 MG TABLET PO SCH (09:15)
[2022-07-11] MEDS: METOPROLOL TARTRATE 50 MG TABLET PO SCH ×2 (09:15→21:21)
[2022-07-11] MEDS: PANTOPRAZOLE 40 MG VIAL IV SCH ×2 (09:16→21:22)
[2022-07-11] MEDS: DOCUSATE SODIUM 100 MG CAPSULE PO SCH ×2 (09:16→21:21)
[2022-07-11] MEDS: MENTHOL/ZINC OXIDE OINT 71 GM JAR TOP SCH ×2 (09:19→21:19)
[2022-07-11] MEDS: SODIUM CHLORIDE 0.65% NASAL SPRAY 45 ML BOTTLE BOTH NARES SCH ×4 (09:19→21:19)
[2022-07-11] MEDS: MUPIROCIN 2% OINT 22 GM TUBE TOP SCH ×2 (09:19→21:19)
[2022-07-11] MEDS: LACOSAMIDE IV SCH (09:21)
[2022-07-11] MEDS: SODIUM CHLORIDE 0.9% IV SCH (09:21)
[2022-07-11] MEDS: NON-FORMULARY MEDICATION (Liraglutide [Victoza 2-Pak] 0.6 mg/0.1 mL (18 mg/3 mL) Pen Injec SUBCUT SCH (09:22)
[2022-07-11] MEDS ORDERED: MAGNESIUM HYDROXIDE SUSP 30 ML UDCUP PO ONE (09:29)
[2022-07-11] MEDS ORDERED: SODIUM PHOSPHATE ENEMA 133 ML BOTTLE RECTAL PRN (10:56)
[2022-07-11] MEDS: ATORVASTATIN 40 MG TABLET PO SCH (21:20)
[2022-07-12] MEDS: SODIUM CHLORIDE 0.9% IV SCH ×3 (00:19→21:50)
[2022-07-12] MEDS: LACOSAMIDE IV SCH ×3 (00:19→21:50)
[2022-07-12] MEDS: hydrALAZINE 20 MG/1 ML VIAL IV SCH ×4 (00:41→17:42)
[2022-07-12 06:21] LABS: Basophils # 0.1 10*3/uL (0.0-0.2); Basophils % 0.7 % (0.0-0.8); Eosinophils # 0.6 10*3/uL (0.0-0.87); Hematocrit 33.9 VOL% (35.7-47.0); Hemoglobin 10.6 GM/DL (12.0-16.0); Immature Granulocytes % 0.1 %; Immature Granulocytes Absolute 0.01 #; Lymphocytes # 2.8 10*3/uL (1.4-4.0); Lymphocytes % 40.1 % (21.3-54.2); Mean Corpuscular HGB Conc 31.3 GM/DL (32-36); Mean Corpuscular Volume 92.6 FL (87-102); Mean Platelet Volume 10.9 FL (9.6-12.0); Monocytes # 0.5 10*3/uL (0.11-0.8); Monocytes % 6.6 % (1.7-12.7); Neutrophils % 44.5 % (38.7-73.9); Platelet Count 189 T/CUMM (130-400); Red Blood Count 3.66 MC/CUMM (3.8-5.5); Red Cell Distribution Width 16.6 % (9.3-17.3)
[2022-07-12] MEDS: ALBUTEROL/IPRATROPIUM 3 ML NEB RESP TX SCH ×3 (07:19→20:00)
[2022-07-12] MEDS: INSULIN REGULAR 100 UNIT/ML SUBCUT SCH ×4 (08:17→22:03)
[2022-07-12] MEDS: LINACLOTIDE 145 MCG CAPSULE PO SCH (08:22)
[2022-07-12] MEDS: ASPIRIN EC 81 MG TABLET PO SCH (08:49)
[2022-07-12] MEDS: POTASSIUM CHLORIDE 10 MEQ TABLET PO SCH ×3 (08:49→17:38)
[2022-07-12] MEDS: CETIRIZINE 10 MG TABLET PO SCH (08:49)
[2022-07-12] MEDS: ISOSORBIDE MONONITRATE 60 MG TABLET PO SCH (08:49)
[2022-07-12] MEDS: MULTIVITAMIN (PRENATAL) TABLET PO SCH (08:49)
[2022-07-12] MEDS: DAPAGLIFLOZIN 10 MG TABLET PO SCH (08:49)
[2022-07-12] MEDS: DOCUSATE SODIUM 100 MG CAPSULE PO SCH ×2 (08:49→21:49)
[2022-07-12] MEDS: GABAPENTIN 600 MG TABLET PO SCH ×2 (08:49→21:49)
[2022-07-12] MEDS: METOPROLOL TARTRATE 50 MG TABLET PO SCH ×2 (08:49→21:49)
[2022-07-12] MEDS: PRAZOSIN 1 MG CAPSULE PO SCH ×3 (08:49→21:49)
[2022-07-12] MEDS: FUROSEMIDE 20 MG TABLET PO SCH (08:50)
[2022-07-12] MEDS: FOLIC ACID 1 MG TABLET PO SCH (08:50)
[2022-07-12] MEDS: PANTOPRAZOLE 40 MG VIAL IV SCH ×2 (08:53→21:51)
[2022-07-12] MEDS: MUPIROCIN 2% OINT 22 GM TUBE TOP SCH ×2 (08:56→21:50)
[2022-07-12] MEDS: MENTHOL/ZINC OXIDE OINT 71 GM JAR TOP SCH ×2 (08:56→21:50)
[2022-07-12] MEDS: SODIUM CHLORIDE 0.65% NASAL SPRAY 45 ML BOTTLE BOTH NARES SCH ×4 (08:58→21:50)
[2022-07-12] MEDS: NON-FORMULARY MEDICATION (Liraglutide [Victoza 2-Pak] 0.6 mg/0.1 mL (18 mg/3 mL) Pen Injec SUBCUT SCH (08:58)
[2022-07-12] MEDS: ATORVASTATIN 40 MG TABLET PO SCH (21:49)
[2022-07-13] MEDS: ALBUTEROL/IPRATROPIUM 3 ML NEB RESP TX SCH ×4 (01:59→19:52)
[2022-07-13] MEDS: hydrALAZINE 20 MG/1 ML VIAL IV SCH ×4 (02:01→17:00)
[2022-07-13 05:51] LABS: Basophils % 0.6 % (0.0-0.8); Eosinophils # 0.7 10*3/uL (0.0-0.87); Eosinophils % 9.6 % (0.00-10.9); Hematocrit 35.2 VOL% (35.7-47.0); Immature Granulocytes % 0.3 %; Immature Granulocytes Absolute 0.02 #; Lymphocytes # 2.7 10*3/uL (1.4-4.0); Lymphocytes % 36.9 % (21.3-54.2); Mean Corpuscular HGB Conc 31.3 GM/DL (32-36); Mean Corpuscular Volume 93.1 FL (87-102); Mean Platelet Volume 10.6 FL (9.6-12.0); Monocytes # 0.5 10*3/uL (0.11-0.8); Monocytes % 6.2 % (1.7-12.7); Neutrophils % 46.4 % (38.7-73.9); Platelet Count 189 T/CUMM (130-400); Red Blood Count 3.78 MC/CUMM (3.8-5.5); Red Cell Distribution Width 16.5 % (9.3-17.3); White Blood Count 7.3 T/CUMM (4-12)
[2022-07-13] MEDS: ISOSORBIDE MONONITRATE 60 MG TABLET PO SCH (09:22)
[2022-07-13] MEDS: MULTIVITAMIN (PRENATAL) TABLET PO SCH (09:22)
[2022-07-13] MEDS: FOLIC ACID 1 MG TABLET PO SCH (09:22)
[2022-07-13] MEDS: POTASSIUM CHLORIDE 10 MEQ TABLET PO SCH ×3 (09:22→17:12)
[2022-07-13] MEDS: ASPIRIN EC 81 MG TABLET PO SCH (09:22)
[2022-07-13] MEDS: DAPAGLIFLOZIN 10 MG TABLET PO SCH (09:22)
[2022-07-13] MEDS: FUROSEMIDE 20 MG TABLET PO SCH (09:22)
[2022-07-13] MEDS: DOCUSATE SODIUM 100 MG CAPSULE PO SCH ×2 (09:22→20:36)
[2022-07-13] MEDS: CETIRIZINE 10 MG TABLET PO SCH (09:22)
[2022-07-13] MEDS: METOPROLOL TARTRATE 50 MG TABLET PO SCH ×2 (09:22→20:36)
[2022-07-13] MEDS: PRAZOSIN 1 MG CAPSULE PO SCH ×3 (09:22→20:36)
[2022-07-13] MEDS: GABAPENTIN 600 MG TABLET PO SCH ×2 (09:23→20:36)
[2022-07-13] MEDS: LINACLOTIDE 145 MCG CAPSULE PO SCH (09:34)
[2022-07-13] MEDS: cloNIDine 0.1 MG/24 HR PATCH TRANSDERM SCH (09:34)
[2022-07-13] MEDS: MENTHOL/ZINC OXIDE OINT 71 GM JAR TOP SCH ×2 (09:35→20:37)
[2022-07-13] MEDS: MUPIROCIN 2% OINT 22 GM TUBE TOP SCH ×2 (09:35→20:37)
[2022-07-13] MEDS: SODIUM CHLORIDE 0.65% NASAL SPRAY 45 ML BOTTLE BOTH NARES SCH ×4 (09:36→20:37)
[2022-07-13] MEDS: NON-FORMULARY MEDICATION (Liraglutide [Victoza 2-Pak] 0.6 mg/0.1 mL (18 mg/3 mL) Pen Injec SUBCUT SCH (09:36)
[2022-07-13] MEDS: PANTOPRAZOLE 40 MG VIAL IV SCH ×2 (09:42→20:37)
[2022-07-13] MEDS: SODIUM CHLORIDE 0.9% IV SCH ×2 (09:43→21:08)
[2022-07-13] MEDS: LACOSAMIDE IV SCH ×2 (09:43→21:08)
[2022-07-13] MEDS: INSULIN REGULAR 100 UNIT/ML SUBCUT SCH ×4 (09:43→20:37)
[2022-07-13] MEDS: ATORVASTATIN 40 MG TABLET PO SCH (20:36)
[2022-07-14] MEDS: hydrALAZINE 20 MG/1 ML VIAL IV SCH ×5 (03:16→23:51)
[2022-07-14] MEDS: ALBUTEROL/IPRATROPIUM 3 ML NEB RESP TX SCH ×5 (03:27→19:15)
[2022-07-14 06:45] LABS: Basophils # 0.1 10*3/uL (0.0-0.2); Eosinophils # 0.8 10*3/uL (0.0-0.87); Eosinophils % 12.6 % (0.00-10.9); Hemoglobin 11.2 GM/DL (12.0-16.0); Immature Granulocytes % 0.2 %; Immature Granulocytes Absolute 0.01 #; Lymphocytes # 2.4 10*3/uL (1.4-4.0); Lymphocytes % 38.5 % (21.3-54.2); Mean Corpuscular HGB Conc 31.1 GM/DL (32-36); Mean Corpuscular Volume 93.5 FL (87-102); Mean Platelet Volume 11.2 FL (9.6-12.0); Monocytes # 0.5 10*3/uL (0.11-0.8); Monocytes % 7.6 % (1.7-12.7); Neutrophils % 40.1 % (38.7-73.9); Platelet Count 193 T/CUMM (130-400); Red Blood Count 3.85 MC/CUMM (3.8-5.5); Red Cell Distribution Width 16.7 % (9.3-17.3); White Blood Count 6.3 T/CUMM (4-12)
[2022-07-14 06:59] LABS: Alanine Aminotransferase 29 U/L (13-56); Alkaline Phosphatase 117 U/L (45-117); Aspartate Amino Transferase 21 U/L (0-37); Bilirubin,Total < 0.39 MG/DL (0.20-1.00); Blood Urea Nitrogen 12 MG/DL (7-18); Calcium 8.5 MG/DL (8.5-10.1); Carbon Dioxide 26 MMOL/L (21-32); Chloride 109 MMOL/L (98-107); Glucose 143 MG/DL (74-106); Osmolality,Calculated 284.1 MOS/KG (273-304); Potassium 4.3 MMOL/L (3.5-5.1); Sodium 142 MMOL/L (136-145)
[2022-07-14 07:09] LABS: Eosinophils 20 % (0-10); Lymphocytes 43 % (20-55); Total Cells Counted 100
[2022-07-14 07:10] LABS: Anisocytosis 1+; Hypochromia Slight; Ovalocytes Slight; Platelet Estimate Adequate
[2022-07-14 07:11] LABS: Microcytosis 1+
[2022-07-14] MEDS: ISOSORBIDE MONONITRATE 60 MG TABLET PO SCH (08:15)
[2022-07-14] MEDS: ASPIRIN EC 81 MG TABLET PO SCH (08:15)
[2022-07-14] MEDS: PRAZOSIN 1 MG CAPSULE PO SCH ×3 (08:16→20:53)
[2022-07-14] MEDS: DOCUSATE SODIUM 100 MG CAPSULE PO SCH ×2 (08:16→20:53)
[2022-07-14] MEDS: CETIRIZINE 10 MG TABLET PO SCH (08:16)
[2022-07-14] MEDS: METOPROLOL TARTRATE 50 MG TABLET PO SCH ×2 (08:16→20:53)
[2022-07-14] MEDS: FUROSEMIDE 20 MG TABLET PO SCH (08:16)
[2022-07-14] MEDS: FOLIC ACID 1 MG TABLET PO SCH (08:16)
[2022-07-14] MEDS: GABAPENTIN 600 MG TABLET PO SCH ×2 (08:16→20:53)
[2022-07-14] MEDS: DAPAGLIFLOZIN 10 MG TABLET PO SCH (08:16)
[2022-07-14] MEDS: POTASSIUM CHLORIDE 10 MEQ TABLET PO SCH ×3 (08:16→16:23)
[2022-07-14] MEDS: MULTIVITAMIN (PRENATAL) TABLET PO SCH (08:16)
[2022-07-14] MEDS: LACOSAMIDE IV SCH (08:17)
[2022-07-14] MEDS: LINACLOTIDE 145 MCG CAPSULE PO SCH (08:17)
[2022-07-14] MEDS: SODIUM CHLORIDE 0.9% IV SCH (08:17)
[2022-07-14] MEDS: MUPIROCIN 2% OINT 22 GM TUBE TOP SCH ×2 (08:34→20:55)
[2022-07-14] MEDS: MENTHOL/ZINC OXIDE OINT 71 GM JAR TOP SCH ×2 (08:34→20:52)
[2022-07-14] MEDS: INSULIN REGULAR 100 UNIT/ML SUBCUT SCH ×4 (08:34→20:53)
[2022-07-14] MEDS: PANTOPRAZOLE 40 MG VIAL IV SCH ×2 (08:35→20:55)
[2022-07-14] MEDS: NON-FORMULARY MEDICATION (Liraglutide [Victoza 2-Pak] 0.6 mg/0.1 mL (18 mg/3 mL) Pen Injec SUBCUT SCH (08:35)
[2022-07-14] MEDS: SODIUM CHLORIDE 0.65% NASAL SPRAY 45 ML BOTTLE BOTH NARES SCH ×4 (08:35→20:55)
[2022-07-14] MEDS: ACETAMINOPHEN 325 MG TABLET PO PRN (16:24)
[2022-07-14] MEDS: ATORVASTATIN 40 MG TABLET PO SCH (20:53)
[2022-07-14] MEDS: levETIRAcetam 500 MG TABLET PO SCH (20:53)
[2022-07-14] MEDS: LACOSAMIDE 50 MG TABLET PO SCH (20:54)
[2022-07-15] MEDS: ALBUTEROL/IPRATROPIUM 3 ML NEB RESP TX SCH ×3 (00:06→14:05)
[2022-07-15] MEDS: hydrALAZINE 20 MG/1 ML VIAL IV SCH (05:44)
[2022-07-15] MEDS: INSULIN REGULAR 100 UNIT/ML SUBCUT SCH ×2 (07:54→11:25)
[2022-07-15] MEDS: CETIRIZINE 10 MG TABLET PO SCH (08:18)
[2022-07-15] MEDS: FOLIC ACID 1 MG TABLET PO SCH (08:18)
[2022-07-15] MEDS: FUROSEMIDE 20 MG TABLET PO SCH (08:18)
[2022-07-15] MEDS: LACOSAMIDE 50 MG TABLET PO SCH (08:18)
[2022-07-15] MEDS: METOPROLOL TARTRATE 50 MG TABLET PO SCH (08:18)
[2022-07-15] MEDS: levETIRAcetam 500 MG TABLET PO SCH (08:18)
[2022-07-15] MEDS: GABAPENTIN 600 MG TABLET PO SCH (08:18)
[2022-07-15] MEDS: PRAZOSIN 1 MG CAPSULE PO SCH (08:18)
[2022-07-15] MEDS: MULTIVITAMIN (PRENATAL) TABLET PO SCH (08:19)
[2022-07-15] MEDS: DAPAGLIFLOZIN 10 MG TABLET PO SCH (08:19)
[2022-07-15] MEDS: ISOSORBIDE MONONITRATE 60 MG TABLET PO SCH (08:19)
[2022-07-15] MEDS: POTASSIUM CHLORIDE 10 MEQ TABLET PO SCH ×2 (08:23→12:51)
[2022-07-15] MEDS: DOCUSATE SODIUM 100 MG CAPSULE PO SCH (08:23)
[2022-07-15] MEDS: NON-FORMULARY MEDICATION (Liraglutide [Victoza 2-Pak] 0.6 mg/0.1 mL (18 mg/3 mL) Pen Injec SUBCUT SCH (08:23)
[2022-07-15] MEDS: LINACLOTIDE 145 MCG CAPSULE PO SCH (08:23)
[2022-07-15] MEDS: MENTHOL/ZINC OXIDE OINT 71 GM JAR TOP SCH (08:23)
[2022-07-15] MEDS: SODIUM CHLORIDE 0.65% NASAL SPRAY 45 ML BOTTLE BOTH NARES SCH ×2 (08:23→12:51)
[2022-07-15] MEDS: MUPIROCIN 2% OINT 22 GM TUBE TOP SCH (08:23)
[2022-07-15] MEDS: PANTOPRAZOLE 40 MG VIAL IV SCH (08:24)
[2022-07-15 08:46] LABS: INR 1.2; PT Patient Result 12.7 SECS (10.1-12.1)
[2022-07-15 11:03] VITALS: BP 146/69
[2022-07-15 12:08] LABS: Appearance,CSF Clear; Lymphocytes,CSF 92 %; Monocytes,CSF 8 %; Red Blood Cell,CSF < 1 C/CUMM; White Blood Cell,CSF 11 C/CUMM
== END 2022-07-15 15:38 | DRG 251 ==
LOC: EDUNIT# → N.EDINP 12:33 → N.ED 12:33 → N.EDINP 17:47 → N.2E 18:02 → SUATTDRO 07-06 15:15 → N.ICU 07-08 12:50 → N.3E 07-11 20:26
PROVIDERS: ADMIT Family Medicine; ATTEND Internal Medicine

== ENCOUNTER 2022-07-18 04:16 | Observation (INO) ==
[2022-07-18] MEDS ORDERED: levETIRAcetam 500 MG/5 ML VIAL IV STA (04:35)
[2022-07-18 04:48] LABS: Basophils # 0.1 10*3/uL (0.0-0.2); Basophils % 0.8 % (0.0-0.8); Eosinophils # 0.3 10*3/uL (0.0-0.87); Eosinophils % 5.1 % (0.00-10.9); Hematocrit 40.8 VOL% (35.7-47.0); Hemoglobin 12.6 GM/DL (12.0-16.0); Immature Granulocytes % 0.5 %; Immature Granulocytes Absolute 0.03 #; Lymphocytes # 3.1 10*3/uL (1.4-4.0); Lymphocytes % 48.6 % (21.3-54.2); Mean Corpuscular HGB Conc 30.9 GM/DL (32-36); Mean Corpuscular Volume 92.7 FL (87-102); Mean Platelet Volume 10.6 FL (9.6-12.0); Monocytes # 0.4 10*3/uL (0.11-0.8); Monocytes % 6.7 % (1.7-12.7); Neutrophils % 38.3 % (38.7-73.9); Platelet Count 219 T/CUMM (130-400); Red Cell Distribution Width 15.9 % (9.3-17.3); White Blood Count 6.3 T/CUMM (4-12)
[2022-07-18 05:09] LABS: Alanine Aminotransferase 43 U/L (13-56); Albumin 3.6 G/DL (3.4-5.0); Alkaline Phosphatase 153 U/L (45-117); Aspartate Amino Transferase 42 U/L (0-37); Bilirubin,Total < 0.39 MG/DL (0.20-1.00); Blood Urea Nitrogen 21 MG/DL (7-18); Calcium 8.7 MG/DL (8.5-10.1); Carbon Dioxide 26 MMOL/L (21-32); Chloride 105 MMOL/L (98-107); Glucose 191 MG/DL (74-106); Osmolality,Calculated 282.7 MOS/KG (273-304); Sodium 138 MMOL/L (136-145); Total Protein 8.2 G/DL (6.4-8.2)
[2022-07-18 05:16] LABS: Eosinophils 5 % (0-10); Lymphocytes 57 % (20-55); Total Cells Counted 100
[2022-07-18 05:17] LABS: Platelet Estimate Adequate
[2022-07-18 05:19] LABS: Bilirubin,Urine Negative (Negative); Blood, Urine Negative (Negative); Glucose,Urine (UA) >=1000 mg/dL (Negative); Ketones,Urine Negative (Negative); Nitrite,Urine Negative (Negative); Protein,Urine 100 mg/dL (Negative); RBC,Urine <1 /HPF (0-4); Urine Appearance Clear (Clear); Urine Color Yellow (Yellow); Urine Specific Gravity 1.015 (1.001-1.035); Urine Urobilinogen 0.2 eU/dL (<2.0)
[2022-07-18] MEDS ORDERED: LABETALOL 20 MG/4 ML SYRINGE IV STA (05:32)
[2022-07-18 06:31] LABS: Barbiturates Screen,Urine Negative (Negative); Benzodiazepines Screen,Urine Negative (Negative); Cannabinoid Screen,Urine Negative (Negative); Opiate Screen,Urine Positive (Negative); Phencyclidine Screen,Urine Negative (Negative)
[2022-07-18] MEDS ORDERED: BISMUTH SUBSALICYLATE 30 ML/524 MG 240 ML/BOTTLE PO PRN (08:08)
[2022-07-18] MEDS ORDERED: LORazepam 2 MG/1 ML VIAL IV PRN (08:08)
[2022-07-18] MEDS ORDERED: GLUCAGON 1 MG VIAL IM PRN (08:08)
[2022-07-18] MEDS ORDERED: NITROGLYCERIN SL 0.4 MG TABLET SL PRN (08:08)
[2022-07-18] MEDS ORDERED: ALBUTEROL 0.63 MG/3 ML NEB RESP TX PRN (08:08)
[2022-07-18] MEDS ORDERED: ACETAMINOPHEN 325 MG TABLET PO PRN ×2 (08:08)
[2022-07-18] MEDS ORDERED: MORPHINE 2 MG/1 ML SYRINGE IV PRN (08:08)
[2022-07-18] MEDS ORDERED: HydrOXYzine PAMOATE 25 MG CAPSULE PO PRN (08:08)
[2022-07-18] MEDS ORDERED: ONDANSETRON 4 MG/2 ML VIAL IM PRN (08:08)
[2022-07-18] MEDS ORDERED: DEXTROSE 10% 250 ML BAG IV PRN ×2 (08:08→12:39)
[2022-07-18] MEDS ORDERED: diphenhydrAMINE CAP 25 MG CAPSULE PO PRN (08:08)
[2022-07-18] MEDS ORDERED: ONDANSETRON 4 MG/2 ML VIAL IV PRN (08:08)
[2022-07-18] MEDS ORDERED: PANTOPRAZOLE 40 MG TABLET PO ONE (08:47)
[2022-07-18] MEDS ORDERED: DAPAGLIFLOZIN 10 MG TABLET PO SCH (09:00)
[2022-07-18] MEDS ORDERED: PANTOPRAZOLE 40 MG TABLET PO SCH (09:00)
[2022-07-18] MEDS: LINACLOTIDE 145 MCG CAPSULE PO SCH (09:29)
[2022-07-18] MEDS: POTASSIUM CHLORIDE 10 MEQ TABLET PO SCH ×4 (09:29→17:25)
[2022-07-18] MEDS: DOCUSATE SODIUM 100 MG CAPSULE PO SCH ×2 (09:30→20:39)
[2022-07-18] MEDS: SODIUM CHLORIDE 0.9% 1,000 ML IV SCH (09:30)
[2022-07-18] MEDS: MUPIROCIN 2% OINT 22 GM TUBE TOP SCH ×2 (09:30→20:38)
[2022-07-18] MEDS: FOLIC ACID 1 MG TABLET PO SCH (09:31)
[2022-07-18] MEDS: DAPAGLIFLOZIN 10 MG TABLET PO SCH (09:31)
[2022-07-18] MEDS: FUROSEMIDE 20 MG TABLET PO SCH (09:31)
[2022-07-18] MEDS: ISOSORBIDE MONONITRATE 60 MG TABLET PO SCH (09:31)
[2022-07-18] MEDS: POLYETHYLENE GLYCOL POWDER 17 GM PACK PO SCH (09:32)
[2022-07-18] MEDS: METOPROLOL TARTRATE 50 MG TABLET PO SCH ×2 (09:32→20:40)
[2022-07-18] MEDS: PRAZOSIN 1 MG CAPSULE PO SCH ×3 (09:32→20:40)
[2022-07-18] MEDS: GABAPENTIN 600 MG TABLET PO SCH ×2 (09:33→20:40)
[2022-07-18] MEDS: predniSONE 10 MG TABLET PO SCH (09:33)
[2022-07-18] MEDS: CLOPIDOGREL 75 MG TABLET PO SCH (09:33)
[2022-07-18] MEDS: NORTRIPTYLINE 25 MG CAPSULE PO SCH ×3 (09:33→20:41)
[2022-07-18] MEDS: CETIRIZINE 10 MG TABLET PO SCH (09:34)
[2022-07-18] MEDS: PANTOPRAZOLE 40 MG VIAL IV SCH (09:34)
[2022-07-18] MEDS: levETIRAcetam 500 MG TABLET PO SCH ×2 (09:37→20:54)
[2022-07-18] MEDS: INSULIN REGULAR 100 UNIT/ML SUBCUT SCH ×3 (09:37→18:40)
[2022-07-18] MEDS: LACOSAMIDE 50 MG TABLET PO SCH ×2 (09:52→20:41)
[2022-07-18] MEDS: LIRAGLUTIDE SUBCUT SCH (14:39)
[2022-07-18] MEDS: MULTIVITAMIN (PRENATAL) TABLET PO SCH (14:40)
[2022-07-18] MEDS: MENTHOL/ZINC OXIDE OINT 71 GM JAR TOP SCH ×2 (14:57→20:38)
[2022-07-18] MEDS: HYDROCORTISONE 1% CREAM 28 GM TUBE TOP PRN (14:58)
[2022-07-18] MEDS: SODIUM CHLORIDE 0.65% NASAL SPRAY 45 ML BOTTLE BOTH NARES SCH ×4 (14:58→20:41)
[2022-07-18] MEDS: ATORVASTATIN 40 MG TABLET PO SCH (20:39)
[2022-07-18] MEDS: MONTELUKAST 10 MG TABLET PO SCH (20:41)
[2022-07-19] MEDS: INSULIN REGULAR 100 UNIT/ML SUBCUT SCH ×4 (00:01→18:13)
[2022-07-19] MEDS: SODIUM CHLORIDE 0.9% 1,000 ML IV SCH ×3 (00:46→14:43)
[2022-07-19 05:48] LABS: Basophils % 0.6 % (0.0-0.8); Eosinophils # 0.3 10*3/uL (0.0-0.87); Eosinophils % 5.9 % (0.00-10.9); Hematocrit 35.1 VOL% (35.7-47.0); Immature Granulocytes % 0.2 %; Immature Granulocytes Absolute 0.01 #; Lymphocytes # 2.8 10*3/uL (1.4-4.0); Mean Corpuscular HGB Conc 31.3 GM/DL (32-36); Mean Corpuscular Volume 92.6 FL (87-102); Mean Platelet Volume 11.5 FL (9.6-12.0); Monocytes # 0.4 10*3/uL (0.11-0.8); Monocytes % 7.6 % (1.7-12.7); Neutrophils % 31.7 % (38.7-73.9); Platelet Count 200 T/CUMM (130-400); Red Blood Count 3.79 MC/CUMM (3.8-5.5); Red Cell Distribution Width 15.9 % (9.3-17.3); White Blood Count 5.3 T/CUMM (4-12)
[2022-07-19 05:58] LABS: Alanine Aminotransferase 41 U/L (13-56); Albumin 3.1 G/DL (3.4-5.0); Alkaline Phosphatase 108 U/L (45-117); Aspartate Amino Transferase 39 U/L (0-37); Bilirubin,Total < 0.39 MG/DL (0.20-1.00); Blood Urea Nitrogen 21 MG/DL (7-18); Calcium 8.5 MG/DL (8.5-10.1); Carbon Dioxide 23 MMOL/L (21-32); Chloride 109 MMOL/L (98-107); Cholesterol 136 MG/DL (50-200); Glucose 186 MG/DL (74-106); HDL Cholesterol 53 MG/DL (40-60); Osmolality,Calculated 286.4 MOS/KG (273-304); Potassium 3.9 MMOL/L (3.5-5.1); Risk Ratio 2.57; Sodium 140 MMOL/L (136-145); Total Protein 7.2 G/DL (6.4-8.2); Triglycerides 113 MG/DL (2-150); VLDL Cholesterol 22.6 MG/DL
[2022-07-19] MEDS: LINACLOTIDE 145 MCG CAPSULE PO SCH (06:41)
[2022-07-19 09:04] LABS: Band Neutrophils 2 % (0-10); Eosinophils 6 % (0-10); Lymphocytes 56 % (20-55); Platelet Estimate Normal; Total Cells Counted 100
[2022-07-19 09:05] LABS: Anisocytosis 1+; Atypical Lymphocytes Few; Burr Cells Few; Macrocytosis Slight; Ovalocytes Few
[2022-07-19] MEDS: POTASSIUM CHLORIDE 10 MEQ TABLET PO SCH ×3 (09:21→16:13)
[2022-07-19] MEDS: DAPAGLIFLOZIN 10 MG TABLET PO SCH (09:21)
[2022-07-19] MEDS: levETIRAcetam 500 MG TABLET PO SCH ×2 (09:21→20:26)
[2022-07-19] MEDS: GABAPENTIN 600 MG TABLET PO SCH ×2 (09:22→20:27)
[2022-07-19] MEDS: ISOSORBIDE MONONITRATE 60 MG TABLET PO SCH (09:22)
[2022-07-19] MEDS: DOCUSATE SODIUM 100 MG CAPSULE PO SCH ×2 (09:22→20:26)
[2022-07-19] MEDS: CLOPIDOGREL 75 MG TABLET PO SCH (09:22)
[2022-07-19] MEDS: FUROSEMIDE 20 MG TABLET PO SCH (09:22)
[2022-07-19] MEDS: CETIRIZINE 10 MG TABLET PO SCH (09:22)
[2022-07-19] MEDS: LIRAGLUTIDE SUBCUT SCH (09:23)
[2022-07-19] MEDS: MENTHOL/ZINC OXIDE OINT 71 GM JAR TOP SCH ×2 (09:23→20:25)
[2022-07-19] MEDS: POLYETHYLENE GLYCOL POWDER 17 GM PACK PO SCH (09:24)
[2022-07-19] MEDS: SODIUM CHLORIDE 0.65% NASAL SPRAY 45 ML BOTTLE BOTH NARES SCH ×4 (09:24→20:27)
[2022-07-19] MEDS: METOPROLOL TARTRATE 50 MG TABLET PO SCH ×2 (09:29→20:26)
[2022-07-19] MEDS: PANTOPRAZOLE 40 MG VIAL IV SCH (09:36)
[2022-07-19] MEDS: NORTRIPTYLINE 25 MG CAPSULE PO SCH ×3 (09:38→20:27)
[2022-07-19] MEDS: predniSONE 10 MG TABLET PO SCH (09:38)
[2022-07-19] MEDS: MULTIVITAMIN (PRENATAL) TABLET PO SCH (09:38)
[2022-07-19] MEDS: FOLIC ACID 1 MG TABLET PO SCH (09:38)
[2022-07-19] MEDS: MUPIROCIN 2% OINT 22 GM TUBE TOP SCH ×2 (09:38→20:25)
[2022-07-19] MEDS: PRAZOSIN 1 MG CAPSULE PO SCH ×3 (09:38→20:26)
[2022-07-19] MEDS: LACOSAMIDE 50 MG TABLET PO SCH ×2 (09:39→20:27)
[2022-07-19] MEDS: ATORVASTATIN 40 MG TABLET PO SCH (20:26)
[2022-07-19] MEDS: MONTELUKAST 10 MG TABLET PO SCH (20:27)
[2022-07-20] MEDS: INSULIN REGULAR 100 UNIT/ML SUBCUT SCH ×4 (00:02→18:23)
[2022-07-20] MEDS: SODIUM CHLORIDE 0.9% 1,000 ML IV SCH ×2 (00:03→06:15)
[2022-07-20] MEDS: LINACLOTIDE 145 MCG CAPSULE PO SCH (09:07)
[2022-07-20] MEDS: FOLIC ACID 1 MG TABLET PO SCH (09:08)
[2022-07-20] MEDS: predniSONE 10 MG TABLET PO SCH (09:08)
[2022-07-20] MEDS: METOPROLOL TARTRATE 50 MG TABLET PO SCH ×2 (09:08→21:22)
[2022-07-20] MEDS: CETIRIZINE 10 MG TABLET PO SCH (09:09)
[2022-07-20] MEDS: LACOSAMIDE 50 MG TABLET PO SCH ×2 (09:09→21:21)
[2022-07-20] MEDS: ISOSORBIDE MONONITRATE 60 MG TABLET PO SCH (09:11)
[2022-07-20] MEDS: CLOPIDOGREL 75 MG TABLET PO SCH (09:11)
[2022-07-20] MEDS: DAPAGLIFLOZIN 10 MG TABLET PO SCH (09:11)
[2022-07-20] MEDS: FUROSEMIDE 20 MG TABLET PO SCH (09:11)
[2022-07-20] MEDS: MENTHOL/ZINC OXIDE OINT 71 GM JAR TOP SCH ×3 (09:11→21:30)
[2022-07-20] MEDS: POLYETHYLENE GLYCOL POWDER 17 GM PACK PO SCH (09:12)
[2022-07-20] MEDS: DOCUSATE SODIUM 100 MG CAPSULE PO SCH ×2 (09:12→21:31)
[2022-07-20] MEDS: levETIRAcetam 500 MG TABLET PO SCH ×2 (09:13→21:21)
[2022-07-20] MEDS: PRAZOSIN 1 MG CAPSULE PO SCH ×3 (09:14→21:35)
[2022-07-20] MEDS: GABAPENTIN 600 MG TABLET PO SCH ×2 (09:15→21:22)
[2022-07-20] MEDS: NORTRIPTYLINE 25 MG CAPSULE PO SCH ×3 (09:15→21:21)
[2022-07-20] MEDS: POTASSIUM CHLORIDE 10 MEQ TABLET PO SCH ×3 (09:16→17:15)
[2022-07-20] MEDS: LIRAGLUTIDE SUBCUT SCH (09:16)
[2022-07-20] MEDS: MULTIVITAMIN (PRENATAL) TABLET PO SCH (09:16)
[2022-07-20] MEDS: MUPIROCIN 2% OINT 22 GM TUBE TOP SCH ×2 (09:16→21:30)
[2022-07-20] MEDS: SODIUM CHLORIDE 0.65% NASAL SPRAY 45 ML BOTTLE BOTH NARES SCH ×4 (09:16→21:36)
[2022-07-20] MEDS: PANTOPRAZOLE 40 MG VIAL IV SCH (09:22)
[2022-07-20] MEDS: ATORVASTATIN 40 MG TABLET PO SCH (21:22)
[2022-07-20] MEDS: MONTELUKAST 10 MG TABLET PO SCH (21:22)
[2022-07-21] MEDS: INSULIN REGULAR 100 UNIT/ML SUBCUT SCH ×3 (01:15→11:41)
[2022-07-21] MEDS ORDERED: METHOTREXATE 2.5 MG TABLET PO SCH (05:35)
[2022-07-21] MEDS: SODIUM CHLORIDE 0.9% 1,000 ML IV SCH (05:43)
[2022-07-21] MEDS: PANTOPRAZOLE 40 MG VIAL IV SCH (10:25)
[2022-07-21] MEDS: PRAZOSIN 1 MG CAPSULE PO SCH (10:26)
[2022-07-21] MEDS: LACOSAMIDE 50 MG TABLET PO SCH (10:26)
[2022-07-21] MEDS: ISOSORBIDE MONONITRATE 60 MG TABLET PO SCH (10:26)
[2022-07-21] MEDS: METOPROLOL TARTRATE 50 MG TABLET PO SCH (10:26)
[2022-07-21] MEDS: predniSONE 10 MG TABLET PO SCH (10:26)
[2022-07-21] MEDS: GABAPENTIN 600 MG TABLET PO SCH (10:27)
[2022-07-21] MEDS: POTASSIUM CHLORIDE 10 MEQ TABLET PO SCH ×2 (10:27→11:49)
[2022-07-21] MEDS: DOCUSATE SODIUM 100 MG CAPSULE PO SCH (10:27)
[2022-07-21] MEDS: MULTIVITAMIN (PRENATAL) TABLET PO SCH (10:27)
[2022-07-21] MEDS: FOLIC ACID 1 MG TABLET PO SCH (10:27)
[2022-07-21] MEDS: NORTRIPTYLINE 25 MG CAPSULE PO SCH (10:27)
[2022-07-21] MEDS: FUROSEMIDE 20 MG TABLET PO SCH (10:28)
[2022-07-21] MEDS: LINACLOTIDE 145 MCG CAPSULE PO SCH (10:28)
[2022-07-21] MEDS: levETIRAcetam 500 MG TABLET PO SCH (10:28)
[2022-07-21] MEDS: CETIRIZINE 10 MG TABLET PO SCH (10:28)
[2022-07-21] MEDS: DAPAGLIFLOZIN 10 MG TABLET PO SCH (10:28)
[2022-07-21] MEDS: MENTHOL/ZINC OXIDE OINT 71 GM JAR TOP SCH (10:29)
[2022-07-21] MEDS: HYDROCORTISONE 1% CREAM 28 GM TUBE TOP PRN (10:29)
[2022-07-21] MEDS: POLYETHYLENE GLYCOL POWDER 17 GM PACK PO SCH (10:30)
[2022-07-21] MEDS: SODIUM CHLORIDE 0.65% NASAL SPRAY 45 ML BOTTLE BOTH NARES SCH ×2 (10:30→12:05)
[2022-07-21] MEDS: MUPIROCIN 2% OINT 22 GM TUBE TOP SCH (10:33)
[2022-07-21] MEDS: CLOPIDOGREL 75 MG TABLET PO SCH (10:34)
[2022-07-21] MEDS: LIRAGLUTIDE SUBCUT SCH (10:35)
[2022-07-21 14:52] VITALS: BP 151/68
== END 2022-07-21 14:25 ==
LOC: EDBD → EDUNIT# → N.EDINP 04:16 → N.ED 04:16 → N.TELES 13:40
PROVIDERS: ADMIT Family Medicine; ATTEND Family Medicine

== ENCOUNTER 2022-08-17 15:05 | Inpatient (IN) ==
[2022-08-17] MEDS ORDERED: LORazepam 2 MG/1 ML VIAL ONE (15:32)
[2022-08-17] MEDS ORDERED: levETIRAcetam 500 MG/5 ML VIAL IV STA (15:38)
[2022-08-17 16:14] LABS: Basophils % 0.6 % (0.0-0.8); Eosinophils # 0.1 10*3/uL (0.0-0.87); Eosinophils % 1.2 % (0.00-10.9); Hematocrit 36.5 VOL% (35.7-47.0); Hemoglobin 11.1 GM/DL (12.0-16.0); Immature Granulocytes % 0.7 %; Immature Granulocytes Absolute 0.05 #; Lymphocytes # 1.6 10*3/uL (1.4-4.0); Lymphocytes % 23.8 % (21.3-54.2); Mean Corpuscular HGB Conc 30.4 GM/DL (32-36); Mean Corpuscular Volume 92.4 FL (87-102); Mean Platelet Volume 11.2 FL (9.6-12.0); Monocytes # 0.2 10*3/uL (0.11-0.8); Monocytes % 3.4 % (1.7-12.7); Neutrophils % 70.3 % (38.7-73.9); Platelet Count 216 T/CUMM (130-400); Red Blood Count 3.95 MC/CUMM (3.8-5.5); Red Cell Distribution Width 16.7 % (9.3-17.3)
[2022-08-17 16:33] LABS: Alanine Aminotransferase 37 U/L (13-56); Albumin 3.2 G/DL (3.4-5.0); Alkaline Phosphatase 119 U/L (45-117); Aspartate Amino Transferase 22 U/L (0-37); Bilirubin,Total < 0.39 MG/DL (0.20-1.00); Blood Urea Nitrogen 24 MG/DL (7-18); Calcium 8.4 MG/DL (8.5-10.1); Carbon Dioxide 29 MMOL/L (21-32); Chloride 105 MMOL/L (98-107); Glucose 253 MG/DL (74-106); Osmolality,Calculated 291.4 MOS/KG (273-304); Potassium 4.2 MMOL/L (3.5-5.1); Sodium 140 MMOL/L (136-145); Total Protein 7.9 G/DL (6.4-8.2)
[2022-08-17 17:56] LABS: Bilirubin,Urine Negative (Negative); Blood, Urine Negative (Negative); Glucose,Urine (UA) >=1000 mg/dL (Negative); Ketones,Urine Negative (Negative); Nitrite,Urine Negative (Negative); Protein,Urine Negative (Negative); RBC,Urine 1 /HPF (0-4); Urine Appearance Clear (Clear); Urine Color Yellow (Yellow); Urine Urobilinogen 0.2 eU/dL (<2.0)
[2022-08-17 18:27] LABS: Barbiturates Screen,Urine Negative (Negative); Benzodiazepines Screen,Urine Negative (Negative); Cannabinoid Screen,Urine Negative (Negative); Opiate Screen,Urine Negative (Negative); Phencyclidine Screen,Urine Negative (Negative)
[2022-08-17] MEDS ORDERED: ONDANSETRON 4 MG/5 ML PO PRN (18:29)
[2022-08-17] MEDS ORDERED: ACETAMINOPHEN 325 MG TABLET PO PRN (18:29)
[2022-08-17] MEDS ORDERED: GLUCAGON 1 MG VIAL IM PRN (18:36)
[2022-08-17] MEDS ORDERED: MAGNESIUM SULF RIDER 2 GM/50 ML PREMIX IV PRN (18:36)
[2022-08-17] MEDS ORDERED: MAGNESIUM SULF RIDER 4 GM/100 ML PREMIX IV PRN (18:36)
[2022-08-17] MEDS ORDERED: DEXTROSE 50% 25 GM/50 ML VIAL IV PRN (18:36)
[2022-08-17] MEDS ORDERED: DEXTROSE 10% 250 ML BAG IV PRN (18:36)
[2022-08-17] MEDS ORDERED: POTASSIUM CHLORIDE RIDER 10 MEQ/100 ML PREMIX IV PRN (18:36)
[2022-08-17] MEDS ORDERED: ATORVASTATIN 40 MG TABLET PO ONE (21:00)
[2022-08-17] MEDS ORDERED: LACOSAMIDE 50 MG TABLET PO ONE (21:00)
[2022-08-17] MEDS ORDERED: PANTOPRAZOLE 40 MG TABLET PO SCH (21:00)
[2022-08-17] MEDS: DOCUSATE SODIUM 100 MG CAPSULE PO SCH (21:07)
[2022-08-17] MEDS: ENOXAPARIN 40 MG/0.4 ML SYRINGE SUBCUT SCH (21:08)
[2022-08-17] MEDS: INSULIN REGULAR 100 UNIT/ML SUBCUT SCH (21:15)
[2022-08-18 06:28] LABS: Basophils # 0.1 10*3/uL (0.0-0.2); Basophils % 0.6 % (0.0-0.8); Eosinophils # 0.4 10*3/uL (0.0-0.87); Hematocrit 36.4 VOL% (35.7-47.0); Hemoglobin 11.4 GM/DL (12.0-16.0); Immature Granulocytes % 0.5 %; Immature Granulocytes Absolute 0.04 #; Lymphocytes # 3.7 10*3/uL (1.4-4.0); Lymphocytes % 41.8 % (21.3-54.2); Mean Corpuscular HGB Conc 31.3 GM/DL (32-36); Mean Corpuscular Volume 92.6 FL (87-102); Monocytes # 0.6 10*3/uL (0.11-0.8); Monocytes % 6.5 % (1.7-12.7); Neutrophils % 45.6 % (38.7-73.9); Platelet Count 202 T/CUMM (130-400); Red Blood Count 3.93 MC/CUMM (3.8-5.5); Red Cell Distribution Width 16.9 % (9.3-17.3); White Blood Count 8.82 T/CUMM (4-12)
[2022-08-18 07:05] LABS: Alanine Aminotransferase 32 U/L (13-56); Albumin 3.1 G/DL (3.4-5.0); Alkaline Phosphatase 94 U/L (45-117); Aspartate Amino Transferase 21 U/L (0-37); Bilirubin,Total < 0.39 MG/DL (0.20-1.00); Blood Urea Nitrogen 22 MG/DL (7-18); Carbon Dioxide 28 MMOL/L (21-32); Chloride 103 MMOL/L (98-107); Glucose 95 MG/DL (74-106); Osmolality,Calculated 283.3 MOS/KG (273-304); Potassium 3.5 MMOL/L (3.5-5.1); Sodium 141 MMOL/L (136-145); Total Protein 7.5 G/DL (6.4-8.2)
[2022-08-18] MEDS: INSULIN REGULAR 100 UNIT/ML SUBCUT SCH ×4 (07:39→21:40)
[2022-08-18] MEDS ORDERED: FUROSEMIDE 20 MG TABLET PO SCH (09:00)
[2022-08-18] MEDS ORDERED: FOLIC ACID 1 MG TABLET PO SCH (09:00)
[2022-08-18] MEDS: ISOSORBIDE MONONITRATE 60 MG TABLET PO SCH (10:22)
[2022-08-18] MEDS: LACOSAMIDE 50 MG TABLET PO SCH ×2 (10:22→21:38)
[2022-08-18] MEDS: PANTOPRAZOLE 40 MG TABLET PO SCH (10:22)
[2022-08-18] MEDS: CLOPIDOGREL 75 MG TABLET PO SCH (10:22)
[2022-08-18] MEDS: DOCUSATE SODIUM 100 MG CAPSULE PO SCH ×2 (10:22→23:22)
[2022-08-18] MEDS: ACETAMINOPHEN 325 MG TABLET PO PRN (10:23)
[2022-08-18] MEDS: METOPROLOL TARTRATE 50 MG TABLET PO SCH ×2 (10:23→21:39)
[2022-08-18] MEDS: levETIRAcetam 500 MG TABLET PO SCH ×2 (10:23→21:38)
[2022-08-18] MEDS: SODIUM CHLORIDE 0.65% NASAL SPRAY 45 ML BOTTLE BOTH NARES SCH ×4 (12:11→21:40)
[2022-08-18] MEDS: MUPIROCIN 2% OINT 22 GM TUBE TOP SCH ×3 (12:11→21:40)
[2022-08-18] MEDS ORDERED: HYDROCORTISONE 1% CREAM 28 GM TUBE TOP PRN (12:24)
[2022-08-18] MEDS: ATORVASTATIN 40 MG TABLET PO SCH ×2 (15:01→21:38)
[2022-08-18] MEDS: ENOXAPARIN 40 MG/0.4 ML SYRINGE SUBCUT SCH (21:39)
[2022-08-19] MEDS: INSULIN REGULAR 100 UNIT/ML SUBCUT SCH ×4 (08:17→21:09)
[2022-08-19] MEDS: CLOPIDOGREL 75 MG TABLET PO SCH (10:34)
[2022-08-19] MEDS: CETIRIZINE 10 MG TABLET PO SCH (10:34)
[2022-08-19] MEDS: ISOSORBIDE MONONITRATE 60 MG TABLET PO SCH (10:35)
[2022-08-19] MEDS: PANTOPRAZOLE 40 MG TABLET PO SCH (10:35)
[2022-08-19] MEDS: DOCUSATE SODIUM 100 MG CAPSULE PO SCH ×2 (10:35→21:08)
[2022-08-19] MEDS: levETIRAcetam 500 MG TABLET PO SCH ×2 (10:35→21:10)
[2022-08-19] MEDS: LACOSAMIDE 50 MG TABLET PO SCH ×2 (10:35→21:10)
[2022-08-19] MEDS: METOPROLOL TARTRATE 50 MG TABLET PO SCH ×2 (10:35→21:15)
[2022-08-19] MEDS: MUPIROCIN 2% OINT 22 GM TUBE TOP SCH ×4 (10:35→21:08)
[2022-08-19] MEDS: SODIUM CHLORIDE 0.65% NASAL SPRAY 45 ML BOTTLE BOTH NARES SCH ×4 (10:35→21:10)
[2022-08-19] MEDS: LIRAGLUTIDE SUBCUT SCH (10:36)
[2022-08-19 13:22] LABS: RBC,Urine 140 /HPF (0-4)
[2022-08-19 13:23] LABS: Bilirubin,Urine Negative (Negative); Blood, Urine Large mg/dL (Negative); Glucose,Urine (UA) 500 mg/dL (Negative); Ketones,Urine Negative (Negative); Nitrite,Urine Negative (Negative); Protein,Urine Negative (Negative); Urine Appearance Clear (Clear); Urine Color Yellow (Yellow); Urine Specific Gravity 1.015 (1.001-1.035); Urine Urobilinogen 0.2 eU/dL (<2.0)
[2022-08-19] MEDS: ACETAMINOPHEN 325 MG TABLET PO PRN (15:24)
[2022-08-19] MEDS: LORazepam 2 MG/1 ML VIAL IV PRN (19:35)
[2022-08-19] MEDS ORDERED: PHENYTOIN 100 MG/2 ML VIAL IV ONE (19:59)
[2022-08-19] MEDS ORDERED: PHENYTOIN 100 MG/2 ML VIAL IV SCH (20:00)
[2022-08-19] MEDS: ATORVASTATIN 40 MG TABLET PO SCH (21:10)
[2022-08-19] MEDS: PHENYTOIN INJ 300 MG in SODIUM CHLORIDE 0.9% 100 ML IV SCH (21:47)
[2022-08-19] MEDS ORDERED: METOPROLOL TARTRATE 5 MG/5 ML VIAL IV PRN (22:10)
[2022-08-20] MEDS: PHENYTOIN INJ 300 MG in SODIUM CHLORIDE 0.9% 100 ML IV SCH (03:32)
[2022-08-20 05:25] LABS: Basophils # 0.1 10*3/uL (0.0-0.2); Basophils % 0.8 % (0.0-0.8); Eosinophils # 0.4 10*3/uL (0.0-0.87); Eosinophils % 6.9 % (0.00-10.9); Hemoglobin 10.9 GM/DL (12.0-16.0); Immature Granulocytes % 0.3 %; Immature Granulocytes Absolute 0.02 #; Lymphocytes # 2.7 10*3/uL (1.4-4.0); Lymphocytes % 45.9 % (21.3-54.2); Mean Corpuscular HGB Conc 31.1 GM/DL (32-36); Mean Corpuscular Volume 91.4 FL (87-102); Mean Platelet Volume 10.5 FL (9.6-12.0); Monocytes # 0.5 10*3/uL (0.11-0.8); Monocytes % 7.9 % (1.7-12.7); Neutrophils % 38.2 % (38.7-73.9); Platelet Count 202 T/CUMM (130-400); Red Blood Count 3.83 MC/CUMM (3.8-5.5); Red Cell Distribution Width 16.5 % (9.3-17.3); White Blood Count 5.95 T/CUMM (4-12)
[2022-08-20] MEDS: ACETAMINOPHEN 325 MG TABLET PO PRN ×2 (05:27→17:17)
[2022-08-20 05:46] LABS: Alanine Aminotransferase 26 U/L (13-56); Alkaline Phosphatase 93 U/L (45-117); Aspartate Amino Transferase 16 U/L (0-37); Bilirubin,Total < 0.39 MG/DL (0.20-1.00); Blood Urea Nitrogen 16 MG/DL (7-18); Calcium 8.7 MG/DL (8.5-10.1); Carbon Dioxide 20 MMOL/L (21-32); Chloride 113 MMOL/L (98-107); Glucose 132 MG/DL (74-106); Osmolality,Calculated 283.3 MOS/KG (273-304); Potassium 3.9 MMOL/L (3.5-5.1); Sodium 141 MMOL/L (136-145); Total Protein 7.5 G/DL (6.4-8.2)
[2022-08-20 06:09] LABS: Band Neutrophils 1 % (0-10); Eosinophils 2 % (0-10); Lymphocytes 45 % (20-55); Total Cells Counted 100
[2022-08-20 06:10] LABS: Hypochromia Slight; Microcytosis 1+; Ovalocytes Slight
[2022-08-20] MEDS: CETIRIZINE 10 MG TABLET PO SCH (09:21)
[2022-08-20] MEDS: ISOSORBIDE MONONITRATE 60 MG TABLET PO SCH (09:21)
[2022-08-20] MEDS: DOCUSATE SODIUM 100 MG CAPSULE PO SCH ×2 (09:21→20:53)
[2022-08-20] MEDS: METOPROLOL TARTRATE 50 MG TABLET PO SCH ×2 (09:21→20:55)
[2022-08-20] MEDS: CLOPIDOGREL 75 MG TABLET PO SCH (09:21)
[2022-08-20] MEDS: PANTOPRAZOLE 40 MG TABLET PO SCH (09:21)
[2022-08-20] MEDS: SODIUM CHLORIDE 0.65% NASAL SPRAY 45 ML BOTTLE BOTH NARES SCH ×4 (09:21→20:56)
[2022-08-20] MEDS: levETIRAcetam 500 MG TABLET PO SCH ×2 (09:21→20:54)
[2022-08-20] MEDS: LACOSAMIDE 50 MG TABLET PO SCH ×2 (09:22→20:54)
[2022-08-20] MEDS ORDERED: SERTRALINE 25 MG TABLET PO ONE (09:30)
[2022-08-20] MEDS: LIRAGLUTIDE SUBCUT SCH (10:43)
[2022-08-20] MEDS: MUPIROCIN 2% OINT 22 GM TUBE TOP SCH ×4 (10:43→20:56)
[2022-08-20] MEDS: INSULIN REGULAR 100 UNIT/ML SUBCUT SCH ×4 (10:43→20:54)
[2022-08-20] MEDS ORDERED: PHENYTOIN INJ 300 MG in SODIUM CHLORIDE 0.9% 100 ML IV SCH (12:30)
[2022-08-20] MEDS: ATORVASTATIN 40 MG TABLET PO SCH (20:55)
[2022-08-21] MEDS: hydrALAZINE 20 MG/1 ML VIAL IV PRN (06:03)
[2022-08-21] MEDS: LORazepam 2 MG/1 ML VIAL IV PRN (06:18)
[2022-08-21] MEDS ORDERED: LORazepam 2 MG/1 ML VIAL IV ONE ×2 (06:43→06:45)
[2022-08-21] MEDS: INSULIN REGULAR 100 UNIT/ML SUBCUT SCH ×4 (07:18→20:59)
[2022-08-21] MEDS ORDERED: PHENYTOIN INJ 1,000 MG in SODIUM CHLORIDE 0.9% 100 ML IV ONE (07:30)
[2022-08-21 07:40] LABS: Basophils # 0.1 10*3/uL (0.0-0.2); Basophils % 0.7 % (0.0-0.8); Eosinophils # 0.6 10*3/uL (0.0-0.87); Eosinophils % 8.5 % (0.00-10.9); Hematocrit 37.4 VOL% (35.7-47.0); Hemoglobin 11.7 GM/DL (12.0-16.0); Immature Granulocytes % 0.3 %; Immature Granulocytes Absolute 0.02 #; Lymphocytes # 2.5 10*3/uL (1.4-4.0); Lymphocytes % 35.7 % (21.3-54.2); Mean Corpuscular HGB Conc 31.3 GM/DL (32-36); Mean Platelet Volume 10.7 FL (9.6-12.0); Monocytes # 0.6 10*3/uL (0.11-0.8); Monocytes % 8.1 % (1.7-12.7); Neutrophils % 46.7 % (38.7-73.9); Platelet Count 193 T/CUMM (130-400); Red Blood Count 4.11 MC/CUMM (3.8-5.5); Red Cell Distribution Width 16.4 % (9.3-17.3); White Blood Count 6.94 T/CUMM (4-12)
[2022-08-21 08:04] LABS: Calcium 9.3 MG/DL (8.5-10.1); Osmolality,Calculated 274.7 MOS/KG (273-304); Potassium 3.9 MMOL/L (3.5-5.1)
[2022-08-21] MEDS: ONDANSETRON 4 MG/2 ML VIAL IV PRN (08:41)
[2022-08-21] MEDS: LIRAGLUTIDE SUBCUT SCH (09:30)
[2022-08-21] MEDS: SODIUM CHLORIDE 0.65% NASAL SPRAY 45 ML BOTTLE BOTH NARES SCH ×4 (09:30→21:00)
[2022-08-21] MEDS: ISOSORBIDE MONONITRATE 60 MG TABLET PO SCH (10:15)
[2022-08-21] MEDS: CLOPIDOGREL 75 MG TABLET PO SCH (10:15)
[2022-08-21] MEDS: LACOSAMIDE 50 MG TABLET PO SCH ×2 (10:15→20:58)
[2022-08-21] MEDS: CETIRIZINE 10 MG TABLET PO SCH (10:15)
[2022-08-21] MEDS: DOCUSATE SODIUM 100 MG CAPSULE PO SCH ×2 (10:15→20:59)
[2022-08-21] MEDS: levETIRAcetam 500 MG TABLET PO SCH ×2 (10:15→20:59)
[2022-08-21] MEDS: MUPIROCIN 2% OINT 22 GM TUBE TOP SCH ×4 (10:15→21:00)
[2022-08-21] MEDS: PANTOPRAZOLE 40 MG TABLET PO SCH (10:15)
[2022-08-21] MEDS ORDERED: DIAZEPAM 5 MG TABLET PO ONE (13:32)
[2022-08-21] MEDS: predniSONE 5 MG TABLET PO SCH ×2 (14:51→20:58)
[2022-08-21] MEDS: SERTRALINE 25 MG TABLET PO SCH (20:59)
[2022-08-21] MEDS: ATORVASTATIN 40 MG TABLET PO SCH (20:59)
[2022-08-22 04:07] LABS: Alanine Aminotransferase 23 U/L (13-56); Alkaline Phosphatase 93 U/L (45-117); Aspartate Amino Transferase 14 U/L (0-37); Bilirubin,Total < 0.39 MG/DL (0.20-1.00); Blood Urea Nitrogen 12 MG/DL (7-18); Calcium 8.7 MG/DL (8.5-10.1); Carbon Dioxide 26 MMOL/L (21-32); Chloride 109 MMOL/L (98-107); Glucose 118 MG/DL (74-106); Osmolality,Calculated 281.3 MOS/KG (273-304); Potassium 4.4 MMOL/L (3.5-5.1); Sodium 141 MMOL/L (136-145); Total Protein 7.4 G/DL (6.4-8.2)
[2022-08-22] MEDS: INSULIN REGULAR 100 UNIT/ML SUBCUT SCH ×4 (07:27→20:26)
[2022-08-22] MEDS: CETIRIZINE 10 MG TABLET PO SCH (08:40)
[2022-08-22] MEDS: TOPIRAMATE 25 MG TABLET PO SCH ×2 (08:40→20:28)
[2022-08-22] MEDS: DOCUSATE SODIUM 100 MG CAPSULE PO SCH ×2 (08:41→20:28)
[2022-08-22] MEDS: ISOSORBIDE MONONITRATE 60 MG TABLET PO SCH (08:41)
[2022-08-22] MEDS: levETIRAcetam 500 MG TABLET PO SCH ×2 (08:41→20:27)
[2022-08-22] MEDS: CLOPIDOGREL 75 MG TABLET PO SCH (08:41)
[2022-08-22] MEDS: PANTOPRAZOLE 40 MG TABLET PO SCH (08:41)
[2022-08-22] MEDS: LACOSAMIDE 50 MG TABLET PO SCH (08:41)
[2022-08-22] MEDS: predniSONE 5 MG TABLET PO SCH ×2 (08:47→20:28)
[2022-08-22] MEDS: DIAZEPAM 2 MG TABLET PO PRN ×2 (08:47→20:44)
[2022-08-22] MEDS: SODIUM CHLORIDE 0.65% NASAL SPRAY 45 ML BOTTLE BOTH NARES SCH ×4 (08:50→20:28)
[2022-08-22] MEDS: MUPIROCIN 2% OINT 22 GM TUBE TOP SCH ×4 (08:51→20:28)
[2022-08-22] MEDS: POLYETHYLENE GLYCOL POWDER 17 GM PACK PO SCH (09:42)
[2022-08-22] MEDS: METOPROLOL TARTRATE 50 MG TABLET PO SCH ×2 (13:53→20:28)
[2022-08-22] MEDS: SERTRALINE 25 MG TABLET PO SCH (20:28)
[2022-08-22] MEDS: ATORVASTATIN 40 MG TABLET PO SCH (20:28)
[2022-08-22] MEDS: OLANZapine 2.5 MG TABLET PO SCH (21:18)
[2022-08-23 04:04] LABS: Calcium 8.5 MG/DL (8.5-10.1); Osmolality,Calculated 285.3 MOS/KG (273-304); Potassium 4.7 MMOL/L (3.5-5.1)
[2022-08-23 04:16] LABS: Basophils # 0.1 10*3/uL (0.0-0.2); Basophils % 0.7 % (0.0-0.8); Eosinophils # 0.4 10*3/uL (0.0-0.87); Hematocrit 33.5 VOL% (35.7-47.0); Hemoglobin 10.5 GM/DL (12.0-16.0); Immature Granulocytes % 0.3 %; Immature Granulocytes Absolute 0.02 #; Lymphocytes # 2.2 10*3/uL (1.4-4.0); Lymphocytes % 31.2 % (21.3-54.2); Mean Corpuscular HGB Conc 31.3 GM/DL (32-36); Mean Corpuscular Volume 91.8 FL (87-102); Mean Platelet Volume 10.6 FL (9.6-12.0); Monocytes # 0.4 10*3/uL (0.11-0.8); Neutrophils % 56.8 % (38.7-73.9); Platelet Count 193 T/CUMM (130-400); Red Blood Count 3.65 MC/CUMM (3.8-5.5); Red Cell Distribution Width 16.3 % (9.3-17.3); White Blood Count 6.95 T/CUMM (4-12)
[2022-08-23] MEDS: INSULIN REGULAR 100 UNIT/ML SUBCUT SCH ×4 (07:30→20:45)
[2022-08-23] MEDS: ONDANSETRON 4 MG/2 ML VIAL IV PRN (08:10)
[2022-08-23] MEDS: SODIUM CHLORIDE 0.65% NASAL SPRAY 45 ML BOTTLE BOTH NARES SCH ×4 (09:05→20:39)
[2022-08-23] MEDS: MUPIROCIN 2% OINT 22 GM TUBE TOP SCH ×4 (09:10→20:39)
[2022-08-23] MEDS: levETIRAcetam 500 MG TABLET PO SCH ×2 (09:15→20:38)
[2022-08-23] MEDS: DOCUSATE SODIUM 100 MG CAPSULE PO SCH ×2 (09:15→20:38)
[2022-08-23] MEDS: PANTOPRAZOLE 40 MG TABLET PO SCH (09:15)
[2022-08-23] MEDS: METOPROLOL TARTRATE 50 MG TABLET PO SCH ×2 (09:15→20:38)
[2022-08-23] MEDS: DIAZEPAM 2 MG TABLET PO SCH ×3 (09:15→20:38)
[2022-08-23] MEDS: POLYETHYLENE GLYCOL POWDER 17 GM PACK PO SCH (09:15)
[2022-08-23] MEDS: hydrALAZINE 20 MG/1 ML VIAL IV PRN (09:18)
[2022-08-23] MEDS: TOPIRAMATE 25 MG TABLET PO SCH ×2 (09:50→20:38)
[2022-08-23] MEDS: predniSONE 5 MG TABLET PO SCH ×2 (09:50→20:38)
[2022-08-23] MEDS: CLOPIDOGREL 75 MG TABLET PO SCH (09:50)
[2022-08-23] MEDS: ISOSORBIDE MONONITRATE 60 MG TABLET PO SCH (09:50)
[2022-08-23] MEDS: CETIRIZINE 10 MG TABLET PO SCH (09:50)
[2022-08-23] MEDS: OLANZapine 2.5 MG TABLET PO SCH (20:37)
[2022-08-23] MEDS: SERTRALINE 25 MG TABLET PO SCH (20:38)
[2022-08-23] MEDS: ATORVASTATIN 40 MG TABLET PO SCH (20:38)
[2022-08-24 03:46] LABS: Basophils % 0.5 % (0.0-0.8); Eosinophils # 0.4 10*3/uL (0.0-0.87); Eosinophils % 6.7 % (0.00-10.9); Hematocrit 33.1 VOL% (35.7-47.0); Hemoglobin 10.2 GM/DL (12.0-16.0); Immature Granulocytes % 0.2 %; Immature Granulocytes Absolute 0.01 #; Lymphocytes # 1.9 10*3/uL (1.4-4.0); Lymphocytes % 34.5 % (21.3-54.2); Mean Corpuscular HGB Conc 30.8 GM/DL (32-36); Mean Corpuscular Volume 91.4 FL (87-102); Mean Platelet Volume 10.2 FL (9.6-12.0); Monocytes # 0.3 10*3/uL (0.11-0.8); Monocytes % 6.2 % (1.7-12.7); Neutrophils % 51.9 % (38.7-73.9); Platelet Count 178 T/CUMM (130-400); Red Blood Count 3.62 MC/CUMM (3.8-5.5); Red Cell Distribution Width 16.2 % (9.3-17.3); White Blood Count 5.51 T/CUMM (4-12)
[2022-08-24 04:07] LABS: Calcium 8.6 MG/DL (8.5-10.1); Osmolality,Calculated 288.1 MOS/KG (273-304); Potassium 4.1 MMOL/L (3.5-5.1)
[2022-08-24] MEDS: levETIRAcetam 500 MG TABLET PO SCH ×2 (08:47→20:33)
[2022-08-24] MEDS: predniSONE 5 MG TABLET PO SCH ×2 (08:47→20:33)
[2022-08-24] MEDS: METOPROLOL TARTRATE 50 MG TABLET PO SCH ×2 (08:48→20:34)
[2022-08-24] MEDS: ISOSORBIDE MONONITRATE 60 MG TABLET PO SCH (08:48)
[2022-08-24] MEDS: DOCUSATE SODIUM 100 MG CAPSULE PO SCH ×2 (08:48→20:34)
[2022-08-24] MEDS: PANTOPRAZOLE 40 MG TABLET PO SCH (08:48)
[2022-08-24] MEDS: TOPIRAMATE 25 MG TABLET PO SCH ×2 (08:49→20:34)
[2022-08-24] MEDS: DIAZEPAM 2 MG TABLET PO SCH ×3 (08:49→20:33)
[2022-08-24] MEDS: CETIRIZINE 10 MG TABLET PO SCH (08:49)
[2022-08-24] MEDS: POLYETHYLENE GLYCOL POWDER 17 GM PACK PO SCH (08:50)
[2022-08-24] MEDS: CLOPIDOGREL 75 MG TABLET PO SCH (08:50)
[2022-08-24] MEDS: INSULIN REGULAR 100 UNIT/ML SUBCUT SCH ×4 (09:37→20:35)
[2022-08-24] MEDS: SODIUM CHLORIDE 0.65% NASAL SPRAY 45 ML BOTTLE BOTH NARES SCH ×4 (10:37→20:36)
[2022-08-24] MEDS: MUPIROCIN 2% OINT 22 GM TUBE TOP SCH ×4 (11:23→20:32)
[2022-08-24] MEDS ORDERED: SODIUM CHLORIDE 0.65% NASAL SPRAY 45 ML BOTTLE BOTH NARES SCH (13:00)
[2022-08-24] MEDS: ATORVASTATIN 40 MG TABLET PO SCH (20:33)
[2022-08-24] MEDS: OLANZapine 2.5 MG TABLET PO SCH (20:34)
[2022-08-24] MEDS: SERTRALINE 25 MG TABLET PO SCH (20:34)
[2022-08-25] MEDS: hydrALAZINE 20 MG/1 ML VIAL IV PRN (00:15)
[2022-08-25 05:18] LABS: Basophils % 0.6 % (0.0-0.8); Eosinophils # 0.5 10*3/uL (0.0-0.87); Eosinophils % 6.2 % (0.00-10.9); Hematocrit 33.7 VOL% (35.7-47.0); Hemoglobin 10.6 GM/DL (12.0-16.0); Immature Granulocytes % 0.4 %; Immature Granulocytes Absolute 0.03 #; Lymphocytes # 2.2 10*3/uL (1.4-4.0); Lymphocytes % 30.5 % (21.3-54.2); Mean Corpuscular HGB Conc 31.5 GM/DL (32-36); Mean Corpuscular Volume 90.8 FL (87-102); Mean Platelet Volume 10.6 FL (9.6-12.0); Monocytes # 0.5 10*3/uL (0.11-0.8); Monocytes % 6.2 % (1.7-12.7); Neutrophils % 56.1 % (38.7-73.9); Platelet Count 207 T/CUMM (130-400); Red Blood Count 3.71 MC/CUMM (3.8-5.5); Red Cell Distribution Width 15.9 % (9.3-17.3); White Blood Count 7.27 T/CUMM (4-12)
[2022-08-25 05:38] LABS: Osmolality,Calculated 283.4 MOS/KG (273-304); Potassium 4.1 MMOL/L (3.5-5.1)
[2022-08-25] MEDS: INSULIN REGULAR 100 UNIT/ML SUBCUT SCH ×4 (07:37→20:57)
[2022-08-25] MEDS ORDERED: METHOTREXATE 2.5 MG TABLET PO SCH (09:00)
[2022-08-25] MEDS: DIAZEPAM 2 MG TABLET PO SCH ×3 (09:04→20:50)
[2022-08-25] MEDS: levETIRAcetam 500 MG TABLET PO SCH ×2 (09:04→20:49)
[2022-08-25] MEDS: TOPIRAMATE 25 MG TABLET PO SCH ×2 (09:04→20:49)
[2022-08-25] MEDS: predniSONE 5 MG TABLET PO SCH ×2 (09:04→20:49)
[2022-08-25] MEDS: DOCUSATE SODIUM 100 MG CAPSULE PO SCH ×2 (09:04→20:49)
[2022-08-25] MEDS: CLOPIDOGREL 75 MG TABLET PO SCH (09:05)
[2022-08-25] MEDS: CETIRIZINE 10 MG TABLET PO SCH (09:05)
[2022-08-25] MEDS: METOPROLOL TARTRATE 50 MG TABLET PO SCH ×2 (09:05→20:49)
[2022-08-25] MEDS: PANTOPRAZOLE 40 MG TABLET PO SCH (09:05)
[2022-08-25] MEDS: POLYETHYLENE GLYCOL POWDER 17 GM PACK PO SCH (09:05)
[2022-08-25] MEDS: ISOSORBIDE MONONITRATE 60 MG TABLET PO SCH (09:05)
[2022-08-25] MEDS: SODIUM CHLORIDE 0.65% NASAL SPRAY 45 ML BOTTLE BOTH NARES SCH ×4 (09:26→20:50)
[2022-08-25] MEDS: MUPIROCIN 2% OINT 22 GM TUBE TOP SCH ×4 (09:29→20:49)
[2022-08-25] MEDS ORDERED: SIMETHICONE CHEW 125 MG TABLET PO SCH (13:30)
[2022-08-25] MEDS: OLANZapine 2.5 MG TABLET PO SCH (20:49)
[2022-08-25] MEDS: ATORVASTATIN 40 MG TABLET PO SCH (20:49)
[2022-08-25] MEDS: SERTRALINE 25 MG TABLET PO SCH (20:49)
[2022-08-26 05:32] LABS: Basophils # 0.1 10*3/uL (0.0-0.2); Basophils % 0.8 % (0.0-0.8); Eosinophils # 0.3 10*3/uL (0.0-0.87); Eosinophils % 4.1 % (0.00-10.9); Hematocrit 33.5 VOL% (35.7-47.0); Hemoglobin 10.4 GM/DL (12.0-16.0); Immature Granulocytes % 0.3 %; Immature Granulocytes Absolute 0.02 #; Lymphocytes # 2.3 10*3/uL (1.4-4.0); Lymphocytes % 37.1 % (21.3-54.2); Mean Platelet Volume 10.3 FL (9.6-12.0); Monocytes # 0.4 10*3/uL (0.11-0.8); Monocytes % 6.7 % (1.7-12.7); Platelet Count 210 T/CUMM (130-400); Red Blood Count 3.68 MC/CUMM (3.8-5.5); Red Cell Distribution Width 15.9 % (9.3-17.3); White Blood Count 6.31 T/CUMM (4-12)
[2022-08-26 05:56] LABS: Osmolality,Calculated 284.4 MOS/KG (273-304); Potassium 4.4 MMOL/L (3.5-5.1)
[2022-08-26 06:00] LABS: Eosinophils 2 % (0-10); Lymphocytes 38 % (20-55); Total Cells Counted 100
[2022-08-26 06:01] LABS: Hypochromia Slight; Microcytosis Slight; Ovalocytes Slight
[2022-08-26 06:02] LABS: Platelet Estimate Normal
[2022-08-26] MEDS: DIAZEPAM 2 MG TABLET PO SCH (08:22)
[2022-08-26] MEDS: predniSONE 5 MG TABLET PO SCH (08:22)
[2022-08-26] MEDS: ISOSORBIDE MONONITRATE 60 MG TABLET PO SCH (08:22)
[2022-08-26] MEDS: METOPROLOL TARTRATE 50 MG TABLET PO SCH (08:22)
[2022-08-26] MEDS: CLOPIDOGREL 75 MG TABLET PO SCH (08:22)
[2022-08-26] MEDS: DOCUSATE SODIUM 100 MG CAPSULE PO SCH (08:22)
[2022-08-26] MEDS: TOPIRAMATE 25 MG TABLET PO SCH (08:22)
[2022-08-26] MEDS: CETIRIZINE 10 MG TABLET PO SCH (08:22)
[2022-08-26] MEDS: levETIRAcetam 500 MG TABLET PO SCH (08:22)
[2022-08-26] MEDS: PANTOPRAZOLE 40 MG TABLET PO SCH (08:23)
[2022-08-26] MEDS: MUPIROCIN 2% OINT 22 GM TUBE TOP SCH (08:23)
[2022-08-26] MEDS: SODIUM CHLORIDE 0.65% NASAL SPRAY 45 ML BOTTLE BOTH NARES SCH (08:23)
[2022-08-26] MEDS: POLYETHYLENE GLYCOL POWDER 17 GM PACK PO SCH (08:24)
[2022-08-26] MEDS: INSULIN REGULAR 100 UNIT/ML SUBCUT SCH ×2 (08:24→11:39)
[2022-08-26 11:19] VITALS: BP 124/74
== END 2022-08-26 11:59 | DRG 53 ==
LOC: N.ED 15:05 → N.3E 15:05 → SUATTDRO 16:45 → N.3E 18:39 → N.ICU 08-21 07:09 → SUATTDRO 08-21 08:57 → N.3E 08-25 02:15
PROVIDERS: ADMIT Family Medicine; ATTEND Family Medicine